=== PATIENT | male | born 1945 | race Caucasian/White ===

== ENCOUNTER 2017-04-05 13:37 | Outpatient (RCR) | payer MEDICARE, OTHER | END 2017-07-04 | disposition home or self-care (01) | LOC: ONC 13:37 | PROVIDERS: ATTEND Radiology Radiation Oncology | DX: C61 Malignant neoplasm of prostate (principal) | CPT/HCPCS: 99214 ==

== ENCOUNTER 2017-10-05 07:40 | Outpatient (RCR) | payer MEDICARE, OTHER | END 2017-10-29 | disposition home or self-care (01) | LOC: ONC 07:40 | PROVIDERS: ATTEND Radiology Radiation Oncology | DX: Z51.0 Encounter for antineoplastic radiation therapy (principal); C61 Malignant neoplasm of prostate | CPT/HCPCS: 77300; 77301; 77334; 77336; 77338; 77385; 77386 ==

== ENCOUNTER 2017-11-21 14:39 | Outpatient (RCR) | payer MEDICARE, OTHER | END 2017-11-28 | disposition home or self-care (01) | LOC: ONC 14:39 | PROVIDERS: ATTEND Radiology Radiation Oncology | DX: C61 Malignant neoplasm of prostate (principal) | CPT/HCPCS: 99213 ==

== ENCOUNTER 2018-08-23 05:37 | Outpatient (CLI) | payer MEDICARE, OTHER ==
[~2018-08-23] VITALS: Ht 172.7 cm; Wt 87.5 kg
[2018-08-23] MEDS ORDERED: METF-397 PO (11:44)
[2018-08-23] MEDS ORDERED: LEVO125T6 PO (11:44)
[2018-08-23] MEDS ORDERED: PANT40TA3 PO (11:44)
[2018-08-23] MEDS ORDERED: LIRA0.6P SQ (11:44)
== END 2018-08-23 11:46 | disposition home or self-care (01) ==
LOC: PREOP 05:37
PROVIDERS: ATTEND Surgery
DX: Z01.818 Encounter for other preprocedural examination (principal)

== ENCOUNTER 2018-08-27 08:20 | Day surgery (SDC) | payer MEDICARE, OTHER ==
[~2018-08-27 08:20] MED LIST: LEVO125T6 PO; LIRA0.6P SQ; METF-397 PO; PANT40TA3 PO
--- OUTSIDE RECORDS SUMMARY | 2018-08-27 08:23 | XMS REPORT | Continuity of Care Document ---
Author Organization Unknown Address Unknown Allergies Active Description Code Type Severity Reaction Onset Reported/Identified Relationship to Patient Clinical Status Yes No Known Drug Allergies [id number] Drug Allergy Unknown N/A 08/23/2018 Medications There is no data. Problems Date Dx Coded Attending Type Code Diagnosis Diagnosed By 04/07/2017 DEE MARTINEZ MD Ot C61 MALIGNANT NEOPLASM OF PROSTATE 05/23/2017 DEE MARTINEZ MD Ot C61 MALIGNANT NEOPLASM OF PROSTATE 07/04/2017 DEE MARTINEZ MD Ot C61 MALIGNANT NEOPLASM OF PROSTATE 09/20/2017 DEE MARTINEZ MD Ot C61 MALIGNANT NEOPLASM OF PROSTATE 10/29/2017 DEE MARTINEZ MD Ot C61 MALIGNANT NEOPLASM OF PROSTATE 10/29/2017 DEE MARTINEZ MD Ot Z51.0 ENCOUNTER FOR ANTINEOPLASTIC RADIATION T 11/22/2017 DEE MARTINEZ MD Ot C61 MALIGNANT NEOPLASM OF PROSTATE 11/28/2017 DEE MARTINEZ MD Ot C61 MALIGNANT NEOPLASM OF PROSTATE 12/19/2017 DEE MARTINEZ MD Ot C61 MALIGNANT NEOPLASM OF PROSTATE 02/01/2018 DEE MARTINEZ MD Ot C61 MALIGNANT NEOPLASM OF PROSTATE 04/11/2018 DEE MARTINEZ MD Ot C61 MALIGNANT NEOPLASM OF PROSTATE 04/11/2018 DEE MARTINEZ MD Ot C61 MALIGNANT NEOPLASM OF PROSTATE 08/23/2018 DEE MARTINEZ MD Ot C61 MALIGNANT NEOPLASM OF PROSTATE 08/23/2018 TAY AUGUST DO Ot Z01.818 ENCOUNTER FOR OTHER PREPROCEDURAL EXAMIN 08/24/2018 TAY AUGUST DO Ot Z01.818 ENCOUNTER FOR OTHER PREPROCEDURAL EXAMIN Procedures There is no data. Results Test Result Range AMMONIA - 08/02/18 09:34 AMMONIA (P) 138 umol/L < OR=72 Encounters ACCT No. Visit Date/Time Discharge Status Pt. Type Provider Facility Loc./Unit Complaint [id number] 08/07/2018 09:45:00 08/07/2018 23:59:59 CLS Outpatient MADELEINE NELSON [facility] [id number] 08/02/2018 08:40:00 Document Registration [id number] 08/23/2018 05:37:00 08/23/2018 11:46:00 DIS Outpatient TAY AUGUST DO Via [facility] PREOP COLONOSCOPY/EGD [id number] 01/29/2018 00:24:00 01/29/2018 23:59:59 CLS Preadmit DEE MARTINEZ MD Via [facility] ONC [id number] 2017 14:39:00 11/28/2017 00:01:00 DIS Outpatient DEE MARTINEZ MD Via [facility] ONC [id number] 10/05/2017 07:40:00 10/29/2017 00:01:00 DIS Outpatient DEE MARTINEZ MD Via [facility] ONC [id number] 04/05/2017 13:37:00 07/04/2017 00:01:00 DIS Outpatient DEE MARTINEZ MD Via [facility] ONC [id number] 08/27/2018 10:20:00 PEN Preadmit TAY AUGUST DO Via [facility] ENDO BLOOD IN STOOLS/GI BLEED
[2018-08-27] MEDS ORDERED: LACTATED RINGERS 1,000 ML IV ONE (08:27)
[2018-08-27] MEDS ORDERED: LACTATED RINGERS 1,000 ML IV STA (08:34)
[2018-08-27] MEDS ORDERED: HURRICAINE EXT TUBE (BENZOCAINE) XX PRN (08:45)
[2018-08-27 08:58] VITALS: BP 144/77
[2018-08-27] MEDS ORDERED: PROPOFOL INJECTION 50 ML IV ONE (09:15)
[2018-08-27] MEDS ORDERED: MIDAZOLAM 2 MG/2 ML (VERSED) VIAL ONE (09:15)
--- NOTE | 2018-08-27 09:41 | Progress Note-Pre Operative ---
Pre-Operative Progress Note H&P Reviewed The H&P was reviewed, patient examined and no changes noted. Time Seen by Provider: 09:39 Date H&P Reviewed: Aug 27, 2018 Time H&P Reviewed: 09:40 Pre-Operative Diagnosis: Chronic Gastritis, Rectal Bleed TAY AUGUST DO Aug 27, 2018 09:41
--- NOTE | 2018-08-27 10:33 | Progress Note-Post Operative ---
Post-Operative Progess Note Surgeon (s)/Field Seismologist (s) Surgeon TAY AUGUST DO Field Seismologist: none Pre-Operative Diagnosis Chronic Gastritis, Rectal Bleed Post-Operative Diagnosis Chronic Gastritis Duodenitis Hiatal hernia Cecal Polyp Internal hemorrhoids Procedure & Operative Findings Date of Procedure 08/27/18 Procedure Performed/Findings EGD with bx Colon with hot bx Anesthesia Type IV sedation by NUTRITIONAL SERVICES HOST Estimated Blood Loss Estimated blood loss (mL): scant Specimens/Packing Specimens Removed duodenal bx antral bx body of stomach bx Cecal polyp TAY AUGUST DO Aug 27, 2018 10:33
--- NOTE | 2018-08-27 10:34 | Endoscopy Discharge Instruct ---
Endo Procedure/Findings Findings 1.: Gastritis 2.: Hiatal Hernia 3.: Polyp 4.: Internal Hemorrhoids Discharge Instructions - Activity: You might feel a little sleepy until tomorrow. This is due to the medicine you received to relax you. Until tomorrow, you should: NOT drive a car, operate machinery or power tools. NOT drink any alcoholic beverages. NOT make any important decisions or sign importortant papers. Do not return to work until tomorrow, unless otherwise instructed. Resume previous activities tomorrow. Diet: Start by taking liquids. If you tolerate liquids, advance to solid food. make an appointment for one week Instructions: 1.: Colonoscopy in 1 year, EGD in 1 year Notify Physician - If you experience excessive bleeding, unusual abdominal pain, fever, or chest pain, contact your doctor immediately. Follow-Up: - I have received and understand the above instructions and will call my doctor if I have any further questions. Patient Signature Date Nurse Signature Other (Relationship) TAY AUGUST DO Aug 27, 2018 10:34
[2018-08-27 11:00] VITALS: BP 127/64
[2018-08-27 11:39] VITALS: BP 145/76
[2018-08-27 11:41] VITALS: BP 145/76
--- NOTE | 2018-08-27 14:20 | Anesthesia-General Post-Op ---
MAC Patient Condition Mental Status/LOC: Same as Preop Cardiovascular: Satisfactory Nausea/Vomiting: Absent Respiratory: Satisfactory Pain: Controlled Complications: Absent Post Op Complications Complications None Follow Up Care/Instructions Patient Instructions None needed. Anesthesiology Discharge Order Discharge Order Patient is doing well, no complaints, stable vital signs, no apparent adverse anesthesia problems. No complications reported per nursing. AMBROSE THAYER CRNA Aug 27, 2018 14:20
--- NOTE | 2018-08-28 01:19 | OPERATIVE REPORT ---
DATE OF SERVICE: 08/27/2018 PREOPERATIVE DIAGNOSIS: Chronic gastritis and rectal bleed. POSTOPERATIVE DIAGNOSES: 1. Gastritis. 2. Duodenitis. 3. Hiatal hernia. 4. Cecal polyp. 5. Internal hemorrhoids. PROCEDURES: 1. Colonoscopy with snare polypectomy. 2. EGD with biopsy. SURGEON: Raad Chance DO. DIAGNOSTIC MEDICAL SONOGRAPHER: None. ANESTHESIA: IV sedation by DYE REEL OPERATOR. SPECIMEN: 1. Biopsy from the duodenum. 2. Biopsy from the antrum. 3. Biopsy from the body of the stomach as well as finally a cecal polyp. BLOOD LOSS: Scant. FLUIDS: Per anesthesia. POSTOPERATIVE CONDITION: Stable. INDICATION FOR PROCEDURE: The patient is a 72-year-old male who has been having some rectal bleeding, history of cirrhosis and he has also had a chronic gastritis, needed a workup. FINDINGS: The patient had what looked like an ulcer in the duodenum or duodenitis. He also had some mild gastritis. He had a relatively large hiatal hernia and then he had a polyp in the cecum and some internal hemorrhoids. PROCEDURE NOTE: After informed consent was obtained, the patient was brought to the endoscopy suite, placed in the bed left lateral decubitus position. He was administered IV sedation by the DYE REEL OPERATOR who then monitored his vitals the entire time, heart rate, blood pressure and pulse ox. Started at the top, placed the scope down the mouth through the esophagus into the stomach, pushed in the duodenum, looked like there was some duodenitis and looked like even ulcer. When I did a biopsy this looked like it got a little bit of fibrinous or purulent fluid out. This was sent to pathology, back up into the antrum and took a biopsy of the antrum. The body of stomach actually also looked very erythematous almost like H. pylori, so did a couple biopsies of the body of the stomach, retroflexed the scope, saw the hiatal hernia and then pulled into the GE junction, looked actually okay. Pulled the scope up the esophagus and out the mouth. Switched scopes, switched camera, and gloves and went down below, started the colonoscopy. Pushed the scope all the way into 150 cm, able to get the cecum, took a picture of appendiceal orifice, noted the ileocecal valve, noted a polyp and did a hot biopsy of this polyp. Able to remove it en bloc, sent to pathology and then started withdrawing the scope insufflating to look circumferentially at the munoz looking at the cecum up the ascending colon and hepatic flexure, then down the transverse colon, splenic flexure, into the descending colon and down the sigmoid and finally in the rectum, retroflexed the rectal vault, saw some minimal internal hemorrhoids and then removed the scope. The patient tolerated the procedure. He was recovered in the endoscopy suite. Job ID: [id number] DocumentID: [id number] Dictated Date: 08/27/2018 15:22:03 Diet Consultant Date: 08/28/2018 01:19:05 Dictated By: RAAD CHANCE DO
== END 2018-08-27 11:50 | disposition home or self-care (01) ==
LOC: ENDO 08:20
PROVIDERS: ATTEND Surgery
DX: K29.50 Unspecified chronic gastritis without bleeding (principal); K29.80 Duodenitis without bleeding; K44.9 Diaphragmatic hernia without obstruction or gangrene; D12.0 Benign neoplasm of cecum; K64.8 Other hemorrhoids; K62.5 Hemorrhage of anus and rectum; K21.9 Gastro-esophageal reflux disease without esophagitis; K31.89 Other diseases of stomach and duodenum; K74.60 Unspecified cirrhosis of liver; E11.9 Type 2 diabetes mellitus without complications; K75.81 Nonalcoholic steatohepatitis (NASH); Z85.46 Personal history of malignant neoplasm of prostate; Z80.0 Family history of malignant neoplasm of digestive organs; Z79.84 Long term (current) use of oral hypoglycemic drugs; Z79.899 Other long term (current) drug therapy
CPT/HCPCS: 82962

== ENCOUNTER → 2019-01-04 | Outpatient (CLI) | payer MEDICARE, OTHER ==
--- NOTE | 2019-01-04 18:38 | Diagnostic Imaging Report ---
INDICATION: Preop for back surgery. TIME OF EXAM: 01:16 p.m. COMPARISON: No prior studies are available for comparison. FINDINGS: Right hemidiaphragm is mildly elevated. The heart size is normal. There is some ectasia and tortuosity of the descending thoracic aorta. Lungs are clear. No infiltrates are seen. There is no effusion or pneumothorax. IMPRESSION: No acute cardiopulmonary process is detected. Dictated by: Dictated on workstation # [id number]
== END ==
LOC: RAD FS 13:08
PROVIDERS: ATTEND Orthopaedic Surgery Orthopaedic Trauma
DX: Z01.812 Encounter for preprocedural laboratory examination (principal); Z01.811 Encounter for preprocedural respiratory examination
CPT/HCPCS: 71046

== ENCOUNTER 2019-01-11 09:03 | Outpatient (RCR) | payer MEDICARE, OTHER ==
[2019-01-11 09:19] LABS: HEMOGLOBIN 11.1 G/DL (13.3-17.7); MEAN PLATELET VOLUME 11.3 FL (7.4-10.4); RETICULOCYTE % 1.15 % (0.50-2.40); WHITE BLOOD COUNT 2.6 10^3/uL (4.3-11.0)
[2019-01-11 09:37] LABS: ALANINE AMINOTRANSFERASE 22 U/L (0-55); ALBUMIN 2.9 GM/DL (3.2-4.5); ALKALINE PHOSPHATASE 100 U/L (40-136); BILIRUBIN,TOTAL 1.2 MG/DL (0.1-1.0); BUN/CREATININE RATIO 11; CARBON DIOXIDE 21 MMOL/L (21-32); CHLORIDE 107 MMOL/L (98-107); CREATININE SERUM 0.96 MG/DL (0.60-1.30); GFR ESTIMATED > 60; GLUCOSE 271 MG/DL (70-105); SODIUM 137 MMOL/L (135-145); TOTAL PROTEIN 6.5 GM/DL (6.4-8.2)
== END 2019-04-11 | disposition home or self-care (01) ==
LOC: ONC 09:03
PROVIDERS: ATTEND Internal Medicine Hematology & Oncology
DX: C61 Malignant neoplasm of prostate (principal)
CPT/HCPCS: 80053; 82607; 82746; 83615; 85027; 85045; 99214

== ENCOUNTER → 2019-05-29 | Outpatient (CLI) | payer MEDICARE, OTHER ==
--- NOTE | 2019-05-29 09:43 | Diagnostic Imaging Report ---
INDICATION: Pain. TECHNIQUE: Two views of the left hip were obtained. FINDINGS: The alignment is normal. There is no fracture or dislocation. There are mild degenerative changes. The soft tissues are unremarkable. IMPRESSION: Mild degenerative changes; otherwise, unremarkable. Dictated by: Dictated on workstation # [id number]
== END ==
LOC: RAD FS 09:25
PROVIDERS: ATTEND Family Medicine
DX: M16.12 Unilateral primary osteoarthritis, left hip (principal)
CPT/HCPCS: 73502

== ENCOUNTER 2019-08-17 09:41 | Inpatient (IN) | payer MEDICARE, OTHER ==
[2019-08-17] VITALS (10 sets, daily range): BP systolic 118–157; BP diastolic 71–89
[~2019-08-17] VITALS: Ht 172 cm; Wt 88.3 kg
--- NOTE | 2019-08-17 09:54 | ED Neurological Problem ---
General Chief Complaint: Altered Mental Status Stated Complaint: CONFUSION Source: patient Exam Limitations: no limitations History of Present Illness Date Seen by Provider: Aug 17, 2019 Time Seen by Provider: 09:53 Initial Comments confusion persists over past 3 days, pt aware. Brought in by his who remains in [facility] during eval. Hx of cirrhosis (non-alcoholic), gives decent HPI, but thinks today is "December of 1999" Allergies and Home Medications Allergies Coded Allergies: No Known Drug Allergies (Verified , 08/27/18) Home Medications Levothyroxine Sodium 125 Mcg Tablet, 125 MCG PO DAILY, (Reported) Metformin HCl 500 Mg Tablet, 500 MG PO BID, (Reported) Pantoprazole Sodium 40 Mg Tablet.dr, 40 MG PO DAILY, (Reported) Patient Home Medication List Home Medication List Reviewed: Yes Review of Systems Review of Systems Constitutional: No dizziness, No fever, No malaise, No weakness Eyes: No Symptoms Reported Ears, Nose, Mouth, Throat: no symptoms reported Respiratory: No cough, No short of breath, No wheezing Cardiovascular: No chest pain; edema; No palpitations Gastrointestinal: No abdominal pain; constipation (no BM x 2 days); No diarrhea, No loss of appetite Musculoskeletal: No back pain, No joint pain Skin: No change in color, No change in hair/nails, No rash Psychiatric/Neurological: Denies Anxiety, Denies Depressed, Denies Emotional Problems Past Yedtsyi-Mpywgc-Xqqlqg Hx Past Med/Social Hx: Reviewed Nursing Past Med/Soc Hx Patient Social History Alcohol Use: Denies Use Recent Hopitalizations: No Seasonal Allergies Seasonal Allergies: No Past Medical History Surgeries: Yes (back sx, hernia, rectal fissure) Respiratory: No Cardiac: No Neurological: No Genitourinary: Yes (prostate cancer) Gastrointestinal: Yes Gastrointestinal Bleed, Cirrhosis Musculoskeletal: No Endocrine: Yes Hypothyroidsim, Diabetes, Non-Insulin dep HEENT: Yes (cataracts removed, ) Hearing Impairment: Hard of Hearing, Bilateral Hearing Aide Cancer: Yes Prostate What Type of Treatment Did You: Radiation Psychosocial: No Integumentary: No Blood Disorders: No (anemia r/t radiation) Physical Exam Vital Signs Vital Signs - First Documented 08/17/19 09:49 Pulse 92 Resp 16 B/P (MAP) 157/81 (106) Pulse Ox 99 Capillary Refill : Height, Weight, BMI Height: 5'8.00" Weight: 193lbs. 0.0oz. 87.073887rl; 29.4 BMI Method: General Appearance: WD/WN, no apparent distress HEENT: PERRL/EOMI, normal ENT inspection Neck: non-tender, full range of motion, supple Respiratory: chest non-tender, lungs clear Cardiovascular: regular rate, rhythm, no JVD, other (LE edema to knees) Gastrointestinal: normal bowel sounds, non tender, soft Back: normal inspection, no CVA tenderness, no vertebral tenderness Extremities: normal range of motion, non-tender, normal inspection, normal capillary refill, pedal edema (and b/l LE edema) Neurologic/Psychiatric: no motor/sensory deficits, alert, other (confused, but communicative. Answers questions appropriately) Focused Exam Lactate Level 08/17/19 09:56: Lactic Acid Level 4.26*H Lactic Acid Level Laboratory Tests Test 08/17/19 09:56 Lactic Acid Level 4.26 MMOL/L (0.50-2.00) *H Progress/Results/Core Measures Results/Orders Lab Results Laboratory Tests Test 08/17/19 09:56 08/17/19 10:27 Range/Units White Blood Count 4.3 4.3-11.0 10^3/uL Red Blood Count 3.17 L 4.35-5.85 10^6/uL Hemoglobin 11.6 L 13.3-17.7 G/DL Hematocrit 34 L 40-54 % Mean Corpuscular Volume 108 H 80-99 FL Mean Corpuscular Hemoglobin 37 H 25-34 PG Mean Corpuscular Hemoglobin Concent 34 32-36 G/DL Red Cell Distribution Width 16.0 H 10.0-14.5 % Platelet Count 28 *L 130-400 10^3/uL Mean Platelet Volume 11.8 H 7.4-10.4 FL Neutrophils (%) (Auto) 75 42-75 % Lymphocytes (%) (Auto) 11 L 12-44 % Monocytes (%) (Auto) 11 0-12 % Eosinophils (%) (Auto) 2 0-10 % Basophils (%) (Auto) 1 0-10 % Neutrophils # (Auto) 3.2 1.8-7.8 X 10^3 Lymphocytes # (Auto) 0.5 L 1.0-4.0 X 10^3 Monocytes # (Auto) 0.5 0.0-1.0 X 10^3 Eosinophils # (Auto) 0.1 0.0-0.3 10^3/uL Basophils # (Auto) 0.0 0.0-0.1 10^3/uL Prothrombin Time 16.5 H 12.2-14.7 SEC INR Comment 1.3 0.8-1.4 Sodium Level 140 135-145 MMOL/L Potassium Level 4.4 3.6-5.0 MMOL/L Chloride Level 104 98-107 MMOL/L Carbon Dioxide Level 20 L 21-32 MMOL/L Anion Gap 16 H 5-14 MMOL/L Blood Urea Nitrogen 14 7-18 MG/DL Creatinine 0.64 0.60-1.30 MG/DL Estimat Glomerular Filtration Rate > 60 BUN/Creatinine Ratio 22 Glucose Level 194 H 70-105 MG/DL Lactic Acid Level 4.26 *H 0.50-2.00 MMOL/L Calcium Level 8.9 8.5-10.1 MG/DL Corrected Calcium 9.7 8.5-10.1 MG/DL Total Bilirubin 1.1 H 0.1-1.0 MG/DL Aspartate Amino Transf (AST/SGOT) 40 H 5-34 U/L Alanine Aminotransferase (ALT/SGPT) 28 0-55 U/L Alkaline Phosphatase 141 H 40-136 U/L Troponin I < 0.30 <0.30 NG/ML Pro-B-Type Natriuretic Peptide 37.5 <75.0 PG/ML Total Protein 6.8 6.4-8.2 GM/DL Albumin 3.0 L 3.2-4.5 GM/DL Urine Color YELLOW Urine Clarity CLEAR Urine pH 5.5 5-9 Urine Specific [place] 1.025 H 1.016-1.022 Urine Protein NEGATIVE NEGATIVE Urine Glucose (UA) NEGATIVE NEGATIVE Urine Ketones TRACE H NEGATIVE Urine Nitrite NEGATIVE NEGATIVE Urine Bilirubin NEGATIVE NEGATIVE Urine Urobilinogen 0.2 < = 1.0 MG/DL Urine Leukocyte Esterase NEGATIVE NEGATIVE Urine RBC (Auto) NEGATIVE NEGATIVE Urine RBC NONE /HPF Urine WBC RARE /HPF Urine Crystals NONE /LPF Urine Bacteria NONE /HPF Urine Casts NONE /LPF Urine Mucus TRACE /LPF Urine Culture Indicated NO My Orders Orders - DAVID GILLESPIE DO Cbc With Automated Diff (08/17/19 09:54) Comprehensive Metabolic Panel (08/17/19 09:54) Ammonia (08/17/19 09:54) Urinalysis (08/17/19 09:54) Ed Iv/Invasive Line Start (08/17/19 09:54) Troponin I Fs (08/17/19 10:08) Probnp Fs (08/17/19 10:08) Protime With Inr (08/17/19 10:08) Lactic Acid Analyzer (08/17/19 10:08) Ct Head Wo (08/17/19 10:25) Ns Iv 500 Ml (Sodium Chloride 0.9%) (08/17/19 11:15) Medications Given in ED Current Medications Medications Dose Ordered Sig/Matt Route Start Time Stop Time Status Last Admin Dose Admin Sodium Chloride 500 ml @ 100 mls/hr Q5H ONCE IV 08/17/19 11:15 08/17/19 16:14 08/17/19 11:17 100 MLS/HR Vital Signs/I&O 08/17/19 09:49 Pulse 92 Resp 16 B/P (MAP) 157/81 (106) Pulse Ox 99 Diagnostic Imaging Diagonstic Imaging: CT Plain Films/CT/US/NM/MRI: head Comments INDICATION: Confusion for 3 days. No prior studies are available for comparison. Ventricles and sulci are appropriate for the patient's age. There is periventricular hypodensity noted, likely owing to chronic microvascular ischemia. No midline shift is identified. No acute intra-axial or extra-axial hemorrhage is detected. Cisterns are patent. Visualized paranasal sinuses are clear. IMPRESSION: Chronic changes. No acute intracranial process is detected. Dictated on workstation # [id number] Dict: 08/17/19 1043 Trans: 08/17/19 1046 [facility] [id number] Interpreted by: ALLIE ZHAO MD Electronically signed by: Departure Communication (Admissions) Time/Spoke to Admitting Phy: 11:[address] Vega @ [id number] for transfer to the ICU @ [facility] Impression Primary Impression: Confusion Additional Impressions: Acidosis Cirrhosis Qualified Codes: K74.60 - Unspecified cirrhosis of liver Thrombocytopenia Disposition: ADMITTED INPATIENT Condition: Stable Admissions Decision to Admit Reason: Admit from ER (General) Decision to Admit/Date: Aug 17, 2019 Time/Decision to Admit Time: 11:15 Departure-Patient Inst. Referrals: SELF,MADELEINE FIGUEREDO (PCP/Family) Primary Care Physician DAVID GILLESPIE DO Aug 17, 2019 09:54
[2019-08-17] MEDS ORDERED: FURO40TA4 PO (09:59)
[2019-08-17] MEDS ORDERED: ATOR10TA66 PO (09:59)
[2019-08-17] MEDS ORDERED: SPIR25TA5 PO (09:59)
[2019-08-17 10:23] LABS: HEMATOCRIT 34 % (40-54); HEMOGLOBIN 11.6 G/DL (13.3-17.7); MEAN CORPUSCULAR HEMOGLOBIN 37 PG (25-34); MEAN CORPUSCULAR HGB CONC 34 G/DL (32-36); MEAN CORPUSCULAR VOLUME 108 FL (80-99); WHITE BLOOD COUNT 4.3 10^3/uL (4.3-11.0)
[2019-08-17 10:25] LABS: BASOPHILS % (AUTO) 1 % (0-10); EOSINOPHILS # (AUTO) 0.1 10^3/uL (0.0-0.3); EOSINOPHILS % (AUTO) 2 % (0-10); LYMPHOCYTES # (AUTO) 0.5 X 10^3 (1.0-4.0); LYMPHOCYTES % (AUTO) 11 % (12-44); MEAN PLATELET VOLUME 11.8 FL (7.4-10.4); MONOCYTES # (AUTO) 0.5 X 10^3 (0.0-1.0); MONOCYTES % (AUTO) 11 % (0-12); NEUTROPHILS # (AUTO) 3.2 X 10^3 (1.8-7.8); NEUTROPHILS % (AUTO) 75 % (42-75); PLATELET COUNT 28 10^3/uL (130-400)
[2019-08-17 10:31] LABS: INR 1.3 (0.8-1.4); PROTHROMBIN TIME PATIENT 16.5 SEC (12.2-14.7)
[2019-08-17 10:38] LABS: CLARITY,URINE CLEAR; COLOR,URINE YELLOW; GLUCOSE, URINE (UA) NEGATIVE (NEGATIVE); KETONES,URINE TRACE (NEGATIVE); NITRITE,URINE NEGATIVE (NEGATIVE); PH,URINE 5.5 (5-9); PROTEIN,URINE NEGATIVE (NEGATIVE)
[2019-08-17 10:39] LABS: BILIRUBIN,URINE NEGATIVE (NEGATIVE); LEUKOCYTE ESTERASE ,URINE NEGATIVE (NEGATIVE); WBC,URINE RARE /HPF
--- NOTE | 2019-08-17 10:46 | Diagnostic Imaging Report ---
PROCEDURE: CT head without contrast. TECHNIQUE: Multiple contiguous axial images were obtained through the brain without the use of intravenous contrast. Auto Exposure Controls were utilized during the CT exam to meet ALARA standards for radiation dose reduction. INDICATION: Confusion for 3 days. No prior studies are available for comparison. Ventricles and sulci are appropriate for the patient's age. There is periventricular hypodensity noted, likely owing to chronic microvascular ischemia. No midline shift is identified. No acute intra-axial or extra-axial hemorrhage is detected. Cisterns are patent. Visualized paranasal sinuses are clear. IMPRESSION: Chronic changes. No acute intracranial process is detected. Dictated by: Dictated on workstation # [id number]
[2019-08-17 10:51] LABS: ALANINE AMINOTRANSFERASE 28 U/L (0-55); ALKALINE PHOSPHATASE 141 U/L (40-136); BILIRUBIN,TOTAL 1.1 MG/DL (0.1-1.0); BUN/CREATININE RATIO 22; CALCIUM 8.9 MG/DL (8.5-10.1); CARBON DIOXIDE 20 MMOL/L (21-32); CHLORIDE 104 MMOL/L (98-107); CREATININE SERUM 0.64 MG/DL (0.60-1.30); GFR ESTIMATED > 60; GLUCOSE 194 MG/DL (70-105); POTASSIUM 4.4 MMOL/L (3.6-5.0); SODIUM 140 MMOL/L (135-145); TOTAL PROTEIN 6.8 GM/DL (6.4-8.2)
[2019-08-17] MEDS ORDERED: NS IV 500 ML 500 ML IV ONE (11:15)
[2019-08-17] MEDS ORDERED: PANTOPRAZOLE 40 MG (PROTONIX) TAB PO ONE (14:30)
[2019-08-17] MEDS ORDERED: ONDANSETRON 4 MG/2 ML (SDV) Z0FRAN IVP PRN (14:30)
[2019-08-17] MEDS ORDERED: CALCIUM CARBONATE 500 MG (TUMS) TAB.CHEW PO PRN (14:30)
[2019-08-17] MEDS ORDERED: fentaNYL INJECTION 100 MCG/2 ML AMP IVP PRN (14:30)
[2019-08-17] MEDS ORDERED: MELATONIN 3 MG TABLET PO PRN (14:30)
--- NOTE | 2019-08-17 14:32 | History & Physical-Hospitalist ---
History of Present Illness HPI/Chief Complaint CC: Confusion due to hepatic encephalopathy and elevated lactic acid HPI: This is a 73yoWM clinic patient of Dr Ramos in [facility] and Dr Klein at [facility] Hepatology who has a h/o BROWN-cirrhosis on Rifaximin with intolerance to Lactulose due to low-volume hematochezia so maintained on Miralax with good results, prostate cancer s/p radiation treatment under [facility] center, DM on Victoza and Metformin and also a hepatic encephalopathy episode 06/2018 while traveling in [place] presumed medication non-compliance per Dr Klein [facility] notes who presents to the [facility] ER with confusion and overall diminished memory issues who was found to have elevated lactic acid and increase ammonia levels. IVF initiated from the ER visit and that seems to have helped. Patient was just started on Lasix for lower extremity edema. It helped the edema per the patient but not by much. Albumin is low at 2.8. PCT is negative with no evidence of any infectious source of the hepatic encephalopathy but I did note Metformin maintained at home which could very well be a major factor in the elevated lactic acid level so I would recommend stopping that completely and I did confirm that on [employer] online medical management resource. Source: RN/MD, old records Exam Limitations: clinical condition Date Seen 08/17/19 Time Seen by a Provider: 14:45 Attending Physician Ebony Vega Maxwell MD Referring Physician Date of Admission Aug 17, 2019 at 11:32 Home Medications & Allergies Home Medications Reviewed patient Home Medication Reconciliation performed by pharmacy medication reconciliations hitch technician and/or nursing. Patients Allergies have been reviewed. 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) Alcohol Use: Denies Use Recreational Drug Use: No Smoking Status: Never a Smoker 2nd Hand Smoke Exposure: No Recent Foreign Travel: No Contact w/other who traveled: No Recent Hopitalizations: No Recent Infectious Disease Expo: No Seasonal Allergies Seasonal Allergies: No Past Medical History Cardiac: High Cholesterol Gastrointestinal: Gastrointestinal Bleed, Cirrhosis Endocrine: Hypothyroidsim, Diabetes, Non-Insulin dep Hearing Impairment: Hard of Hearing, Bilateral Hearing Aide Cancer: Prostate What Type of Treatment Did You: Radiation History of Blood Disorders: No (anemia r/t radiation) Review of Systems Constitutional: see HPI, dizziness, malaise, weakness Psychiatric/Neurological: Other (confusion) Physical Exam Physical Exam Vital Signs Vital Signs - First Documented 08/17/19 08/17/19 08/17/19 09:49 13:40 14:47 Temp 36.4 Pulse 92 Resp 16 B/P (MAP) 157/81 (106) Pulse Ox 99 O2 Delivery Room Air Capillary Refill : Less Than 3 Seconds Height, Weight, BMI Height: 5'8.00" Weight: 193lbs. 0.0oz. 87.256641fj; 28.00 BMI Method: General Appearance: No Apparent Distress, Chronically ill Eyes: Right Eye Normal Inspection, Right Eye PERRL HEENT: PERRL/EOMI, Normal ENT Inspection, Pharynx Normal, Moist Mucous Membranes Neck: Full Range of Motion, Normal Inspection, Non Tender Respiratory: Chest Non Tender, Lungs Clear, Normal Breath Sounds, No Accessory Muscle Use, No Respiratory Distress Cardiovascular: Regular Rate, Rhythm, No Gallop, No JVD, No Murmur, Normal Peripheral Pulses Gastrointestinal: Normal Bowel Sounds, No Organomegaly, No Pulsatile Mass, Soft, Distended Back: Normal Inspection, No CVA Tenderness, No Vertebral Tenderness Extremity: Normal Capillary Refill, Normal Inspection, Normal Range of Motion, Non Tender, No Calf Tenderness, Pedal Edema Neurologic/Psychiatric: Alert, Oriented x3 (subtle confusion noted), No Motor/Sensory Deficits, Normal Mood/Affect, 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 ICU status Consult Vianey Amezquita and Ana Lovenox contraindicated due to low platelets and coagulopathy 1.5 INR due to cirrhosis Miralax and Rifaximin since intolerant to Lactulose Admission Status: Inpatient Order (span 2 midnights) Reason for Inpatient Admission: hepatic encephalopathy with lactic acidosis Diagnosis/Problems Diagnosis/Problems (1) Hepatic encephalopathy (2) Metformin adverse reaction (3) Diabetes mellitus (4) Lactic acid acidosis (5) Prostate cancer (6) Radiation colitis (7) Hematochezia due to medication (8) Cirrhosis Status: Acute Qualifiers: Hepatic cirrhosis type: unspecified hepatic cirrhosis Ascites presence: unspecified Qualified Codes: K74.60 - Unspecified cirrhosis of liver (9) Thrombocytopenia Status: Acute (10) Confusion Status: Acute Clinical Quality Measures DVT/VTE Risk/Contraindication: Contraindications-Pharm: Other *list below* Other: low platelets and cirrhosis Copy Copies To 1: MADELEINE RAMOS MD, MINDI DO Aug 17, 2019 14:32
[2019-08-17 14:39] LABS: AMMONIA 149 UMOL/L (11-32)
[2019-08-17] MEDS ORDERED: VIT1CAPS44 PO (14:48)
[2019-08-17] MEDS ORDERED: RIFA550T PO (14:48)
[2019-08-17 15:06] LABS: BASOPHILS # (AUTO) 0.1 10^3/uL (0.0-0.1); BASOPHILS % (AUTO) 1 % (0-10); EOSINOPHILS # (AUTO) 0.1 10^3/uL (0.0-0.3); EOSINOPHILS % (AUTO) 2 % (0-10); HEMATOCRIT 33 % (40-54); HEMOGLOBIN 11.3 G/DL (13.3-17.7); LYMPHOCYTES # (AUTO) 0.8 X 10^3 (1.0-4.0); LYMPHOCYTES % (AUTO) 18 % (12-44); MEAN CORPUSCULAR HEMOGLOBIN 37 PG (25-34); MEAN CORPUSCULAR HGB CONC 34 G/DL (32-36); MEAN CORPUSCULAR VOLUME 107 FL (80-99); MEAN PLATELET VOLUME 11.8 FL (7.4-10.4); MONOCYTES # (AUTO) 0.6 X 10^3 (0.0-1.0); MONOCYTES % (AUTO) 13 % (0-12); NEUTROPHILS # (AUTO) 2.8 X 10^3 (1.8-7.8); NEUTROPHILS % (AUTO) 66 % (42-75); RED CELL DISTRIBUTION WIDTH 16.2 % (10.0-14.5); WHITE BLOOD COUNT 4.3 10^3/uL (4.3-11.0)
[2019-08-17] MEDS: RIFAXIMIN 550 MG TABLET (XIFAXAN) PO SCH ×2 (15:08→20:35)
[2019-08-17 15:09] LABS: PLATELET COUNT 31 10^3/uL (130-400)
[2019-08-17] MEDS: polyethylene glycoL POWDER 17 GM (MIRALAX) PACK PO SCH ×4 (15:09→23:43)
[2019-08-17] MEDS: NS IV 1000 ML 1,000 ML IV SCH ×2 (15:09→23:43)
[2019-08-17 15:16] LABS: INR 1.5 (0.8-1.4); PROTHROMBIN TIME PATIENT 18.6 SEC (12.2-14.7)
[2019-08-17 15:25] LABS: ALANINE AMINOTRANSFERASE 29 U/L (0-55); ALBUMIN 2.8 GM/DL (3.2-4.5); ALKALINE PHOSPHATASE 123 U/L (40-136); AMMONIA 93 UMOL/L (11-32); BILIRUBIN,TOTAL 1.1 MG/DL (0.1-1.0); BUN/CREATININE RATIO 16; CALCIUM 8.5 MG/DL (8.5-10.1); CARBON DIOXIDE 18 MMOL/L (21-32); CHLORIDE 106 MMOL/L (98-107); CREATININE SERUM 0.75 MG/DL (0.60-1.30); GFR ESTIMATED > 60; GLUCOSE 114 MG/DL (70-105); POTASSIUM 3.8 MMOL/L (3.6-5.0); SODIUM 137 MMOL/L (135-145); TOTAL PROTEIN 6.7 GM/DL (6.4-8.2)
[2019-08-17 15:43] LABS: AMPHETAMINE SCREEN, URINE NEGATIVE (NEGATIVE); BARBITURATE SCREEN URINE NEGATIVE (NEGATIVE); BENZODIAZEPINES SCREEN URINE NEGATIVE (NEGATIVE); CANNABINOID SCREEN, URINE NEGATIVE (NEGATIVE); COCAINE SCREEN URINE NEGATIVE (NEGATIVE); METHADONE STAT NEGATIVE (NEGATIVE); METHAMPHETAMINE SCREEN URINE S NEGATIVE (NEGATIVE); OPIATE SCREEN URINE NEGATIVE (NEGATIVE); OXYCODONE STAT NEGATIVE (NEGATIVE); PROPOXYPHENE STAT NEGATIVE (NEGATIVE); TRICYCLIC ANTIDEPRESSANTS SCRE NEGATIVE (NEGATIVE)
[2019-08-17] MEDS: inSUlin ASPART (NovoLOG) 1 UNIT/0.01 ML (CHARGE PER UNIT) SC SCH ×2 (16:03→20:35)
[2019-08-17] MEDS ORDERED: RT-ALBUTEROL SULF 2.5 MG/3 ML PRE-MIX VIAL INH PRN (16:30)
--- NOTE | 2019-08-17 17:27 | CONSULTATION REPORT ---
DATE OF SERVICE: ATTENDING PRIMARY CARE PHYSICIAN: Dr. Troy Ramos. ADMITTING PHYSICIAN: Dr. Vega. HISTORY OF PRESENT ILLNESS: The patient is a 73-year-old male who resides in [place]. He does have a history of nonalcoholic steatohepatitis and resultant cirrhosis. He has been seen by hepatology at [facility] and is on rifaximin. He was also on lactulose; however, developed rectal bleeding and with this was changed to MiraLax. This gentleman also does have a history of prostate cancer and is status post radiation therapy. He is on a number of different medications including Victoza, metformin which have been associated with hepatic encephalopathy. He has also had issues with confusion and memory loss. This may be secondary to elevated lactic acid as well as increased ammonia levels. He also does have lower extremity edema and was recently started on Lasix. PAST MEDICAL HISTORY: Nonalcoholic steatohepatitis with resultant liver cirrhosis, hypothyroid, diabetes, history of prostate cancer, hypercholesterolemia. ALLERGIES: No known drug allergies. MEDICATIONS: Atorvastatin 10 mg daily, furosemide 40 mg daily, levothyroxine 125 mcg daily, metformin 500 mg b.i.d., Protonix 40 mg daily, rifaximin 550 mg daily, spironolactone 25 mg daily. SOCIAL HISTORY: Negative smoke, negative alcohol. FAMILY HISTORY: Noncontributory. VITAL SIGNS: Temperature 36.5, blood pressure 137/72, pulse 83, pulse ox 97% on room air. REVIEW OF SYSTEMS: Well-nourished male currently in no acute distress. It appears that he does have some mild confusion. He does answer majority of questions appropriately. He is not experiencing any shortness of breath or difficulty breathing. No chest pain, palpitations, diaphoresis. No nausea, vomiting. He has had episodes of loose stools as well as blood per rectum. However, states that this has resolved recently. No fever, chills, no recent inadvertent weight loss. All other review of systems negative. PHYSICAL EXAMINATION: CHEST: Few scattered rales and rhonchi bilaterally. HEART: Regular, no murmurs. EXTREMITIES: +2/3 bilateral lower extremity edema, negative Homans sign. HEENT: No scleral icterus. NECK: No cervical lymphadenopathy. ABDOMEN: Soft, slightly distended. Negative fluid shift wave. No abdominal tenderness. SKIN: Warm, dry. LABORATORY DATA: WBC 4.3, hemoglobin 11.3, hematocrit 33, platelets 31. Lactic acid is 4.75, albumin 2.8, total bilirubin 1.1, INR is 1.5. ASSESSMENT AND PLAN: A 73-year-old male with liver cirrhosis secondary to nonalcoholic steatohepatitis with confusion, most likely due to accumulation of pneumonia as well as lactic acid. We will proceed with continued medical management with diuretics as well as IV hydration and a low protein, low sodium as well as a low liquid intake diet. We will also discuss the need for a colonoscopy on this admission. Job ID: [id number] DocumentID: [id number] Dictated Date: 08/17/2019 16:56:25 Enrichment Director Date: 08/17/2019 17:27:13 Dictated By: FRANCO ORTA MD
[2019-08-18] VITALS (19 sets, daily range): BP systolic 111–162; BP diastolic 69–97
[2019-08-18 02:58] LABS: BASOPHILS % (AUTO) 1 % (0-10); EOSINOPHILS # (AUTO) 0.1 10^3/uL (0.0-0.3); EOSINOPHILS % (AUTO) 4 % (0-10); HEMATOCRIT 30 % (40-54); HEMOGLOBIN 10.1 G/DL (13.3-17.7); LYMPHOCYTES # (AUTO) 0.7 X 10^3 (1.0-4.0); LYMPHOCYTES % (AUTO) 25 % (12-44); MEAN CORPUSCULAR HGB CONC 34 G/DL (32-36); MEAN CORPUSCULAR VOLUME 108 FL (80-99); MEAN PLATELET VOLUME 11.1 FL (7.4-10.4); MONOCYTES # (AUTO) 0.5 X 10^3 (0.0-1.0); MONOCYTES % (AUTO) 17 % (0-12); NEUTROPHILS # (AUTO) 1.5 X 10^3 (1.8-7.8); NEUTROPHILS % (AUTO) 53 % (42-75); RED CELL DISTRIBUTION WIDTH 16.4 % (10.0-14.5); WHITE BLOOD COUNT 2.8 10^3/uL (4.3-11.0)
[2019-08-18 03:00] LABS: MEAN CORPUSCULAR HEMOGLOBIN 36 PG (25-34)
[2019-08-18 03:01] LABS: PLATELET COUNT 26 10^3/uL (130-400)
[2019-08-18 03:10] LABS: ALBUMIN 2.5 GM/DL (3.2-4.5); CHLORIDE 110 MMOL/L (98-107); POTASSIUM 3.9 MMOL/L (3.6-5.0); SODIUM 140 MMOL/L (135-145)
[2019-08-18 03:11] LABS: CALCIUM 7.9 MG/DL (8.5-10.1); INR 1.6 (0.8-1.4); PROTHROMBIN TIME PATIENT 19.7 SEC (12.2-14.7)
[2019-08-18 03:12] LABS: GLUCOSE 110 MG/DL (70-105)
[2019-08-18 03:14] LABS: BILIRUBIN,TOTAL 1.1 MG/DL (0.1-1.0); CARBON DIOXIDE 20 MMOL/L (21-32)
[2019-08-18 03:16] LABS: ALKALINE PHOSPHATASE 112 U/L (40-136); CREATININE SERUM 0.68 MG/DL (0.60-1.30); GFR ESTIMATED > 60; PHOSPHORUS 2.7 MG/DL (2.3-4.7)
[2019-08-18 03:17] LABS: BUN/CREATININE RATIO 16
[2019-08-18 03:19] LABS: ALANINE AMINOTRANSFERASE 27 U/L (0-55); MAGNESIUM 1.7 MG/DL (1.6-2.4)
[2019-08-18] MEDS: KCL 20 MEQ TAB (K-DUR) PO SCH (04:23)
[2019-08-18] MEDS: POTASSIUM CL 10MEQ/50ML IVPB 50 ML IV SCH (04:23)
[2019-08-18] MEDS: inSUlin ASPART (NovoLOG) 1 UNIT/0.01 ML (CHARGE PER UNIT) SC SCH ×4 (04:39→21:00)
[2019-08-18] MEDS: polyethylene glycoL POWDER 17 GM (MIRALAX) PACK PO SCH ×5 (04:42→20:06)
[2019-08-18] MEDS: LEVOTHYROXINE 125 MCG (LEVOTHROID) TABLET PO SCH (04:42)
--- NOTE | 2019-08-18 06:09 | Pulmonary Consultation ---
History of Present Illness History of Present Illness Date Seen by Provider: Aug 18, 2019 Time Seen by Provider: 06:02 Date of Admission History of Present Illness 73yo with hx of DM, prostate cancer BROWN on Rifaximin and intolerance to Lactulose secondary to hematochezia presented to ED secondary to confusion and lethargy. He was found to have elevated ammonia level. He was admitted to ICU for close observation. He has had similar episodes in the past. Allergies and Home Medications Allergies Coded Allergies: metformin (Verified Allergy, Unknown, 08/17/19) lactic acidosis 08/17/19 Home Medications Albuterol Sulfate 1 Puff Puff, 1 PUFF PO Q4H PRN for SHORTNESS OF BREATH, (Reported) Atorvastatin Calcium 10 Mg Tablet, 10 MG PO DAILY, (Reported) Furosemide 40 Mg Tablet, 40 MG PO DAILY PRN for FLUID RETENTION, (Reported) TAKES IF WEIGHT IS UP BY 2-3 POUNDS Levothyroxine Sodium 125 Mcg Tablet, 125 MCG PO DAILY, (Reported) Pantoprazole Sodium 40 Mg Tablet.dr, 40 MG PO DAILY Prescribed by: MALDONADO SAUL on 08/20/19 1120 Polyethylene Glycol 3350 17 Gm Powd.pack, 17 GM PO Q4HR Give 1 scoop in 4 oz of fluid QID or until 5 BM's a day Prescribed by: MALDONADO SAUL on 08/20/19 1120 Rifaximin 550 Mg Tablet, 550 TAB PO BID, (Reported) Spironolactone 25 Mg Tablet, 25 MG PO DAILY, (Reported) Vit C/E/Zn/Coppr/Lutein/Zeaxan 1 Each Capsule, 2 EACH PO DAILY, (Reported) Past Lyzfzkv-[id number]-Wqkxlk Hx Past Med/Social Hx: Reviewed Nursing Past Med/Soc Hx, Reviewed and Corrections made Patient Social History Alcohol Use: Denies Use Recreational Drug Use: No Smoking Status: Never a Smoker 2nd Hand Smoke Exposure: No Recent Foreign Travel: No Contact w/Someone Who Travel: No Recent Infectious Disease Expo: No Recent Hopitalizations: No Immunizations Up To Date Date of Pneumonia Vaccine: Jan 29, 2019 Seasonal Allergies Seasonal Allergies: No Past Medical History Surgeries: Yes (back sx, hernia, rectal fissure) Respiratory: No Cardiac: Yes High Cholesterol Neurological: No Genitourinary: Yes (prostate cancer) Gastrointestinal: Yes Gastrointestinal Bleed, Cirrhosis Musculoskeletal: No Endocrine: Yes Hypothyroidsim, Diabetes, Non-Insulin dep HEENT: Yes (cataracts removed, ) Hearing Impairment: Hard of Hearing, Bilateral Hearing Aide Cancer: Yes Prostate What Type of Treatment Did You: Radiation Psychosocial: No Integumentary: No Blood Disorders: No (anemia r/t radiation) Review of Systems Time Seen by Provider: 09:14 Sepsis Event Evaluation Height, Weight, BMI Height: 5'8.00" Weight: 193lbs. 0.0oz. 87.250239jd; 28.00 BMI Method: Exam Exam Vital Signs Date Time Temp Pulse Resp B/P (MAP) Pulse Ox O2 Delivery O2 Flow Rate FiO2 08/18/19 04:00 36.0 08/18/19 04:00 Room Air 08/18/19 03:00 85 13 122/80 (94) 96 Room Air 08/18/19 02:00 86 12 131/97 (108) 95 Room Air 08/18/19 01:00 80 08/18/19 01:00 80 12 137/78 (97) 95 Room Air 08/18/19 00:00 86 15 137/80 (99) 98 Room Air 08/17/19 23:45 Room Air 08/17/19 23:44 36.8 08/17/19 23:00 107 19 119/72 (88) 95 Room Air 08/17/19 22:00 80 13 130/75 (93) 97 Room Air 08/17/19 21:00 87 14 130/71 (90) 98 Room Air 08/17/19 20:00 36.4 08/17/19 20:00 76 17 121/72 (88) 96 Room Air 08/17/19 19:56 Room Air 08/17/19 19:00 84 08/17/19 19:00 84 16 118/74 (89) 97 Room Air 08/17/19 17:00 90 13 118/72 (87) 98 Room Air 08/17/19 16:17 36.5 83 97 08/17/19 16:09 97 Room Air 08/17/19 16:00 82 8 137/72 (93) 97 Room Air 08/17/19 16:00 36.5 08/17/19 15:00 83 23 135/76 (95) 99 Room Air 08/17/19 15:00 98 Room Air 08/17/19 14:47 36.8 98 19 157/89 (111) 99 Room Air 08/17/19 14:45 91 08/17/19 13:40 36.4 87 16 104/87 97 08/17/19 09:49 92 16 157/81 (106) 99 I & O 08/18/19 07:00 Intake Total 1495 ml Output Total 1550 ml Balance -55 ml Height & Weight Height: 5'8.00" Weight: 193lbs. 0.0oz. 87.306310fh; 28.00 BMI Method: General Appearance: No Apparent Distress, Chronically ill HEENT: PERRL/EOMI, Normal ENT Inspection, Pharynx Normal, Moist Mucous Membranes Neck: Full Range of Motion, Normal Inspection, Non Tender Respiratory: Chest Non Tender, Lungs Clear, Normal Breath Sounds, No Accessory Muscle Use, No Respiratory Distress Cardiovascular: Regular Rate, Rhythm, No Gallop, No JVD, No Murmur, Normal Peripheral Pulses Capillary Refill: Less Than 3 Seconds Gastrointestinal: normal bowel sounds, non tender, soft Extremity: Normal Capillary Refill, Normal Inspection, Normal Range of Motion, Non Tender, No Calf Tenderness, Pedal Edema Neurologic/Psychiatric: Alert, Oriented x3 (subtle confusion noted), No Motor/Sensory Deficits, Normal Mood/Affect, 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-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 Norm as Tested Skin: Normal Color, Warm/Dry Lymphatic: No Adenopathy Results Lab Laboratory Tests 08/17/19 09:56 08/17/19 14:50 08/18/19 02:48 Assessment/Plan Assessment/Plan MS changes with lethargy secondary to hepatic encephalopathy \\ -Continue Rifaxamine -Pt has not been able to tolerate Lactulose in past -Check abd US in AM -Repeat ammonia level today Pancytopenia r/o SBP -Start Rocephin -[facility] culture - Coagulopathy minor with stable HB INR 1.5 -Will give PO Vit K x 1 then start multivitamin daily Hypoalbuminemia with hx of cirrhosis -Give albumin 25gms Q 8 x 4 doses -Change IVF to LR at 50cc/hr Metabolic lactic acidosis secondary to Metformin -I Agree with Dr. Saul pt should not continue with Metformin Hypomag -replace Hx of BROWN -See's GI at Hx of prostate cancer s/p radiation beads SYBIL HERNÁNDEZ DO Aug 18, 2019 06:09
[2019-08-18] MEDS: MAGNESIUM 1 GM/100 ML IVPB 100 ML IV SCH ×3 (06:29→11:37)
[2019-08-18] MEDS ORDERED: MAGNESIUM 1 GM/100 ML IVPB 100 ML IV SCH (06:30)
[2019-08-18] MEDS: cefTRIAXone FOR IV USE 1,000 MG in WATER (STERILE) FOR INJECTION 10 ML IV SCH (06:53)
[2019-08-18] MEDS: LACTATED RINGERS 1,000 ML IV SCH (06:56)
[2019-08-18] MEDS: ALBUMIN 25% 25 GM/100 ML 50 ML IV SCH ×3 (06:56→21:54)
[2019-08-18] MEDS: MULTIVIT W/MINERALS TAB (THERAGRAN M) PO SCH (06:57)
[2019-08-18] MEDS: RIFAXIMIN 550 MG TABLET (XIFAXAN) PO SCH ×2 (08:12→20:05)
[2019-08-18] MEDS: PANTOPRAZOLE 40 MG (PROTONIX) TAB PO SCH (08:12)
--- NOTE | 2019-08-18 08:37 | Diagnostic Imaging Report ---
INDICATION: Cirrhosis. Time of exam 3:03 AM Comparison is made with prior chest from 01/04/2019. Heart size is stable. Lungs appear to be clear. Right hemidiaphragm is chronically elevated. No infiltrate, effusion or pneumothorax is detected. IMPRESSION: No acute cardiopulmonary process is detected. Dictated by: Dictated on workstation # [id number]
[2019-08-18] MEDS ORDERED: VITAMIN K 1 MG/ML ORAL SOLN 1 ML SYRINGE PO ONE (09:00)
--- NOTE | 2019-08-18 09:44 | Progress Note ---
Subjective Date Seen by a Provider: Aug 18, 2019 Time Seen by a Provider: 09:00 Subjective/Events-last exam doing well. had BM today. no blood. mentation appears to be baseline normal. Focused Exam Lactate Level 08/17/19 17:04: Lactic Acid Level 3.78*H 08/17/19 19:16: Lactic Acid Level 4.11*H 08/18/19 02:48: Lactic Acid Level 1.76 Objective Exam Vital Signs Date Time Temp Pulse Resp B/P (MAP) Pulse Ox O2 Delivery O2 Flow Rate FiO2 08/18/19 09:00 73 12 124/70 (88) 94 Room Air 08/18/19 08:00 36.6 08/18/19 08:00 86 17 141/75 (97) 97 Room Air 08/18/19 07:00 85 08/18/19 07:00 82 19 141/83 (102) 96 Room Air 08/18/19 06:00 78 16 138/75 (96) 96 Room Air 08/18/19 05:00 82 13 128/69 (88) 96 Room Air 08/18/19 04:00 80 22 111/71 (84) 95 Room Air 08/18/19 04:00 36.0 08/18/19 04:00 Room Air 08/18/19 03:00 85 13 122/80 (94) 96 Room Air 08/18/19 02:00 86 12 131/97 (108) 95 Room Air 08/18/19 01:00 80 08/18/19 01:00 80 12 137/78 (97) 95 Room Air 08/18/19 00:00 86 15 137/80 (99) 98 Room Air 08/17/19 23:45 Room Air 08/17/19 23:44 36.8 08/17/19 23:00 107 19 119/72 (88) 95 Room Air 08/17/19 22:00 80 13 130/75 (93) 97 Room Air 08/17/19 21:00 87 14 130/71 (90) 98 Room Air 08/17/19 20:00 36.4 08/17/19 20:00 76 17 121/72 (88) 96 Room Air 08/17/19 19:56 Room Air 08/17/19 19:00 84 08/17/19 19:00 84 16 118/74 (89) 97 Room Air 08/17/19 17:00 90 13 118/72 (87) 98 Room Air 08/17/19 16:17 36.5 83 97 08/17/19 16:09 97 Room Air 08/17/19 16:00 82 8 137/72 (93) 97 Room Air 08/17/19 16:00 36.5 08/17/19 15:00 83 23 135/76 (95) 99 Room Air 08/17/19 15:00 98 Room Air 08/17/19 14:47 36.8 98 19 157/89 (111) 99 Room Air 08/17/19 14:45 91 08/17/19 13:40 36.4 87 16 104/87 97 08/17/19 09:49 92 16 157/81 (106) 99 I & O 08/18/19 07:00 Intake Total 1495 ml Output Total 1550 ml Balance -55 ml Capillary Refill : Less Than 3 Seconds General Appearance: No Apparent Distress HEENT: PERRL/EOMI Neck: Full Range of Motion Respiratory: Chest Non Tender, Lungs Clear, Normal Breath Sounds Cardiovascular: Regular Rate, Rhythm Gastrointestinal: normal bowel sounds, non tender, soft Extremity: Normal Capillary Refill Neurologic/Psychiatric: Alert, Oriented x3 Skin: Normal Color Lymphatic: No Adenopathy Results Lab Laboratory Tests 08/17/19 09:56: White Blood Count 4.3, Red Blood Count 3.17L, Hemoglobin 11.6L, Hematocrit 34L, Mean Corpuscular Volume 108H, Mean Corpuscular Hemoglobin 37H, Mean Corpuscular Hemoglobin Concent 34, Red Cell Distribution Width 16.0H, Platelet Count 28*L, Mean Platelet Volume 11.8H, Neutrophils (%) (Auto) 75, Lymphocytes (%) (Auto) 11L, Monocytes (%) (Auto) 11, Eosinophils (%) (Auto) 2, Basophils (%) (Auto) 1, Neutrophils # (Auto) 3.2, Lymphocytes # (Auto) 0.5L, Monocytes # (Auto) 0.5, Eo sinophils # (Auto) 0.1, Basophils # (Auto) 0.0, Prothrombin Time 16.5H, INR Comment 1.3, Sodium Level 140, Potassium Level 4.4, Chloride Level 104, Carbon Dioxide Level 20L, Anion Gap 16H, Blood Urea Nitrogen 14, Creatinine 0.64, Estimat Glomerular Filtration Rate > 60, BUN/Creatinine Ratio 22, Glucose Level 194H, Lactic Acid Level 4.26*H, Calcium Level 8.9, Corrected Calcium 9.7, Total Bilirubin 1.1H, Aspartate Amino Transf (AST/SGOT) 40H, Alanine Aminotransferase (ALT/SGPT) 28, Alkaline Phosphatase 141H, Ammonia 149H, Troponin I < 0.30, Pro-B-Type Natriuretic Peptide 37.5, Total Protein 6.8, Albumin 3.0L 08/17/19 10:27: Urine Color YELLOW, Urine Clarity CLEAR, Urine pH 5.5, Urine Specific Crescent 1.025H, Urine Protein NEGATIVE, Urine Glucose (UA) NEGATIVE, Urine Ketones TRACEH, Urine Nitrite NEGATIVE, Urine Bilirubin NEGATIVE, Urine Urobilinogen 0.2, Urine Leukocyte Esterase NEGATIVE, Urine RBC (Auto) NEGATIVE, Urine RBC NONE, Urine WBC RARE, Urine Crystals NONE, Urine Bacteria NONE, Urine Casts NONE, Urine Mucus TRACE, Urine Culture Indicated NO 08/17/19 14:50: White Blood Count 4.3, Red Blood Count 3.10L, Hemoglobin 11.3L, Hematocrit 33L, Mean Corpuscular Volume 107H, Mean Corpuscular Hemoglobin 37H, Mean Corpuscular Hemoglobin Concent 34, Red Cell Distribution Width 16.2H, Platelet Count 31*L, Mean Platelet Volume 11.8H, Neutrophils (%) (Auto) 66, Lymphocytes (%) (Auto) 18, Monocytes (%) (Auto) 13H, Eosinophils (%) (Auto) 2, Basophils (%) (Auto) 1, Neutrophils # (Auto) 2.8, Lymphocytes # (Auto) 0.8L, Monocytes # (Auto) 0.6, Eosinophils # (Auto) 0.1, Basophils # (Auto) 0.1, Prothrombin Time 18.6H, INR Comment 1.5H, Sodium Level 137, Potassium Level 3.8, Chloride Level 106, Carbon Dioxide Level 18L, Anion Gap 13, Blood Urea Nitrogen 12, Creatinine 0.75, Estimat Glomerular Filtration Rate > 60, BUN/Creatinine Ratio 16, Glucose Level 114H, Lactic Acid Level 4.75*H, Calcium Level 8.5, Corrected Calcium 9.5, Total Bilirubin 1.1H, Aspartate Amino Transf (AST/SGOT) 37H, Alanine Aminotransferase (ALT/SGPT) 29, Alkaline Phosphatase 123, Ammonia 93H, Total Protein 6.7, Albumin 2.8L, Procalcitonin 0.05 08/17/19 15:23: Urine Opiates Screen NEGATIVE, Urine Oxycodone Screen NEGATIVE, Urine Methadone Screen NEGATIVE, Urine Propoxyphene Screen NEGATIVE, Urine Barbiturates Screen NEGATIVE, Ur Tricyclic Antidepressants Screen NEGATIVE, Urine Phencyclidine Screen NEGATIVE, Urine Amphetamines Screen NEGATIVE, Urine Methamphetamines Screen NEGATIVE, Urine Benzodiazepines Screen NEGATIVE, Urine Cocaine Screen NEGATIVE, Urine Cannabinoids Screen NEGATIVE 08/17/19 15:35: Glucometer 130H 08/17/19 17:04: Lactic Acid Level 3.78*H 08/17/19 19:16: Lactic Acid Level 4.11*H 08/17/19 20:12: Glucometer 183H 08/18/19 02:48: White Blood Count 2.8L, Red Blood Count 2.77L, Hemoglobin 10.1L, Hematocrit 30L, Mean Corpuscular Volume 108H, Mean Corpuscular Hemoglobin 36H, Mean Corpuscular Hemoglobin Concent 34, Red Cell Distribution Width 16.4H, Platelet Count 26*L, Mean Platelet Volume 11.1H, Neutrophils (%) (Auto) 53, Lymphocytes (%) (Auto) 25, Monocytes (%) (Auto) 17H, Eosinophils (%) (Auto) 4, Basophils (%) (Auto) 1, Neutrophils # (Auto) 1.5L, Lymphocytes # (Auto) 0.7L, Monocytes # (Auto) 0.5, Eosinophils # (Auto) 0.1, Basophils # (Auto) 0.0, Prothrombin Time 19.7H, INR Comment 1.6H, Sodium Level 140, Potassium Level 3.9, Chloride Level 110H, Carbon Dioxide Level 20L, Anion Gap 10, Blood Urea Nitrogen 11, Creatinine 0.68, Es timat Glomerular Filtration Rate > 60, BUN/Creatinine Ratio 16, Glucose Level 110H, Lactic Acid Level 1.76, Calcium Level 7.9L, Corrected Calcium 9.1, Phosphorus Level 2.7, Magnesium Level 1.7, Total Bilirubin 1.1H, Aspartate Amino Transf (AST/SGOT) 33, Alanine Aminotransferase (ALT/SGPT) 27, Alkaline Phosphatase 112, Total Protein 6.0L, Albumin 2.5L 08/18/19 06:33: Ammonia 120H Assessment/Plan Assessment/Plan Assess & Plan/Chief Complaint liver cirrhosis secondary BROWN with hepatic encephalopathy. improving. cont miralax. ok for floor. Clinical Quality Measures DVT/VTE Risk/Contraindication: Risk Factor Score Per Nursin RFS Level Per Nursing on Admit: 3=High Contraindications-Pharm: Other *list below* Other: low platelets and cirrhosis FRANCO ORTA MD Aug 18, 2019 09:44
[2019-08-18] MEDS ORDERED: LACTULOSE SYRUP 10GM/15ML (ENULOSE) 30ML UDC PO ONE (11:00)
--- NOTE | 2019-08-18 11:32 | Progress Note - Hospitalist ---
Subjective HPI/CC On Admission Date Seen by Provider: Aug 18, 2019 Time Seen by Provider: 11:00 CC: Confusion due to hepatic encephalopathy and elevated lactic acid HPI: This is a 73yoWM clinic patient of Dr Ramos in [facility] and Dr Klein at [facility] Hepatology who has a h/o BROWN-cirrhosis on Rifaximin with intolerance to Lact ulose due to low-volume hematochezia so maintained on Miralax with good results, prostate cancer s/p radiation treatment under [facility] center, DM on Victoza and Metformin and also a hepatic encephalopathy episode 06/2018 while traveling in [place] presumed medication non-compliance per Dr Klein [facility] notes who presents to the [facility] ER with confusion and overall diminished memory issues who was found to have elevated lactic acid and increase ammonia levels. IVF initiated from the ER visit and that seems to have helped. Patient was just started on Lasix for lower extremity edema. It helped the edema per the patient but not by much. Albumin is low at 2.8. PCT is negative with no evidence of any infectious source of the hepatic encephalopathy but I did note Metformin maintained at home which could very well be a major factor in the elevated lactic acid level so I would recommend stopping that completely and I did confirm that on [email or web address] online medical management resource. Subjective/Events-last exam Patient remains confused Very difficult to assess whether he is better or not today Lactic acid elevated now resolved No pain is reported [id number] Miralax ordered now Will get OOB USG ordered for tomorrow MRI will be checked Q6 months per [facility] Rocephin empiric treatment initiated Review of Systems General: Fatigue Cardiovascular: Edema Neurological: Confusion Focused Exam Lactate Level 08/17/19 17:04: Lactic Acid Level 3.78*H 08/17/19 19:16: Lactic Acid Level 4.11*H 08/18/19 02:48: Lactic Acid Level 1.76 Objective Exam Vital Signs Vital Signs Date Time Temp Pulse Resp B/P (MAP) Pulse Ox O2 Delivery O2 Flow Rate FiO2 08/18/19 14:00 79 19 97 Room Air 08/18/19 12:00 37.0 Capillary Refill : Less Than 3 Seconds General Appearance: No Apparent Distress, WD/WN, Chronically ill Respiratory: Chest Non Tender, Lungs Clear, Normal Breath Sounds, No Accessory Muscle Use, No Respiratory Distress Cardiovascular: Regular Rate, Rhythm, No Edema, No Gallop, No JVD, No Murmur, Normal Peripheral Pulses Neurologic/Psychiatric: Alert, No Motor/Sensory Deficits, Normal Mood/Affect, Disoriented Results/Procedures Lab Laboratory Tests 08/18/19 02:48 Patient resulted labs reviewed. Assessment/Plan Assessment and Plan Assess & Plan/Chief Complaint Assessment: Acute hepatic encephalopathy with elevated ammonia still at 120 so giving 1 dose of Lactulose to jump start Miralax and changing Miralax to Q2 hours Acute lactic acidosis due to Metformin in cirrhosis patient will DC it and list as allergy now resolved BROWN-Cirrhosis DM Prostate cancer s/p radiation beads [facility] Coagulopathy due to cirrhosis INR 1.5 Radiation colitis chronic issue Plan: IVF gentle DC Metformin intermediate SCD's ICU status for another day Consult Vianey Amezquita and Ana Lovenox contraindicated due to low platelets and coagulopathy 1.5 INR due to cirrhosis Miralax and Rifaximin since intolerant to Lactulose but will increase Miralax frequency and give 1 dose Lactulose today to jump start but not increase risk for hematochezia Diagnosis/Problems Diagnosis/Problems (1) Hepatic encephalopathy (2) Metformin adverse reaction (3) Diabetes mellitus (4) Lactic acid acidosis (5) Prostate cancer (6) Radiation colitis (7) Hematochezia due to medication (8) Cirrhosis Status: Acute Qualifiers: Hepatic cirrhosis type: unspecified hepatic cirrhosis Ascites presence: unspecified Qualified Codes: K74.60 - Unspecified cirrhosis of liver (9) Thrombocytopenia Status: Acute (10) Confusion Status: Acute Clinical Quality Measures DVT/VTE Risk/Contraindication: Risk Factor Score Per Nursin RFS Level Per Nursing on Admit: 3=High Contraindications-Pharm: Other *list below* Other: low platelets and cirrhosis MALDONADO SAUL DO Aug 18, 2019 11:32
[2019-08-19] VITALS (13 sets, daily range): BP systolic 123–148; BP diastolic 63–87
[2019-08-19] MEDS: polyethylene glycoL POWDER 17 GM (MIRALAX) PACK PO SCH ×7 (01:15→23:45)
[2019-08-19] MEDS: LACTATED RINGERS 1,000 ML IV SCH (03:10)
[2019-08-19 03:36] LABS: BASOPHILS % (AUTO) 1 % (0-10); EOSINOPHILS # (AUTO) 0.1 10^3/uL (0.0-0.3); EOSINOPHILS % (AUTO) 5 % (0-10); HEMATOCRIT 29 % (40-54); HEMOGLOBIN 10.1 G/DL (13.3-17.7); LYMPHOCYTES # (AUTO) 0.6 X 10^3 (1.0-4.0); LYMPHOCYTES % (AUTO) 23 % (12-44); MEAN CORPUSCULAR HEMOGLOBIN 37 PG (25-34); MEAN CORPUSCULAR HGB CONC 35 G/DL (32-36); MEAN CORPUSCULAR VOLUME 105 FL (80-99); MEAN PLATELET VOLUME 10.6 FL (7.4-10.4); MONOCYTES # (AUTO) 0.5 X 10^3 (0.0-1.0); MONOCYTES % (AUTO) 18 % (0-12); NEUTROPHILS # (AUTO) 1.5 X 10^3 (1.8-7.8); NEUTROPHILS % (AUTO) 54 % (42-75); RED CELL DISTRIBUTION WIDTH 15.9 % (10.0-14.5); WHITE BLOOD COUNT 2.8 10^3/uL (4.3-11.0)
[2019-08-19 03:48] LABS: PLATELET COUNT 29 10^3/uL (130-400)
[2019-08-19 04:08] LABS: BUN/CREATININE RATIO 11; CALCIUM 8.5 MG/DL (8.5-10.1); CARBON DIOXIDE 21 MMOL/L (21-32); CHLORIDE 110 MMOL/L (98-107); GFR ESTIMATED > 60; GLUCOSE 112 MG/DL (70-105); MAGNESIUM 1.9 MG/DL (1.6-2.4); PHOSPHORUS 2.9 MG/DL (2.3-4.7); POTASSIUM 3.8 MMOL/L (3.6-5.0); SODIUM 141 MMOL/L (135-145)
[2019-08-19] MEDS: MAGNESIUM 1 GM/100 ML IVPB 100 ML IV SCH (04:25)
[2019-08-19] MEDS: KCL 20 MEQ TAB (K-DUR) PO SCH (04:25)
[2019-08-19] MEDS: POTASSIUM CL 10MEQ/50ML IVPB 50 ML IV SCH (04:25)
[2019-08-19] MEDS: inSUlin ASPART (NovoLOG) 1 UNIT/0.01 ML (CHARGE PER UNIT) SC SCH ×4 (04:26→20:53)
[2019-08-19] MEDS: ALBUMIN 25% 25 GM/100 ML 50 ML IV SCH (05:16)
[2019-08-19] MEDS: cefTRIAXone FOR IV USE 1,000 MG in WATER (STERILE) FOR INJECTION 10 ML IV SCH (05:17)
[2019-08-19] MEDS: LEVOTHYROXINE 125 MCG (LEVOTHROID) TABLET PO SCH (05:20)
--- NOTE | 2019-08-19 06:36 | Pulmonary Progress Note ---
Subjective Time Seen by a Provider: 06:35 Subjective/Events-last exam Pt appears to be doing better. Sepsis Event Evaluation Height, Weight, BMI Height: 5'8.00" Weight: 193lbs. 0.0oz. 87.620684xv; 28.00 BMI Method: Focused Exam Lactate Level 08/17/19 17:04: Lactic Acid Level 3.78*H 08/17/19 19:16: Lactic Acid Level 4.11*H 08/18/19 02:48: Lactic Acid Level 1.76 Exam Exam Vital Signs Date Time Temp Pulse Resp B/P (MAP) Pulse Ox O2 Delivery O2 Flow Rate FiO2 08/19/19 06:00 75 12 127/71 (89) 94 Room Air 08/19/19 05:00 76 11 138/77 (97) 95 Room Air 08/19/19 04:00 97 Room Air 08/19/19 04:00 37.0 08/19/19 04:00 73 10 142/79 (100) 93 Room Air 08/19/19 03:00 87 14 132/71 (91) 96 Room Air 08/19/19 02:00 85 34 134/83 (100) 96 Room Air 08/19/19 01:00 75 08/19/19 01:00 75 12 127/82 (97) 96 Room Air 08/19/19 00:00 36.9 08/19/19 00:00 46 10 129/75 (93) 94 Room Air 08/19/19 00:00 98 Room Air 08/18/19 23:00 79 12 141/77 (98) 94 Room Air 08/18/19 22:00 79 16 146/89 (108) 97 Room Air 08/18/19 21:00 75 22 151/79 (103) 96 Room Air 08/18/19 20:00 90 24 162/80 (107) 98 Room Air 08/18/19 20:00 97 Room Air 08/18/19 20:00 37.0 08/18/19 19:00 74 18 140/83 (102) 98 Room Air 08/18/19 19:00 74 08/18/19 18:00 78 21 97 Room Air 08/18/19 17:00 86 15 137/88 (104) 95 Room Air 08/18/19 16:00 80 11 133/83 (100) 97 Room Air 08/18/19 16:00 98 Room Air 08/18/19 15:58 36.7 08/18/19 15:00 70 11 132/78 (96) 95 Room Air 08/18/19 14:00 79 19 97 Room Air 08/18/19 13:00 78 36 98 Room Air 08/18/19 12:23 84 08/18/19 12:00 97 Room Air 08/18/19 12:00 75 19 96 Room Air 08/18/19 12:00 37.0 08/18/19 11:00 89 15 120/73 (89) 97 Room Air 08/18/19 10:00 75 15 94 Room Air 08/18/19 09:00 73 12 124/70 (88) 94 Room Air 08/18/19 08:00 94 Room Air 08/18/19 08:00 36.6 08/18/19 08:00 86 17 141/75 (97) 97 Room Air 08/18/19 07:00 85 08/18/19 07:00 82 19 141/83 (102) 96 Room Air I & O 08/19/19 07:00 Intake Total 1730 ml Balance 1730 ml Height & Weight Height: 5'8.00" Weight: 193lbs. 0.0oz. 87.961181ho; 28.00 BMI Method: General Appearance: No Apparent Distress, WD/WN, Chronically ill HEENT: PERRL/EOMI Neck: Full Range of Motion Respiratory: Chest Non Tender, Lungs Clear, Normal Breath Sounds, No Accessory Muscle Use, No Respiratory Distress Cardiovascular: Regular Rate, Rhythm, No Edema, No Gallop, No JVD, No Murmur, Normal Peripheral Pulses Capillary Refill: Less Than 3 Seconds Gastrointestinal: normal bowel sounds, non tender, soft Extremity: Normal Capillary Refill Neurologic/Psychiatric: Alert, No Motor/Sensory Deficits, Normal Mood/Affect, Disoriented Skin: Normal Color Lymphatic: No Adenopathy Results Lab Laboratory Tests 08/17/19 09:56 08/17/19 14:50 08/18/19 02:48 08/19/19 03:20 Assessment/Plan Assessment/Plan MS changes with lethargy secondary to hepatic encephalopathy \\ -Continue Rifaxamine -Pt has not been able to tolerate Lactulose in past -Check abd US Pancytopenia r/o SBP - Rocephin x 5 days then D/C -[facility] culture - Coagulopathy minor with stable HB INR 1.5 -monitor Hypoalbuminemia with hx of cirrhosis -s/p albumin 25gms Q 8 x 4 doses -Change IVF to LR at 50cc/hr Metabolic lactic acidosis secondary to Metformin -I Agree with Dr. Vega pt should not continue with Metformin Hypomag -replace Hx of BROWN -See's GI at Hx of prostate cancer s/p radiation beads Will transfer pt to [facility]. I am going to sign off please call with any questions. SYBIL HERNÁNDEZ DO Aug 19, 2019 06:35
[2019-08-19] MEDS: MULTIVIT W/MINERALS TAB (THERAGRAN M) PO SCH (10:30)
[2019-08-19] MEDS: RIFAXIMIN 550 MG TABLET (XIFAXAN) PO SCH ×2 (10:30→21:03)
[2019-08-19] MEDS: PANTOPRAZOLE 40 MG (PROTONIX) TAB PO SCH (10:31)
--- NOTE | 2019-08-19 10:31 | Progress Note - Hospitalist ---
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 center, DM on Victoza and Metformin and also a hepatic encephalopathy episode 06/2018 while traveling in [place] presumed medication non-compliance per Dr Klein [facility] notes who presents to the [facility] ER with confusion and overall diminished memory issues who was found to have elevated lactic acid and increase ammonia levels. IVF initiated from the ER visit and that seems to have helped. Patient was just started on Lasix for lower extremity edema. It helped the edema per the patient but not by much. Albumin is low at 2.8. PCT is negative with no evidence of any infectious source of the hepatic encephalopathy but I did note Metformin maintained at home which could very well be a major factor in the elevated lactic acid level so I would recommend stopping that completely and I did confirm that on [facility] online medical management resource. Subjective/Events-last exam Patient dramatically better today Lucid and normal mentation with poor recall that appears to be baseline BM 6 per day with Miralax Labs reviewed No pain is reported Eating well USG performed Transfer to 4th floor Review of Systems General: Fatigue Neurological: Confusion Focused Exam Lactate Level 08/17/19 17:04: Lactic Acid Level 3.78*H 08/17/19 19:16: Lactic Acid Level 4.11*H 08/18/19 02:48: Lactic Acid Level 1.76 Objective Exam Vital Signs Vital Signs Date Time Temp Pulse Resp B/P (MAP) Pulse Ox O2 Delivery O2 Flow Rate FiO2 08/19/19 19:45 37.3 82 20 128/79 (95) 98 Room Air Capillary Refill : Less Than 3 Seconds General Appearance: No Apparent Distress, WD/WN, Chronically ill Respiratory: Chest Non Tender, Lungs Clear, Normal Breath Sounds, No Accessory Muscle Use, No Respiratory Distress Cardiovascular: Regular Rate, Rhythm, No Edema, No Gallop, No JVD, No Murmur, Normal Peripheral Pulses Neurologic/Psychiatric: Alert, Oriented x3, No Motor/Sensory Deficits, Normal Mood/Affect Results/Procedures Lab Laboratory Tests 08/19/19 03:20 Patient resulted labs reviewed. Assessment/Plan Assessment and Plan Assess & Plan/Chief Complaint Assessment: Acute hepatic encephalopathy with elevated ammonia at 120 Miralax to Q2 hours n ow resolved Acute lactic acidosis due to Metformin in cirrhosis patient will DC it and list as allergy now resolved BROWN-Cirrhosis DM Prostate cancer s/p radiation beads [facility] Coagulopathy due to cirrhosis INR 1.5 Radiation colitis chronic issue Plan: IVF HL DC Metformin detention SCD's 4th floor Consult Vianey Amezquita and Ana Barrnonickolas contraindicated due to low platelets and coagulopathy 1.5 INR due to cirrhosis Miralax and Rifaximin since intolerant to Lactulose using Miralax Diagnosis/Problems Diagnosis/Problems (1) Hepatic encephalopathy (2) Metformin adverse reaction (3) Diabetes mellitus (4) Lactic acid acidosis (5) Prostate cancer (6) Radiation colitis (7) Hematochezia due to medication (8) Cirrhosis Status: Acute Qualifiers: Hepatic cirrhosis type: unspecified hepatic cirrhosis Ascites presence: unspecified Qualified Codes: K74.60 - Unspecified cirrhosis of liver (9) Thrombocytopenia Status: Acute (10) Confusion Status: Acute Clinical Quality Measures DVT/VTE Risk/Contraindication: Risk Factor Score Per Nursin RFS Level Per Nursing on Admit: 3=High Contraindications-Pharm: Other *list below* Other: low platelets and cirrhosis MALDONADO SAUL DO Aug 19, 2019 10:31
--- NOTE | 2019-08-19 10:52 | Diagnostic Imaging Report ---
EXAMINATION: US Abdomen limited. TECHNIQUE: Multiple Real-time grayscale images were obtained over the abdomen in all 4 quadrants in various projections. REASON FOR EXAM: Evaluate for ascites. COMPARISON: None. FINDINGS: A small amount of ascites is seen in the right upper quadrant. No acute abnormalities are visualized sonographically in the visualized abdomen. IMPRESSION: Small volume of ascites in the right upper quadrant. Dictated by: Dictated on workstation # [id number]
[2019-08-19] MEDS ORDERED: RT-ALBUINH PO (11:55)
--- NOTE | 2019-08-19 12:07 | NUR ---
SPOKE WITH THE PT, ALSO CALLED THE PTS (CHIRAG) SHE HELPS WITH HIS MEDICATIONS, WENT THRU THE EXT MED HISTORY TO COMPLETE THE MED REC XIFAXAN 550MG: THE PATIENT GETS THIS THRU PT CARE SUPPORT FROM [facility]. WHEN I CALLED THEM TO GET INFORMATION THEY SAID THE PT DOES GET FROM THEM BUT THEY WERE UNABLE TO TELL ME WHEN THE LAST SHIPMENT WENT OUT BUT SAID IT LOOKS LIKE THIS IS A CURRENT ORDER. OTC MEDS: PRESERVISION
--- NOTE | 2019-08-19 13:25 | NUR ---
I agree with previous RN's assessment and care of patient assumed at this time.
--- NOTE | 2019-08-19 14:43 | NUR ---
RD ASSESSMENT PMHx: hypercholesterolemia; GI bleeds; cirrhosis; DM; CA(prostate) PT INTERACTION: Pt was awake and pleasant during nutrition assessment. Pt states current appetite is pretty good. Note avg PO intake 83% x1d, per chart review. Pt states following a low-CHO diet and avoids red meat and sodium, and has no issues with chewing/swallowing food. Pt states no recent issues with n/v/c/d at this time. Note last BM on 08/17, and pt currently on bowel regimen of Miralax q4h, per chart review. Pt states no recent wt changes. Note unable to determine recent wt hx, per chart review. Pt states current DM management is pretty good, and normal fasting blood glucose levels are between 100-120. Note unable to determine recent HbA1c, per chart review. ABNORMAL NUTRITION-RELATED LAB VALUES LOW: HIGH: Cl 110; glu 112 Est. kcal needs: 5999-7544 kcal | 25-30 kcal/kg Est. Pro needs: 71-89 g Pro | 0.8-1.0 g Pro/kg PES STATEMENT: Given PO intake, no nutrition diagnosis at this time (NO-1.1) INTERVENTION: Continue with current diet order of Regular diet. Pt may benefit from consistent CHO diet, if blood glucose levels become elevated. Discussed current DM management and pt appears to be following it well. Discussed CHO counting and pt stated he avoids sweets and tries to not "overdo" on the CHOs. Pt states eating a balanced diet at home. Discussed treats and moderation of those treats. Will continue to follow and reassess as pt needs, intake, and status change. MONITOR/EVALUATE: PO Intake; Plan of Care; Hydration Status; Weight Status; Lab Values Cinid Best, MS, RD, LD
[2019-08-20 04:00] VITALS: BP 135/72
[2019-08-20] MEDS: polyethylene glycoL POWDER 17 GM (MIRALAX) PACK PO SCH ×3 (04:34→12:10)
[2019-08-20 05:01] LABS: BASOPHILS # (AUTO) 0.1 10^3/uL (0.0-0.1); BASOPHILS % (AUTO) 2 % (0-10); EOSINOPHILS # (AUTO) 0.2 10^3/uL (0.0-0.3); EOSINOPHILS % (AUTO) 5 % (0-10); HEMATOCRIT 29 % (40-54); HEMOGLOBIN 9.7 G/DL (13.3-17.7); LYMPHOCYTES # (AUTO) 0.7 X 10^3 (1.0-4.0); LYMPHOCYTES % (AUTO) 26 % (12-44); MEAN CORPUSCULAR HEMOGLOBIN 37 PG (25-34); MEAN CORPUSCULAR HGB CONC 34 G/DL (32-36); MEAN CORPUSCULAR VOLUME 108 FL (80-99); MONOCYTES # (AUTO) 0.5 X 10^3 (0.0-1.0); MONOCYTES % (AUTO) 18 % (0-12); NEUTROPHILS # (AUTO) 1.4 X 10^3 (1.8-7.8); NEUTROPHILS % (AUTO) 50 % (42-75); WHITE BLOOD COUNT 2.8 10^3/uL (4.3-11.0)
[2019-08-20 05:17] LABS: ALBUMIN 3.2 GM/DL (3.2-4.5); CHLORIDE 109 MMOL/L (98-107); POTASSIUM 3.9 MMOL/L (3.6-5.0); SODIUM 139 MMOL/L (135-145)
[2019-08-20 05:19] LABS: CALCIUM 8.4 MG/DL (8.5-10.1)
[2019-08-20 05:20] LABS: GLUCOSE 95 MG/DL (70-105); TOTAL PROTEIN 6.2 GM/DL (6.4-8.2)
[2019-08-20 05:21] LABS: CARBON DIOXIDE 21 MMOL/L (21-32)
[2019-08-20 05:22] LABS: BILIRUBIN,TOTAL 1.5 MG/DL (0.1-1.0)
[2019-08-20 05:23] LABS: ALKALINE PHOSPHATASE 93 U/L (40-136); CREATININE SERUM 0.73 MG/DL (0.60-1.30); GFR ESTIMATED > 60
[2019-08-20 05:24] LABS: BUN/CREATININE RATIO 10
[2019-08-20 05:26] LABS: ALANINE AMINOTRANSFERASE 24 U/L (0-55); PLATELET COUNT 26 10^3/uL (130-400)
--- NOTE | 2019-08-20 05:28 | NUR ---
notified dr lópez of critical platelet count of 26. no orders at this time
[2019-08-20] MEDS: inSUlin ASPART (NovoLOG) 1 UNIT/0.01 ML (CHARGE PER UNIT) SC SCH ×2 (05:38→11:19)
[2019-08-20] MEDS ORDERED: cefTRIAXone 1,000 MG IV (ROCEPHIN) VIAL ONE (05:53)
[2019-08-20] MEDS ORDERED: WATER (STERILE) FOR INJECTION 10 ML ONE (05:53)
[2019-08-20] MEDS: LEVOTHYROXINE 125 MCG (LEVOTHROID) TABLET PO SCH (06:19)
[2019-08-20] MEDS: MULTIVIT W/MINERALS TAB (THERAGRAN M) PO SCH (06:19)
[2019-08-20] MEDS: cefTRIAXone FOR IV USE 1,000 MG in WATER (STERILE) FOR INJECTION 10 ML IV SCH (06:20)
[2019-08-20 08:00] VITALS: BP 138/80
[2019-08-20] MEDS: RIFAXIMIN 550 MG TABLET (XIFAXAN) PO SCH (08:09)
[2019-08-20] MEDS: PANTOPRAZOLE 40 MG (PROTONIX) TAB PO SCH (08:09)
--- NOTE | 2019-08-20 09:28 | Physician Query Clarification ---
"Physician Query-General Query to Physician: Clinical Validation Clarification : Sybil Perez R/O SBP has been documented in the medical record. After study, do you consider SBP a clinically valid diagnosis? If not clinically valid, please document SBP, ruled out in the progress notes. No, SBP ruled out Yes, SBP clinically valid diagnosis Other, with explanation of the clinical findings Clinically undetermined, no explanation for the clinical findings Additional information: No documentation of Fevers, No documentation of abdominal pain and documentation of soft abdomen Please remember a lack of response to the above will prompt a phone page by CDI/coding staff. In responding to this query, please exercise your independent professional judgment. The purpose of this communication is to more accurately reflect the complexity of your patients condition. The fact that a question is asked does not imply that any particular answer is desired or expected. Thank you for timely response to this clarification. Mora Marie, MSN, RN RN Specialist-Clinical Doc Improvement CD -Health Info Mgmt Operations [address] [facility] t: [phone] | f: [phone] If you are unable to reach me at my extension, I may be working from home. Please contact me at [phone] PHYSICIAN RESPONSE: Based on the clinical findings in the record, please respond to the query above on this document as an addendum. Physician Response: Physician Response yes If you have questions please contact: Senior Research Executive: Ext: Thank you for your time and cooperation. Clinical Printing Roller Polisher/Senior Research Executive This is a permanent part of the medical record MORA MARIE Aug 20, 2019 09:28 SYBIL PEREZ DO September 03, 2019 10:45"
[2019-08-20] MEDS ORDERED: POLY17PO31 PO (11:20)
[2019-08-20] MEDS ORDERED: PANT40TA3 PO (11:20)
--- NOTE | 2019-08-20 11:21 | Discharge Summary ---
Discharge Summary Hospital Course Was the Problem List Reviewed?: Yes Problems/Dx: (1) Hepatic encephalopathy (2) Metformin adverse reaction (3) Diabetes mellitus (4) Lactic acid acidosis (5) Prostate cancer (6) Radiation colitis (7) Hematochezia due to medication (8) Cirrhosis Status: Acute Qualifiers: Qualified Codes: K74.60 - Unspecified cirrhosis of liver (9) Thrombocytopenia Status: Acute (10) Confusion Status: Acute Hospital Course Date of Admission: Aug 17, 2019 at 11:32 Admission Diagnosis : Family Physician/Provider: Troy Ramos MD Date of Discharge: 08/20/19 Discharge Diagnosis: Hepatic encephalopathy, lactic acidosis from Metformin, DM, coagulopathy Hospital Course: Patient admitted to ICU for hepatic encephalopathy. Gentle IVF resolved the lactic acidosis caused by Metformin since there was no evidence of sepsis. Patient ultimately moved to 4th floor and Miralax helped resolve the elevated ammonia and encephalopathy and was deemed stable for DC Labs and Pending Lab Test: Laboratory Tests 08/19/19 15:54: Glucometer 133H 08/19/19 20:42: Glucometer 168H 08/20/19 04:30: White Blood Count 2.8L, Red Blood Count 2.65L, Hemoglobin 9.7L, Hematocrit 29L, Mean Corpuscular Volume 108H, Mean Corpuscular Hemoglobin 37H, Mean Corpuscular Hemoglobin Concent 34, Red Cell Distribution Width 16.0H, Platelet Count 26*L, Mean Platelet Volume 11.0H, Neutrophils (%) (Auto) 50, Lymphocytes (%) (Auto) 26, Monocytes (%) (Auto) 18H, Eosinophils (%) (Auto) 5, Basophils (%) (Auto) 2, Neutrophils # (Auto) 1.4L, Lymphocytes # (Auto) 0.7L, Monocytes # (Auto) 0.5, Eosinophils # (Auto) 0.2, Basophils # (Auto) 0.1, Sodium Level 139, Potassium Level 3.9, Chloride Level 109H, Carbon Dioxide Level 21, Anion Gap 9, Blood Urea Nitrogen 7, Creatinine 0.73, Estimat Glomerular Filtration Rate > 60, BUN/Creatinine Ratio 10, Glucose Level 95, Calcium Level 8.4L, Corrected Calcium 9.0, Total Bilirubin 1.5H, Aspartate Amino Transf (AST/SGOT) 34, Alanine Aminotransferase (ALT/SGPT) 24, Alkaline Phosphatase 93, Total Protein 6.2L, Albumin 3.2 08/20/19 10:14: Glucometer 152H Microbiology 08/18/19 Blood Culture - Preliminary, Resulted No growth 08/17/19 MRSA Screen - Final, Complete MRSA not isolated Home Meds Active Polyethylene Glycol 3350 17 Gm Powd.pack 17 Gm PO Q4HR Give 1 scoop in 4 oz of fluid QID or until 5 BM's a day Pantoprazole Sodium 40 Mg Tablet.dr 40 Mg PO DAILY Reported Proair Hfa (Albuterol Sulfate) 1 Puff Puff 1 Puff PO Q4H PRN Xifaxan (Rifaximin) 550 Mg Tablet 550 Tab PO BID Preservision Areds 2 Softgel (Vit C/E/Zn/Coppr/Lutein/Zeaxan) 1 Each Capsule 2 Each PO DAILY Atorvastatin Calcium 10 Mg Tablet 10 Mg PO DAILY Furosemide 40 Mg Tablet 40 Mg PO DAILY PRN TAKES IF WEIGHT IS UP BY 2-3 POUNDS Spironolactone 25 Mg Tablet 25 Mg PO DAILY Levothyroxine Sodium 125 Mcg Tablet 125 Mcg PO DAILY Metformin HCl 500 Mg Tablet 1,000 Mg PO BID TAKES 2 (500MG) TABS TWICE DAILY Assessment/Pt Instructions Dr Pizarro in 1 week Discharge Planning: <30 minutes discharge planning Discharge Instructions Discharge Diet: ADA Diet Discharge Physical Examination Vital Signs Vital Signs Date Time Temp Pulse Resp B/P (MAP) Pulse Ox O2 Delivery O2 Flow Rate FiO2 08/20/19 09:37 Room Air 08/20/19 08:00 36.8 77 16 138/80 (99) 98 General Appearance: No Apparent Distress, WD/WN Respiratory: Lungs Clear Cardiovascular: Regular Rate, Rhythm Neurologic/Psychiatric: Alert, Oriented x3, No Motor/Sensory Deficits, Normal Mood/Affect Allergies: Coded Allergies: metformin (Verified Allergy, Unknown, 08/17/19) lactic acidosis 08/17/19 Discharge Summary Date of Admission Aug 17, 2019 at 11:32 Date of Discharge Discharge Date: Aug 20, 2019 Admission Diagnosis Assessment: Acute hepatic encephalopathy with elevated ammonia Acute lactic acidosis likely due to Metformin in cirrhosis patient will DC it and list as allergy BROWN-Cirrhosis DM Prostate cancer s/p radiation beads [facility] Coagulopathy due to cirrhosis INR 1.5 Plan: IVF gentle DC Metformin 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 SCD's ICU status Consult Vianey Amezquita and Ana Lovenox contraindicated due to low platelets and coagulopathy 1.5 INR due to cirrhosis Miralax and Rifaximin since intolerant to Lactulose Discharge Diagnosis Assessment: Acute hepatic encephalopathy with elevated ammonia at 120 Miralax to Q2 hours now resolved Acute lactic acidosis due to Metformin in cirrhosis patient will DC it and list as allergy now resolved BROWN-Cirrhosis DM Prostate cancer s/p radiation beads [facility] Coagulopathy due to cirrhosis INR 1.5 Radiation colitis chronic issue Plan: IVF HL DC Metformin assisted SCD's 4th floor Consult Vianey Amezquita and Ana Duartex contraindicated due to low platelets and coagulopathy 1.5 INR due to cirrhosis Miralax and Rifaximin since intolerant to Lactulose using Miralax (1) Hepatic encephalopathy (2) Metformin adverse reaction (3) Diabetes mellitus (4) Lactic acid acidosis (5) Prostate cancer (6) Radiation colitis (7) Hematochezia due to medication (8) Cirrhosis Status: Acute Qualifiers: Qualified Codes: K74.60 - Unspecified cirrhosis of liver (9) Thrombocytopenia Status: Acute (10) Confusion Status: Acute Clinical Quality Measures DVT/VTE Risk/Contraindication: Risk Factor Score Per Nursin RFS Level Per Nursing on Admit: 3=High Contraindications-Pharm: Other *list below* Other: low platelets and cirrhosis MALDONADO SAUL DO Aug 20, 2019 11:21
[2019-08-20 12:00] VITALS: BP 111/64
[2019-08-20 13:52] VITALS: BP 111/64
== END 2019-08-20 13:54 | disposition home or self-care (01) | DRG 441 ==
LOC: EDUNIT# 09:41 → ER FS 09:43 → ICU 11:32 → 4TH 08-19 13:41
PROVIDERS: ADMIT Internal Medicine; ATTEND Internal Medicine
DX: K72.00 Acute and subacute hepatic failure without coma (principal); K65.2 Spontaneous bacterial peritonitis; E87.2 Acidosis; K75.81 Nonalcoholic steatohepatitis (NASH); K74.69 Other cirrhosis of liver; T38.3X5A Adverse effect of insulin and oral hypoglycemic [antidiabetic] drugs, initial encounter; D68.4 Acquired coagulation factor deficiency; D61.818 Other pancytopenia; K52.0 Gastroenteritis and colitis due to radiation; E11.9 Type 2 diabetes mellitus without complications; E03.9 Hypothyroidism, unspecified; E78.00 Pure hypercholesterolemia, unspecified; E88.09 Other disorders of plasma-protein metabolism, not elsewhere classified; R60.0 Localized edema; H91.93 Unspecified hearing loss, bilateral; Z85.46 Personal history of malignant neoplasm of prostate; Z92.3 Personal history of irradiation; Z97.4 Presence of external hearing-aid; E83.42 Hypomagnesemia
CPT/HCPCS: 36415; 70450; 71045; 76705; 80048; 80053; 80306; 81000; 82140; 82962; 83605; 83735; 83880; 84100; 84145; 84484; 85025; 85610; 87040; 87081; 96360

== ENCOUNTER → 2019-08-21 | Outpatient (CLI) | payer MEDICARE, OTHER ==
[~2019-08-21] MED LIST changes: +ATOR10TA66 PO; +FURO40TA4 PO; +GADOBUTROL 10 MMOL/10 ML (GADAVIST) VIAL IV ONE; +POLY17PO31 PO; +RIFA550T PO; +RT-ALBUINH PO; +SPIR25TA5 PO; +VIT1CAPS44 PO
[2019-08-21 07:49] LABS: BASOPHILS % (AUTO) 1 % (0-10); EOSINOPHILS # (AUTO) 0.2 10^3/uL (0.0-0.3); EOSINOPHILS % (AUTO) 5 % (0-10); HEMATOCRIT 30 % (40-54); HEMOGLOBIN 10.2 G/DL (13.3-17.7); LYMPHOCYTES # (AUTO) 0.8 X 10^3 (1.0-4.0); LYMPHOCYTES % (AUTO) 27 % (12-44); MEAN CORPUSCULAR HEMOGLOBIN 36 PG (25-34); MEAN CORPUSCULAR HGB CONC 34 G/DL (32-36); MEAN CORPUSCULAR VOLUME 107 FL (80-99); MONOCYTES # (AUTO) 0.5 X 10^3 (0.0-1.0); MONOCYTES % (AUTO) 17 % (0-12); NEUTROPHILS # (AUTO) 1.5 X 10^3 (1.8-7.8); NEUTROPHILS % (AUTO) 50 % (42-75)
[2019-08-21 08:01] LABS: PLATELET COUNT 32 10^3/uL (130-400)
[2019-08-21 08:05] LABS: INR 1.6 (0.8-1.4); PROTHROMBIN TIME PATIENT 19.9 SEC (12.2-14.7)
[2019-08-21 08:10] LABS: ALBUMIN 3.2 GM/DL (3.2-4.5)
[2019-08-21 08:11] LABS: CHLORIDE 108 MMOL/L (98-107); POTASSIUM 3.9 MMOL/L (3.6-5.0); SODIUM 137 MMOL/L (135-145)
[2019-08-21 08:12] LABS: CALCIUM 8.3 MG/DL (8.5-10.1)
[2019-08-21 08:13] LABS: GLUCOSE 101 MG/DL (70-105); TOTAL PROTEIN 6.4 GM/DL (6.4-8.2)
[2019-08-21 08:14] LABS: CARBON DIOXIDE 21 MMOL/L (21-32)
[2019-08-21 08:15] LABS: BILIRUBIN,TOTAL 1.6 MG/DL (0.1-1.0)
[2019-08-21 08:17] LABS: ALKALINE PHOSPHATASE 105 U/L (40-136); CREATININE SERUM 0.76 MG/DL (0.60-1.30); GFR ESTIMATED > 60
[2019-08-21 08:18] LABS: BUN/CREATININE RATIO 13
[2019-08-21 08:20] LABS: ALANINE AMINOTRANSFERASE 25 U/L (0-55)
--- NOTE | 2019-08-21 09:59 | Diagnostic Imaging Report ---
EXAMINATION: MRI of the abdomen with and without contrast. TECHNIQUE: Multiplanar, multisequence MR images of the abdomen were obtained with and without intravenous contrast. HISTORY: Cirrhosis of liver. COMPARISON: None available. FINDINGS: The liver is cirrhotic in morphology. No fat deposition is seen. No suspicious liver lesions are seen. No abnormal arterial enhancement or washout is present. The gallbladder is normal. There is no biliary ductal dilation. Extensive collaterals in the left upper quadrant may represent a splenorenal shunt. 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 The pancreas is normal. The spleen is enlarged. The adrenal glands are normal. Bilateral renal cysts are present. No suspicious renal lesions are seen. No hydronephrosis. The visualized bowel is normal. No lymphadenopathy is seen. The lung bases are clear. No osseus lesions are seen. Mild gynecomastia is noted. IMPRESSION: Cirrhotic liver with stigmata of portal hypertension but no suspicious liver lesions to indicate hepatocellular carcinoma. Dictated by: Dictated on workstation # [id number]
== END ==
LOC: RAD 07:23
PROVIDERS: ATTEND Internal Medicine
DX: K75.81 Nonalcoholic steatohepatitis (NASH) (principal); K74.69 Other cirrhosis of liver; K76.6 Portal hypertension
CPT/HCPCS: 36415; 74183; 80053; 82105; 85025; 85610

== ENCOUNTER 2019-08-24 11:50 | Emergency (ER) | payer MEDICARE, OTHER ==
[~2019-08-24 11:50] MED LIST changes: -GADOBUTROL 10 MMOL/10 ML (GADAVIST) VIAL IV ONE
--- OUTSIDE RECORDS SUMMARY | 2019-08-24 11:55 | XMS REPORT | Continuity of Care Document ---
Author Organization Unknown Address Unknown Phone Unavailable Allergies Active Description Code Type Severity Reaction Onset Reported/Identified Relationship to Patient Clinical Status Yes No Known Allergies No Known Allergies Drug Allergy Unknown N/A 07/18/2018 Yes No Known Drug Allergies [id number] Drug Allergy Unknown N/A 08/27/2018 Yes metformin [id number] Drug Allergy Unknown N/A 08/17/2019 Medications There is no data. Problems Date Dx Coded Attending Type Code Diagnosis Diagnosed By 04/07/2017 DEE MARTINEZ MD, Ot C61 MALIGNANT NEOPLASM OF PROSTATE 05/23/2017 DEE MARTINEZ MD, Ot C61 MALIGNANT NEOPLASM OF PROSTATE 07/04/2017 DEE MARTINEZ MD, Ot C61 MALIGNANT NEOPLASM OF PROSTATE 09/20/2017 DEE MARTINEZ MD, Ot C61 MALIGNANT NEOPLASM OF PROSTATE 10/29/2017 DEE MARTINEZ MD, Ot C61 MALIGNANT NEOPLASM OF PROSTATE 10/29/2017 DEE MARTINEZ MD Ot Z51.0 ENCOUNTER FOR ANTINEOPLASTIC RADIATION T 11/22/2017 DEE MARTINEZ MD, Ot C61 MALIGNANT NEOPLASM OF PROSTATE 11/28/2017 DEE MARTINEZ MD, Ot C61 MALIGNANT NEOPLASM OF PROSTATE 12/19/2017 DEE MARTINEZ MD, Ot C61 MALIGNANT NEOPLASM OF PROSTATE 02/01/2018 DEE MARTINEZ MD, Ot C61 MALIGNANT NEOPLASM OF PROSTATE 04/11/2018 DEE MARTINEZ MD, Ot C61 MALIGNANT NEOPLASM OF PROSTATE 04/11/2018 DEE MARTINEZ MD, Ot C61 MALIGNANT NEOPLASM OF PROSTATE 07/19/2018 George Ball M.D. C61 MALIGNANT NEOPLASM OF PROSTATE 07/19/2018 Quinn Turpin, George Kelley D61.818 OTHER PANCYTOPENIA 07/19/2018 George Ball M.D. E03 .9 HYPOTHYROIDISM, UNSPECIFIED 07/19/2018 Quinn Turpin, George Kelley E11 .9 TYPE 2 DIABETES MELLITUS WITHOUT COMPLICATIONS 07/19/2018 Quinn Turpin, George D W K21 .9 GASTRO-ESOPHAGEAL REFLUX DISEASE WITHOUT ESOPHAGIT 07/19/2018 Quinn Turpin, George Hernandez W K72 .90 HEPATIC FAILURE, UNSPECIFIED WITHOUT COMA 07/19/2018 Quinn Turpin, George Hernandez W K74 .60 UNSPECIFIED CIRRHOSIS OF LIVER 07/19/2018 Quinn Turpin, George Hernandez W K75 .81 NONALCOHOLIC STEATOHEPATITIS (BROWN) 07/19/2018 Quinn Turpin, George Lentz R41 .82 ALTERED MENTAL STATUS, UNSPECIFIED 07/19/2018 Quinn Turpin, George Kelley Z79 .84 HALF-WAY (CURRENT) USE OF ORAL HYPOGLYCEMIC DRUGS 07/19/2018 Quinn Turpin, George Kelley Z79.890 HORMONE REPLACEMENT THERAPY 07/19/2018 Quinn Turpin, George Kelley Z79.899 OTHER HALF-WAY (CURRENT) DRUG THERAPY 07/19/2018 Quinn Turpin, George Kelley Z87.891 PERSONAL HISTORY OF NICOTINE DEPENDENCE 08/23/2018 MICHELLE FIGUEREDO, DEE Aponte Ot C61 MALIGNANT NEOPLASM OF PROSTATE 08/23/2018 TAY AUGUST DO B Ot Z01.8 18 ENCOUNTER FOR OTHER PREPROCEDURAL EXAMIN 08/24/2018 TAY AUGUST DO Ot Z01.8 18 ENCOUNTER FOR OTHER PREPROCEDURAL EXAMIN 08/27/2018 MICHELLE FIGUEREDO, DEE Aponte Ot C61 MALIGNANT NEOPLASM OF PROSTATE 08/27/2018 MICHELLE FIGUEREDO, EDE Aponte Ot C61 MALIGNANT NEOPLASM OF PROSTATE 08/27/2018 ROSA AUGUST DOIC B Ot D12.0 BENIGN NEOPLASM OF CECUM 08/27/2018 ROSA AUGUST DOIC B Ot E11.9 TYPE 2 DIABETES MELLITUS WITHOUT COMPLIC 08/27/2018 ROSA AUGUST DOIC B Ot K21.9 GASTRO-ESOPHAGEAL REFLUX DISEASE WITHOUT 08/27/2018 ROSA AUGUST DOIC B Ot K29.5 0 UNSPECIFIED CHRONIC GASTRITIS WITHOUT BL 08/27/2018 ROSA AUGUST DOIC B Ot K29.8 0 DUODENITIS WITHOUT BLEEDING 08/27/2018 ROSA AUGUST DOIC B Ot K31.8 9 OTHER DISEASES OF STOMACH AND DUODENUM 08/27/2018 TAY AUGUST DO B Ot K44.9 DIAPHRAGMATIC HERNIA WITHOUT OBSTRUCTION 08/27/2018 DELMAN DO, TAY B Ot K62.5 HEMORRHAGE OF ANUS AND RECTUM 08/27/2018 ROSA AUGUST DOIC B Ot K64.8 OTHER HEMORRHOIDS 08/27/2018 NASRINABIMBOLA ROSA ZEPEDAIC B Ot K74.6 0 UNSPECIFIED CIRRHOSIS OF LIVER 08/27/2018 NASRINABIMBOLA ROSA ZEPEDAIC B Ot K75.8 1 NONALCOHOLIC STEATOHEPATITIS (BROWN) 08/27/2018 ROSA AUGUST DOIC B Ot 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 08/27/2018 NASRINABIMBOLA DO TAY B Ot Z79.8 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 SUPERVISOR (CURRENT) DRUG THERAPY 08/27/2018 NASRINABIMBOLA ROSA ZEPEDAIC B Ot Z80.0 FAMILY HISTORY OF MALIGNANT NEOPLASM OF 08/27/2018 NASRINABIMBOLA ROSA ZEPEDAIC B Ot Z85.4 6 PERSONAL HISTORY OF MALIGNANT NEOPLASM O 08/30/2018 ROSA AUGUST DOIC B Ot D12.0 BENIGN NEOPLASM OF CECUM 08/30/2018 ROSA AUGUST DOIC B Ot E11.9 TYPE 2 DIABETES MELLITUS WITHOUT COMPLIC 08/30/2018 MARIANGEL ZEPEDA TAY B Ot K21.9 GASTRO-ESOPHAGEAL REFLUX DISEASE WITHOUT 08/30/2018 MARIANGEL ZEPEDA, TAY B Ot K29.5 0 UNSPECIFIED CHRONIC GASTRITIS WITHOUT BL 08/30/2018 ROSA AUGUST DOIC B Ot K29.8 0 DUODENITIS WITHOUT BLEEDING 08/30/2018 MARIANGEL ZEPEDA TAY B Ot K31.8 9 OTHER DISEASES OF STOMACH AND DUODENUM 08/30/2018 ROSA AUGUST DOIC B Ot K44.9 DIAPHRAGMATIC HERNIA WITHOUT OBSTRUCTION 08/30/2018 ROSA AUGUST DOIC B Ot K62.5 HEMORRHAGE OF ANUS AND RECTUM 08/30/2018 MARIANGEL ZEPEDA TAY B Ot K64.8 OTHER HEMORRHOIDS 08/30/2018 ROSA AUGUST DOIC B Ot K74.6 0 UNSPECIFIED CIRRHOSIS OF LIVER 08/30/2018 ROSA AUGUST DOIC B Ot K75.8 1 NONALCOHOLIC STEATOHEPATITIS (BROWN) 08/30/2018 ROSA AUGUST DOIC B Ot Z79.8 4 HALF-WAY (CURRENT) USE OF ORAL HYPOGLYC 08/30/2018 ROSA AUGUST DOIC B Ot Z79.8 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 (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) DRUG THERAPY 08/30/2018 TAY AUGUST DO B Ot Z80.0 FAMILY HISTORY OF MALIGNANT NEOPLASM OF 08/30/2018 TAY AUGUST DO B Ot Z85.4 6 PERSONAL HISTORY OF MALIGNANT NEOPLASM O 01/25/2019 MARAH MANZO DO Ot Z01.81 1 ENCOUNTER FOR PREPROCEDURAL RESPIRATORY 01/25/2019 MARAH MANZO DO Ot Z01.81 2 ENCOUNTER FOR PREPROCEDURAL LABORATORY E 01/25/2019 SAMIA BIRD Ot C61 MALIGNANT NEOPLASM OF PROSTATE 02/25/2019 SAMIA BIRD Ot C61 MALIGNANT NEOPLASM OF PROSTATE 04/11/2019 MARGESAMIA Ot C61 MALIGNANT NEOPLASM OF PROSTATE 04/15/2019 MARGESAMIA Ot C61 MALIGNANT NEOPLASM OF PROSTATE 05/30/2019 SELF MADELEINE FIGUEREDO Ot M16.12 UNILATERAL PRIMARY OSTEOARTHRITIS, LEFT 06/25/2019 SELF MADELEINE FIGUEREDO Ot M16.12 UNILATERAL PRIMARY OSTEOARTHRITIS, LEFT 08/17/2019 MICHELLE FIGUEREDO, DEE E Ot C61 MALIGNANT NEOPLASM OF PROSTATE 08/17/2019 SAMIA BIRD Ot C61 MALIGNANT NEOPLASM OF PROSTATE 08/19/2019 SAUL DO, MALDONADO Ot D61.81 8 OTHER PANCYTOPENIA 08/19/2019 SAUL DO, MALDONADO Ot E03.9 HYPOTHYROIDISM, UNSPECIFIED 08/19/2019 SAUL DO, MALDONADO Ot E11.9 TYPE 2 DIABETES MELLITUS WITHOUT COMPLIC 08/19/2019 SAUL DO, MALDONADO Ot E78.00 PURE HYPERCHOLESTEROLEMIA, UNSPECIFIED 08/19/2019 SAUL DO, MALDONADO Ot E87.2 ACIDOSIS 08/19/2019 SAUL DO, MALDONADO Ot E88.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 08/19/2019 SAUL DO, MALDONDAO Ot H91.93 UNSPECIFIED HEARING LOSS, BILATERAL 08/19/2019 SAUL DO, MALDONADO Ot K72.00 ACUTE AND SUBACUTE HEPATIC FAILURE WITHO 08/19/2019 SAUL DO, MALDONADO Ot K74.69 OTHER CIRRHOSIS OF LIVER 08/19/2019 SAUL DO, MALDONADO Ot K75.81 NONALCOHOLIC STEATOHEPATITIS (BROWN) 08/19/2019 SAUL DO, MALDONADO Ot R60.0 LOCALIZED EDEMA 08/19/2019 SAUL DO, MALDONADO Ot R79.1 ABNORMAL COAGULATION PROFILE 08/19/2019 KG DO, MALDONADO Ot T38.3X 5A ADVERSE EFFECT OF INSULIN AND ORAL HYPOG 08/19/2019 SAUL DO, MALDONADO Ot Z85.46 PERSONAL HISTORY OF MALIGNANT NEOPLASM O 08/19/2019 SAUL DO, MALDONADO Ot Z92.3 PERSONAL HISTORY OF IRRADIATION 08/19/2019 SAUL DO, MALDONADO Ot Z97.4 PRESENCE OF EXTERNAL HEARING-AID 08/19/2019 SAUL DO, MALDONADO Ot D61.81 8 OTHER PANCYTOPENIA 08/19/2019 SAUL DO, MALDONADO Ot E03.9 HYPOTHYROIDISM, UNSPECIFIED 08/19/2019 SAUL DO, MALDONADO Ot E11.9 TYPE 2 DIABETES MELLITUS WITHOUT COMPLIC 08/19/2019 SAUL DO, MALDONADO Ot E78.00 PURE HYPERCHOLESTEROLEMIA, UNSPECIFIED 08/19/2019 SAUL DO, MALDONADO Ot E87.2 ACIDOSIS 08/19/2019 SAUL DO, MALDONADO Ot E88.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 08/19/2019 SAUL DO, MALDONADO Ot H91.93 UNSPECIFIED HEARING LOSS, BILATERAL 08/19/2019 SAUL DO, MALDONADO Ot K72.00 ACUTE AND SUBACUTE HEPATIC FAILURE WITHO 08/19/2019 SAUL DO, MALDONADO Ot K74.69 OTHER CIRRHOSIS OF LIVER 08/19/2019 SAUL DO, MALDONADO Ot K75.81 NONALCOHOLIC STEATOHEPATITIS (BROWN) 08/19/2019 SAUL DO, MALDONADO Ot R60.0 LOCALIZED EDEMA 08/19/2019 SAUL DO, MALDONADO Ot R79.1 ABNORMAL COAGULATION PROFILE 08/19/2019 SAUL DO, MALDONADO Ot T38.3X 5A ADVERSE EFFECT OF INSULIN AND ORAL HYPOG 08/19/2019 SAUL DO, MALDONADO Ot Z85.46 PERSONAL HISTORY OF MALIGNANT NEOPLASM O 08/19/2019 SAUL DO, MALDONADO Ot Z92.3 PERSONAL HISTORY OF IRRADIATION 08/19/2019 SAUL DO, MALDONADO Ot Z97.4 PRESENCE OF EXTERNAL HEARING-AID 08/19/2019 SAUL DO, MALDONADO Ot D61.81 8 OTHER PANCYTOPENIA 08/19/2019 SAUL DO, MALDONADO Ot E03.9 HYPOTHYROIDISM, UNSPECIFIED 08/19/2019 SAUL DO, MALDONADO Ot E11.9 TYPE 2 DIABETES MELLITUS WITHOUT COMPLIC 08/19/2019 SAUL DO, MALDONADO Ot E78.00 PURE HYPERCHOLESTEROLEMIA, UNSPECIFIED 08/19/2019 SAUL DO, MALDONADO Ot E87.2 ACIDOSIS 08/19/2019 SAUL DO, MALDONADO Ot E88.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 08/19/2019 SAUL DO, MALDONADO Ot H91.93 UNSPECIFIED HEARING LOSS, BILATERAL 08/19/2019 SAUL DO, MALDONADO Ot K72.00 ACUTE AND SUBACUTE HEPATIC FAILURE WITHO 08/19/2019 SAUL DO, MALDONADO Ot K74.69 OTHER CIRRHOSIS OF LIVER 08/19/2019 SAUL DO, MALDONADO Ot K75.81 NONALCOHOLIC STEATOHEPATITIS (BRWON) 08/19/2019 SAUL DO, MALDONADO Ot R60.0 LOCALIZED EDEMA 08/19/2019 SAUL DO, MALDONADO Ot R79.1 ABNORMAL COAGULATION PROFILE 08/19/2019 SAUL DO MALDONADO Ot T38.3X 5A ADVERSE EFFECT OF INSULIN AND ORAL HYPOG 08/19/2019 SAUL DO, MALDONADO Ot Z85.46 PERSONAL HISTORY OF MALIGNANT NEOPLASM O 08/19/2019 SAUL DO, MALDONADO Ot Z92.3 PERSONAL HISTORY OF IRRADIATION 08/19/2019 SAUL DO MALDONADO Ot Z97.4 PRESENCE OF EXTERNAL HEARING-AID 08/20/2019 SAUL DO, MALDONADO Ot D61.81 8 OTHER PANCYTOPENIA 08/20/2019 SAUL DO, MALDONADO Ot E03.9 HYPOTHYROIDISM, UNSPECIFIED 08/20/2019 SAUL DO, MALDONADO Ot E11.9 TYPE 2 DIABETES MELLITUS WITHOUT COMPLIC 08/20/2019 SAUL DO, MALDONADO Ot E78.00 PURE HYPERCHOLESTEROLEMIA, UNSPECIFIED 08/20/2019 SAUL DO, MALDONADO Ot E87.2 ACIDOSIS 08/20/2019 SAUL DO, MALDONADO Ot E88.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 08/20/2019 SAUL DO, MALDONADO Ot H91.93 UNSPECIFIED HEARING LOSS, BILATERAL 08/20/2019 SAUL DO, MALDONADO Ot K72.00 ACUTE AND SUBACUTE HEPATIC FAILURE WITHO 08/20/2019 SAUL DO, MALDONADO Ot K74.69 OTHER CIRRHOSIS OF LIVER 08/20/2019 SAUL DO, MALDONADO Ot K75.81 NONALCOHOLIC STEATOHEPATITIS (BROWN) 08/20/2019 SAUL DO, MALDONADO Ot R60.0 LOCALIZED EDEMA 08/20/2019 SAUL DO, MALDONADO Ot R79.1 ABNORMAL COAGULATION PROFILE 08/20/2019 SAUL DO, MALDONADO Ot T38.3X 5A ADVERSE EFFECT OF INSULIN AND ORAL HYPOG 08/20/2019 SAUL DO, MALDONADO Ot Z85.46 PERSONAL HISTORY OF MALIGNANT NEOPLASM O 08/20/2019 SAUL DO, MALDONADO Ot Z92.3 PERSONAL HISTORY OF IRRADIATION 08/20/2019 SAUL DO, MALDONADO Ot Z97.4 PRESENCE OF EXTERNAL HEARING-AID 08/20/2019 SAUL DO, MALDONADO Ot D61.81 8 OTHER PANCYTOPENIA 08/20/2019 SAUL DO, MALDONADO Ot 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 08/20/2019 SAUL DO, MALDONADO Ot E03.9 HYPOTHYROIDISM, UNSPECIFIED 08/20/2019 SAUL DO, MALDONADO Ot E11.9 TYPE 2 DIABETES MELLITUS WITHOUT COMPLIC 08/20/2019 SAUL DO, MALDONADO Ot E78.00 PURE HYPERCHOLESTEROLEMIA, UNSPECIFIED 08/20/2019 SAUL DO, MALDONADO Ot E83.42 HYPOMAGNESEMIA 08/20/2019 SAUL DO, MALDONADO Ot E87.2 ACIDOSIS 08/20/2019 SAUL DO, MALDONADO Ot E88.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 08/20/2019 SAUL DO, MALDONADO Ot H91.93 UNSPECIFIED HEARING LOSS, BILATERAL 08/20/2019 SAUL DO, MALDONADO Ot K52.0 GASTROENTERITIS AND COLITIS DUE TO RADIA 08/20/2019 SAUL DO, MALDONADO Ot K72.00 ACUTE AND SUBACUTE HEPATIC FAILURE WITHO 08/20/2019 SAUL DO, MALDONADO Ot K74.69 OTHER CIRRHOSIS OF LIVER 08/20/2019 SAUL DO, MALDONADO Ot K75.81 NONALCOHOLIC STEATOHEPATITIS (BROWN) 08/20/2019 SAUL DO, MALDONADO Ot R60.0 LOCALIZED EDEMA 08/20/2019 SAUL DO, MALDONADO Ot T38.3X 5A ADVERSE EFFECT OF INSULIN AND ORAL HYPOG 08/20/2019 SAUL DO, MALDONADO Ot Z85.46 PERSONAL HISTORY OF MALIGNANT NEOPLASM O 08/20/2019 SAUL DO, MALDONADO Ot Z92.3 PERSONAL HISTORY OF IRRADIATION 08/20/2019 SAUL DO, MALDONADO Ot Z97.4 PRESENCE OF EXTERNAL HEARING-AID 08/23/2019 BLAINE ANAYA MD Ot K74.69 OTHER CIRRHOSIS OF LIVER 08/23/2019 BLAINE ANAYA MD Ot K75.81 NONALCOHOLIC STEATOHEPATITIS (BROWN) 08/23/2019 BLAINE ANAYA MD Ot K76.6 PORTAL HYPERTENSION 08/23/2019 BLAINE ANAYA MD Ot K74.69 OTHER CIRRHOSIS OF LIVER 08/23/2019 BLAINE ANAYA MD, Ot K75.81 NONALCOHOLIC STEATOHEPATITIS (BROWN) 08/23/2019 BLAINE ANAYA MD, Ot K76.6 PORTAL HYPERTENSION Procedures There is no data. Results Test Result Range CBC - 08/02/18 09:32 WHITE BLOOD CELL COUNT 3.2 Thousand/uL 3 .8-10.8 RED BLOOD CELL COUNT 3.06 Million/uL 4.2 0-5.80 HEMOGLOBIN 11.3 g/dL 13.2-17.1 HEMATOCRIT 32.2 % 38.5-50.0 MCV 105.2 fL 80.0-100.0 MCH 36.9 pg 27.0-33.0 MCHC 35.1 g/dL 32.0-36.0 RDW 13.3 % 11.0-15.0 PLATELET COUNT 39 Thousand/uL 140-400 MPV 10.7 fL 7.5-12.5 ABSOLUTE NEUTROPHILS 2102 cells/uL 1500- 7800 ABSOLUTE LYMPHOCYTES 493 cells/uL 850-39 00 ABSOLUTE MONOCYTES 442 cells/uL 200-950 ABSOLUTE EOSINOPHILS 122 cells/uL 15-500 ABSOLUTE BASOPHILS 42 cells/uL 0-200 NEUTROPHILS 65.7 % NRG LYMPHOCYTES 15.4 % NRG MONOCYTES 13.8 % NRG EOSINOPHILS 3.8 % NRG BASOPHILS 1.3 % NRG PLATELET ESTIMATION DECREASED ADEQUATE COMMENT(S) NRG AMMONIA - 08/02/18 09:34 AMMONIA (P) 138 umol/L < OR = 72 Capillary blood glucose measurement by g lucometer (mass/volume) - 08/27/18 09:21 Capillary blood glucose measurement by glucometer (mas s/volume) 101 mg/dL 70-110 MICROALBUMIN/CREATININE RATIO, URINE - 1 06/03/18 07:54 CREATININE, RANDOM URINE 233 mg/dL 20-32 0 MICROALBUMIN 0.6 mg/dL See Note: MICROALBUMIN/CREATININE RATIO, RANDOM URINE 3 mcg/ mg creat <30 TSH w/ FREE T4 - 07/31/19 07:32 TSH 0.40 mIU/L 0.40-4.50 T4, FREE 1.1 ng/dL 0.8-1.8 CMP - 07/31/19 07:32 GLUCOSE 201 mg/dL 65-99 UREA NITROGEN (BUN) 14 mg/dL 7-25 CREATININE 0.80 mg/dL 0.70-1.18 eGFR NON-AFR. POLISH 87 mL/min/1.73m2 > OR = 60 eGFR 101 mL/min/1.73m2 > OR = 60 BUN/CREATININE RATIO NOT APPLICABLE (calc) 6-22 SODIUM 137 mmol/L 135-146 POTASSIUM 4.0 mmol/L 3.5-5.3 CHLORIDE 105 mmol/L 98-110 CARBON DIOXIDE 22 mmol/L 20-32 CALCIUM 8.4 mg/dL 8.6-10.3 PROTEIN, TOTAL 6.1 g/dL 6.1-8.1 ALBUMIN 2.7 g/dL 3.6-5.1 GLOBULIN 3.4 g/dL (calc) 1.9-3.7 ALBUMIN/GLOBULIN RATIO 0.8 (calc) 1.0-2. 5 BILIRUBIN, TOTAL 1.4 mg/dL 0.2-1.2 ALKALINE PHOSPHATASE 139 U/L 35-144 AST 34 U/L 10-35 ALT 25 U/L 9-46 CBC - 07/31/19 07:32 WHITE BLOOD CELL COUNT 3.9 Thousand/uL 3 .8-10.8 RED BLOOD CELL COUNT 2.99 Million/uL 4.2 0-5.80 HEMOGLOBIN 10.8 g/dL 13.2-17.1 HEMATOCRIT 31.5 % 38.5-50.0 MCV 105.4 fL 80.0-100.0 MCH 36.1 pg 27.0-33.0 MCHC 34.3 g/dL 32.0-36.0 RDW 14.4 % 11.0-15.0 PLATELET COUNT 47 Thousand/uL 140-400 MPV 11.3 fL 7.5-12.5 ABSOLUTE NEUTROPHILS 2461 cells/uL 1500- 7800 ABSOLUTE LYMPHOCYTES 698 cells/uL 850-39 00 ABSOLUTE MONOCYTES 550 cells/uL 200-950 ABSOLUTE EOSINOPHILS 140 cells/uL 15-500 ABSOLUTE BASOPHILS 51 cells/uL 0-200 NEUTROPHILS 63.1 % NRG LYMPHOCYTES 17.9 % NRG MONOCYTES 14.1 % NRG EOSINOPHILS 3.6 % NRG BASOPHILS 1.3 % NRG PLATELET ESTIMATION DECREASED ADEQUATE COMMENT(S) NRG A1C - 07/31/19 07:32 HEMOGLOBIN A1c 6.1 % of total Hgb <5.7 AMMONIA - 07/31/19 07:55 AMMONIA (P) 198 umol/L < OR = 72 Complete blood count (CBC) with automate d white blood cell (WBC) differential - 08/17/19 09:56 Blood leukocytes automated count (number/volume) 4.3 10*3/uL 4.3-11.0 Blood erythrocytes automated count (number/volume) 3.17 10*6/uL 4.35-5.85 Venous blood hemoglobin measurement (mass/volume) 11.6 g/dL 13.3-17.7 Blood hematocrit (volume fraction) 34 % 40-54 Automated erythrocyte mean corpuscular volume 108 [foz_us] 80-99 Automated erythrocyte mean corpuscular h emoglobin (mass per erythrocyte) 37 pg 25-34 Automated erythrocyte mean corpuscular h emoglobin concentration measurement (mass/volume) 34 g/dL 32-36 Automated erythrocyte distribution width ratio 16. 0 % 10.0- 14.5 Automated blood platelet count (count/volume) 28 1 0*3/uL 130-400 Automated blood platelet mean volume measurement 11.8 [foz_us] 7.4-10.4 Automated blood neutrophils/100 leukocytes 75 % 42-75 Automated blood lymphocytes/100 leukocytes 11 % 12-44 Blood monocytes/100 leukocytes 11 % 0-12 Automated blood eosinophils/100 leukocytes 2 % 0-10 Automated blood basophils/100 leukocytes 1 % 0-10 Blood neutrophils automated count (number/volume) 3.2 10*3 1.8-7.8 Blood lymphocytes automated count (number/volume) 0.5 10*3 1.0-4.0 Blood monocytes automated count (number/volume) 0. 5 10*3 0.0-1.0 Automated eosinophil count 0.1 10*3/uL 0 .0-0.3 Automated blood basophil count (count/volume) 0.0 10*3/uL 0.0-0.1 PT panel in platelet poor plasma by coag ulation assay - 08/17/19 09:56 Prothrombin time (PT) in platelet poor plasma by coagu lation assay 16.5 s 12.2-14.7 INR in platelet poor plasma or blood by coagulation as say 1.3 0.8-1.4 Blood lactic acid measurement (moles/vol ume) - 08/17/19 09:56 Blood lactic acid measurement (moles/volume) 4.26 mmol/L 0.50-2.00 Comprehensive metabolic panel - 08/17/19 09:56 Serum or plasma sodium measurement (moles/volume) 140 mmol/L 135-145 Serum or plasma potassium measurement (moles/volume) 4.4 mmol/L 3.6-5.0 Serum or plasma chloride measurement (moles/volume) 104 mmol/L 98-107 Carbon dioxide 20 mmol/L 21-32 Serum or plasma anion gap determination (moles/volume) 16 mmol/L 5-14 Serum or plasma urea nitrogen measurement (mass/volume ) 14 mg/dL 7-18 Serum or plasma creatinine measurement (mass/volume) 0.64 mg/dL 0.60-1.30 Serum or plasma urea nitrogen/creatinine mass ratio 22 NRG Serum or plasma creatinine measurement w ith calculation of estimated glomerular filtration rate > NRG Serum or plasma glucose measurement (mass/volume) 194 mg/dL 70-105 Serum or plasma calcium measurement (mass/volume) 8.9 mg/dL 8.5-10.1 Serum or plasma total bilirubin measurement (mass/volu me) 1.1 mg/dL 0.1-1.0 Serum or plasma alkaline phosphatase kathleen surement (enzymatic activity/volume) 141 U/L 40-136 Serum or plasma aspartate aminotransfera se measurement (enzymatic activity/volume) 40 U/L 5-34 Serum or plasma alanine aminotransferase measurement (enzymatic activity/volume) 28 U/L 0-55 Serum or plasma protein measurement (mass/volume) 6.8 g/dL 6.4-8.2 Serum or plasma albumin measurement (mass/volume) 3.0 g/dL 3.2-4.5 CALCIUM CORRECTED 9.7 mg/dL 8.5-10.1 TROPONIN I FS - 08/17/19 09:56 TROPONIN I FS < 0.30 <0.30 PROBNP FS - 08/17/19 09:56 PROBNP FS 37.5 pg/mL <75.0 Ammonia - 08/17/19 09:56 Ammonia 149 umol/L 11-32 Complete urinalysis with reflex to cultu re - 08/17/19 10:27 Urine color determination YELLOW NRG Urine clarity determination CLEAR NR G Urine pH measurement by test strip 5.5 5-9 Specific gravity of urine by test strip 1.025 1.016-1.022 Urine protein assay by test strip, semi-quantitative NEGATIVE NEGATIVE Urine glucose detection by automated test strip NE GATIVE NEGATIVE Erythrocytes detection in urine sediment by light micr oscopy NEGATIVE NEGATIVE Urine ketones detection by automated test strip TR DARIN NEGATIVE Urine nitrite detection by test strip NEGATIVE NEGATIVE Urine total bilirubin detection by test strip NEGA TIVE NEGATIVE Urine urobilinogen measurement by automated test strip (mass/volume) 0.2 mg/dL < = 1.0 Urine leukocyte esterase detection by dipstick NEG ATIVE NEGATIVE Automated urine sediment erythrocyte cou nt by microscopy (number/high power field) NONE NRG Automated urine sediment leukocyte count by microscopy (number/high power field) RARE NRG Bacteria detection in urine sediment by light microsco py NONE NRG Crystals detection in urine sediment by light microsco py NONE NRG Casts detection in urine sediment by light microscopy NONE NRG Mucus detection in urine sediment by light microscopy TRACE NRG Complete urinalysis with reflex to culture NO NRG Methicillin resistant Staphylococcus aur eus (MRSA) screening culture - 08/17/19 14:46 Methicillin resistant Staphylococcus aureus (MRSA) scr eening culture NEG NRG Complete blood count (CBC) with automate d white blood cell (WBC) differential - 08/17/19 14:50 Blood leukocytes automated count (number/volume) 4.3 10*3/uL 4.3-11.0 Blood erythrocytes automated count (number/volume) 3.10 10*6/uL 4.35-5.85 Venous blood hemoglobin measurement (mass/volume) 11.3 g/dL 13.3-17.7 Blood hematocrit (volume fraction) 33 % 40-54 Automated erythrocyte mean corpuscular volume 107 [foz_us] 80-99 Automated erythrocyte mean corpuscular h emoglobin (mass per erythrocyte) 37 pg 25-34 Automated erythrocyte mean corpuscular h emoglobin concentration measurement (mass/volume) 34 g/dL 32-36 Automated erythrocyte distribution width ratio 16. 2 % 10.0- 14.5 Automated blood platelet count (count/volume) 31 1 0*3/uL 130-400 Automated blood platelet mean volume measurement 11.8 [foz_us] 7.4-10.4 Automated blood neutrophils/100 leukocytes 66 % 42-75 Automated blood lymphocytes/100 leukocytes 18 % 12-44 Blood monocytes/100 leukocytes 13 % 0-12 Automated blood eosinophils/100 leukocytes 2 % 0-10 Automated blood basophils/100 leukocytes 1 % 0-10 Blood neutrophils automated count (number/volume) 2.8 10*3 1.8-7.8 Blood lymphocytes automated count (number/volume) 0.8 10*3 1.0-4.0 Blood monocytes automated count (number/volume) 0. 6 10*3 0.0-1.0 Automated eosinophil count 0.1 10*3/uL 0 .0-0.3 Automated blood basophil count (count/volume) 0.1 10*3/uL 0.0-0.1 PT panel in platelet poor plasma by coag ulation assay - 08/17/19 14:50 Prothrombin time (PT) in platelet poor plasma by coagu lation assay 18.6 s 12.2-14.7 INR in platelet poor plasma or blood by coagulation as say 1.5 0.8-1.4 Comprehensive metabolic panel - 08/17/19 14:50 Serum or plasma sodium measurement (moles/volume) 137 mmol/L 135-145 Serum or plasma potassium measurement (moles/volume) 3.8 mmol/L 3.6-5.0 Serum or plasma chloride measurement (moles/volume) 106 mmol/L 98-107 Carbon dioxide 18 mmol/L 21-32 Serum or plasma anion gap determination (moles/volume) 13 mmol/L 5-14 Serum or plasma urea nitrogen measurement (mass/volume ) 12 mg/dL 7-18 Serum or plasma creatinine measurement (mass/volume) 0.75 mg/dL 0.60-1.30 Serum or plasma urea nitrogen/creatinine mass ratio 16 NRG Serum or plasma creatinine measurement w ith calculation of estimated glomerular filtration rate > NRG Serum or plasma glucose measurement (mass/volume) 114 mg/dL 70-105 Serum or plasma calcium measurement (mass/volume) 8.5 mg/dL 8.5-10.1 Serum or plasma total bilirubin measurement (mass/volu me) 1.1 mg/dL 0.1-1.0 Serum or plasma alkaline phosphatase kathleen surement (enzymatic activity/volume) 123 U/L 40-136 Serum or plasma aspartate aminotransfera se measurement (enzymatic activity/volume) 37 U/L 5-34 Serum or plasma alanine aminotransferase measurement (enzymatic activity/volume) 29 U/L 0-55 Serum or plasma protein measurement (mass/volume) 6.7 g/dL 6.4-8.2 Serum or plasma albumin measurement (mass/volume) 2.8 g/dL 3.2-4.5 CALCIUM CORRECTED 9.5 mg/dL 8.5-10.1 PROCALCITONIN (PCT) - 08/17/19 14:50 PROCALCITONIN (PCT) 0.05 ng/mL <0.10 Blood lactic acid measurement (moles/vol ume) - 08/17/19 14:50 Blood lactic acid measurement (moles/volume) 4.75 mmol/L 0.50-2.00 Ammonia - 08/17/19 14:50 Ammonia 93 umol/L 11-32 Urine drug screening test - 08/17/19 15: 23 Urine phencyclidine detection by screening method NEGATIVE NEGATIVE Urine benzodiazepines detection by screening method NEGATIVE NEGATIVE Urine cocaine detection NEGATIVE NEGATI VE Urine amphetamines detection by screening method N EGATIVE NEGATIVE Urine methamphetamine detection by screening method NEGATIVE NEGATIVE Urine cannabinoids detection by screening method N EGATIVE NEGATIVE Urine opiates detection by screening method NEGATI VE NEGATIVE Urine barbiturates detection NEGATIVE N EGATIVE Screening urine tricyclic antidepressants detection NEGATIVE NEGATIVE Urine methadone detection by screening method NEGA TIVE NEGATIVE Urine oxycodone detection NEGATIVE NEGA TIVE Urine propoxyphene detection NEGATIVE N EGATIVE Capillary blood glucose measurement by g lucometer (mass/volume) - 08/17/19 15:35 Capillary blood glucose measurement by glucometer (mas s/volume) 130 mg/dL 70-110 Serum or plasma lactate measurement (mol es/volume) - 08/17/19 17:04 Serum or plasma lactate measurement (moles/volume) 3.78 mmol/L 0.50-2.00 Blood lactic acid measurement (moles/vol ume) - 08/17/19 19:16 Blood lactic acid measurement (moles/volume) 4.11 mmol/L 0.50-2.00 Capillary blood glucose measurement by g lucometer (mass/volume) - 08/17/19 20:12 Capillary blood glucose measurement by glucometer (mas s/volume) 183 mg/dL 70-110 Complete blood count (CBC) with automate d white blood cell (WBC) differential - 08/18/19 02:48 Blood leukocytes automated count (number/volume) 2.8 10*3/uL 4.3-11.0 Blood erythrocytes automated count (number/volume) 2.77 10*6/uL 4.35-5.85 Venous blood hemoglobin measurement (mass/volume) 10.1 g/dL 13.3-17.7 Blood hematocrit (volume fraction) 30 % 40-54 Automated erythrocyte mean corpuscular volume 108 [foz_us] 80-99 Automated erythrocyte mean corpuscular h emoglobin (mass per erythrocyte) 36 pg 25-34 Automated erythrocyte mean corpuscular h emoglobin concentration measurement (mass/volume) 34 g/dL 32-36 Automated erythrocyte distribution width ratio 16. 4 % 10.0- 14.5 Automated blood platelet count (count/volume) 26 1 0*3/uL 130-400 Automated blood platelet mean volume measurement 11.1 [foz_us] 7.4-10.4 Automated blood neutrophils/100 leukocytes 53 % 42-75 Automated blood lymphocytes/100 leukocytes 25 % 12-44 Blood monocytes/100 leukocytes 17 % 0-12 Automated blood eosinophils/100 leukocytes 4 % 0-10 Automated blood basophils/100 leukocytes 1 % 0-10 Blood neutrophils automated count (number/volume) 1.5 10*3 1.8-7.8 Blood lymphocytes automated count (number/volume) 0.7 10*3 1.0-4.0 Blood monocytes automated count (number/volume) 0. 5 10*3 0.0-1.0 Automated eosinophil count 0.1 10*3/uL 0 .0-0.3 Automated blood basophil count (count/volume) 0.0 10*3/uL 0.0-0.1 Comprehensive metabolic panel - 08/18/19 02:48 Serum or plasma sodium measurement (moles/volume) 140 mmol/L 135-145 Serum or plasma potassium measurement (moles/volume) 3.9 mmol/L 3.6-5.0 Serum or plasma chloride measurement (moles/volume) 110 mmol/L 98-107 Carbon dioxide 20 mmol/L 21-32 Serum or plasma anion gap determination (moles/volume) 10 mmol/L 5-14 Serum or plasma urea nitrogen measurement (mass/volume ) 11 mg/dL 7-18 Serum or plasma creatinine measurement (mass/volume) 0.68 mg/dL 0.60-1.30 Serum or plasma urea nitrogen/creatinine mass ratio 16 NRG Serum or plasma creatinine measurement w ith calculation of estimated glomerular filtration rate > NRG Serum or plasma glucose measurement (mass/volume) 110 mg/dL 70-105 Serum or plasma calcium measurement (mass/volume) 7.9 mg/dL 8.5-10.1 Serum or plasma total bilirubin measurement (mass/volu me) 1.1 mg/dL 0.1-1.0 Serum or plasma alkaline phosphatase kathleen surement (enzymatic activity/volume) 112 U/L 40-136 Serum or plasma aspartate aminotransfera se measurement (enzymatic activity/volume) 33 U/L 5-34 Serum or plasma alanine aminotransferase measurement (enzymatic activity/volume) 27 U/L 0-55 Serum or plasma protein measurement (mass/volume) 6.0 g/dL 6.4-8.2 Serum or plasma albumin measurement (mass/volume) 2.5 g/dL 3.2-4.5 CALCIUM CORRECTED 9.1 mg/dL 8.5-10.1 Blood lactic acid measurement (moles/vol ume) - 08/18/19 02:48 Blood lactic acid measurement (moles/volume) 1.76 mmol/L 0.50-2.00 PT panel in platelet poor plasma by coag ulation assay - 08/18/19 02:48 Prothrombin time (PT) in platelet poor plasma by coagu lation assay 19.7 s 12.2-14.7 INR in platelet poor plasma or blood by coagulation as say 1.6 0.8-1.4 Serum or plasma phosphate measurement (m ass/volume) - 08/18/19 02:48 Serum or plasma phosphate measurement (mass/volume) 2.7 mg/dL 2.3-4.7 Magnesium - 08/18/19 02:48 Magnesium 1.7 mg/dL 1.6-2.4 Ammonia - 08/18/19 06:33 Ammonia 120 umol/L 11-32 Bacterial blood culture - 08/18/19 06:33 Bacterial blood culture NG NRG Bacterial blood culture - 08/18/19 06:40 Bacterial blood culture NG NRG Bacterial blood culture - 08/18/19 06:45 Bacterial blood culture NG NRG Capillary blood glucose measurement by g lucometer (mass/volume) - 08/18/19 11:11 Capillary blood glucose measurement by glucometer (mas s/volume) 174 mg/dL 70-110 Capillary blood glucose measurement by g lucometer (mass/volume) - 08/18/19 16:32 Capillary blood glucose measurement by glucometer (mas s/volume) 132 mg/dL 70-110 Capillary blood glucose measurement by g lucometer (mass/volume) - 08/18/19 22:00 Capillary blood glucose measurement by glucometer (mas s/volume) 137 mg/dL 70-110 Complete blood count (CBC) with automate d white blood cell (WBC) differential - 08/19/19 03:20 Blood leukocytes automated count (number/volume) 2.8 10*3/uL 4.3-11.0 Blood erythrocytes automated count (number/volume) 2.73 10*6/uL 4.35-5.85 Venous blood hemoglobin measurement (mass/volume) 10.1 g/dL 13.3-17.7 Blood hematocrit (volume fraction) 29 % 40-54 Automated erythrocyte mean corpuscular volume 105 [foz_us] 80-99 Automated erythrocyte mean corpuscular h emoglobin (mass per erythrocyte) 37 pg 25-34 Automated erythrocyte mean corpuscular h emoglobin concentration measurement (mass/volume) 35 g/dL 32-36 Automated erythrocyte distribution width ratio 15. 9 % 10.0- 14.5 Automated blood platelet count (count/volume) 29 1 0*3/uL 130-400 Automated blood platelet mean volume measurement 10.6 [foz_us] 7.4-10.4 Automated blood neutrophils/100 leukocytes 54 % 42-75 Automated blood lymphocytes/100 leukocytes 23 % 12-44 Blood monocytes/100 leukocytes 18 % 0-12 Automated blood eosinophils/100 leukocytes 5 % 0-10 Automated blood basophils/100 leukocytes 1 % 0-10 Blood neutrophils automated count (number/volume) 1.5 10*3 1.8-7.8 Blood lymphocytes automated count (number/volume) 0.6 10*3 1.0-4.0 Blood monocytes automated count (number/volume) 0. 5 10*3 0.0-1.0 Automated eosinophil count 0.1 10*3/uL 0 .0-0.3 Automated blood basophil count (count/volume) 0.0 10*3/uL 0.0-0.1 Whole blood basic metabolic panel - 07/31 03:20 Serum or plasma sodium measurement (moles/volume) 141 mmol/L 135-145 Serum or plasma potassium measurement (moles/volume) 3.8 mmol/L 3.6-5.0 Serum or plasma chloride measurement (moles/volume) 110 mmol/L 98-107 Carbon dioxide 21 mmol/L 21-32 Serum or plasma anion gap determination (moles/volume) 10 mmol/L 5-14 Serum or plasma urea nitrogen measurement (mass/volume ) 8 mg/dL 7-18 Serum or plasma creatinine measurement (mass/volume) 0.70 mg/dL 0.60-1.30 Serum or plasma urea nitrogen/creatinine mass ratio 11 NRG Serum or plasma creatinine measurement w ith calculation of estimated glomerular filtration rate > NRG Serum or plasma glucose measurement (mass/volume) 112 mg/dL 70-105 Serum or plasma calcium measurement (mass/volume) 8.5 mg/dL 8.5-10.1 Serum or plasma phosphate measurement (m ass/volume) - 08/19/19 03:20 Serum or plasma phosphate measurement (mass/volume) 2.9 mg/dL 2.3-4.7 Magnesium - 08/19/19 03:20 Magnesium 1.9 mg/dL 1.6-2.4 Capillary blood glucose measurement by g lucometer (mass/volume) - 08/19/19 10:26 Capillary blood glucose measurement by glucometer (mas s/volume) 124 mg/dL 70-110 Capillary blood glucose measurement by g lucometer (mass/volume) - 08/19/19 15:54 Capillary blood glucose measurement by glucometer (mas s/volume) 133 mg/dL 70-110 Capillary blood glucose measurement by g lucometer (mass/volume) - 08/19/19 20:42 Capillary blood glucose measurement by glucometer (mas s/volume) 168 mg/dL 70-110 Comprehensive metabolic panel - 08/20/19 04:30 Serum or plasma sodium measurement (moles/volume) 139 mmol/L 135-145 Serum or plasma potassium measurement (moles/volume) 3.9 mmol/L 3.6-5.0 Serum or plasma chloride measurement (moles/volume) 109 mmol/L 98-107 Carbon dioxide 21 mmol/L 21-32 Serum or plasma anion gap determination (moles/volume) 9 mmol/L 5-14 Serum or plasma urea nitrogen measurement (mass/volume ) 7 mg/dL 7-18 Serum or plasma creatinine measurement (mass/volume) 0.73 mg/dL 0.60-1.30 Serum or plasma urea nitrogen/creatinine mass ratio 10 NRG Serum or plasma creatinine measurement w ith calculation of estimated glomerular filtration rate > NRG Serum or plasma glucose measurement (mass/volume) 95 mg/dL 70-105 Serum or plasma calcium measurement (mass/volume) 8.4 mg/dL 8.5-10.1 Serum or plasma total bilirubin measurement (mass/volu me) 1.5 mg/dL 0.1-1.0 Serum or plasma alkaline phosphatase kathleen surement (enzymatic activity/volume) 93 U/L 40-136 Serum or plasma aspartate aminotransfera se measurement (enzymatic activity/volume) 34 U/L 5-34 Serum or plasma alanine aminotransferase measurement (enzymatic activity/volume) 24 U/L 0-55 Serum or plasma protein measurement (mass/volume) 6.2 g/dL 6.4-8.2 Serum or plasma albumin measurement (mass/volume) 3.2 g/dL 3.2-4.5 CALCIUM CORRECTED 9.0 mg/dL 8.5-10.1 Complete blood count (CBC) with automate d white blood cell (WBC) differential - 08/20/19 04:30 Blood leukocytes automated count (number/volume) 2.8 10*3/uL 4.3-11.0 Blood erythrocytes automated count (number/volume) 2.65 10*6/uL 4.35-5.85 Venous blood hemoglobin measurement (mass/volume) 9.7 g/dL 13.3-17.7 Blood hematocrit (volume fraction) 29 % 40-54 Automated erythrocyte mean corpuscular volume 108 [foz_us] 80-99 Automated erythrocyte mean corpuscular h emoglobin (mass per erythrocyte) 37 pg 25-34 Automated erythrocyte mean corpuscular h emoglobin concentration measurement (mass/volume) 34 g/dL 32-36 Automated erythrocyte distribution width ratio 16. 0 % 10.0- 14.5 Automated blood platelet count (count/volume) 26 1 0*3/uL 130-400 Automated blood platelet mean volume measurement 11.0 [foz_us] 7.4-10.4 Automated blood neutrophils/100 leukocytes 50 % 42-75 Automated blood lymphocytes/100 leukocytes 26 % 12-44 Blood monocytes/100 leukocytes 18 % 0-12 Automated blood eosinophils/100 leukocytes 5 % 0-10 Automated blood basophils/100 leukocytes 2 % 0-10 Blood neutrophils automated count (number/volume) 1.4 10*3 1.8-7.8 Blood lymphocytes automated count (number/volume) 0.7 10*3 1.0-4.0 Blood monocytes automated count (number/volume) 0. 5 10*3 0.0-1.0 Automated eosinophil count 0.2 10*3/uL 0 .0-0.3 Automated blood basophil count (count/volume) 0.1 10*3/uL 0.0-0.1 Capillary blood glucose measurement by g lucometer (mass/volume) - 08/20/19 10:14 Capillary blood glucose measurement by glucometer (mas s/volume) 152 mg/dL 70-110 Complete blood count (CBC) with automate d white blood cell (WBC) differential - 08/21/19 07:43 Blood leukocytes automated count (number/volume) 3.0 10*3/uL 4.3-11.0 Blood erythrocytes automated count (number/volume) 2.82 10*6/uL 4.35-5.85 Venous blood hemoglobin measurement (mass/volume) 10.2 g/dL 13.3-17.7 Blood hematocrit (volume fraction) 30 % 40-54 Automated erythrocyte mean corpuscular volume 107 [foz_us] 80-99 Automated erythrocyte mean corpuscular h emoglobin (mass per erythrocyte) 36 pg 25-34 Automated erythrocyte mean corpuscular h emoglobin concentration measurement (mass/volume) 34 g/dL 32-36 Automated erythrocyte distribution width ratio 16. 0 % 10.0- 14.5 Automated blood platelet count (count/volume) 32 1 0*3/uL 130-400 Automated blood platelet mean volume measurement 11.0 [foz_us] 7.4-10.4 Automated blood neutrophils/100 leukocytes 50 % 42-75 Automated blood lymphocytes/100 leukocytes 27 % 12-44 Blood monocytes/100 leukocytes 17 % 0-12 Automated blood eosinophils/100 leukocytes 5 % 0-10 Automated blood basophils/100 leukocytes 1 % 0-10 Blood neutrophils automated count (number/volume) 1.5 10*3 1.8-7.8 Blood lymphocytes automated count (number/volume) 0.8 10*3 1.0-4.0 Blood monocytes automated count (number/volume) 0. 5 10*3 0.0-1.0 Automated eosinophil count 0.2 10*3/uL 0 .0-0.3 Automated blood basophil count (count/volume) 0.0 10*3/uL 0.0-0.1 PT panel in platelet poor plasma by coag ulation assay - 08/21/19 07:43 Prothrombin time (PT) in platelet poor plasma by coagu lation assay 19.9 s 12.2-14.7 INR in platelet poor plasma or blood by coagulation as say 1.6 0.8-1.4 Comprehensive metabolic panel - 08/21/19 07:43 Serum or plasma sodium measurement (moles/volume) 137 mmol/L 135-145 Serum or plasma potassium measurement (moles/volume) 3.9 mmol/L 3.6-5.0 Serum or plasma chloride measurement (moles/volume) 108 mmol/L 98-107 Carbon dioxide 21 mmol/L 21-32 Serum or plasma anion gap determination (moles/volume) 8 mmol/L 5-14 Serum or plasma urea nitrogen measurement (mass/volume ) 10 mg/dL 7-18 Serum or plasma creatinine measurement (mass/volume) 0.76 mg/dL 0.60-1.30 Serum or plasma urea nitrogen/creatinine mass ratio 13 NRG Serum or plasma creatinine measurement w ith calculation of estimated glomerular filtration rate > NRG Serum or plasma glucose measurement (mass/volume) 101 mg/dL 70-105 Serum or plasma calcium measurement (mass/volume) 8.3 mg/dL 8.5-10.1 Serum or plasma total bilirubin measurement (mass/volu me) 1.6 mg/dL 0.1-1.0 Serum or plasma alkaline phosphatase kathleen surement (enzymatic activity/volume) 105 U/L 40-136 Serum or plasma aspartate aminotransfera se measurement (enzymatic activity/volume) 36 U/L 5-34 Serum or plasma alanine aminotransferase measurement (enzymatic activity/volume) 25 U/L 0-55 Serum or plasma protein measurement (mass/volume) 6.4 g/dL 6.4-8.2 Serum or plasma albumin measurement (mass/volume) 3.2 g/dL 3.2-4.5 CALCIUM CORRECTED 8.9 mg/dL 8.5-10.1 Serum or plasma [id number].tumo r marker measurement (mass/volume) - 08/21/19 07:43 Serum or plasma [id number].tumo r marker measurement (mass/volume) < % 0.0-8.8 Encounters ACCT No. Visit Date/Time Discharge Status Pt. Type Provider Facility Loc./Unit Complaint [id number] 08/22/2019 09:30:00 [id number] 07/31/2019 07:15:00 Document Registration [id number] 04/02/2019 07:45:00 Document Registration [id number] 08/02/2018 08:40:00 Document Registration [id number] 07/18/2018 10:24:00 14:38:00 DIS Inpatient Quinn Turpin, George Hernandez [facility] [id number] [id number] 08/17/2019 11:32:00 13:54:00 DIS Inpatient MALDONADO SAUL DO, [facility] 4TH CONFUSION [id number] 05/29/2019 09:25:00 23:59:59 CLS Outpatient SELF MADELEINE FIGUEREOD [facility] RAD FS M25.552 [id number] 04/12/2019 00:09:00 23:59:59 CLS Preadmit SAMIA BIRD [facility] ONC [id number] 01/11/2019 09:03:00 00:01:00 DIS Outpatient SAMIA BIRD [facility] ONC [id number] 01/04/2019 13:08:00 23:59:59 CLS Outpatient MARAH MANZO DO [facility] RAD FS Z01.812 [id number] 08/27/2018 08:20:00 11:50:00 DIS Outpatient TAY AUGUST DO [facility] ENDO BLOOD IN STOOLS/GI BLEE D [id number] 08/23/2018 05:37:00 019 11:46:00 DIS Outpatient TAY AUGUST DO [facility] PREOP COLONOSCOPY/EGD [id number] 01/29/2018 00:24:00 018 23:59:59 CLS Preadmit MICHELLE FIGUEREDO, DEE Still ia [facility] ONC [id number] 2017 14:39:00 018 00:01:00 DIS Outpatient DEE MARTINEZ MD [facility] ONC [id number] 10/05/2017 07:40:00 018 00:01:00 DIS Outpatient DEE MARTINEZ MD [facility] ONC [id number] 04/05/2017 13:37:00 018 00:01:00 DIS Outpatient DEE MARTINEZ MD [facility] ONC [id number] 08/21/2019 07:23:[address] Outpatient BLAINE ANAYA MD [facility] RAD CIRRHOSIS OF LIVER
[2019-08-24] MEDS ORDERED: NS (IVPB) 250 ML IV ONE (12:15)
--- NOTE | 2019-08-24 12:15 | ED Syncope ---
General Chief Complaint: Dizziness/Syncope Source of Information: Patient, EMS Exam Limitations: No Limitations History of Present Illness Date Seen by Provider: Aug 24, 2019 Time Seen by Provider: 11:40 Initial Comments Patient's a known cirrhotic just discharged from the hospital after an episode of hepatic encephalopathy taking spironolactone and Lasix when out to mow the lawn was noted to be unresponsive by his EMS arrived he had low blood pressure he denies black tarry stools he denies any pain chest pain Oertli is back to normal EMS reports his pressure was initially 70 than 90 and now it's 100. Timing/Prior Episodes: Other (she has significant alcoholic liver disease) Symptoms Prior to Episode: Confusion Precipitating Factors: None Loss of Consciousness: No Loss of Consciousness, Brief (Seconds) Current Symptoms: Back to Normal Allergies and Home Medications Allergies Coded Allergies: metformin (Verified Allergy, Unknown, 08/17/19) lactic acidosis 08/17/19 Home Medications Albuterol Sulfate 1 Puff Puff, 1 PUFF PO Q4H PRN for SHORTNESS OF BREATH, (Reported) Atorvastatin Calcium 10 Mg Tablet, 10 MG PO DAILY, (Reported) Furosemide 40 Mg Tablet, 40 MG PO DAILY PRN for FLUID RETENTION, (Reported) TAKES IF WEIGHT IS UP BY 2-3 POUNDS Levothyroxine Sodium 125 Mcg Tablet, 125 MCG PO DAILY, (Reported) Pantoprazole Sodium 40 Mg Tablet.dr, 40 MG PO DAILY Prescribed by: MALDONADO SAUL on 08/20/19 1120 Polyethylene Glycol 3350 17 Gm Powd.pack, 17 GM PO Q4HR Give 1 scoop in 4 oz of fluid QID or until 5 BM's a day Prescribed by: MALDONADO SAUL on 08/20/19 1120 Rifaximin 550 Mg Tablet, 550 TAB PO BID, (Reported) Spironolactone 25 Mg Tablet, 25 MG PO DAILY, (Reported) Vit C/E/Zn/Coppr/Lutein/Zeaxan 1 Each Capsule, 2 EACH PO DAILY, (Reported) Patient Home Medication List Home Medication List Reviewed: Yes Review of Systems Constitutional: no symptoms reported EENTM: no symptoms reported Respiratory: no symptoms reported Cardiovascular: no symptoms reported Gastrointestinal: no symptoms reported Genitourinary: no symptoms reported Musculoskeletal: no symptoms reported Skin: no symptoms reported Psychiatric/Neurological: See HPI Past Hilptpd-Zkzzbl-Vnoytr Hx Patient Social History Alcohol Use: Denies Use Recreational Drug Use: No Smoking Status: Never a Smoker 2nd Hand Smoke Exposure: No Recent Hopitalizations: Yes (DC'd from [facility] [address] 08-15-19) Physical Abuse: No Sexual Abuse: No Mistreated: No Fear: No Immunizations Up To Date Date of Pneumonia Vaccine: Jan 29, 2019 Seasonal Allergies Seasonal Allergies: No Past Medical History Surgeries: Yes (back sx, hernia, rectal fissure) Respiratory: No Cardiac: Yes High Cholesterol Neurological: No Genitourinary: Yes (prostate cancer) Gastrointestinal: Yes Gastrointestinal Bleed, Cirrhosis Musculoskeletal: No Endocrine: Yes Hypothyroidsim, Diabetes, Non-Insulin dep HEENT: Yes (cataracts removed, ) Hearing Impairment: Hard of Hearing, Bilateral Hearing Aide Cancer: Yes Prostate What Type of Treatment Did You: Radiation Psychosocial: No Integumentary: No Blood Disorders: 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 0.0oz. 87.808437ms; 28.00 BMI Method: General Appearance: No Apparent Distress, WD/WN HEENT: PERRL/EOMI, Pharynx Normal, Moist Mucous Membranes Neck: Full Range of Motion, Normal Inspection, Non Tender Cardiovascular: Regular Rate, Rhythm, No Edema, No Gallop Respiratory: Chest Non Tender, Lungs Clear, Normal Breath Sounds Gastrointestinal: Normal Bowel Sounds, No Organomegaly, No Pulsatile Mass, Non Tender, Other (rectal examination shows no mass there is yellow schreiber stool that is Hemoccult negative) Extremities: Normal Capillary Refill, Pedal Edema Neurologic/Psychiatric: Alert, Oriented x3, No Motor/Sensory Deficits, Normal Mood/Affect, abrasive mixer II-XII Norm as Tested Cranial Nerves: Normal Hearing, Normal Speech, PERRL Motor/Sensory: No Motor Deficit, No Sensory Deficit Skin: Normal Color, Warm/Dry Progress/Results/Core Measures Results/Orders Lab Results Laboratory Tests Test 08/24/19 12:00 08/24/19 12:15 Range/Units White Blood Count 3.3 L 4.3-11.0 10^3/uL Red Blood Count 2.80 L 4.35-5.85 10^6/uL Hemoglobin 10.2 L 13.3-17.7 G/DL Hematocrit 30 L 40-54 % Mean Corpuscular Volume 106 H 80-99 FL Mean Corpuscular Hemoglobin 36 H 25-34 PG Mean Corpuscular Hemoglobin Concent 34 32-36 G/DL Red Cell Distribution Width 16.1 H 10.0-14.5 % Platelet Count 33 *L 130-400 10^3/uL Mean Platelet Volume 11.9 H 7.4-10.4 FL Neutrophils (%) (Auto) 55 42-75 % Lymphocytes (%) (Auto) 25 12-44 % Monocytes (%) (Auto) 14 H 0-12 % Eosinophils (%) (Auto) 4 0-10 % Basophils (%) (Auto) 2 0-10 % Neutrophils # (Auto) 1.8 1.8-7.8 X 10^3 Lymphocytes # (Auto) 0.8 L 1.0-4.0 X 10^3 Monocytes # (Auto) 0.5 0.0-1.0 X 10^3 Eosinophils # (Auto) 0.1 0.0-0.3 10^3/uL Basophils # (Auto) 0.1 0.0-0.1 10^3/uL Prothrombin Time 19.9 H 12.2-14.7 SEC INR Comment 1.6 H 0.8-1.4 Activated Partial Thromboplast Time 36 H 24-35 SEC Sodium Level 141 135-145 MMOL/L Potassium Level 4.5 3.6-5.0 MMOL/L Chloride Level 109 H 98-107 MMOL/L Carbon Dioxide Level 22 21-32 MMOL/L Anion Gap 10 5-14 MMOL/L Blood Urea Nitrogen 14 7-18 MG/DL Creatinine 0.81 0.60-1.30 MG/DL Estimat Glomerular Filtration Rate > 60 BUN/Creatinine Ratio 17 Glucose Level 102 70-105 MG/DL Calcium Level 9.1 8.5-10.1 MG/DL Corrected Calcium 9.8 8.5-10.1 MG/DL Magnesium Level 1.7 1.6-2.4 MG/DL Total Bilirubin 1.0 0.1-1.0 MG/DL Aspartate Amino Transf (AST/SGOT) 40 H 5-34 U/L Alanine Aminotransferase (ALT/SGPT) 25 0-55 U/L Alkaline Phosphatase 109 40-136 U/L Troponin I < 0.30 <0.30 NG/ML Total Protein 6.4 6.4-8.2 GM/DL Albumin 3.1 L 3.2-4.5 GM/DL Lipase 44 8-78 U/L Ammonia 94 H 11-32 UMOL/L My Orders Orders - JUDDMONIQUE B DO Cbc With Automated Diff (08/24/19 12:07) Magnesium (08/24/19 12:07) Ekg Tracing (08/24/19 12:07) Comprehensive Metabolic Panel (08/24/19 12:07) Protime With Inr (08/24/19 12:07) Partial Thromboplastin Time (08/24/19 12:07) Monitor-Rhythm Ecg Trace Only (08/24/19 12:07) Ed Iv/Invasive Line Start (08/24/19 12:07) Lipase (08/24/19 12:07) Troponin I Fs (08/24/19 12:07) Ns (Ivpb) (Sodium Chloride 0.9%) (08/24/19 12:15) Ammonia (08/24/19 12:28) Medications Given in ED Current Medications Medications Dose Ordered Sig/Matt Route Start Time Stop Time Status Last Admin Dose Admin Sodium Chloride 250 ml @ 999 mls/hr Q16M ONCE IV 08/24/19 12:15 08/24/19 12:30 DC 08/24/19 12:20 999 MLS/HR Vital Signs/I&O 08/24/19 08/24/19 08/24/19 11:50 13:00 13:48 Temp 37.2 37.2 Pulse 79 74 71 78 82 Resp 18 18 B/P (MAP) 102/61 (75) 111/60 (77) 118/60 (79) 108/69 (82) 112/63 (79) Pulse Ox 95 97 O2 Delivery Room Air Room Air Progress Progress Note : Time: 12:14 Progress Note Differential for this patient includes elevated ammonia GI bleeding dehydration with orthostatic syncope unlikely arrhythmia. Plan will be rectal exam competency workup determination need for transfusion or admission Initial ECG Impression Date: Aug 24, 2019 Initial ECG Impression Time: 12:30 Initial ECG Rate: 72 Initial ECG Rhythm: Normal Sinus Initial ECG Intervals: Normal Initial ECG Intervals EKG shows normal sinus rhythm at 72 and normal QTC there is delayed R-wave progression with the transition at V5 consistent with an old anterior infarct or bleed malplacement no acute ST segment abnormality there is some mild diffuse flattening of the T waves throughout. Departure Communication (Admissions) 4:45 PM I called Mr. Squires to inform him that his ammonia was 94. I left message on the machine is no one answered the phone. Shared decision making the patient and his after review of all labs the differential their decision was as they wish to go home. Readmission and re- exposure to COVID risk work expressed compared to the risk of a undetected GI bleeding which I expressed concern about that given his hemoglobin is a bit higher than previous his rectal exam was negative his orthostats were normal as was the rest of his workup near his baseline and the only thing pending was his ammonia level I maintained a phone number for them and will call them back if the ammonia level is outside of normal ranges for were offered observation admission to [facility] as 100 choices QUESTIONS were answered and they chose to be discharged this time with expectant observation which I feel is a reasonable plan given the workup done here. Impression Primary Impression: Syncope Qualified Codes: R55 - Syncope and collapse Disposition: 01 HOME, SELF-CARE Condition: Stable Departure-Patient Inst. Referrals: SELF,MADELEINE FIGUEREDO (PCP/Family) Primary Care Physician MONDAY Patient Instructions: Syncope (Fainting) (DC) Add. Discharge Instructions: Patient is return if any worse or if any changes All discharge instructions reviewed with patient and/or family. Voiced underst anding. MONIQUE WHALEY DO Aug 24, 2019 12:15
[2019-08-24 12:21] LABS: HEMATOCRIT 30 % (40-54); HEMOGLOBIN 10.2 G/DL (13.3-17.7); MEAN CORPUSCULAR HEMOGLOBIN 36 PG (25-34); MEAN CORPUSCULAR HGB CONC 34 G/DL (32-36); MEAN CORPUSCULAR VOLUME 106 FL (80-99); RED CELL DISTRIBUTION WIDTH 16.1 % (10.0-14.5); WHITE BLOOD COUNT 3.3 10^3/uL (4.3-11.0)
[2019-08-24 12:22] LABS: BASOPHILS % (AUTO) 2 % (0-10); EOSINOPHILS % (AUTO) 4 % (0-10); LYMPHOCYTES % (AUTO) 25 % (12-44); MEAN PLATELET VOLUME 11.9 FL (7.4-10.4); MONOCYTES % (AUTO) 14 % (0-12); NEUTROPHILS % (AUTO) 55 % (42-75); PLATELET COUNT 33 10^3/uL (130-400)
[2019-08-24 12:23] LABS: BASOPHILS # (AUTO) 0.1 10^3/uL (0.0-0.1); EOSINOPHILS # (AUTO) 0.1 10^3/uL (0.0-0.3); LYMPHOCYTES # (AUTO) 0.8 X 10^3 (1.0-4.0); MONOCYTES # (AUTO) 0.5 X 10^3 (0.0-1.0); NEUTROPHILS # (AUTO) 1.8 X 10^3 (1.8-7.8)
[2019-08-24 12:31] LABS: INR 1.6 (0.8-1.4); PROTHROMBIN TIME PATIENT 19.9 SEC (12.2-14.7)
[2019-08-24 12:37] LABS: ALANINE AMINOTRANSFERASE 25 U/L (0-55); ALKALINE PHOSPHATASE 109 U/L (40-136); BUN/CREATININE RATIO 17; CALCIUM 9.1 MG/DL (8.5-10.1); CARBON DIOXIDE 22 MMOL/L (21-32); CHLORIDE 109 MMOL/L (98-107); CREATININE SERUM 0.81 MG/DL (0.60-1.30); GFR ESTIMATED > 60; GLUCOSE 102 MG/DL (70-105); MAGNESIUM 1.7 MG/DL (1.6-2.4); POTASSIUM 4.5 MMOL/L (3.6-5.0); SODIUM 141 MMOL/L (135-145)
[2019-08-24 12:38] LABS: ALBUMIN 3.1 GM/DL (3.2-4.5); LIPASE 44 U/L (8-78); TOTAL PROTEIN 6.4 GM/DL (6.4-8.2)
[2019-08-24 13:00] VITALS: BP_SYST 108; BP_SYST 111; BP_SYST 112; BP_DIAS 60; BP_DIAS 63; BP_DIAS 69
[2019-08-24 13:48] VITALS: BP 118/60
== END 2019-08-24 13:48 | disposition home or self-care (01) ==
LOC: EDUNIT# 11:50 → ER FS 11:51
DX: R55 Syncope and collapse (principal); E78.00 Pure hypercholesterolemia, unspecified; E03.9 Hypothyroidism, unspecified; E11.9 Type 2 diabetes mellitus without complications; Z85.46 Personal history of malignant neoplasm of prostate
CPT/HCPCS: 36415; 80053; 82140; 82274; 83690; 83735; 84484; 85025; 85610; 85730; 93005

== ENCOUNTER → 2020-02-13 | Outpatient (CLI) | payer MEDICARE, OTHER ==
[~2020-02-13] MED LIST changes: +GADOBUTROL 10 MMOL/10 ML (GADAVIST) VIAL IV ONE; -PANT40TA3 PO; +PANT40TA52 PO
[2020-02-13 13:06] LABS: BUN/CREATININE RATIO 19; CALCIUM 8.5 MG/DL (8.5-10.1); CARBON DIOXIDE 22 MMOL/L (21-32); CHLORIDE 106 MMOL/L (98-107); CREATININE SERUM 0.81 MG/DL (0.60-1.30); GFR ESTIMATED > 60; GLUCOSE 99 MG/DL (70-105); POTASSIUM 3.7 MMOL/L (3.6-5.0); SODIUM 138 MMOL/L (135-145)
--- NOTE | 2020-02-13 14:32 | Diagnostic Imaging Report ---
PROCEDURE: MR imaging abdomen with and without contrast. TECHNIQUE: Multiplanar, multisequence MR imaging of the abdomen was performed with and without contrast. INDICATION: History of hepatic cirrhosis. Follow-up surveillance for hepatoma. COMPARISON: 08/21/2019. FINDINGS: Included portions of lung bases show no large pleural or pericardial effusion. Cirrhotic morphology to the liver is again identified. There is no evidence of significant fatty infiltration. Portal vein is patent. Review of the postcontrast images show no suspicious enhancing lesions. Gallbladder is identified and appears incompletely distended. No distinct filling defects are seen within the lumen of the gallbladder. There is sequela of portal venous hypertension including mild splenomegaly. 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 Several prominent varices are also seen extending towards the left renal fossa suggesting some component of underlying splenorenal shunting. Benign bilateral renal cysts are noted. Small cystic foci are also seen associated with the tail of the pancreas. These appear stable. Pancreas, kidneys, and adrenal glands have an otherwise unremarkable MR appearance. Included small bowel loops are nondistended. Large amount of air and stool seen scattered throughout the colon. No retroperitoneal masses or enlarged adenopathy is seen. There is no ascites. Osseous structures show no acute abnormalities. IMPRESSION: 1. Redemonstration of cirrhotic morphology to the liver. 2. No suspicious MR lesion to suggest hepatoma. 3. Sequela of portal venous hypertension included mild splenomegaly and multiple enlarged gastroesophageal varices. Splenorenal varices are also present suggesting some component of splenorenal shunting. 4. Moderate colonic air and stool. Please correlate for constipation. Dictated by: Dictated on workstation # [id number]
== END ==
LOC: RAD 12:18
PROVIDERS: ATTEND Internal Medicine
DX: K75.81 Nonalcoholic steatohepatitis (NASH) (principal); K74.69 Other cirrhosis of liver; K76.6 Portal hypertension; I85.10 Secondary esophageal varices without bleeding; R16.1 Splenomegaly, not elsewhere classified
CPT/HCPCS: 36415; 74183; 80048

== ENCOUNTER → 2020-06-25 | Outpatient (CLI) | payer MEDICARE ==
[~2020-06-25] MED LIST changes: -GADOBUTROL 10 MMOL/10 ML (GADAVIST) VIAL IV ONE
--- NOTE | 2020-06-25 12:40 | Diagnostic Imaging Report ---
PROCEDURE: CT abdomen and pelvis without contrast. TECHNIQUE: Multiple contiguous axial images were obtained through the abdomen and pelvis without the use of intravenous contrast. Auto Exposure Controls were utilized during the CT exam to meet ALARA standards for radiation dose reduction. INDICATION: Elevated PSA. Patient has history of prostate carcinoma. COMPARISON: No prior studies are available for comparison. FINDINGS: There is a 4 mm micronodule in the right lower lobe, image 2, and indeterminate. There is a 17 mm x 7 mm density more inferiorly in the right lower lobe, image 9, which is indeterminate. Calcified granuloma in the left lower lobe is seen. The liver demonstrates somewhat nodular contour, suspicious for cirrhosis. No discrete liver mass is identified. The gallbladder is unremarkable. There is no biliary ductal dilatation. There is a suggestion of esophageal varices at the level of the distal esophagus. The pancreas is unremarkable. Spleen is not appreciably enlarged. There is no adrenal mass. No renal calculi are seen. There is a cortical low-attenuation lesion in the right kidney measuring 2.4 cm and most consistent with a cyst. Aorta is nonaneurysmal. There is no central retroperitoneal lymphadenopathy. There appear to be numerous varices in the left upper quadrant. There may be a splenorenal shunt on the left side. Bowel loops are normal in caliber. There is moderate amount of stool throughout the colon. No ascites is seen. Bladder and prostate are unremarkable. No inguinal lymphadenopathy is seen. No definite pelvic lymphadenopathy is identified. Bony structures are without osteoblastic lesion. IMPRESSION: 1. Somewhat elongated nodular density in the right lower lobe, indeterminate. This is adjacent to a vessel and could be a varix but dedicated CT chest with contrast would be useful for further evaluation. 2. Findings suggestive of cirrhosis and portal hypertension with numerous upper abdominal varices and questionable esophageal varices. No ascites is present. 3. Moderate stool throughout the colon, consistent with constipation. 4. No definite abdominal or pelvic lymphadenopathy or evidence of metastatic disease is detected. Dictated by: Dictated on workstation # [id number]
--- NOTE | 2020-06-25 16:13 | Diagnostic Imaging Report ---
INDICATION: Prostate cancer. TECHNIQUE: Patient was administered 25.1 mCi technetium 99m MDP intravenously and whole-body imaging was performed after a three-hour delay. COMPARISON: No prior bone scan is available for comparison. FINDINGS: There is normal uptake of activity by the axial and appendicular skeleton. There is uptake by both kidneys with excretion into the urinary bladder. There is some mild uptake in the thoracic and lumbar spine which may be degenerative. There is a focus of abnormal uptake involving anterior left approximately 3rd rib, indeterminate. No other suspicious foci are identified. IMPRESSION: Abnormal uptake anterior left 3rd rib. While this could conceivably be posttraumatic, possibility of a solitary metastatic lesion cannot be entirely excluded. Dictated by: Dictated on workstation # [id number]
== END ==
LOC: CARD 11:31
PROVIDERS: ATTEND Urology
DX: C61 Malignant neoplasm of prostate (principal); R91.8 Other nonspecific abnormal finding of lung field; K56.41 Fecal impaction
CPT/HCPCS: 74176; 78306; A9503

== ENCOUNTER → 2020-08-03 | Outpatient (CLI) | payer MEDICARE, OTHER ==
[~2020-08-03] MED LIST changes: +GADOBUTROL 10 MMOL/10 ML (GADAVIST) VIAL IV ONE; -POLY17PO31 PO; +POLY17PO54 PO
[2020-08-03 11:23] LABS: ALANINE AMINOTRANSFERASE 29 U/L (0-55); ALBUMIN 2.8 GM/DL (3.2-4.5); ALKALINE PHOSPHATASE 128 U/L (40-136); BILIRUBIN,TOTAL 1.2 MG/DL (0.1-1.0); BUN/CREATININE RATIO 18; CALCIUM 8.5 MG/DL (8.5-10.1); CARBON DIOXIDE 22 MMOL/L (21-32); CHLORIDE 108 MMOL/L (98-107); CREATININE SERUM 0.85 MG/DL (0.60-1.30); GFR ESTIMATED > 60; GLUCOSE 125 MG/DL (70-105); SODIUM 138 MMOL/L (135-145); TOTAL PROTEIN 6.6 GM/DL (6.4-8.2)
--- NOTE | 2020-08-03 12:37 | Diagnostic Imaging Report ---
EXAMINATION: MRI of the abdomen with and without contrast. TECHNIQUE: Multiplanar, multisequence MR images of the abdomen were obtained with and without intravenous contrast. HISTORY: Cirrhosis. COMPARISON: 02/13/2020 FINDINGS: Liver is cirrhotic. No suspicious liver lesions are seen. There is portal hypertension with splenomegaly and left upper quadrant varices and paraesophageal varices. The gallbladder is normal. There is no biliary ductal dilation. Pancreas is normal. The pancreatic duct is normal. Adrenal glands are normal. Cysts are present in the kidneys. No suspicious renal lesions. There is no hydronephrosis. Visualized bowel is normal. No lymphadenopathy is seen. Lung bases are clear. No osseous lesions are seen. IMPRESSION: 1. Cirrhotic liver with portal hypertension and esophageal varices but no suspicious liver lesions. Dictated by: Dictated on workstation # [id number]
== END ==
LOC: RAD 10:47
PROVIDERS: ATTEND Internal Medicine
DX: K76.6 Portal hypertension (principal); I85.10 Secondary esophageal varices without bleeding; K75.81 Nonalcoholic steatohepatitis (NASH)
CPT/HCPCS: 36415; 74183; 80053

== ENCOUNTER 2020-10-12 05:34 | Outpatient (CLI) | payer MEDICARE, OTHER ==
[~2020-10-12] VITALS: Ht 172.7 cm; Wt 88.6 kg
[~2020-10-12 05:34] MED LIST changes: -GADOBUTROL 10 MMOL/10 ML (GADAVIST) VIAL IV ONE
[2020-10-12] MEDS ORDERED: LIRA0.6P SQ (13:25)
[2020-10-12] MEDS ORDERED: ERGO50006 PO (13:30)
[2020-10-12] MEDS ORDERED: ENZA40CA PO (13:30)
== END 2020-10-12 13:48 | disposition home or self-care (01) ==
LOC: PREOP 05:34
PROVIDERS: ATTEND Surgery
DX: Z01.818 Encounter for other preprocedural examination (principal)

== ENCOUNTER → 2020-10-16 | Outpatient (CLI) | payer MEDICARE, OTHER ==
[~2020-10-16] MED LIST changes: +ENZA40CA PO; +ERGO50006 PO
== END ==
LOC: LAB FS 10:09
PROVIDERS: ATTEND Surgery
DX: Z01.812 Encounter for preprocedural laboratory examination (principal); K29.50 Unspecified chronic gastritis without bleeding; Z87.19 Personal history of other diseases of the digestive system; Z20.822 Contact with and (suspected) exposure to COVID-19
CPT/HCPCS: 87635

== ENCOUNTER 2020-10-19 08:21 | Day surgery (SDC) | payer MEDICARE, OTHER ==
[~2020-10-19] VITALS: Ht 172.7 cm; Wt 88.6 kg
[~2020-10-19 08:21] MED LIST changes: +ERGO1250 PO; -ERGO50006 PO
[2020-10-19] MEDS ORDERED: LACTATED RINGERS 1,000 ML IV STA (08:38)
[2020-10-19 08:40] VITALS: BP 119/64
[2020-10-19] MEDS ORDERED: LACTATED RINGERS 1,000 ML IV ONE (08:40)
[2020-10-19] MEDS ORDERED: HURRICAINE EXT TUBE (BENZOCAINE) XX PRN (08:45)
[2020-10-19] MEDS ORDERED: PROPOFOL INJECTION 50 ML IV ONE (09:49)
[2020-10-19] MEDS ORDERED: MIDAZOLAM 2 MG/2 ML (VERSED) VIAL ONE (09:49)
--- NOTE | 2020-10-19 10:30 | Progress Note-Post Operative ---
Post-Operative Progess Note Surgeon (s)/Telecom Sales Consultant (s) Surgeon TAY AUGUST DO Telecom Sales Consultant: none Pre-Operative Diagnosis Chronic Gastritis, Rectal Bleed Post-Operative Diagnosis Severe Gastritis Hiatal hernia -sliding small Polyp int hemorrhoids Procedure & Operative Findings Date of Procedure 10/19/20 Procedure Performed/Findings PROCEDURE NOTE: After informed consent was obtained, the patient was brought to the endoscopy suite, placed in bed in left lateral decubitus position. He was administered IV sedation by the GYNECOLOGY TEACHER who then monitored his vitals the entire time, heart rate, blood pressure and pulse ox, started with the EGD, placed the scope down the mouth through the esophagus into the stomach, noted severe Gastritis, took a picture, pushed into the duodenum. Duodenum looked normal. Pulled back and did a biopsy of the antrum as well as biopsy of body of stomach, retroflexed the scope. He had a small sliding hiatal hernia, pulled the scope into the GE junction, did a biopsy here and then pushed the scope back into the stomach and suctioned all the air out, then pulled the scope up the esophagus and out the mouth. Did not see any varices or ulcers in the esophagus. Switched camera, switched gloves, went down below, started the colonoscopy. Pushed all the way to the cecum about 150 cm in, took a picture of the appendiceal orifice and noted the ileo-cecal valve. Then slowly withdrew the scope insufflating to look circumferentially at the munoz looking at the cecum, up the ascending colon to the hepatic flexure, down the transverse colon, to the splenic flexure, into the descending colon. In the desscending colon, saw a polyp and did a hot biopsy; got a good specimen and then continued down into the sigmoid and finally into the rectum, retroflexed in the rectal vault, saw some minimal internal hemorrhoids and took a picture.Then removed the scope. The patient tolerated the procedure. He was recovered in endoscopy suite. Anesthesia Type IV sedation by GYNECOLOGY TEACHER Estimated Blood Loss Estimated blood loss (mL): scant Specimens/Packing Specimens Removed antral bx body of stomach bx GE jxn bx desc colon polyp TAY AUGUST DO Oct 19, 2020 10:30
--- NOTE | 2020-10-19 10:31 | Endoscopy Discharge Instruct ---
Endo Procedure/Findings Findings 1.: Gastritis 2.: Hiatal Hernia 3.: Polyp 4.: Internal Hemorrhoids Discharge Instructions - Activity: You might feel a little sleepy until tomorrow. This is due to the medicine you received to relax you. Until tomorrow, you should: NOT drive a car, operate machinery or power tools. NOT drink any alcoholic beverages. NOT make any important decisions or sign importortant papers. Do not return to work until tomorrow, unless otherwise instructed. Resume previous activities tomorrow. Diet: Start by taking liquids. If you tolerate liquids, advance to solid food. 1.: EGD in 6-8 weeks 2.: Colonscopy in 5 years Notify Physician - If you experience excessive bleeding, unusual abdominal pain, fever, or chest pain, contact your doctor immediately. TAY AUGUST DO Oct 19, 2020 10:31
[2020-10-19 10:32] VITALS: BP 91/55
[2020-10-19 10:37] VITALS: BP 98/53
[2020-10-19 10:40] VITALS: BP 98/53
--- NOTE | 2020-10-19 10:51 | Anesthesia-General Post-Op ---
MAC Patient Condition Mental Status/LOC: Same as Preop Cardiovascular: Satisfactory Nausea/Vomiting: Absent Respiratory: Satisfactory Pain: Controlled Complications: Absent Post Op Complications Complications None Follow Up Care/Instructions Patient Instructions None needed. Anesthesiology Discharge Order Discharge Order Patient is doing well, no complaints, stable vital signs, no apparent adverse anesthesia problems. JAQUI MOMIN DO Oct 19, 2020 10:51
[2020-10-19 11:10] VITALS: BP 119/67
== END 2020-10-19 11:20 | disposition home or self-care (01) ==
LOC: ENDO 08:21
PROVIDERS: ATTEND Surgery
DX: K62.5 Hemorrhage of anus and rectum (principal); K29.70 Gastritis, unspecified, without bleeding; K44.9 Diaphragmatic hernia without obstruction or gangrene; K64.8 Other hemorrhoids; K63.5 Polyp of colon; K20.90 Esophagitis, unspecified without bleeding; G43.909 Migraine, unspecified, not intractable, without status migrainosus; K21.9 Gastro-esophageal reflux disease without esophagitis; E11.9 Type 2 diabetes mellitus without complications; D50.9 Iron deficiency anemia, unspecified; C61 Malignant neoplasm of prostate; C79.51 Secondary malignant neoplasm of bone; Z79.899 Other long term (current) drug therapy; Z79.890 Hormone replacement therapy; Z87.891 Personal history of nicotine dependence
CPT/HCPCS: 82947; 88305

== ENCOUNTER 2020-10-22 13:21 | Outpatient (RCR) | payer MEDICARE, OTHER ==
[2020-08-14 09:56] LABS: BASOPHILS % (AUTO) 1 % (0-10); EOSINOPHILS # (AUTO) 0.1 10^3/uL (0.0-0.3); EOSINOPHILS % (AUTO) 3 % (0-10); HEMATOCRIT 36 % (40-54); HEMOGLOBIN 12.1 g/dL (13.3-17.7); LYMPHOCYTES # (AUTO) 0.6 10^3/uL (1.0-4.0); LYMPHOCYTES % (AUTO) 18 % (12-44); MEAN CORPUSCULAR HEMOGLOBIN 37 pg (25-34); MEAN CORPUSCULAR HGB CONC 34 g/dL (32-36); MEAN CORPUSCULAR VOLUME 109 fL (80-99); MEAN PLATELET VOLUME 10.1 fL (9.0-12.2); MONOCYTES # (AUTO) 0.5 10^3/uL (0.0-1.0); MONOCYTES % (AUTO) 14 % (0-12); NEUTROPHILS # (AUTO) 2.3 10^3/uL (1.8-7.8); NEUTROPHILS % (AUTO) 65 % (42-75); WHITE BLOOD COUNT 3.5 10^3/uL (4.3-11.0)
[2020-08-14 09:59] LABS: PLATELET COUNT 34 10^3/uL (130-400)
[2020-08-14 10:17] LABS: ALANINE AMINOTRANSFERASE 25 U/L (0-55); ALBUMIN 2.7 GM/DL (3.2-4.5); ALKALINE PHOSPHATASE 119 U/L (40-136); BILIRUBIN,TOTAL 1.3 MG/DL (0.1-1.0); BUN/CREATININE RATIO 18; CALCIUM 8.1 MG/DL (8.5-10.1); CARBON DIOXIDE 20 MMOL/L (21-32); CHLORIDE 106 MMOL/L (98-107); GFR ESTIMATED > 60; GLUCOSE 238 MG/DL (70-105); POTASSIUM 4.1 MMOL/L (3.6-5.0); SODIUM 136 MMOL/L (135-145); TOTAL PROTEIN 6.5 GM/DL (6.4-8.2)
[2020-09-24 13:36] LABS: BASOPHILS # (AUTO) 0.1 10^3/uL (0.0-0.1); BASOPHILS % (AUTO) 2 % (0-10); EOSINOPHILS # (AUTO) 0.2 10^3/uL (0.0-0.3); EOSINOPHILS % (AUTO) 4 % (0-10); HEMATOCRIT 36 % (40-54); HEMOGLOBIN 12.3 g/dL (13.3-17.7); LYMPHOCYTES # (AUTO) 0.8 10^3/uL (1.0-4.0); LYMPHOCYTES % (AUTO) 22 % (12-44); MEAN CORPUSCULAR HEMOGLOBIN 37 pg (25-34); MEAN CORPUSCULAR HGB CONC 34 g/dL (32-36); MEAN CORPUSCULAR VOLUME 108 fL (80-99); MEAN PLATELET VOLUME 10.8 fL (9.0-12.2); MONOCYTES # (AUTO) 0.5 10^3/uL (0.0-1.0); MONOCYTES % (AUTO) 14 % (0-12); NEUTROPHILS % (AUTO) 58 % (42-75); WHITE BLOOD COUNT 3.4 10^3/uL (4.3-11.0)
[2020-09-24 13:37] LABS: PLATELET COUNT 33 10^3/uL (130-400)
[2020-09-24 13:52] LABS: ALANINE AMINOTRANSFERASE 20 U/L (0-55); ALBUMIN 2.7 GM/DL (3.2-4.5); ALKALINE PHOSPHATASE 119 U/L (40-136); BILIRUBIN,TOTAL 1.2 MG/DL (0.1-1.0); BUN/CREATININE RATIO 12; CALCIUM 8.6 MG/DL (8.5-10.1); CARBON DIOXIDE 23 MMOL/L (21-32); CHLORIDE 107 MMOL/L (98-107); CREATININE SERUM 0.91 MG/DL (0.60-1.30); GFR ESTIMATED > 60; GLUCOSE 159 MG/DL (70-105); POTASSIUM 4.3 MMOL/L (3.6-5.0); SODIUM 135 MMOL/L (135-145); TOTAL PROTEIN 6.2 GM/DL (6.4-8.2)
[2020-10-22 13:49] LABS: EOSINOPHILS # (AUTO) 0.2 10^3/uL (0.0-0.3); LYMPHOCYTES % (AUTO) 19 % (12-44); MEAN CORPUSCULAR HGB CONC 35 g/dL (32-36)
[2020-10-22 13:51] LABS: BASOPHILS # (AUTO) 0.1 10^3/uL (0.0-0.1); BASOPHILS % (AUTO) 2 % (0-10); EOSINOPHILS % (AUTO) 4 % (0-10); HEMATOCRIT 35 % (40-54); HEMOGLOBIN 12.1 g/dL (13.3-17.7); LYMPHOCYTES # (AUTO) 0.9 10^3/uL (1.0-4.0); MEAN CORPUSCULAR HEMOGLOBIN 37 pg (25-34); MEAN CORPUSCULAR VOLUME 108 fL (80-99); MEAN PLATELET VOLUME 12.8 fL (9.0-12.2); MONOCYTES # (AUTO) 0.7 10^3/uL (0.0-1.0); MONOCYTES % (AUTO) 14 % (0-12); NEUTROPHILS # (AUTO) 2.9 10^3/uL (1.8-7.8); NEUTROPHILS % (AUTO) 61 % (42-75); WHITE BLOOD COUNT 4.7 10^3/uL (4.3-11.0)
[2020-10-22 13:54] LABS: PLATELET COUNT 32 10^3/uL (130-400)
[2020-10-22 14:15] LABS: ALANINE AMINOTRANSFERASE 16 U/L (0-55); ALBUMIN 2.6 GM/DL (3.2-4.5); ALKALINE PHOSPHATASE 97 U/L (40-136); BILIRUBIN,TOTAL 1.4 MG/DL (0.1-1.0); BUN/CREATININE RATIO 13; CALCIUM 8.5 MG/DL (8.5-10.1); CARBON DIOXIDE 24 MMOL/L (21-32); CHLORIDE 103 MMOL/L (98-107); CREATININE SERUM 0.85 MG/DL (0.60-1.30); GFR ESTIMATED > 60; GLUCOSE 101 MG/DL (70-105); POTASSIUM 4.1 MMOL/L (3.6-5.0); SODIUM 134 MMOL/L (135-145); TOTAL PROTEIN 6.8 GM/DL (6.4-8.2)
== END 2020-11-12 | disposition home or self-care (01) ==
LOC: ONC 13:21
PROVIDERS: ATTEND Internal Medicine Hematology & Oncology
DX: C61 Malignant neoplasm of prostate (principal); C79.51 Secondary malignant neoplasm of bone; D73.2 Chronic congestive splenomegaly; D69.6 Thrombocytopenia, unspecified; D61.818 Other pancytopenia; E11.9 Type 2 diabetes mellitus without complications; K76.6 Portal hypertension; I85.10 Secondary esophageal varices without bleeding
CPT/HCPCS: 80053; 84153; 85025; G0463; 99213; 99214

== ENCOUNTER 2021-01-19 14:14 | Outpatient (RCR) | payer MEDICARE, OTHER ==
[2020-11-24 13:35] LABS: BASOPHILS % (AUTO) 1 % (0-10)
[2020-11-24 13:37] LABS: EOSINOPHILS # (AUTO) 0.2 10^3/uL (0.0-0.3); EOSINOPHILS % (AUTO) 5 % (0-10); HEMATOCRIT 33 % (40-54); HEMOGLOBIN 11.4 g/dL (13.3-17.7); LYMPHOCYTES # (AUTO) 0.8 10^3/uL (1.0-4.0); LYMPHOCYTES % (AUTO) 22 % (12-44); MEAN CORPUSCULAR HEMOGLOBIN 39 pg (25-34); MEAN CORPUSCULAR HGB CONC 35 g/dL (32-36); MEAN CORPUSCULAR VOLUME 112 fL (80-99); MEAN PLATELET VOLUME 11.4 fL (9.0-12.2); MONOCYTES # (AUTO) 0.5 10^3/uL (0.0-1.0); MONOCYTES % (AUTO) 14 % (0-12); NEUTROPHILS # (AUTO) 2.2 10^3/uL (1.8-7.8); NEUTROPHILS % (AUTO) 58 % (42-75); WHITE BLOOD COUNT 3.7 10^3/uL (4.3-11.0)
[2020-11-24 14:03] LABS: PLATELET COUNT 36 10^3/uL (130-400)
[2020-11-24 14:22] LABS: ALBUMIN 2.5 GM/DL (3.2-4.5); BILIRUBIN,TOTAL 1.4 MG/DL (0.1-1.0); CALCIUM 8.2 MG/DL (8.5-10.1); CREATININE SERUM 0.85 MG/DL (0.60-1.30); POTASSIUM 4.1 MMOL/L (3.6-5.0); TOTAL PROTEIN 6.1 GM/DL (6.4-8.2)
[2021-01-19 14:35] LABS: EOSINOPHILS # (AUTO) 0.1 10^3/uL (0.0-0.3); EOSINOPHILS % (AUTO) 3 % (0-10); LYMPHOCYTES # (AUTO) 0.7 10^3/uL (1.0-4.0)
[2021-01-19 14:37] LABS: BASOPHILS % (AUTO) 1 % (0-10); HEMATOCRIT 35 % (40-54); LYMPHOCYTES % (AUTO) 24 % (12-44); MEAN CORPUSCULAR HEMOGLOBIN 40 pg (25-34); MEAN CORPUSCULAR HGB CONC 35 g/dL (32-36); MEAN CORPUSCULAR VOLUME 116 fL (80-99); MEAN PLATELET VOLUME 11.4 fL (9.0-12.2); MONOCYTES # (AUTO) 0.5 10^3/uL (0.0-1.0); MONOCYTES % (AUTO) 15 % (0-12); NEUTROPHILS # (AUTO) 1.8 10^3/uL (1.8-7.8); NEUTROPHILS % (AUTO) 57 % (42-75); WHITE BLOOD COUNT 3.1 10^3/uL (4.3-11.0)
[2021-01-19 14:39] LABS: PLATELET COUNT 34 10^3/uL (130-400)
[2021-01-19 14:59] LABS: ALBUMIN 2.7 GM/DL (3.2-4.5); BILIRUBIN,TOTAL 1.2 MG/DL (0.1-1.0); CALCIUM 8.7 MG/DL (8.5-10.1); CREATININE SERUM 0.8 MG/DL (0.60-1.30); POTASSIUM 4.4 MMOL/L (3.6-5.0); TOTAL PROTEIN 6.4 GM/DL (6.4-8.2)
== END 2021-02-22 | disposition home or self-care (01) ==
LOC: ONC 14:14
PROVIDERS: ATTEND Internal Medicine Hematology & Oncology
DX: C61 Malignant neoplasm of prostate (principal); C79.51 Secondary malignant neoplasm of bone; D73.2 Chronic congestive splenomegaly; D69.6 Thrombocytopenia, unspecified; D61.818 Other pancytopenia; E11.9 Type 2 diabetes mellitus without complications; K76.6 Portal hypertension; I85.10 Secondary esophageal varices without bleeding; K74.60 Unspecified cirrhosis of liver; Z79.899 Other long term (current) drug therapy; Z98.890 Other specified postprocedural states
CPT/HCPCS: 80053; 84153; 85025; G0463; 82140; 99213

== ENCOUNTER → 2021-01-29 | Outpatient (CLI) | payer MEDICARE, OTHER ==
[~2021-01-29] MED LIST changes: +GADOBUTROL 10 MMOL/10 ML (GADAVIST) VIAL IV ONE
[2021-01-29 14:51] LABS: INR 1.5 (0.8-1.4); PROTHROMBIN TIME PATIENT 18.8 SEC (12.2-14.7)
[2021-01-29 14:54] LABS: HEMATOCRIT 35 % (40-54); HEMOGLOBIN 12.5 g/dL (13.3-17.7); MEAN CORPUSCULAR HGB CONC 36 g/dL (32-36)
[2021-01-29 14:56] LABS: BASOPHILS # (AUTO) 0.1 10^3/uL (0.0-0.1); BASOPHILS % (AUTO) 2 % (0-10); EOSINOPHILS # (AUTO) 0.1 10^3/uL (0.0-0.3); EOSINOPHILS % (AUTO) 3 % (0-10); LYMPHOCYTES # (AUTO) 0.8 10^3/uL (1.0-4.0); LYMPHOCYTES % (AUTO) 24 % (12-44); MEAN CORPUSCULAR HEMOGLOBIN 41 pg (25-34); MEAN CORPUSCULAR VOLUME 114 fL (80-99); MEAN PLATELET VOLUME 12.3 fL (9.0-12.2); MONOCYTES # (AUTO) 0.4 10^3/uL (0.0-1.0); MONOCYTES % (AUTO) 13 % (0-12); NEUTROPHILS # (AUTO) 1.8 10^3/uL (1.8-7.8); NEUTROPHILS % (AUTO) 57 % (42-75); WHITE BLOOD COUNT 3.2 10^3/uL (4.3-11.0)
[2021-01-29 14:57] LABS: ALBUMIN 2.8 GM/DL (3.2-4.5); BILIRUBIN,TOTAL 1.5 MG/DL (0.1-1.0); CREATININE SERUM 0.83 MG/DL (0.60-1.30); POTASSIUM 4.2 MMOL/L (3.6-5.0); TOTAL PROTEIN 6.5 GM/DL (6.4-8.2)
[2021-01-29 15:13] LABS: PLATELET COUNT 33 10^3/uL (130-400)
--- NOTE | 2021-01-29 17:00 | Diagnostic Imaging Report ---
EXAMINATION: MRI of the abdomen with and without contrast. TECHNIQUE: Multiplanar, multisequence MR images of the abdomen were obtained with and without intravenous contrast. HISTORY: Liver cirrhosis COMPARISON: 08/03/2020 FINDINGS: Liver is cirrhotic. There are upper abdominal and paraesophageal varices. No suspicious liver lesions are seen. The gallbladder is not seen. There is no biliary ductal dilation. Pancreas is normal. The pancreatic duct is normal. Spleen is enlarged. Adrenal glands are normal. There are a few cysts in the kidneys, no suspicious renal lesions. There is no hydronephrosis. Visualized bowel is normal. No lymphadenopathy is seen. Lung bases are clear. No osseus lesions are seen. IMPRESSION: 1. Cirrhotic liver without focal liver lesion. 2. Splenomegaly and paraesophageal varices Dictated by: Dictated on workstation # [id number]
== END ==
LOC: RAD 14:45
PROVIDERS: ATTEND Internal Medicine
DX: K74.69 Other cirrhosis of liver (principal); K75.81 Nonalcoholic steatohepatitis (NASH); I85.00 Esophageal varices without bleeding; R16.1 Splenomegaly, not elsewhere classified; Z71.3 Dietary counseling and surveillance; Z91.89 Other specified personal risk factors, not elsewhere classified
CPT/HCPCS: 36415; 74183; 80053; 80061; 82105; 82306; 85025; 85610

== ENCOUNTER 2021-03-07 06:08 | Emergency (ER) | payer MEDICARE, OTHER ==
[~2021-03-07 06:08] MED LIST changes: -GADOBUTROL 10 MMOL/10 ML (GADAVIST) VIAL IV ONE
--- OUTSIDE RECORDS SUMMARY | 2021-03-07 06:13 | XMS REPORT | Clinical Summary ---
Author Author [facility] Organization [facility] Address Unknown Phone Unavailable Care Team Providers Care Research Program Manager Name Role Phone Self, Troy FIGUEREDO PP Allergies Comments Active Allergy Reactions Severity Noted Date Metformin Hcl Unknown 12/23/2020 Medications End Date Status Medication Sig Dispensed Refills Start Date Active vit See 0 C,Y-Wj-ofhav-lutein-zeaxa administratio n (PreserVision AREDS-2) n 250-90-40-1 mg capsule instructions. Active furosemide (Lasix) 40 mg if needed. 0 tablet Active levothyroxine (Synthroid) 1 (one) time 0 125 mcg tablet each day at the same time. Active levothyroxine (Synthroid) 1 (one) time 0 125 mcg tablet each day at the same time. Active atorvastatin (Lipitor) 10 1 (one) time 0 mg tablet each day at the same time. Active pantoprazole (Protonix) 1 (one) time [address] for each day at susp in packet the same time. Active rifAXIMin (XIFAXAN) 550 Take 550 mg 0 mg tablet by mouth 1 every 12 hours. Active enzalutamide (XTANDI) 40 Take 160 mg 0 mg chemo capsule by mouth daily. Active liraglutide (Victoza Inject 2.1 mg 0 3-Steve) 0.6 mg/0.1 mL (18 under the mg/3 mL) injection skin 1 (one) time each day. Active spironolactone Take 25 mg by 0 (ALDACTONE) 25 mg tablet mouth daily. 03/24/2021 Active lactulose (CHRONULAC) Take 30 mL 946 mL 0 01/30 solution (20 g total) 1 by mouth 1 (one) time each day. Active Problems Problem Noted Date Cirrhosis of liver without ascites 02/21/2021 Prostate cancer 02/21/2021 Type 2 diabetes mellitus, without long-term current u se of insulin 02/21/2021 Hepatic encephalopathy 02/20/2021 Encounters Care Team Description Date Type Specialty Michel Bradshaw MD Davis, Evan, MD Schroeder, MD Familia Mccullough, Chinyere, Arun Barone MD Mosher, Kaylene, Hannah Canales RN Curry, Padmini Irizarry, Son, MILES Beck, Mi Smith, [facility] Jose L Nuñez, MILES Arreaga, Jimena Holguin, Olga Rucker, MILES Flor, José Miguel, [facility], Shana Acosta RN Hepatic encephalopathy (HCC) (Primary Dx ) 02/20/2021 Hospital - Encounter 02/22/2021 Discharge Summary - Janes Padgett MD - 02/22/2021 1:49 PM CDT [facility] Inpatient Hospitalist Service at [facility] DISCHARGE SUMMARY Date of Admission: 02/20/2021 Date of Discharge: 02/22/2021 Status: Inpatient Patient: Nasir Squires Date of : 1945 PCP: Troy Ramos MD Hospital: [facility] Code: Full Code Primary Diagnosis: Hepatic encephalopathy (HCC) Other Hospital Problems: Principal Problem: Hepatic encephalopathy (HCC) Active Problems: Cirrhosis of liver without ascites (HCC) Prostate cancer (HCC) Type 2 diabetes mellitus, without long-term current use of insulin (HCC) Brief Hospital Course: Mr. Squires is a 75 y.o. old male Admitted for altered mental status secondary to hepatic encephalopathy. He has a longstanding history of cirrhotic liver disease. Patient has been on outpatient MiraLAX and rifaximin,. His initial ammonia level was 116, started on lactulose and ammonia level decreased to 83. Mentation much improved. GI consulted. Recommended discharge home on lactulose once daily in am, miralax in evening, continue rifaximin. RECOMMENDATION S TO PCP: 1. Follow up with pcp in one week 2. Follow up with [facility] in 3-4 weeks. Follow Up: No future appointments. Discharge Medications: Your medication list START taking these medications Instructions Last Dose Given Next Dose Due lactulose solution Commonly known as: CHRONULAC Take 30 mL (20 g total) by mouth 1 (one) time each day. CONTINUE taking these medications Instructions Last Dose Given Next Dose Due enzalutamide 40 mg chemo capsule Commonly known as: XTANDI Lasix 40 mg tablet Generic drug: furosemide Lipitor 10 mg tablet Generic drug: atorvastatin PreserVision AREDS-2 250-90-40-1 mg capsule Generic drug: vit C,R-Eo-xfvjj-rivas tein-zeaxan Protonix [address] for susp in packet Generic drug: pantoprazole rifAXIMin 550 mg tablet Commonly known as: XIFAXAN spironolactone 25 mg tablet Commonly known as: ALDACTONE Synthroid 125 mcg tablet Generic drug: levothyroxine Synthroid 125 mcg tablet Generic drug: levothyroxine Victoza 3-Steve 0.6 mg/0.1 mL (18 mg/3 mL) injection Generic drug: liraglutide Where to Get Your Medications These medications were sent to [facility] - [facility] [address] [address] [facility] [address] [address] [facility], [facility] [address] lactulose solution PENDING RESULTS: Pertinent Procedures (Date, Procedure, Result): No results found. *The above results reflect only the information that was relevant to this hospital stay. Please contact the hospital radiology department directly for full reports of all studies. Results for orders placed or performed during the hospital encounter of 02/20/21 (from the past 24 hour(s)) Comprehensive Metabolic Panel Collection Time: 02/22/21 7:19 AM Result Value Ref Range Sodium 142 136 - 145 mmol/L Potassium 4.0 3.5 - 5.1 mmol/L Chloride 114 (H) 98 - 107 mmol/L CO2 23 21 - 32 mmol/L Anion Gap 5 5 - 15 mmol/L BUN 11 8 - 26 mg/dL Creatinine 0.67 0.55 - 1.30 mg/dL Glucose 102 70 - 115 mg/dL Calcium 7.9 (L) 8.5 - 10.0 mg/dL Total Protein 5.4 (L) 6.0 - 8.3 g/dL Albumin 1.9 (L) 3.4 - 5.0 g/dL Bilirubin, Total 1.6 (H) 0.2 - 1.0 mg/dL Alkaline Phosphatase 74 45 - 117 U/L ALT 20 16 - 61 U/L AST 26 15 - 37 U/L Estimated GFR 115 >=60 mL/min/1.73m2 Globulin 3.5 g/dL A/G Ratio 0.5 (L) 1.0 - 1.8 CBC with Auto Differential Collection Time: 02/22/21 7:19 AM Result Value Ref Range WBC 2.49 (L) 4.30 - 10.80 K/uL RBC 2.66 (L) 4.70 - 6.10 M/uL Hemoglobin 10.6 (L) 14.0 - 18.0 g/dL Hematocrit 30.9 (L) 42.0 - 52.0 % MCV 116 (H) 81 - 99 fL MCH 39.8 (H) 26.0 - 34.0 pg MCHC 34.3 31.0 - 37.0 g/dL MPV 12.2 9.4 - 12.4 fL Platelets 25 (LL) 150 - 400 K/uL RDW 16.0 (H) 11.5 - 14.5 % RDW-SD 67.9 (H) 35.1 - 43.9 fL Nucleated RBC, Absolute 0.00 0.00 K/uL Nucleated RBC 0.0 0.0 /100 WBC Ammonia Collection Time: 02/22/21 7:19 AM Result Value Ref Range Ammonia 83 (H) 11 - 32 umol/L Manual Differential Collection Time: 02/22/21 7:19 AM Result Value Ref Range Neutrophils, Manual 41 36 - 66 % Lymphocytes, Manual 37 24 - 44 % Monocytes, Manual 12 (H) 1 - 10 % Eosinophils, Manual 6 0 - 10 % Basophils, Manual 3 (H) 0 - 1 % Bands, Manual 1 (L) 5 - 11 % Cells Counted 100 COUNTED Absolute Neutrophil Count 1.05 (L) 1.55 - 7.13 K/uL Lymphocytes, Abs, Manual 0.92 (L) 1.00 - 4.80 K/uL Monocytes, Abs. Manual 0.30 (L) 0.40 - 1.08 K/uL Eosinophils, Abs. Manual 0.15 0.00 - 0.65 K/uL Basophils, Abs Manual 0.07 0.00 - 0.11 K/uL WBC Comment DIFF PERFORMED WITH ALBUMIN SMEAR Manual Morphology Collection Time: 02/22/21 7:19 AM Result Value Ref Range RBC Morphology Scanned no significant RBC morph noted Smudge Cells Present (A) None Seen WBC Comment DIFF PERFORMED WITH ALBUMIN SMEAR * Cannot find OR case * BP 116/60 (BP Location: Left arm, Patient Position: Sitting) | Pulse 71 | Temp 36.3 C (97.4 F) (Axillary) | Resp 20 | Ht 1.727 m (5' 8") | Wt 91.2 kg (201 lb 1.6 oz) | SpO2 97% | BMI 30.58 kg/m EXAM General: Alert, in no acute distress Lungs: Clear bilaterally without wheezes or crackles Heart: RRR without murmur Abdomen: Soft, nontender, no rebound or guarding,positi ve bowel sounds Consultants: (name, specialty) 1. GI Disposition/Or ders: Discharge to home Patient Instructions: As noted in the After Visit Summary Discharge Quality Measures: Patient's PCP was not contacted by me on the day of discharge. The discharge summary will be faxed to the PCP, Troy Ramos MD. Fax number: [phone] The discharge plan was discussed with the patient's nurse on the discharge day. Total time for this discharge was more than 30 minutes. Electronically signed by: Janes Padgett MD 02/22/2021, 1:49 PM This note was completely or partially dictated using Dragon speak, Please note that there may be errors due to word nonrecognition. E lectronically signed by Janes Padgett MD at 02/22/2021 1:52 PM CDT 02/20/2021 Travel from Last 3 Months Immunizations Name Administration Dates Next Due Social History Date Tobacco Use Types Packs/Day Years Used Never Smoker Smokeless Tobacco: Never Used Comments Alcohol Use Standard Drinks/Week Not Currently 0 (1 standard drink = 0.6 o z pure alcohol) Alcohol Habits Answer Date Recorded How often do you have a drink containing alcohol? Never 02/20/2021 How many drinks containing alcohol do you have on No t asked a typical day when you are drinking? How often do you have six or more drinks on one Not asked occasion? Comment: Not asked Sex Assigned at Date Recorded Not on file Industry Job Start Date Occupation Not on file Not on file Not on file Date Recorded COVID-19 Exposure Response 02/20/2021 7:11 PM CDT In the last month, have you been in contact with No / Unsure someone who was confirmed or suspected to have Coronavirus / COVID-19? Last Filed Vital Signs Reading Time Taken Comments Vital Sign 116/60 02/22/2021 8:26 AM CDT Blood Pressure 71 02/22/2021 8:26 AM CDT Pulse 36.3 C (97.4 F) 02/22/2021 8:26 AM CDT Temperature 20 02/22/2021 8:26 AM CDT Respiratory Rate 97% 02/22/2021 8:26 AM CDT Oxygen Saturation - - Inhaled Oxygen Concentration 91.2 kg (201 lb 1.6 oz) 02/22/2021 12:12 AM CDT Weight 172.7 cm (5' 8") 02/20/2021 10:56 PM CDT Height 30.58 02/20/2021 10:56 PM CDT Body Mass Index Plan of Treatment Health Maintenance Due Date Last Done Comments Hemoglobin A1C 1945 Lipid Panel 1945 Medicare Wellness 1945 Hepatitis A Vaccines (1 11/20/1946 of 2 - Risk 2-dose series) MMR Vaccines (1 of 1 - 11/20/1946 Standard series) Varicella Vaccines (1 of 11/20/1944 2 - 2-dose childhood series) Pneumococcal 65+ Yr (1 of 11/20/1949 4 - PCV13) Foot Exam 11/20/1953 Ophthalmology Exam 11/20/1953 Urine Microalbumin 11/20/1953 Depression Screening 1955 Zoster Vaccines (1 of 2) 11/20/1993 Glaucoma Screening 65+ Yr 11/20/2008 DTaP,Tdap,and Td Vaccines 06/08/2018 06/07/2018, (1 - Tdap) 05/16/1995 Hepatitis B Vaccines Completed 11/04/1992, 06/05/1992, 05/05/1992 COVID-19 Vaccine Completed 08/17/2020, 08/04/2020, 07/07/2020 Influenza Vaccine Completed 02/05/2021, 12/26/2019, 02/03/2016, Additional history exists HIB Vaccines Aged Out No longer eligible based on patient's age to complete this topic HPV Vaccines Aged Out No longer eligible based on patient's age to complete this topic IPV Vaccines Aged Out No longer eligible based on patient's age to complete this topic Meningococcal Vaccine Aged Out No longer eligib le based on patient's age to complete this topic Procedures Comments Procedure Name Priority Date/Time Associated Diag nosis MANUAL MORPHOLOGY Routine 02/22/2021 7:19 AM CDT MANUAL DIFFERENTIAL Routine 02/22/2021 7:19 AM CDT AMMONIA Routine 02/22/2021 7:19 AM CDT CBC WITH AUTO Routine 02/22/2021 DIFFERENTIAL 7:19 AM CDT COMPREHENSIVE METABOLIC Routine 02/22/2021 PANEL 7:19 AM CDT AMMONIA Routine 02/21/2021 8:14 AM CDT CBC WITH AUTO Routine 02/21/2021 DIFFERENTIAL 8:14 AM CDT COMPREHENSIVE METABOLIC Routine 02/21/2021 PANEL 8:14 AM CDT URINALYSIS WITH STAT 02/20/2021 MICROSCOPIC 9:07 PM CDT POCT TROPONIN I Routine 02/20/2021 8:23 PM CDT LIGHT GREEN TOP Routine 02/20/2021 8:19 PM CDT T4, FREE STAT 02/20/2021 8:19 PM CDT EXTRA TUBES Routine 02/20/2021 8:19 PM CDT TSH W/REFLEX FREE T4 STAT 02/20/2021 8:19 PM CDT AMMONIA STAT 02/20/2021 8:19 PM CDT TROPONIN I STAT 02/20/2021 8:19 PM CDT COMPREHENSIVE METABOLIC STAT 02/20/2021 PANEL 8:19 PM CDT CBC WITH AUTO STAT 02/20/2021 DIFFERENTIAL 8:[address] HEAD WO CONTRAST STAT 02/20/2021 8:12 PM CDT SARS COV-2, INFLUENZA A/B STAT 02/20/2021 AND RSV 8:03 PM CDT from Last 3 Months Results * Manual Morphology (02/22/2021 7:19 AM CDT) RBC Morphology Scanned no significant RBC [facility] AL morph noted LAB Smudge Cells Present (A) None Seen [facility] WBC Comment DIFF PERFORMED WITH ALBUMIN [facility] Specimen Blood - Venous blood specimen (specimen) Performing Organization Address City/State/ZIP Code P di Number [facility] [address] [place] [phone] * CBC with Auto Differential (02/22/2021 7:19 AM CDT) Only the most recent of 3 results within the time period is included. WBC 2.49 (L) 4.30 - 10.80 K/uL [facility] RBC 2.66 (L) 4.70 - 6.10 M/uL [facility] Hemoglobin 10.6 (L) 14.0 - 18.0 g/dL [facility] Hematocrit 30.9 (L) 42.0 - 52.0 % [facility] MCV 116 (H) 81 - 99 fL [facility] MCH 39.8 (H) 26.0 - 34.0 pg [facility] MCHC 34.3 31.0 - 37.0 g/dL [facility] MPV 12.2 9.4 - 12.4 fL [facility] Platelets 25 (LL)Comment: This result 150 - 400 K/uL [facility] [email or web address]] has been called to IAN RUCKER by Sheryl Green on 02 22 2021 at 0736, and has been read back. RDW 16.0 (H) 11.5 - 14.5 % [facility] RDW-SD 67.9 (H) 35.1 - 43.9 fL [facility] Nucleated RBC, 0.00 0.00 K/uL [facility] Absolute LAB Nucleated RBC 0.0 0.0 /100 WBC [facility] Specimen Blood - Venous blood specimen (specimen) Performing Organization Address City/[facility]/ZIP Code P di Number [facility] [address] [place] [phone] * Manual Differential (02/22/2021 7:19 AM CDT) Neutrophils, 41 36 - 66 % [facility] Manual LAB Lymphocytes, 37 24 - 44 % [facility] Manual LAB Monocytes, 12 (H) 1 - 10 % [facility] Manual LAB Eosinophils, 6 0 - 10 % [facility] Manual LAB Basophils, 3 (H) 0 - 1 % [facility] Manual LAB Bands, Manual 1 (L) 5 - 11 % [facility] Cells Counted 100 COUNTED [facility] Absolute 1.05 (L) 1.55 - 7.13 K/uL [facility] Neutrophil LAB Count Lymphocytes, 0.92 (L) 1.00 - 4.80 K/uL [facility] Abs, Manual LAB Monocytes, Abs. 0.30 (L) 0.40 - 1.08 K/uL [facility] Manual LAB Eosinophils, 0.15 0.00 - 0.65 K/uL [facility] Abs. Manual LAB Basophils, Abs 0.07 0.00 - 0.11 K/uL [facility] Manual LAB WBC Comment DIFF PERFORMED WITH ALBUMIN [facility] Specimen Blood - Venous blood specimen (specimen) Performing Organization Address City/[facility]/ZIP [facility] P di Number [facility] [address] [place] [phone] * Ammonia (02/22/2021 7:19 AM CDT) Only the most recent of 3 results within the time period is included. Ammonia 83 (H) 11 - 32 umol/L [facility] Specimen Blood - Venous blood specimen (specimen) Performing Organization Address City/[facility]/ZIP [facility] P di Number [facility] [address] [place] [phone] * Comprehensive Metabolic Panel (02/22/2021 7:19 AM CDT) Only the most recent of 3 results within the time period is included. Sodium 142 136 - 145 mmol/L [facility] Potassium 4.0 3.5 - 5.1 mmol/L [facility] Chloride 114 (H) 98 - 107 mmol/L [facility] CO2 23 21 - 32 mmol/L [facility] Anion Gap 5 5 - 15 mmol/L [facility] BUN 11 8 - 26 mg/dL [facility] Creatinine 0.67 0.55 - 1.30 mg/dL [facility] Glucose 102 70 - 115 mg/dL [facility] Calcium 7.9 (L) 8.5 - 10.0 mg/dL [facility] Total Protein 5.4 (L) 6.0 - 8.3 g/dL [facility] Albumin 1.9 (L) 3.4 - 5.0 g/dL [facility] Bilirubin, 1.6 (H) 0.2 - 1.0 mg/dL [facility] Total LAB Alkaline 74 45 - 117 U/L [facility] Phosphatase LAB ALT 20 16 - 61 U/L [facility] AST 26 15 - 37 U/L [facility] Estimated GFR 115 >=60 mL/min/1.73m2 [facility] Comment: LAB GFR <60: CHRONIC KIDNEY DISEASE,if found over a 3 month period. GFR <15: KIDNEY FAILURE Globulin 3.5 g/dL [facility] A/G Ratio 0.5 (L) 1.0 - 1.8 [facility] Specimen Blood - Venous blood specimen (specimen) Performing Organization Address City/State/ZIP Code P di Number [facility] [address] [place] [phone] * Urinalysis with microscopic Urine, Clean Catch (02/20/2021 9:07 PM CDT) Color, UA Light Yellow Light Yellow, [facility] Yellow, Colorless LAB Clarity, UA Clear Clear [facility] Glucose, UA Negative Negative [facility] Bilirubin, UA Negative Negative [facility] Ketones, UA Negative Negative [facility] Specific 1.006 1.005 - 1.030 [facility] [place], Urine LAB Blood, UA Negative Negative [facility] pH, UA 7.0 5.0 - 9.0 [facility] Protein, UA Negative Negative [facility] Urobilinogen, 4 (A) Normal mg/dL [facility] UA LAB Nitrite, UA Negative Negative [facility] Leukocyte Negative Negative [facility] Esterase, UA LAB WBC, UA 1 0 - 4 /HPF [facility] RBC, UA <1 0 - 1 /HPF [facility] Bacteria, UA None Seen None Seen /HPF [facility] Mucus, UA Rare (A) Negative /LPF [facility] Specimen Urine - Urine specimen obtained by clean catch procedure (specimen) Performing Organization Address [facility] P di Number [facility] [address] [place] [phone] * POCT Troponin I (02/20/2021 8:23 PM CDT) POC Troponin I <0.02 <0.08 ng/mL [facility] Comment: LAB A solitary troponin value may be misleading. Two or more values may be needed to determine clinical significance. Specimen Blood - Blood specimen (specimen) Performing Organization Address [facility]/ZIP [facility] P di Number [facility] [address] [place] [phone] * TSH w/Reflex Free T4 (02/20/2021 8:19 PM CDT) TSH 0.243 (L) 0.350 - 4.900 uIU/mL [facility] Specimen Blood - Venous blood specimen (specimen) Performing Organization Address [facility] P di Number [facility] [address] [place] [phone] * Light Green Top (02/20/2021 8:19 PM CDT) Extra Tube Yes [facility] Specimen Blood - Venous blood specimen (specimen) Performing Organization Address [facility] P di Number [facility] [address] [place] [phone] * Troponin I (02/20/2021 8:19 PM CDT) High 9.2 <78.5 ng/L [facility] Sensitivity Comment: LAB Troponin High-Sensitivity Troponin I assay effective May 04, 2020. Please be aware of the change in reporting units & reference ranges. Biotin concentrations >300 ng/mL may lead to falsely depressed patient results. Specimen Blood - Venous blood specimen (specimen) Performing Organization Address City/State/ZIP Code P di Number [facility] [address] [place] [phone] * T4, Free (02/20/2021 8:19 PM CDT) Free T4 1.23 0.70 - 1.48 ng/dL [facility] Specimen Blood - Venous blood specimen (specimen) Performing Organization Address City/State/ZIP Code P di Number [facility] [address] [id number] * CT HEAD WO CONTRAST (02/20/2021 8:12 PM CDT) Modality Anatomical Region Laterality Computed Tomography Head and Neck Specimen Narrative ARDENT INTERFACE - 02/20/2021 8:45 PM CDT +++ REPORT GENERATED IN [employer] +++ EXAM: CT Head without IV contrast INDICATION: Altered mental sensorium TECHNIQUE: Multi-detector row CT images were obtained of the head without the use of IV contrast. All CT scans performed at this facility utilize dose optimization techniques as appropriate to the exam, including the following: Automated exposure control and adjustment of the mA and/or KV according to patient size (this includes techniques or standardized protocols for targeted exams where dose is matched to the indication/reason for exam). DLP: 1069 mGycm COMPARISON: None FINDINGS: BRAIN PARENCHYMA: No evidence of acute intraparenchymal hemorrhage or infarct. Nonspecific white matter hypoattenuation likely represents sequela of chronic microvascular ischemic change. No other abnormal parenchymal density or mass. VENTRICLES AND EXTRA-AXIAL SPACES: Prominence of the extra-axial spaces is compatible with volume loss. Ventricles are otherwise within normal limits. Basilar cisterns are patent. No pathologic extra-axial fluid collection or mass. ORBITS: Orbital contents are unremarkable. SINUSES: Visualized paranasal sinuses and mastoid air cells are clear. OSSEOUS AND SOFT TISSUES: Calvarium and skull base are intact. IMPRESSION: 1. No acute intracranial process is iden tified. 2. Age-related volume loss and non-speci fic white matter hypoattenuation, likely sequela of chronic microvascular ischemic change. Procedure Note Beto Burgos MD - 02/20/2021 +++ REPORT GENERATED IN [employer] +++ EXAM: CT Head without IV contrast INDICATION: Altered mental sensorium TECHNIQUE: Multi-detector row CT images were obtained of the head without the use of IV contrast. All CT scans performed at this facility utilize dose optimization techniques as appropriate to the exam, including the following: Automated exposure control and adjustment of the mA and/or KV according to patient size (this includes techniques or standardized protocols for targeted exams where dose is matched to the indication/reason for exam). DLP: 1069 mGycm COMPARISON: None FINDINGS: BRAIN PARENCHYMA: No evidence of acute intraparenchymal hemorrhage or infarct. Nonspecific white matter hypoattenuation likely represents sequela of chronic microvascular ischemic change. No other abnormal parenchymal density or mass. VENTRICLES AND EXTRA-AXIAL SPACES: Prominence of the extra-axial spaces is compatible with volume loss. Ventricles are otherwise within normal limits. Basilar cisterns are patent. No pathologic extra-axial fluid collection or mass. ORBITS: Orbital contents are unremarkable. SINUSES: Visualized paranasal sinuses and mastoid air cells are clear. OSSEOUS AND SOFT TISSUES: Calvarium and skull base are intact. IMPRESSION: 1. No acute intracranial process is iden tified. 2. Age-related volume loss and non-speci fic white matter hypoattenuation, likely sequela of chronic microvascular ischemic change. Performing Organization Address City/State/ZIP Code P di Number [facility] [address] [place], [place] [address] * SARS CoV-2, Influenza A/B and RSV (02/20/2021 8:03 PM CDT) Influenza A by Negative Negative [facility] RT-PCR LAB Influenza B by Negative Negative [facility] RT-PCR LAB RSV by RT-PCR Negative Negative [facility] SARS CoV-2 Negative Negative [facility] Comment: LAB The Xpert Xpress SARS-CoV-2/Flu/RSV test is a rapid, multiplexed real-time RT-PCR intended for the simultaneous qualitative detection and differentiation of SARS-CoV-2, influenza A, influenza B, and respiratory syncytial virus (RSV) in viral RNA in the acute phase of infection. Positive results are indicative of the presence of the identified virus but do not differentiate between SARS-CoV and SARS-CoV-2. All results from this and other tests must be considered in conjunction with the clinical history, epidemiological data and other data available to the clinician evaluating the patient. This test has not been FDA cleared or approved. This test is authorized for use under the FDA Emergency Use Authorization and performance characteristics and have been verified by [facility]. This test is only authorized for the duration of the declaration under section 564 (b)(1) of the Act, 21 U.S.C. 360bbb-3 (b)(1). Specimen Swab - Nasopharyngeal swab (specimen) Performing Organization Address City/State/ZIP Code P di Number [facility] [address] [place] [id number] from Last 3 Months Insurance Type Payer Benefit Subscriber ID Effective Phone Address Plan / Dates Group [employer] [id number] 2013- [address] [address] [place] [address] MEDICARE MEDICARE [id number] 2008-P 2020 PART A AND resent [id number] [facility] [place] [id number] Advance Directives Patient Unit Educator Explanation Type Date Recorded Advance Directives and Living Will Power of Wellness Program Manager Date Inactivated Comments Code Status Date Activated 02/22/2021 6:00 PM Full Code 02/20/2021 10:08 PM Care Teams Start Date End Date Research Program Manager Relationship Specialty 02/20/21 Troy Ramos MD PCP - General [address] [address]
--- OUTSIDE RECORDS SUMMARY | 2021-03-07 06:13 | XMS REPORT | Encounter Summary ---
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 Name Role Phone Self, Troy FIGUEREDO PCP Reason for Visit * Reason Comments Altered Mental Status Nausea Vomiting * Auth/Cert Diagnoses / Procedures Referred By Contact Referred To Conta ct Specialty Diagnoses Hepatic encephalopathy (HCC) Procedures x Referral ID Status Reason Start Date Expiration Visits Vi sits Date Requested Authorized [id number] 1 1 Encounter Details Care Team Description Date Type Department Michel Bradshaw MD [address] [place] [id number] Jae Karimi MD [address] [place] [id number] Janes Padgett MD [address] [place] [address] Chinyere Barbosa RN Namin, Farid, MD [address] [address] Nazia Wood RN Gaps, Alissa, RN Curry, Lexi Pryor, Gerard, RN Baxter, Sharon D Price, Laura, [facility] Jose L Nuñez RN Woods, Jimena Holguin, Olga Rucker, Ian Rosario, José Miguel Rm, [facility] Shana Yousif, RN Hepatic encephalopathy (HCC) (Primary Dx ) 02/20/2021 [facility] Kristen jackman 02/22/2021 [place] 6[facility] Floor Medical [facility] Unit [address] [place] [address] Social History Date Tobacco Use Types Packs/Day [...] or suspected to have Coronavirus / COVID-19? documented as of this encounter Last Filed Vital Signs Reading Time Taken [...] 02/20/2021 10:56 PM CDT Body Mass Index documented in this encounter Discharge Summaries * Janes Padgett MD - 02/22/2021 1:49 PM CDT [facility] [place] Inpatient Hospitalist Service at [facility] DISCHARGE SUMMARY Date of Admission: 02/20/2021 Date of Discharge: 02/22/2021 Status: Inpatient Patient: Nasir Squires Date of : 1945 PCP: Troy Ramos MD Hospital: [facility] Code: Full Code Primary Diagnosis: Hepatic encephalopathy [...] has a longstanding history of cirrhotic liver dis ease. Patient has been on outpatient MiraLAX and rifaximin,. His initial ammoni a level was 116, started on lactulose and ammonia level decreased to 83. Menta tion much improved. GI consulted. Recommended discharge home on lactulose once daily in am, miralax in evening, continue rifaximin. RECOMMENDATIONS TO PCP: 1. Follow up with pcp [...] AREDS-2 250-90-40-1 mg capsule Generic drug: vit C,E-Wy-nxwsy-lutein-zeaxan Protonix [address] for susp [...] Your Medications These medications were sent to [facility] - [place], [place] - [address] [facility] [address] [facility] [address], [facility] [address] lactulose solution PENDING RESULTS: Pertinent Procedures (Date, Procedure, Result): No results found. *The above results reflect only the information that was relevant to this hospit al stay. Please contact the hospital radiology department directly for full rep orts of all studies. Results for orders placed [...] m (5' 8") | Wt 91.2 kg ( 201 lb 1.6 oz) | SpO2 97% | BMI 30.58 kg/m EXAM General: Alert, in no acute distress Lungs: Clear bilaterally without wheezes or crackles Heart: RRR without murmur Abdomen: Soft, nontender, no rebound or guarding,positive bowel sounds Consultants: (name, specialty) 1. GI Disposition/Orders: Discharge to home Patient Instructions: As noted in the After Visit Summary Discharge Quality Measures: Patient's PCP was not contacted by me on the day of discharge. The discharge summary will be faxed to the PCP, Troy Ramos MD. Fax number: [phone] The discharge plan was discussed with the patient's nurse on the discharge da y. Total time for this discharge was more than 30 minutes. Electronically signed by: Janes Padgett MD 02/22/2021, 1:49 PM This note was completely or partially dictated using Dragon speak, Please note that there may be errors due to word nonrecognition. documented in this encounter Discharge Instructions * Attachments The following attachments cannot be sent through Care Everywhere.* Hepatic Encephalopathy Discharge Instructions (Chadian) * Lactulose, ADULT (Chadian) documented in this encounter Medications at Time of Discharge Start Date End Date Medication Sig Dispensed Refills liraglutide (Victoza Inject 2.1 mg 0 3-Steve) 0.6 mg/0.1 mL (18 under the mg/3 mL) injection skin 1 (one) time each day. 05/29/2020 rifAXIMin (XIFAXAN) 550 Take 550 mg 0 mg tablet by mouth every 12 hours. atorvastatin (Lipitor) 10 1 (one) time 0 mg tablet each day at the same time. enzalutamide (XTANDI) 40 Take 160 mg 0 mg chemo capsule by mouth daily. furosemide (Lasix) 40 mg if needed. 0 tablet 02/22/2021 03/24/2021 lactulose (CHRONULAC) Take 30 mL 946 mL 0 solution (20 g total) by mouth 1 (one) time each day. levothyroxine (Synthroid) 1 (one) time 0 125 mcg tablet each day at the same time. levothyroxine (Synthroid) 1 (one) time 0 125 mcg tablet each day at the same time. pantoprazole (Protonix) 1 (one) time [address] for each day at susp in packet the same time. spironolactone Take 25 mg by 0 (ALDACTONE) 25 mg tablet mouth daily. vit See 0 C,Q-Wt-utxdl-lutein-zeaxa administratio n (PreserVision AREDS-2) n 250-90-40-1 mg capsule instructions. documented as of this encounter Progress Notes * Maricel Mcmullen APRN - 02/22/2021 9:30 AM CDT The [address] [address] Gastroenterology Progress Note Patient: Nasir Squires : 1945 Admitted: 02/20/2021 Subjective: Feeling good this morning. Denies further abdominal pain/nausea. He is answering questions appropriately. A&Ox3. Spouse at bedside. Treatment discussed regarding HE. He follows with Dr. Klein at [facility] since 2016. Has him on Mirlax BID & Xifaxan at home as lactulose had caused bloody diarrhea. Per spouse, intermittent confusion but this past weekend became much worse which prompted ER visit. Medications: atorvastatin, 10 mg, oral, Daily enzalutamide, 160 mg, oral, Daily lactulose, 20 g, oral, TID levothyroxine, 125 mcg, oral, q AM AC pantoprazole, 40 mg, oral, q AM AC rifAXIMin, 550 mg, oral, BID spironolactone, 25 mg, oral, Daily acetaminophen, 650 mg ondansetron, 4 mg prochlorperazine, 5 mg sodium chloride 0.9 %, 100 mL/hr, Last Rate: 100 mL/hr (02/22/21 0544) Objective: Vitals: BP 116/60 (BP Location: Left arm, Patient Position: Sitting) | Pulse 7 1 | Temp 36.3 C (97.4 F) (Axillary) | Resp 20 | Ht 1.727 m (5' 8") | Wt 91.2 kg (201 lb 1.6 oz) | SpO2 97% | BMI 30.58 kg/m Temp Max/Min:Temp (24hrs), Av.6 C (97.9 F), Min:36.3 C (97.3 F), Max :37 C (98.6 F) SBP Max/Min:Systolic (24hrs), Av , Min:98 , Max:116 Intake/Output Summary (Last 24 hours) at 02/22/2021 1040 Last data filed at 02/22/2021 0858 Gross per 24 hour Intake 790 ml Output 400 ml Net 390 ml Physical Exam: General appearance - alert and in no distress Chest - clear to auscultation Heart - S1, S2 Abdomen - soft, nontender, nondistended, + BS Extremities - no edema Labs: Recent Results (from the past 24 hour(s)) Comprehensive Metabolic [...] WBC Comment DIFF PERFORMED WITH ALBUMIN SMEAR Radiology: CT Head Without Contrast Result Date: 02/20/2021 Narrative: +++ REPORT GENERATED IN [employer] +++ EXAM: CT Head without IV contrast INDICATION: Altered mental sensorium TECHNIQUE: Multi-detector row CT images we re obtained of the head without the use of IV contrast. All CT scans performed a t this facility utilize dose optimization techniques as appropriate to the exam, including the following: Automated exposure control and adjustment of the mA an d/or KV according to patient size (this includes techniques or standardized prot ocols for targeted exams where dose is matched to the indication/reason for exa m). DLP: 1069 mGycm COMPARISON: None FINDINGS: BRAIN PARENCHYMA: No evidence o f acute intraparenchymal hemorrhage or infarct. Nonspecific white matter hypoatt enuation likely represents sequela of chronic microvascular ischemic change. No other abnormal parenchymal density or mass. VENTRICLES AND EXTRA-AXIAL SPACES: P rominence of the extra-axial spaces is compatible with volume loss. Ventricles a re otherwise within normal limits. Basilar cisterns are patent. No pathologic e xtra-axial fluid collection or mass. ORBITS: Orbital contents are unremarkable. SINUSES: Visualized paranasal sinuses and mastoid air cells are clear. OSSEOUS AND SOFT TISSUES: Calvarium and skull base are intact. IMPRESSION: 1. No acute i ntracranial process is identified. 2. Age-related volume loss and non-specific w to matter hypoattenuation, likely sequela of chronic microvascular ischemic ch danny. 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 Hepatic encephalopathy - clinically improving Abdominal pain, resolved Plan: Okay to discharge from GI standpoint Discussed Lactulose vs staying on miralax. Would like to stay on lactulose daily then take miralax in the evening. Agreeable with this plan & encouraged them to discuss this further with Dr. Klein at follow up. Recommend follow up with [facility] in the next 3-4 weeks after discharge. Continue Xifaxan as ordered Reviewed with Dr. Gresham Electronically Signed By: Maricel Mcmullen APRN 02/22/2021, 10:40 AM * Janes Padgett MD - 02/21/2021 2:42 PM CDT Internal Medicine Progress Note Patient: Nasir Squires : 1945 Admitted: 02/20/2021 PCP: Troy Ramos MD CC: Hepatic encephalopathy Subjective: This is a 75-year-old male like presented the hospital with altered mental statu s secondary to hepatic encephalopathy. He has a longstanding history of cirrhot ic liver disease. Patient has been on outpatient MiraLAX and rifaximin, previou sly on lactulose. His initial ammonia level was 116 now down to 106, mentation much improved. GI consulted. Currently on lactulose and rifaximin Objective: Vitals: 02/20/21 2256 02/21/21 0631 02/21/21 0938 02/21/21 1427 BP: 141/72 112/55 (!) 106/44 (!) 101/54 BP Location: Right arm Left arm Right arm Right arm Patient Position: Lying Lying Lying Lying Pulse: 71 76 69 67 Resp: 18 16 18 16 Temp: 36.8 C (98.2 F) 36.7 C (98.1 F) 37.1 C (98.7 F) 36.8 C (98.2 F) TempSrc: Oral Oral Oral Oral SpO2: 99% 95% 97% 97% Weight: 88.7 kg (195 lb 9.6 oz) Height: 1.727 m (5' 8") Intake/Output Summary (Last 24 hours) at 02/21/2021 1442 Last data filed at 02/21/2021 1434 Gross per 24 hour Intake 1950 ml Output 1050 ml Net 900 ml Physical Exam : General: alert, chronically ill appearing , no acute distress Head: Atraumatic, normocephalic Eyes: PERRLA, conjunctiva clear Mouth: Moist mucous membranes, tongue midline Neck: Supple, no lymphadenopathy Heart: Regular rate and rhythm without murmur Lungs: CTAB, no inspiratory crackles, rhonchi or wheezing Abdomen: Soft, non tender, no rebound or guarding, NABS Extremities: no edema, cyanosis or clubbing Psych: Normal mood and affect Review of Relevant Data: I have reviewed the following items and time marvin (where applicable) has been ap plied. LABS: Results from last 7 days Lab Units 02/21/21 0814 WBC AUTO K/uL 2.66* HEMOGLOBIN g/dL 10.9* HEMATOCRIT % 31.7* MCV fL 114* PLATELETS AUTO K/uL 30* Results from last 7 days Lab Units 02/21/21 0814 GLUCOSE mg/dL 112 CALCIUM mg/dL 7.9* SODIUM mmol/L 144 POTASSIUM mmol/L 4.0 CO2 mmol/L 25 CHLORIDE mmol/L 113* BUN mg/dL 11 CREATININE mg/dL 0.70 No results found. MEDICATIONS: Scheduled: atorvastatin, 10 mg, oral, Daily enzalutamide, 160 mg, oral, Daily lactulose, 20 g, oral, TID levothyroxine, 125 mcg, oral, q AM AC pantoprazole, 40 mg, oral, q AM AC rifAXIMin, 550 mg, oral, BID spironolactone, 25 mg, oral, Daily PRN: acetaminophen, 650 mg ondansetron, 4 mg prochlorperazine, 5 mg Infusions: sodium chloride 0.9 %, 100 mL/hr, Last Rate: 100 mL/hr (02/21/21 0956) Assessment/Plan: Principal Problem: Hepatic encephalopathy (HCC)-continue lactulose and rifaximin Active Problems: Cirrhosis of liver without ascites (HCC)-history of Prostate cancer (HCC)-history of Type 2 diabetes mellitus, without long-term current use of insulin (HCC)-diet controlled Electronically Signed by Janes Padgett MD 02/21/2021 2:42 PM * Marian Reyes - 02/20/2021 8:[address] head without incident. documented in this encounter H&P Notes * Jae Karimi MD - 02/20/2021 9:21 PM CDT [facility] [place] Inpatient Hospitalist Service at [facility] HISTORY & PHYSICAL Patient: Nasir Squires Date of : 1945 PCP: Troy Ramos MD Code: Full Code Date of Admission: 02/20/2021 DOS:02/21/21 Identification/Chief Complaint: Nasir Squires is a 75 y.o. old male being admitted with a chief complaint of alt ered mental status suspected secondary to hepatic encephalopathy. Source: Patient, family, documentation History of Present Illness: Patient is a 75 y/o man, PMH of cirrhotic liver disease, prostate cancer, type 2 diabetes, who presented to ER for evaluation of altered mental status. Per fami ly, patient has had persistent confusion and impaired cognition since this morni ng. They report this is similar to prior episodes of hepatic encephalopathy and that patient, while compliant with outpatient Miralax and rifaximin, has had few er than target 4 BMs/day over past day. Patient reports associated nausea and vo miting. Evaluation in ER was chiefly notable for elevated ammonia of 116, with s econdary findings of mild pancytopenia on CBC and mild hyperbilirubinemia; CT he ad was nondiagnostic. Patient admitted for further management of altered mental status suspected secondary to hepatic encephalopathy. ROS: Review of Systems - Negative except as described in HPI. Past Medical History: Diagnosis Date Cirrhosis (HCC) Diabetes mellitus (HCC) Disorder of thyroid Hepatic encephalopathy (HCC) Prostate cancer (HCC) Past Surgical History: Procedure Laterality Date HERNIA REPAIR Medications Prior to Admission Medication Sig Dispense Refill Last Dose liraglutide (Victoza 3-Steve) 0.6 mg/0.1 mL (18 mg/3 mL) injection Inject 2.1 mg under the skin 1 (one) time each day. 02/20/2021 at 0630 rifAXIMin (XIFAXAN) 550 mg tablet Take 550 mg by mouth every 12 hours. at 0630 atorvastatin (Lipitor) 10 mg tablet 1 (one) time each day at the same time. 02/20/2021 at 0630 enzalutamide (XTANDI) 40 mg chemo capsule Take 160 mg by mouth daily. 01/30 at 0830 furosemide (Lasix) 40 mg tablet if needed. More than a month at Unknown time levothyroxine (Synthroid) 125 mcg tablet 1 (one) time each day at the same t katrina. 02/20/2021 at 0630 levothyroxine (Synthroid) 125 mcg tablet 1 (one) time each day at the same t katrina. pantoprazole (Protonix) [address] for susp in packet 1 (one) time ea ch day at the same time. 02/20/2021 at 0630 spironolactone (ALDACTONE) 25 mg tablet Take 25 mg by mouth daily. at 0630 vit C,P-Am-upahc-lutein-zeaxan (PreserVision AREDS-2) 250-90-40-1 mg capsule See administration instructions. 02/20/2021 at 0630 Allergies: Allergies Allergen Reactions Metformin Hcl Unknown Social History Socioeconomic History Marital status: Spouse name: Not on file Number of children: Not on file Years of education: Not on file Highest education level: Not on file Occupational History Not on file Tobacco Use Smoking status: Never Smoker Smokeless tobacco: Never Used Vaping Use Vaping Use: Never assessed Substance and Sexual Activity Alcohol use: Not Currently Drug use: Never Sexual activity: Defer Other Topics Concern Not on file Social History Narrative Not on file Social Determinants of Health Financial Resource Strain: Difficulty of Paying Living Expenses: Not on file Food Insecurity: Worried About Running Out of Food in the Last Year: Not on file Ran Out of Food in the Last Year: Not on file Transportation Needs: Lack of Transportation (Medical): Not on file Lack of Transportation (Non-Medical): Not on file Physical Activity: Days of Exercise per Week: Not on file Minutes of Exercise per Session: Not on file Stress: Feeling of Stress : Not on file Social Connections: Frequency of Communication with Friends and Family: Not on file Frequency of Social Gatherings with Friends and Family: Not on file Attends Tenriism Services: Not on file Active Member of Clubs or Organizations: Not on file Attends Club or Organization Meetings: Not on file Marital Status: Not on file Intimate Partner Violence: Fear of Current or Ex-Partner: Not on file Emotionally Abused: Not on file Physically Abused: Not on file Sexually Abused: Not on file History reviewed. No pertinent family history. PHYSICAL EXAM: Vitals: BP 141/72 (BP Location: Right arm, Patient Position: Lying) | Pulse 71 | Temp 36.8 C (98.2 F) (Oral) | Resp 18 | Ht 1.727 m (5' 8") | Wt 88.7 kg (195 lb 9.6 oz) | SpO2 99% | BMI 29.74 kg/m Physical Exam Vitals and nursing note reviewed. Constitutional: General: He is not in acute distress. Appearance: He is ill-appearing. HENT: Head: Normocephalic and atraumatic. Mouth/Throat: Mouth: Mucous membranes are moist. Pharynx: Oropharynx is clear. Eyes: Conjunctiva/sclera: Conjunctivae normal. Pupils: Pupils are equal, round, and reactive to light. Cardiovascular: Rate and Rhythm: Normal rate and regular rhythm. Pulses: Normal pulses. Heart sounds: No murmur heard. Pulmonary: Effort: Pulmonary effort is normal. No respiratory distress. Breath sounds: Normal breath sounds. Abdominal: General: Bowel sounds are normal. Palpations: Abdomen is soft. Musculoskeletal: General: No swelling or tenderness. Normal range of motion. Skin: General: Skin is warm and dry. Capillary Refill: Capillary refill takes less than 2 seconds. Coloration: Skin is not pale. Findings: No erythema or rash. Neurological: Mental Status: He is alert and oriented to person, place, and time. Sensory: No sensory deficit. Motor: No weakness. Coordination: Coordination normal. Psychiatric: Attention and Perception: Attention and perception normal. Mood and Affect: Mood and affect normal. Speech: Speech is delayed. Behavior: Behavior is slowed. Behavior is cooperative. Cognition and Memory: Cognition is impaired. Memory is impaired. Comments: Word finding difficulty present. CURRENT DATA: Recent Results (from the past 24 hour(s)) SARS CoV-2, Influenza A/B and RSV Collection Time: 02/20/21 8:03 PM Specimen: Nasopharyngeal Swab Result Value Ref Range Influenza A by RT-PCR Negative Negative Influenza B by RT-PCR Negative Negative RSV by RT-PCR Negative Negative SARS CoV-2 Negative Negative CBC with Auto Differential Collection Time: 02/20/21 8:19 PM Result Value Ref Range WBC 3.32 (L) 4.30 - 10.80 K/uL RBC 2.97 (L) 4.70 - 6.10 M/uL Hemoglobin 11.9 (L) 14.0 - 18.0 g/dL Hematocrit 34.0 (L) 42.0 - 52.0 % MCV 112 (H) 81 - 99 fL MCH 40.1 (H) 26.0 - 34.0 pg MCHC 35.0 31.0 - 37.0 g/dL MPV 12.0 9.4 - 12.4 fL Platelets 37 (LL) 150 - 400 K/uL RDW 15.7 (H) 11.5 - 14.5 % RDW-SD 66.2 (H) 35.1 - 43.9 fL Nucleated RBC, Absolute 0.00 0.00 K/uL Nucleated RBC 0.0 0.0 /100 WBC Neutrophils 55.1 36.0 - 66.0 % Lymphocytes 23.5 (L) 24.0 - 44.0 % Monocytes 16.6 (H) 1.0 - 10.0 % Eosinophils 3.6 0.0 - 6.0 % Basophils 0.9 0.0 - 2.0 % Immature Granulocytes 0.3 0.0 - 0.5 % Neutrophils, Absolute 1.83 1.55 - 7.13 K/uL Lymphocytes, Absolute 0.78 (L) 1.00 - 4.80 K/uL Monocytes, Absolute 0.55 0.40 - 1.08 K/uL Eosinophils, Absolute 0.12 0.00 - 0.65 K/uL Basophils, Absolute 0.03 0.00 - 0.11 K/uL Immature Granulocytes, Absolute 0.01 0.00 - 0.10 K/uL Comprehensive Metabolic Panel Collection Time: 02/20/21 8:19 PM Result Value Ref Range Sodium 142 136 - 145 mmol/L Potassium 4.0 3.5 - 5.1 mmol/L Chloride 110 (H) 98 - 107 mmol/L CO2 25 21 - 32 mmol/L Anion Gap 7 5 - 15 mmol/L BUN 15 8 - 26 mg/dL Creatinine 0.78 0.55 - 1.30 mg/dL Glucose 122 (H) 70 - 115 mg/dL Calcium 8.1 (L) 8.5 - 10.0 mg/dL Total Protein 6.6 6.0 - 8.3 g/dL Albumin 2.2 (L) 3.4 - 5.0 g/dL Bilirubin, Total 1.1 (H) 0.2 - 1.0 mg/dL Alkaline Phosphatase 91 45 - 117 U/L ALT 22 16 - 61 U/L AST 32 15 - 37 U/L Estimated GFR 97 >=60 mL/min/1.73m2 Globulin 4.4 g/dL A/G Ratio 0.5 (L) 1.0 - 1.8 Troponin I Collection Time: 02/20/21 8:19 PM Result Value Ref Range High Sensitivity Troponin 9.2 <78.5 ng/L Ammonia Collection Time: 02/20/21 8:19 PM Result Value Ref Range Ammonia 116 (H) 11 - 32 umol/L TSH w/Reflex Free T4 Collection Time: 02/20/21 8:19 PM Result Value Ref Range TSH 0.243 (L) 0.350 - 4.900 uIU/mL Light Green Top Collection Time: 02/20/21 8:19 PM Result Value Ref Range Extra Tube Yes T4, Free Collection Time: 02/20/21 8:19 PM Result Value Ref Range Free T4 1.23 0.70 - 1.48 ng/dL POCT Troponin I Collection Time: 02/20/21 8:23 PM Result Value Ref Range POC Troponin I <0.02 <0.08 ng/mL Urinalysis with microscopic Urine, Clean Catch Collection Time: 02/20/21 9:07 PM Result Value Ref Range Color, UA Light Yellow Light Yellow, Yellow, Colorless Clarity, UA Clear Clear Glucose, UA Negative Negative Bilirubin, UA Negative Negative Ketones, UA Negative Negative Specific Reeders, Urine 1.006 1.005 - 1.030 Blood, UA Negative Negative pH, UA 7.0 5.0 - 9.0 Protein, UA Negative Negative Urobilinogen, UA 4 (A) Normal mg/dL Nitrite, UA Negative Negative Leukocyte Esterase, UA Negative Negative WBC, UA 1 0 - 4 /HPF RBC, UA <1 0 - 1 /HPF Bacteria, UA None Seen None Seen /HPF Mucus, UA Rare (A) Negative /LPF I have personally reviewed the following studies: Assessment: Principal Problem: Hepatic encephalopathy (HCC) Active Problems: Cirrhosis of liver without ascites (HCC) Prostate cancer (HCC) Type 2 diabetes mellitus, without long-term current use of insulin (HCC) Plan: Patient status is inpatient. Hepatic encephalopathy Lactulose 20 g TID Rifaximin 550 mg BID GI consulted Spironolactone 25 mg daily CBC, CMP, ammonia daily Type 2 diabetes Holding home liraglutide All other home meds continued except as described above. DVT Prophylaxis: SCDs Diet: Regular CODE STATUS: Full code Outside records have been obtained and reviewed extensively. Electronically signed by: Jae Karimi MD 02/21/2021, 4:17 AM This note was completely or partially dictated using [employer] speak, Please note that there may be errors due to word nonrecognition. documented in this encounter Consult Notes * Maricel Mcmullen APRN - 02/22/2021 9:05 AM CDT Associated Order(s): IP CONSULT TO GASTROENTEROLOGY See consult note 02/21 Dr. Prescott * Arun Prescott MD - 02/21/2021 7:31 AM CDT CONSULT NOTE Consults 02/21/2021 REASON FOR CONSULT: Encephalopathy REQUESTING PROVIDER: Jae Karimi MD HPI: Nasir Squires is a 75 y.o. male with history of cirrhosis secondary to BROWN who presents with worsening encephalopathy. Patient appears lucid now as he was give n a dose of Lactulose earlier. He reports that he had not taken his lactulose an d Xifaxin yesterday. His Ammonia level in ER was 116. He had higher Ammonia leve ls in the recent past. Patient denies hematemesis, nausea, vomiting. He reports that he is hungry and would like to eat. Past Medical History: Diagnosis Date Cirrhosis (HCC) Diabetes mellitus (HCC) Disorder of thyroid Hepatic encephalopathy (HCC) Prostate cancer (HCC) Past Surgical History: Procedure Laterality Date HERNIA REPAIR History reviewed. No pertinent family history. Social History Socioeconomic History Marital status: Spouse name: None Number of children: None Years of education: None Highest education level: None Occupational History None Tobacco Use Smoking status: Never Smoker Smokeless tobacco: Never Used Vaping Use Vaping Use: Never assessed Substance and Sexual Activity Alcohol use: Not Currently Drug use: Never Sexual activity: Defer Other Topics Concern None Social History Narrative None Social Determinants of Health Financial Resource Strain: Difficulty of Paying Living Expenses: Not on file Food Insecurity: Worried About Running Out of Food in the Last Year: Not on file Ran Out of Food in the Last Year: Not on file Transportation Needs: Lack of Transportation (Medical): Not on file Lack of Transportation (Non-Medical): Not on file Physical Activity: Days of Exercise per Week: Not on file Minutes of Exercise per Session: Not on file Stress: Feeling of Stress : Not on file Social Connections: Frequency of Communication with Friends and Family: Not on file Frequency of Social Gatherings with Friends and Family: Not on file Attends Tenriism Services: Not on file Active Member of Clubs or Organizations: Not on file Attends Club or Organization Meetings: Not on file Marital Status: Not on file ALLERGIES: Allergies Allergen Reactions Metformin Hcl Unknown CODE STATUS: Full Code PRIMARY CARE PROVIDER: Troy Ramos MD CURRENT MEDICATIONS: atorvastatin, 10 mg, oral, Daily enzalutamide, 160 mg, oral, Daily lactulose, 20 g, oral, TID levothyroxine, 125 mcg, oral, q AM AC pantoprazole, 40 mg, oral, q AM AC rifAXIMin, 550 mg, oral, BID spironolactone, 25 mg, oral, Daily sodium chloride 0.9 %, 100 mL/hr, Last Rate: 100 mL/hr (02/20/21 1106) REVIEW OF SYSTEMS: Review of Systems HENT: Positive for hearing loss. Respiratory: Negative. Cardiovascular: Negative. Gastrointestinal: Negative. Psychiatric/Behavioral: Negative for confusion. PHYSICAL EXAMINATION: Temp: [36.7 C (98.1 F)-37.1 C (98.8 F)] 36.7 C (98.1 F) Heart Rate: [64-76] 76 Resp: [9-19] 16 BP: (112-154)/(55-99) 112/55 SpO2: [95 %-99 %] 95 % Oxygen Therapy: None (Room air) Intake/Output Summary (Last 24 hours) at 02/21/2021 0731 Last data filed at 02/21/2021 0633 Gross per 24 hour Intake 1400 ml Output 650 ml Net 750 ml Physical Exam Constitutional: Appearance: Normal appearance. HENT: Mouth/Throat: Mouth: Mucous membranes are moist. Eyes: Pupils: Pupils are equal, round, and reactive to light. Cardiovascular: Pulses: Normal pulses. Heart sounds: Normal heart sounds. Pulmonary: Effort: Pulmonary effort is normal. Breath sounds: Normal breath sounds. Abdominal: General: Abdomen is flat. Palpations: Abdomen is soft. Musculoskeletal: Cervical back: Neck supple. Skin: General: Skin is warm. Neurological: General: No focal deficit present. Mental Status: He is alert and oriented to person, place, and time. Psychiatric: Mood and Affect: Mood normal. LABORATORY DATA: Results for orders placed or performed during the hospital encounter of 02/20/21 (from the past 24 hour(s)) SARS CoV-2, Influenza A/B and RSV Collection Time: 02/20/21 8:03 PM Specimen: Nasopharyngeal Swab Result Value Ref Range Influenza A by RT-PCR Negative Negative Influenza B by RT-PCR Negative Negative RSV by RT-PCR Negative Negative SARS CoV-2 Negative Negative CBC with Auto Differential Collection Time: 02/20/21 8:19 PM Result Value Ref Range WBC 3.32 (L) 4.30 - 10.80 K/uL RBC 2.97 (L) 4.70 - 6.10 M/uL Hemoglobin 11.9 (L) 14.0 - 18.0 g/dL Hematocrit 34.0 (L) 42.0 - 52.0 % MCV 112 (H) 81 - 99 fL MCH 40.1 (H) 26.0 - 34.0 pg MCHC 35.0 31.0 - 37.0 g/dL MPV 12.0 9.4 - 12.4 fL Platelets 37 (LL) 150 - 400 K/uL RDW 15.7 (H) 11.5 - 14.5 % RDW-SD 66.2 (H) 35.1 - 43.9 fL Nucleated RBC, Absolute 0.00 0.00 K/uL Nucleated RBC 0.0 0.0 /100 WBC Neutrophils 55.1 36.0 - 66.0 % Lymphocytes 23.5 (L) 24.0 - 44.0 % Monocytes 16.6 (H) 1.0 - 10.0 % Eosinophils 3.6 0.0 - 6.0 % Basophils 0.9 0.0 - 2.0 % Immature Granulocytes 0.3 0.0 - 0.5 % Neutrophils, Absolute 1.83 1.55 - 7.13 K/uL Lymphocytes, Absolute 0.78 (L) 1.00 - 4.80 K/uL Monocytes, Absolute 0.55 0.40 - 1.08 K/uL Eosinophils, Absolute 0.12 0.00 - 0.65 K/uL Basophils, Absolute 0.03 0.00 - 0.11 K/uL Immature Granulocytes, Absolute 0.01 0.00 - 0.10 K/uL Comprehensive Metabolic Panel Collection Time: 02/20/21 8:19 PM Result Value Ref Range Sodium 142 136 - 145 mmol/L Potassium 4.0 3.5 - 5.1 mmol/L Chloride 110 (H) 98 - 107 mmol/L CO2 25 21 - 32 mmol/L Anion Gap 7 5 - 15 mmol/L BUN 15 8 - 26 mg/dL Creatinine 0.78 0.55 - 1.30 mg/dL Glucose 122 (H) 70 - 115 mg/dL Calcium 8.1 (L) 8.5 - 10.0 mg/dL Total Protein 6.6 6.0 - 8.3 g/dL Albumin 2.2 (L) 3.4 - 5.0 g/dL Bilirubin, Total 1.1 (H) 0.2 - 1.0 mg/dL Alkaline Phosphatase 91 45 - 117 U/L ALT 22 16 - 61 U/L AST 32 15 - 37 U/L Estimated GFR 97 >=60 mL/min/1.73m2 Globulin 4.4 g/dL A/G Ratio 0.5 (L) 1.0 - 1.8 Troponin I Collection Time: 02/20/21 8:19 PM Result Value Ref Range High Sensitivity Troponin 9.2 <78.5 ng/L Ammonia Collection Time: 02/20/21 8:19 PM Result Value Ref Range Ammonia 116 (H) 11 - 32 umol/L TSH w/Reflex Free T4 Collection Time: 02/20/21 8:19 PM Result Value Ref Range TSH 0.243 (L) 0.350 - 4.900 uIU/mL Light Green Top Collection Time: 02/20/21 8:19 PM Result Value Ref Range Extra Tube Yes T4, Free Collection Time: 02/20/21 8:19 PM Result Value Ref Range Free T4 1.23 0.70 - 1.48 ng/dL POCT Troponin I Collection Time: 02/20/21 8:23 PM Result Value Ref Range POC Troponin I <0.02 <0.08 ng/mL Urinalysis with microscopic Urine, Clean Catch Collection Time: 02/20/21 9:07 PM Result Value Ref Range Color, UA Light Yellow Light Yellow, Yellow, Colorless Clarity, UA Clear Clear Glucose, UA Negative Negative Bilirubin, UA Negative Negative Ketones, UA Negative Negative Specific Reeders, Urine 1.006 1.005 - 1.030 Blood, UA Negative Negative pH, UA 7.0 5.0 - 9.0 Protein, UA Negative Negative Urobilinogen, UA 4 (A) Normal mg/dL Nitrite, UA Negative Negative Leukocyte Esterase, UA Negative Negative WBC, UA 1 0 - 4 /HPF RBC, UA <1 0 - 1 /HPF Bacteria, UA None Seen None Seen /HPF Mucus, UA Rare (A) Negative /LPF Contains critical dataCBC with Auto Differential Order: [id number] Status: Final result Visible to patient: No (not released) 0 Result Notes Ref Range & Units 1 d ago WBC 4.30 - 10.80 K/uL 3.32Low RBC 4.70 - 6.10 M/uL 2.97Low Hemoglobin 14.0 - 18.0 g/dL 11.9Low Hematocrit 42.0 - 52.0 % 34.0Low MCV 81 - 99 fL 112High MCH 26.0 - 34.0 pg 40.1High MCHC 31.0 - 37.0 g/dL 35.0 MPV 9.4 - 12.4 fL 12.0 Platelets 150 - 400 K/uL 37Low Panic Comment: This result has been called to NAKUL BARBOSA RN by Garrett rosario 02 20 2021 at 2045, and has been read back. RDW 11.5 - 14.5 % 15.7High RDW-SD 35.1 - 43.9 fL 66.2High Nucleated RBC, Absolute 0.00 K/uL 0.00 Nucleated RBC 0.0 /100 WBC 0.0 Neutrophils 36.0 - 66.0 % 55.1 Lymphocytes 24.0 - 44.0 % 23.5Low Monocytes 1.0 - 10.0 % 16.6High Eosinophils 0.0 - 6.0 % 3.6 Basophils 0.0 - 2.0 % 0.9 Immature Granulocytes 0.0 - 0.5 % 0.3 Neutrophils, Absolute 1.55 - 7.13 K/uL 1.83 Ref Range & Units 1 d ago Sodium 136 - 145 mmol/L 142 Potassium 3.5 - 5.1 mmol/L 4.0 Chloride 98 - 107 mmol/L 110High CO2 21 - 32 mmol/L 25 Anion Gap 5 - 15 mmol/L 7 BUN 8 - 26 mg/dL 15 Creatinine 0.55 - 1.30 mg/dL 0.78 Glucose 70 - 115 mg/dL 122High Calcium 8.5 - 10.0 mg/dL 8.1Low Total Protein 6.0 - 8.3 g/dL 6.6 Albumin 3.4 - 5.0 g/dL 2.2Low Bilirubin, Total 0.2 - 1.0 mg/dL 1.1High Alkaline Phosphatase 45 - 117 U/L 91 ALT 16 - 61 U/L 22 AST 15 - 37 U/L 32 Estimated GFR >=60 mL/min/1.73m2 97 Comment: GFR <60: CHRONIC KIDNEY DISEASE,if found over a 3 month period. GFR <15: KIDNEY FAILURE Globulin g/dL 4.4 A/G Ratio 1.0 - 1.8 0.5Low Resulting Agency [facility] Specimen Collected: 02/20/21 20:19 RADIOLOGY DATA: +++ REPORT GENERATED IN [employer] +++ EXAM: CT Head without IV contrast [...] IMPRESSION: 1. No acute intracranial process is identified. 2. Age-related volume loss and non-specific white matter hypoattenuation, likely sequela of chronic microvascular ischemic change. 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 He presented with worsening encephalopathy. He has received a dose of lact ulose and he is already lucid. Patient reports that he is hungry. I will resume regular diet. Continue lactulose and taper dose so he can have 2 to 3 BM daily. I emphasized to the patient the importance of compliance with medication. Patien t last out patient hepatology visit was in February 18. If he does well. He may b e going home in the next day. We will continue to monitor. Arun Prescott MD documented in this encounter Nursing Notes * Ian Rucker RN - 02/22/2021 3:27 PM CDT Patient discharged at 1525. PIV discontinued without complication. Patient accom panied by CLINICAL OB and discharged via wheelchair. Patient given after-visit summary. Denies any questions and verbalizes understanding of discharge instructions. documented in this encounter ED Notes * Zachary Watson RN - 02/20/2021 7:36 PM CDT ED Triage Note Pt came into ER today with ride c/o hepatic encephalopathy. Pt family states pt confused, nauseated, states ammonia 135 on 02/18/2021. Pt confused, calm, [place] ative, warm,dry, not in distress at this time. stage 4 cirrhosis Electronically signed by: Zachary Watson RN 02/20/21 7:36 PM * Michel Bradshaw MD - 02/20/2021 7:11 PM CDT Images from the original note were not included. [address] [place] [id number] [email or web address] Name: Nasir Squires : 1945 CSN: [id number] PCP: Troy Ramos MD Date: 02/20/2021 CHIEF COMPLAINT Chief Complaint Patient presents with Altered Mental Status Nausea Vomiting HPI Nasir Squires is a 75 y.o. male with liver cirrhosis secondary to BROWN, DM2, and prostate cancer who presents with confusion. Symptoms been progressive since t his morning. Family states that he has been off his mental baseline and slow to respond. He has been compliant with his MiraLAX and rifaximin, but his only had two BMs today (goal 4/day). He does complain of nausea with multiple episodes of nonbloody, nonbilious emesis, but otherwise denies medical complaint. No ch est pain, abdominal pain, bloody stool, fever/chills, etc. Family states that joe mtz had a similar episode in 2018 for which she was admitted for hepatic encephalo johnathon. He follows with Dr. Klein in . Triage/Intake/Nursing Notes and initial vital signs reviewed. REVIEW OF SYSTEMS Review of Systems Constitutional: Negative for chills and fever. HENT: Negative for congestion. Eyes: Negative for visual disturbance. Respiratory: Negative for shortness of breath. Cardiovascular: Negative for chest pain. Gastrointestinal: Positive for nausea and vomiting. Negative for abdominal pain. Genitourinary: Negative for dysuria. Musculoskeletal: Negative for back pain. Skin: Negative for rash. Neurological: Negative for headaches. Psychiatric/Behavioral: Positive for confusion. PAST MEDICAL HISTORY Past Medical History: Diagnosis Date Cirrhosis (HCC) Diabetes mellitus (HCC) Disorder of thyroid Hepatic encephalopathy (HCC) Prostate cancer (HCC) FAMILY HISTORY History reviewed. No pertinent family history. SOCIAL HISTORY Social History Socioeconomic History Marital status: Spouse name: None Number of children: None Years of education: None Highest education level: None Occupational History None Tobacco Use Smoking status: Never Smoker Smokeless tobacco: Never Used Vaping Use Vaping Use: Never assessed Substance and Sexual Activity Alcohol use: Not Currently Drug use: Never Sexual activity: Defer Other Topics Concern None Social History Narrative None Social Determinants of Health Financial Resource Strain: Difficulty of Paying Living Expenses: Not on file Food Insecurity: Worried About Running Out of Food in the Last Year: Not on file Ran Out of Food in the Last Year: Not on file Transportation Needs: Lack of Transportation (Medical): Not on file Lack of Transportation (Non-Medical): Not on file Physical Activity: Days of Exercise per Week: Not on file Minutes of Exercise per Session: Not on file Stress: Feeling of Stress : Not on file Social Connections: Frequency of Communication with Friends and Family: Not on file Frequency of Social Gatherings with Friends and Family: Not on file Attends Tenriism Services: Not on file Active Member of Clubs or Organizations: Not on file Attends Club or Organization Meetings: Not on file Marital Status: Not on file SURGICAL HISTORY Past Surgical History: Procedure Laterality Date HERNIA REPAIR CURRENT MEDICATIONS Home Medications No Medications Reported ALLERGIES No Known Allergies PHYSICAL EXAM ED Triage Vitals [02/20/211935] Temp Heart Rate Resp BP SpO2 37.1 C (98.8 F) 68 16 (!) 120/99 99 % Temp Source Heart Rate Source Patient Position BP Location FiO2 (%) Oral Monitor Sitting Left arm -- Physical Exam Vitals and nursing note reviewed. Constitutional: General: He is not in acute distress. Appearance: He is not diaphoretic. HENT: Head: Normocephalic. Eyes: Conjunctiva/sclera: Conjunctivae normal. Neck: Trachea: No tracheal deviation. Cardiovascular: Rate and Rhythm: Normal rate. Pulmonary: Effort: Pulmonary effort is normal. No respiratory distress. Abdominal: General: There is no distension. Tenderness: There is no abdominal tenderness. Musculoskeletal: General: No deformity. Skin: General: Skin is warm. Neurological: Mental Status: He is disoriented and confused. GCS: GCS eye subscore is 4. GCS verbal subscore is 5. GCS motor subscore is 6 . RADIOLOGY/PROCEDURES CT Head Without Contrast Result Date: 02/20/2021 +++ REPORT GENERATED IN [employer] +++ EXAM: CT Head without IV contrast INDICATION : Altered mental sensorium TECHNIQUE: Multi-detector row CT images were obtained of the head without the use of IV contrast. All CT scans performed at [facility] utilize dose optimization techniques as appropriate to the exam, including the following: Automated exposure control and adjustment of the mA and/or KV acc ording to patient size (this includes techniques or standardized protocols for t argeted exams where dose is matched to the indication/reason for exam). DLP: 10 69 mGycm COMPARISON: None FINDINGS: BRAIN PARENCHYMA: No evidence of acute int raparenchymal hemorrhage or infarct. Nonspecific white matter hypoattenuation li prince represents sequela of chronic microvascular ischemic change. No other abnor mal parenchymal density or mass. VENTRICLES AND EXTRA-AXIAL SPACES: Prominence o f the extra-axial spaces is compatible with volume loss. Ventricles are otherwis e within normal limits. Basilar cisterns are patent. No pathologic extra-axial fluid collection or mass. ORBITS: Orbital contents are unremarkable. SINUSES: V isualized paranasal sinuses and mastoid air cells are clear. OSSEOUS AND SOFT TI SSUES: Calvarium and skull base are intact. IMPRESSION: 1. No acute intracranial process is identified. 2. Age-related volume loss and non-specific white matter hypoattenuation, likely sequela of chronic microvascular ischemic change. Elect ronically Signed by BETO BURGOS MD at 02/20/2021 08:45:34 PM EKG: Interpretation via [employer]. See "Card" tab under Chart Review Activity. No orders to display LABS Labs Reviewed CBC WITH AUTO DIFFERENTIAL - Abnormal Result Value WBC 3.32 (*) RBC 2.97 (*) Hemoglobin 11.9 (*) Hematocrit 34.0 (*) MCV 112 (*) MCH 40.1 (*) MCHC 35.0 MPV 12.0 Platelets 37 (*) RDW 15.7 (*) RDW-SD 66.2 (*) Nucleated RBC, Absolute 0.00 Nucleated RBC 0.0 Neutrophils 55.1 Lymphocytes 23.5 (*) Monocytes 16.6 (*) Eosinophils 3.6 Basophils 0.9 Immature Granulocytes 0.3 Neutrophils, Absolute 1.83 Lymphocytes, Absolute 0.78 (*) Monocytes, Absolute 0.55 Eosinophils, Absolute 0.12 Basophils, Absolute 0.03 Immature Granulocytes, Absolute 0.01 COMPREHENSIVE METABOLIC PANEL - Abnormal Sodium 142 Potassium 4.0 Chloride 110 (*) CO2 25 Anion Gap 7 BUN 15 Creatinine 0.78 Glucose 122 (*) Calcium 8.1 (*) Total Protein 6.6 Albumin 2.2 (*) Bilirubin, Total 1.1 (*) Alkaline Phosphatase 91 ALT 22 AST 32 Estimated GFR 97 Globulin 4.4 A/G Ratio 0.5 (*) URINALYSIS WITH MICROSCOPIC - Abnormal Color, UA Light Yellow Clarity, UA Clear Glucose, UA Negative Bilirubin, UA Negative Ketones, UA Negative Specific Reeders, Urine 1.006 Blood, UA Negative pH, UA 7.0 Protein, UA Negative Urobilinogen, UA 4 (*) Nitrite, UA Negative Leukocyte Esterase, UA Negative WBC, UA 1 RBC, UA <1 Bacteria, UA None Seen Mucus, UA Rare (*) AMMONIA - Abnormal Ammonia 116 (*) TSH W/REFLEX FREE T4 - Abnormal TSH 0.243 (*) SARS COV-2, INFLUENZA A/B AND RSV - Normal Influenza A by RT-PCR Negative Influenza B by RT-PCR Negative RSV by RT-PCR Negative SARS CoV-2 Negative TROPONIN I - Normal High Sensitivity Troponin 9.2 T4, FREE - Normal Free T4 1.23 POCT TROPONIN I - Normal POC Troponin I <0.02 EXTRA TUBES Narrative: The following orders were created for panel order Extra Tubes. Procedure Abnormality Status --------- ------ Light Green Top[[id number]] Final result Please view results for these tests on the individual orders. POC TROPONIN I REQUEST LIGHT GREEN TOP Extra Tube Yes ED COURSE & MEDICAL DECISION MAKING BP 137/69 | Pulse 64 | Temp 37.1 C (98.8 F) (Oral) | Resp 11 | Ht 1.727 m (5' 8") | Wt 87.1 kg (192 lb) | SpO2 98% | BMI 29.19 kg/m 75-year-old male presenting with confusion in the setting of liver cirrhosis. Vital signs were within reasonable limits. Exam as above. CMP was within reasonable limits. CBC showed a pancytopenia. Ammonia was eleva cristhian at 116. He was given MiraLAX. CT head showed no acute process. Clinical impression is consistent with hepatic encephalopathy. We will plan on admission for further evaluation/management in bowel regimen. Discharge Vitals References Systolic BP Diastolic BP Pulse Respirations O2 Sat <95 or >140 <60 or >90 <60 or >100 <12 or >20 <92% Clinical Impressions as of Feb 20 2125 Hepatic encephalopathy (HCC) Pertinent Labs & Imaging studies reviewed. (See chart for details) CRITICAL CARE TIME: I provided 0 minutes of critical care outside of separately billable procedures and/or services. This level of medical care was necessary d ue a critical illness that impaired one or more vital organ systems such that th ere was a high probability of imminent or life threatening deterioration in the patient's condition. This care involved high complexity decision making to asses s, manage and support vital system functions due to potential end organ compromi se and to prevent further life threatening deterioration of the patients cond ition. FINAL IMPRESSION 1. Hepatic encephalopathy (HCC) PLAN: Admit. Electronically Signed By Michel Bradshaw MD 02/20/2021 20:05 CDT DISCLAIMER: This document was generated using voice recognition software. There may be unintentional errors in clinical physician assistant. Attempts have been made to review the document for accuracy. Michel Bradshaw MD 02/20/212124 documented in this encounter Miscellaneous Notes * Plan of Care - Ian Rucker RN - 02/22/2021 3:27 PM CDT Problem: Safety Goal: Free from accidental physical injury 02/22/2021 1527 by Ian Rucker RN Outcome: Adequate for Discharge 02/22/2021 1240 by Ian Rucker RN Outcome: Adequate for Discharge Goal: Free from fall injury 02/22/2021 1527 by Ian Rucker RN Outcome: Adequate for Discharge 02/22/2021 1240 by Ian Rucker RN Outcome: Adequate for Discharge Problem: Daily Care Goal: Daily care needs are met 02/22/2021 1527 by Ian Rucker RN Outcome: Adequate for Discharge 02/22/2021 1240 by Ian Rucker RN Outcome: Adequate for Discharge Problem: Pain Goal: Patient's pain/discomfort is manageable 02/22/2021 1527 by Ian Rucker RN Outcome: Adequate for Discharge 02/22/2021 1240 by Ian Rucker RN Outcome: Adequate for Discharge Problem: Compromised Skin Integrity Goal: Skin Integrity is Maintained or Improved 02/22/2021 1527 by Ian Rucker RN Outcome: Adequate for Discharge 02/22/2021 1240 by Ian Rucker RN Outcome: Adequate for Discharge Goal: Fluid and electrolyte balance are achieved/maintained 02/22/2021 1527 by Ian Rucker RN Outcome: Adequate for Discharge 02/22/2021 1240 by Ian Rucker RN Outcome: Adequate for Discharge Goal: Nutritional status is improving 02/22/2021 1527 by Ian Rucker RN Outcome: Adequate for Discharge 02/22/2021 1240 by Ian Rucker RN Outcome: Adequate for Discharge Problem: Potential for Infection Goal: Remains infection free 02/22/2021 1527 by Ian Rucker RN Outcome: Adequate for Discharge 02/22/2021 1240 by Ian Rucker RN Outcome: Adequate for Discharge Problem: Knowledge Deficit Goal: Patient/family/caregiver demonstrates understanding of disease process, tr eatment plan, medications, and discharge instructions 02/22/2021 1527 by Ian Rucker RN Outcome: Adequate for Discharge 02/22/2021 1240 by Ian Rucker RN Outcome: Adequate for Discharge Problem: Psychosocial Needs Goal: Demonstrates ability to cope with hospitalization/illness 02/22/2021 1527 by Ian Rucker RN Outcome: Adequate for Discharge 02/22/2021 1240 by Ian Rucker RN Outcome: Adequate for Discharge Problem: Discharge Planning Goal: Discharge to home or other facility with appropriate resources 02/22/2021 1527 by Ian Rucker RN Outcome: Adequate for Discharge 02/22/2021 1240 by Ian Rucker RN Outcome: Adequate for Discharge Problem: Potential for Falls Goal: Patient will remain free of falls 02/22/2021 1527 by Ian Rucker RN Outcome: Adequate for Discharge 02/22/2021 1240 by Ian Rucker RN Outcome: Adequate for Discharge * Case Management Note - Shana Yousif RN - 02/22/2021 2:20 PM CDT Discharge Plan: 02/22/21 1420 Discharge Planning Patient expects to be discharged to: Home Does the patient need discharge transport arranged? No Case Management Assessment Patient discharge plan is to, return home with spouse . Denies discharge needs. Final discharge disposition Home or Self Care Patient and family agree with discharge plan? No manager billing offered patient choice? No (Denies need.) Discharge Planning Reassessment Changes in patient's condition? No Adjustment to discharge plan? No changes to existing discharge plan Patient Specific Goals Patient Goal for Admission To get help with confusion. Patient Goal for Discharge Home. * Plan of Care - Ian Rucker RN - 02/22/2021 12:40 PM CDT Problem: Safety Goal: Free from accidental physical injury Outcome: Adequate for Discharge Goal: Free from fall injury Outcome: Adequate for Discharge Problem: Daily Care Goal: Daily care needs are met Outcome: Adequate for Discharge Problem: Pain Goal: Patient's pain/discomfort is manageable Outcome: Adequate for Discharge Problem: Compromised Skin Integrity Goal: Skin Integrity is Maintained or Improved Outcome: Adequate for Discharge Goal: Fluid and electrolyte balance are achieved/maintained Outcome: Adequate for Discharge Goal: Nutritional status is improving Outcome: Adequate for Discharge Problem: Potential for Infection Goal: Remains infection free Outcome: Adequate for Discharge Problem: Knowledge Deficit Goal: Patient/family/caregiver demonstrates understanding of disease process, tr eatment plan, medications, and discharge instructions Outcome: Adequate for Discharge Problem: Psychosocial Needs Goal: Demonstrates ability to cope with hospitalization/illness Outcome: Adequate for Discharge Problem: Discharge Planning Goal: Discharge to home or other facility with appropriate resources Outcome: Adequate for Discharge Problem: Potential for Falls Goal: Patient will remain free of falls Outcome: Adequate for Discharge * Plan of Care - Jose L Nuñez RN - 02/22/2021 2:30 AM CDT Vital signs stable this shift on room air. Patient remained free from fall or in jury this shift. Patient free from pain this shift. Patient tolerating regular d iet. Receiving IV fluids per orders, possible discharge home today. BP 104/56 (BP Location: Right arm, Patient Position: Sitting) | Pulse 69 | Tem p 37 C (98.6 F) (Oral) | Resp 16 | Ht 1.727 m (5' 8") | Wt 91.2 kg (201 l b 1.6 oz) | SpO2 97% | BMI 30.58 kg/m Problem: Safety Goal: Free from accidental physical injury Outcome: Progressing Goal: Free from fall injury Outcome: Progressing Problem: Daily Care Goal: Daily care needs are met Outcome: Progressing Problem: Pain Goal: Patient's pain/discomfort is manageable Outcome: Progressing Problem: Compromised Skin Integrity Goal: Skin Integrity is Maintained or Improved Outcome: Progressing Goal: Fluid and electrolyte balance are achieved/maintained Outcome: Progressing Goal: Nutritional status is improving Outcome: Progressing Problem: Potential for Infection Goal: Remains infection free Outcome: Progressing Problem: Knowledge Deficit Goal: Patient/family/caregiver demonstrates understanding of disease process, tr eatment plan, medications, and discharge instructions Outcome: Progressing Problem: Psychosocial Needs Goal: Demonstrates ability to cope with hospitalization/illness Outcome: Progressing Problem: Discharge Planning Goal: Discharge to home or other facility with appropriate resources Outcome: Progressing Problem: Potential for Falls Goal: Patient will remain free of falls Outcome: Progressing * Plan of Care - Son Irizarry RN - 02/21/2021 3:13 PM CDT Vitals stable this shift on RA, up CGA without issue, GI consulted this AM, resu med regular diet, lactulose and rifaximin continued, large BM this afternoon, pt mentation better today, IV fluids continued, no orders for discharge during thi s shift. Problem: Safety Goal: Free from accidental physical injury Outcome: Progressing Goal: Free from fall injury Outcome: Progressing Problem: Daily Care Goal: Daily care needs are met Outcome: Progressing Problem: Pain Goal: Patient's pain/discomfort is manageable Outcome: Progressing Problem: Compromised Skin Integrity Goal: Skin Integrity is Maintained or Improved Outcome: Progressing Goal: Fluid and electrolyte balance are achieved/maintained Outcome: Progressing Goal: Nutritional status is improving Outcome: Progressing Problem: Potential for Infection Goal: Remains infection free Outcome: Progressing Problem: Knowledge Deficit Goal: Patient/family/caregiver demonstrates understanding of disease process, tr eatment plan, medications, and discharge instructions Outcome: Progressing Problem: Psychosocial Needs Goal: Demonstrates ability to cope with hospitalization/illness Outcome: Progressing Problem: Discharge Planning Goal: Discharge to home or other facility with appropriate resources Outcome: Progressing Problem: Potential for Falls Goal: Patient will remain free of falls Outcome: Progressing * Plan of Care - Hannah Patel RN - 02/21/2021 1:44 AM CDT Pt admitted to room 625 from ER this shift. Pt alert but forgetful. Bed alarm pl aced for pt safety. Pt free from fall or injury. Up in room with stand by assist . Pt has denied pain or dyspnea. NS infusing @ 100 ml/hr. Pt to have GI consult in the am. Problem: Safety Goal: Free from accidental physical injury Outcome: Progressing Flowsheets (Taken 02/21/2021 014) Addressed this shift: Free from accidental physical injury: Assess patient for fall risk Initiate fall precautions per hospital protocol Keep bed in low position Provide and maintain a safe environment Keep bed wheels locked Keep patient's call light within reach Ensure patient's ID band is correct and in place Include patient/family/caregiver in decisions related to safety Use appropriate transfer methods Ensure appropriate safety devices are available at the bedside Goal: Free from fall injury Outcome: Progressing Flowsheets (Taken 02/21/2021 014) Addressed this shift: Free from fall injury: Assess patient's coordination or balance before transfer/mobility activities Place bedside table, call light, and patient care items within reach Keep room free of clutter, tripping hazards and spills Keep all lockable equipment/furniture locked [place] patient to environment Adjust bed with adjustable height at lowest position Encourage pt to use appropriate non-slip footwear when ambulating Review inpatient safety education with patient/family/significant other Problem: Daily Care Goal: Daily care needs are met Outcome: Progressing Flowsheets (Taken 02/21/2021142) Addressed this shift: Daily care needs are met: Assess and monitor ability to perform self care and identify potential discharg e needs Assess skin integrity/risk for skin breakdown Problem: Pain Goal: Patient's pain/discomfort is manageable Outcome: Progressing Flowsheets (Taken 02/21/2021142) Addressed this shift: Patient's pain/discomfort is manageable: Assess and monito r patient's pain using appropriate pain scale Problem: Compromised Skin Integrity Goal: Skin Integrity is Maintained or Improved Outcome: Progressing Flowsheets (Taken 02/21/2021142) Addressed this shift: Skin integrity is maintained or improved: Assess and monitor skin integrity Identify patients at risk for skin breakdown on admission and per policy Avoid shearing Keep skin clean and dry Goal: Fluid and electrolyte balance are achieved/maintained Outcome: Progressing Flowsheets (Taken 02/21/2021142) Addressed this shift: Fluid and electrolyte balance are achieved/maintained: Monitor patient's weight Monitor fluid intake and output Monitor lab values Goal: Nutritional status is improving Outcome: Progressing Flowsheets (Taken 02/21/2021142) Addressed this shift: Nutritional status is improving: Allow adequate time for m eals Problem: Potential for Infection Goal: Remains infection free Outcome: Progressing Flowsheets (Taken 02/21/2021142) Remains Infection Free: Assess and monitor vital signs, skin (color, moisture, integrity, turgor), resp iratory status, urinary and gastrointestinal status, and labs (WBC, cultures, bl ood glucose, etc) Ensure aseptic care of all intravenous lines, invasive tubes/drains and wounds Wash hands properly before and after each patient care activity Monitor for signs and symptoms of infection (redness, warmth, discharge, increa sed body temperature) Problem: Knowledge Deficit Goal: Patient/family/caregiver demonstrates understanding of disease process, tr eatment plan, medications, and discharge instructions Outcome: Progressing Flowsheets (Taken 02/21/2021 0143) Addressed this shift: Patient/family/caregiver demonstrates understanding of dis ease process, treatment plan, medications, and discharge instructions: Complete learning assessment and assess knowledge base Provide teaching at level of understanding Provide teaching via preferred learning methods Educate patient regarding current medical condition, procedures, and plan of ca re Facilitate patients understanding of the tests performed and medications adm inistered during hospitalization Educate/reinforce post-discharge plan of care Problem: Psychosocial Needs Goal: Demonstrates ability to cope with hospitalization/illness Outcome: Progressing Flowsheets (Taken 02/21/2021 0143) Addressed this shift: Demonstrates ability to cope with hospitalization/illness: Assess and monitor patients ability to cope with his/her illness Encourage verbalization of feelings/concerns/expectations Provide quiet environment Problem: Discharge Planning Goal: Discharge to home or other facility with appropriate resources Outcome: Progressing Flowsheets (Taken 02/21/2021 0143) Addressed this shift: Discharge to home or other facility with appropriate resou rces: Identify barriers to discharge with patient and caregiver * Case Management Note - Chelsey Newsome RN - 02/20/2021 9:48 PM CDT 02/20/212142 Caregiver Screening Does patient have a caregiver? No Discharge Planning Living Arrangements Spouse/significant other Support Systems Spouse/significant other;Children Assistance Needed none anticipated Does patient have financial concerns? No Functional Status Assistive device (Pt has a walking stick he uses) Type of Residence Private residence Home Care Services No Anticipated discharge plan/needs Home with spouse/SO/roommate/family Patient/Family agrees with treatment plan? Yes Patient expects to be discharged to: home Does the patient need discharge transport arranged? 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 reports pt is normally independent w ith self care and is ambulatory. reports pt mentation ususally bounces back pretty quickly and she does not feel they will have any needs on discharge. Patient Specific Goals Patient Goal for Discharge home documented in this encounter Plan of Treatment Not on filedocumented as of this encounter Procedures Comments Procedure Name Priority Date/Time Associated Diag nosis MANUAL MORPHOLOGY Routine 02/22/2021 7:19 AM CDT CBC WITH AUTO Routine 02/22/2021 DIFFERENTIAL 7:19 AM CDT MANUAL DIFFERENTIAL Routine 02/22/2021 7:19 AM CDT AMMONIA Routine 02/22/2021 7:19 AM CDT COMPREHENSIVE METABOLIC Routine 02/22/2021 PANEL 7:19 AM CDT CBC WITH AUTO Routine 02/21/2021 DIFFERENTIAL 8:14 AM CDT AMMONIA Routine 02/21/2021 8:14 AM CDT COMPREHENSIVE METABOLIC Routine 02/21/2021 PANEL 8:14 AM CDT URINALYSIS WITH STAT 02/20/2021 MICROSCOPIC 9:07 PM CDT POCT TROPONIN I Routine 02/20/2021 8:23 PM CDT TSH W/REFLEX FREE T4 STAT 02/20/2021 8:19 PM CDT EXTRA TUBES Routine 02/20/2021 8:19 PM CDT CBC WITH AUTO STAT 02/20/2021 DIFFERENTIAL 8:19 PM CDT LIGHT GREEN TOP Routine 02/20/2021 8:19 PM CDT TROPONIN I STAT 02/20/2021 8:19 PM CDT T4, FREE STAT 02/20/2021 8:19 PM CDT AMMONIA STAT 02/20/2021 8:19 PM CDT COMPREHENSIVE METABOLIC STAT 02/20/2021 PANEL 8:[address] HEAD WO CONTRAST STAT 02/20/2021 8:12 PM CDT SARS COV-2, INFLUENZA A/B STAT 02/20/2021 AND RSV 8:03 PM CDT documented in this encounter Results * Manual Morphology (02/22/2021 7:19 AM CDT) RBC Morphology Scanned no significant RBC [facility] morph noted LAB Smudge Cells Present (A) None Seen [facility] WBC Comment DIFF PERFORMED WITH ALBUMIN [facility] LAB Specimen Blood - Venous blood specimen (specimen) Performing Organization Address City/[facility]/ZIP [facility] P di Number [facility] [address] [place] [phone] * Manual Differential (02/22/2021 7:19 AM CDT) Neutrophils, 41 36 - 66 % [facility] Manual LAB Lymphocytes, 37 24 - 44 % [facility] Manual LAB Monocytes, 12 (H) 1 - 10 % [facility] Manual LAB Eosinophils, 6 0 - 10 % [facility] Manual LAB Basophils, 3 (H) 0 - 1 % [facility] Manual LAB Bands, Manual 1 (L) 5 - 11 % [facility] Cells Counted 100 COUNTED [facility] Absolute 1.05 (L) 1.55 - 7.13 K/uL [facility] Neutrophil LAB Count Lymphocytes, 0.92 (L) 1.00 - 4.80 K/uL [facility] Abs, Manual LAB Monocytes, Abs. 0.30 (L) 0.40 - 1.08 K/uL [facility] Manual LAB Eosinophils, 0.15 0.00 - 0.65 K/uL [facility] Abs. Manual LAB Basophils, Abs 0.07 0.00 - 0.11 K/uL [facility] Manual LAB WBC Comment DIFF PERFORMED WITH ALBUMIN [facility] Specimen Blood - Venous blood specimen (specimen) Performing Organization Address City/[facility]/ZIP [facility] P di Number [facility] [address] [place] [phone] * Ammonia (02/22/2021 7:19 AM CDT) Ammonia 83 (H) 11 - 32 umol/L [facility] Specimen Blood - Venous blood specimen (specimen) Performing Organization Address City/[facility] P di Number [facility] [address] [place] [phone] * CBC with Auto Differential (02/22/2021 7:19 AM CDT) WBC 2.49 (L) 4.30 - 10.80 K/uL [facility] RBC 2.66 (L) 4.70 - 6.10 M/uL [facility] Hemoglobin 10.6 (L) 14.0 - 18.0 g/dL [facility] Hematocrit 30.9 (L) 42.0 - 52.0 % [facility] MCV 116 (H) 81 - 99 fL [facility] MCH 39.8 (H) 26.0 - 34.0 pg [facility] MCHC 34.3 31.0 - 37.0 g/dL [facility] MPV 12.2 9.4 - 12.4 fL [facility] Platelets 25 (LL)Comment: This result 150 - 400 K/uL [facility] has been called to IAN RUCKER by Sheryl Green on 02 22 2021 at 0736, and has been read back. RDW 16.0 (H) 11.5 - 14.5 % [facility] RDW-SD 67.9 (H) 35.1 - 43.9 fL [facility] Nucleated RBC, 0.00 0.00 K/uL [facility] Absolute LAB Nucleated RBC 0.0 0.0 /100 WBC [facility] Specimen Blood - Venous blood specimen (specimen) Performing Organization Address [facility] P di Number [facility] [address] [place] [phone] * Comprehensive Metabolic Panel (02/22/2021 7:19 AM CDT) Sodium 142 136 - 145 mmol/L [facility] Potassium 4.0 3.5 - 5.1 mmol/L [facility] Chloride 114 (H) 98 - 107 mmol/L [facility] CO2 23 21 - 32 mmol/L [facility] Anion Gap 5 5 - 15 mmol/L [facility] BUN 11 8 - 26 mg/dL [facility] Creatinine 0.67 0.55 - 1.30 mg/dL [facility] Glucose 102 70 - 115 mg/dL [facility] Calcium 7.9 (L) 8.5 - 10.0 mg/dL [facility] Total Protein 5.4 (L) 6.0 - 8.3 g/dL [facility] Albumin 1.9 (L) 3.4 - 5.0 g/dL [facility] Bilirubin, 1.6 (H) 0.2 - 1.0 mg/dL [facility] Total LAB Alkaline 74 45 - 117 U/L [facility] Phosphatase LAB ALT 20 16 - 61 U/L [facility] AST 26 15 - 37 U/L [facility] Estimated GFR 115 >=60 mL/min/1.73m2 [facility] Comment: LAB GFR <60: CHRONIC KIDNEY DISEASE,if found over a 3 month period. GFR <15: KIDNEY FAILURE Globulin 3.5 g/dL [facility] A/G Ratio 0.5 (L) 1.0 - 1.8 [facility] Specimen Blood - Venous blood specimen (specimen) Performing Organization Address City/[facility] Code P di Number [facility] [address] [place] [phone] * Ammonia (02/21/2021 8:14 AM CDT) Ammonia 106 (H) 11 - 32 umol/L [facility] Specimen Blood - Venous blood specimen (specimen) Performing Organization Address City/[facility] P di Number [facility] [address] [place] [phone] * CBC with Auto Differential (02/21/2021 8:14 AM CDT) WBC 2.66 (L) 4.30 - 10.80 K/uL [facility] RBC 2.79 (L) 4.70 - 6.10 M/uL [facility] Hemoglobin 10.9 (L) 14.0 - 18.0 g/dL [facility] Hematocrit 31.7 (L) 42.0 - 52.0 % [facility] MCV 114 (H) 81 - 99 fL [facility] MCH 39.1 (H) 26.0 - 34.0 pg [facility] MCHC 34.4 31.0 - 37.0 g/dL [facility] MPV 11.6 9.4 - 12.4 fL [facility] Platelets 30 (LL)Comment: This result 150 - 400 K/uL [facility] has been called to SON IRIZARRY RN 6TH by Génesis Morrison on 02 21 2021 at 0841, and has been read back. RDW 15.9 (H) 11.5 - 14.5 % [facility] RDW-SD 66.6 (H) 35.1 - 43.9 fL [facility] Nucleated RBC, 0.00 K/uL [facility] Absolute LAB Nucleated RBC 0.0 0.0 /100 WBC [facility] Neutrophils 51.8 13.0 - 69.0 % [facility] Lymphocytes 27.1 24.0 - 44.0 % [facility] Monocytes 14.7 (H) 1.0 - 10.0 % [facility] Eosinophils 4.5 0.0 - 6.0 % [facility] Basophils 1.1 0.0 - 2.0 % [facility] Immature 0.8 (H) 0.0 - 0.5 % [facility] Granulocytes LAB Neutrophils, 1.38 (L) 1.55 - 7.13 K/uL [facility] Absolute LAB Lymphocytes, 0.72 (L) 1.00 - 4.80 K/uL [facility] Absolute LAB Monocytes, 0.39 (L) 0.40 - 1.08 K/uL [facility] Absolute LAB Eosinophils, 0.12 0.00 - 0.65 K/uL [facility] Absolute LAB Basophils, 0.03 0.00 - 0.11 K/uL [facility] Absolute LAB Immature 0.02 0.00 - 0.10 K/uL [facility] Granulocytes, LAB Absolute Specimen Blood - Venous blood specimen (specimen) Performing Organization Address City/State/ZIP Code P di Number [facility] [address] [place] [phone] * Comprehensive Metabolic Panel (02/21/2021 8:14 AM CDT) Sodium 144 136 - 145 mmol/L [facility] Potassium 4.0 3.5 - 5.1 mmol/L [facility] Chloride 113 (H) 98 - 107 mmol/L [facility] CO2 25 21 - 32 mmol/L [facility] Anion Gap 6 5 - 15 mmol/L [facility] BUN 11 8 - 26 mg/dL [facility] Creatinine 0.70 0.55 - 1.30 mg/dL [facility] Glucose 112 70 - 115 mg/dL [facility] Calcium 7.9 (L) 8.5 - 10.0 mg/dL [facility] Total Protein 5.7 (L) 6.0 - 8.3 g/dL [facility] Albumin 2.1 (L) 3.4 - 5.0 g/dL [facility] Bilirubin, 1.6 (H) 0.2 - 1.0 mg/dL [facility] Total LAB Alkaline 78 45 - 117 U/L [facility] Phosphatase LAB ALT 20 16 - 61 U/L [facility] AST 27 15 - 37 U/L [facility] Estimated GFR 109 >=60 mL/min/1.73m2 [facility] Comment: LAB GFR <60: CHRONIC KIDNEY DISEASE,if found over a 3 month period. GFR <15: KIDNEY FAILURE Globulin 3.6 g/dL [facility] A/G Ratio 0.6 (L) 1.0 - 1.8 [facility] Specimen Blood - Venous blood specimen (specimen) Performing Organization Address City/State/ZIP Code P di Number [facility] [address] [address] * Urinalysis with microscopic Urine, Clean Catch (02/20/2021 9:07 PM CDT) Color, UA Light Yellow Light Yellow, [facility] Yellow, Colorless LAB Clarity, UA Clear Clear [facility] Glucose, UA Negative Negative [facility] Bilirubin, UA Negative Negative [facility] Ketones, UA Negative Negative [facility] Specific 1.006 1.005 - 1.030 [facility] Reeders, Urine LAB Blood, UA Negative Negative [facility] pH, UA 7.0 5.0 - 9.0 [facility] Protein, UA Negative Negative [facility] Urobilinogen, 4 (A) Normal mg/dL [facility] UA LAB Nitrite, UA Negative Negative [facility] Leukocyte Negative Negative [facility] Esterase, UA LAB WBC, UA 1 0 - 4 /HPF [facility] RBC, UA <1 0 - 1 /HPF [facility] Bacteria, UA None Seen None Seen /HPF [facility] Mucus, UA Rare (A) Negative /LPF [facility] Specimen Urine - Urine specimen obtained by clean catch procedure (specimen) Performing Organization Address [facility]/ZIP Code P di Number [facility] [address] [place] [phone] * POCT Troponin I (02/20/2021 8:23 PM CDT) POC Troponin I <0.02 <0.08 ng/mL [facility] Comment: LAB A solitary troponin value may be misleading. Two or more values may be needed to determine clinical significance. Specimen Blood - Blood specimen (specimen) Performing Organization Address [facility] P di Number [facility] [address] [place] [phone] * T4, Free (02/20/2021 8:19 PM CDT) Free T4 1.23 0.70 - 1.48 ng/dL [facility] Specimen Blood - Venous blood specimen (specimen) Performing Organization Address [facility] P di Number [facility] [address] [place] [phone] * Light Green Top (02/20/2021 8:19 PM CDT) Extra Tube Yes [facility] Specimen Blood - Venous blood specimen (specimen) Performing Organization Address [facility] P di Number [facility] [address] [place] [phone] * TSH w/Reflex Free T4 (02/20/2021 8:19 PM CDT) TSH 0.243 (L) 0.350 - 4.900 uIU/mL [facility] Specimen Blood - Venous blood specimen (specimen) Performing Organization Address [facility] P di Number [facility] [address] [place] [phone] * Ammonia (02/20/2021 8:19 PM CDT) Ammonia 116 (H) 11 - 32 umol/L [facility] Specimen Blood - Venous blood specimen (specimen) Performing Organization Address City/[facility]/ZIP Code P di Number [facility] [address] [address] * Troponin I (02/20/2021 8:19 PM CDT) High 9.2 <78.5 ng/L [facility] Sensitivity Comment: LAB Troponin High-Sensitivity Troponin I assay effective May 04, 2020. Please be aware of the change in reporting units & reference ranges. Biotin concentrations >300 ng/mL may lead to falsely depressed patient results. Specimen Blood - Venous blood specimen (specimen) Performing Organization Address City/[facility] P di Number [facility] [address] [address] * Comprehensive Metabolic Panel (02/20/2021 8:19 PM CDT) Sodium 142 136 - 145 mmol/L [facility] Potassium 4.0 3.5 - 5.1 mmol/L [facility] Chloride 110 (H) 98 - 107 mmol/L [facility] CO2 25 21 - 32 mmol/L [facility] Anion Gap 7 5 - 15 mmol/L [facility] BUN 15 8 - 26 mg/dL [facility] Creatinine 0.78 0.55 - 1.30 mg/dL [facility] Glucose 122 (H) 70 - 115 mg/dL [facility] Calcium 8.1 (L) 8.5 - 10.0 mg/dL [facility] Total Protein 6.6 6.0 - 8.3 g/dL [facility] Albumin 2.2 (L) 3.4 - 5.0 g/dL [facility] Bilirubin, 1.1 (H) 0.2 - 1.0 mg/dL [facility] Total LAB Alkaline 91 45 - 117 U/L [facility] Phosphatase LAB ALT 22 16 - 61 U/L [facility] AST 32 15 - 37 U/L [facility] Estimated GFR 97 >=60 mL/min/1.73m2 [facility] Comment: LAB GFR <60: CHRONIC KIDNEY DISEASE,if found over a 3 month period. GFR <15: KIDNEY FAILURE Globulin 4.4 g/dL [facility] A/G Ratio 0.5 (L) 1.0 - 1.8 [facility] Specimen Blood - Venous blood specimen (specimen) Performing Organization Address City/State/ZIP Code P di Number [facility] [address] [address] [phone] * CBC with Auto Differential (02/20/2021 8:19 PM CDT) WBC 3.32 (L) 4.30 - 10.80 K/uL [facility] RBC 2.97 (L) 4.70 - 6.10 M/uL [facility] Hemoglobin 11.9 (L) 14.0 - 18.0 g/dL [facility] Hematocrit 34.0 (L) 42.0 - 52.0 % [facility] MCV 112 (H) 81 - 99 fL [facility] MCH 40.1 (H) 26.0 - 34.0 pg [facility] MCHC 35.0 31.0 - 37.0 g/dL [facility] MPV 12.0 9.4 - 12.4 fL [facility] Platelets 37 (LL)Comment: This result 150 - 400 K/uL [facility] has been called to NAKUL BARBOSA RN by Garrett Hudson on 02 20 2021 at 2044, and has been read back. RDW 15.7 (H) 11.5 - 14.5 % [facility] RDW-SD 66.2 (H) 35.1 - 43.9 fL [facility] Nucleated RBC, 0.00 0.00 K/uL [facility] Absolute LAB Nucleated RBC 0.0 0.0 /100 WBC [facility] Neutrophils 55.1 36.0 - 66.0 % [facility] Lymphocytes 23.5 (L) 24.0 - 44.0 % [facility] Monocytes 16.6 (H) 1.0 - 10.0 % [facility] Eosinophils 3.6 0.0 - 6.0 % [facility] Basophils 0.9 0.0 - 2.0 % [facility] Immature 0.3 0.0 - 0.5 % [facility] Granulocytes LAB Neutrophils, 1.83 1.55 - 7.13 K/uL [facility] Absolute LAB Lymphocytes, 0.78 (L) 1.00 - 4.80 K/uL [facility] Absolute LAB Monocytes, 0.55 0.40 - 1.08 K/uL [facility] Absolute LAB Eosinophils, 0.12 0.00 - 0.65 K/uL [facility] Absolute LAB Basophils, 0.03 0.00 - 0.11 K/uL [facility] Absolute LAB Immature 0.01 0.00 - 0.10 K/uL [facility] Granulocytes, LAB Absolute Specimen Blood - Venous blood specimen (specimen) Performing Organization Address City/State/ZIP Code P di Number [facility] [address] [place] [phone] * CT HEAD WO CONTRAST (02/20/2021 8:12 PM CDT) Modality Anatomical Region Laterality Computed Tomography Head and Neck Specimen Narrative ARDENT INTERFACE - 02/20/2021 8:45 PM CDT +++ REPORT GENERATED IN [employer] +++ EXAM: CT Head without IV contrast [...] MD - 02/20/2021 +++ REPORT GENERATED IN [employer] +++ EXAM: CT Head without IV contrast [...] Organization Address City/State/ZIP Code P di Number [facility] [place], [place] [address] * SARS CoV-2, Influenza A/B and RSV (02/20/2021 8:03 PM CDT) Influenza A by Negative Negative [facility] Influenza B by Negative Negative [facility] RSV by RT-PCR Negative Negative [facility] SARS CoV-2 Negative Negative [facility] Comment: LAB The Xpert Xpress SARS-CoV-2/Flu/RSV test [...] characteristics and have been verified by [facility]. This test is only authorized for the duration of the declaration under section 564 (b)(1) of the Act, 21 U.S.C. 360bbb-3 (b)(1). Specimen Swab - Nasopharyngeal swab (specimen) Performing Organization Address City/State/ZIP Code P di Number [facility] [address] [address] documented in this encounter Visit Diagnoses Diagnosis Hepatic encephalopathy (HCC) - Primary Hepatic encephalopathy Cirrhosis of liver without ascites (HCC ) Prostate cancer (HCC) Type 2 diabetes mellitus, without long- term current use of insulin (HCC) documented in this encounter Admitting Diagnoses Diagnosis Hepatic encephalopathy (HCC) Hepatic encephalopathy documented in this encounter Administered Medications Action Date Dose Rate Site Medication Order MAR Action 02/21/2021 9:42 AM CDT 650 mg acetaminophen (TYLENOL) tablet 650 mg Given 650 mg, oral, Every 4 hours PRN, mild pain (1-3), fever, Starting on 02/20/21 at 2253, MAX acetaminophen dos e 4000 mg/24 hours 02/22/2021 8:54 AM CDT 10 mg atorvastatin (LIPITOR) tablet 10 mg Given 10 mg, oral, Daily, First dose on 02/21/21 at 0900 10 mg Given 02/21/2021 9:42 AM CDT 02/22/2021 8:55 AM CDT 160 mg enzalutamide (XTANDI) chemo capsule 160 Given mg 160 mg, oral, Daily, First dose on 02/21/21 at 0900, Patient's own med. HAZARDOUS - Handle with care, Drug Name : Enzalutamide, Form: capsule 160 mg Given 02/21/2021 9:43 AM CDT 02/22/2021 8:54 AM CDT 20 g lactulose (CHRONULAC) oral solution 20 g Given 20 g, oral, 3 times daily, First dose o n 02/21/21 at 0900 20 g Given 02/21/2021 8:00 PM CDT 20 g Given 02/21/2021 2:47 PM CDT 02/22/2021 5:00 AM CDT 125 mcg levothyroxine (Synthroid) tablet 125 mcg Given 125 mcg, oral, Every morning before breakfast, First dose on 02/21/21 a t 0600 125 mcg Given 02/21/2021 6:35 AM CDT 02/20/2021 9:07 PM CDT 8 mg ondansetron (ZOFRAN) injection 8 mg Given 8 mg, intravenous, Once, On Sat 1 at 2009, For 1 dose 02/22/2021 8:54 AM CDT 40 mg pantoprazole (PROTONIX) EC tablet 40 mg Given 40 mg, oral, Every morning before breakfast, First dose on 02/21/21 a t 0730, What is the indication for therapy? GERD 40 mg Given 02/21/2021 9:53 AM CDT 02/20/2021 9:07 PM CDT 34 g polyethylene glycol (GLYCOLAX) packet 34 Given g 34 g, oral, Once, On 02/20/21 at 2004, For 1 dose prochlorperazine (COMPAZINE) injection 5 mg 5 mg, intravenous, Every 6 hours PRN, nausea, vomiting, Starting on 02/20/21 at 2257, Dilute with 10 ml NS flush and give over at least 2 minutes. If ondansetron ineffective (or not ordered) use prochlorperazine If multiple routes are selected, use the following criteria to select: For NPO and active vomiting- use IV route If MANAGER PEST O and unable to use IV access- use AZ route For all others- use PO route 02/22/2021 8:54 AM CDT 550 mg rifAXIMin (XIFAXAN) tablet 550 mg Given 550 mg, oral, 2 times daily, First dose on 02/20/21 at 2300, For Hepatic Encephalopaty patients where Lactulose therapy has failed to lower ammonia levels, Has lactulose therapy has faile d to lower ammonia levels for hepatic encephalopaty? Yes 550 mg Given 02/21/2021 8:00 PM CDT 550 mg Given 02/21/2021 9:42 AM CDT 02/22/2021 5:44 AM CDT 100 mL/hr 100 mL/hr sodium chloride 0.9 % infusion New Bag 100 mL/hr, intravenous, at 100 mL/hr, Continuous, Starting on 02/20/21 at 2300 100 mL/hr 100 mL/hr New Bag 02/21/2021 7:57 PM CDT 100 mL/hr 100 mL/hr New Bag 02/21/2021 9:56 AM CDT 02/22/2021 8:54 AM CDT 25 mg spironolactone (ALDACTONE) tablet 25 mg Given 25 mg, oral, Daily, First dose on 02/21/21 at 0900 25 mg Given 02/21/2021 9:42 AM CDT documented in this encounter Active and Recently Administered Medications Times are shown in CDT. 02/21/2021 02/22/2021 Medication Order 02/20/2021 0942 (Given - Provider: Son Irizarry RN ) 0854 (Given - Provider: Ian cornelius RN) atorvastatin (LIPITOR) tablet 10 mg 10 mg, oral, Daily, First dose on 02/21/21 at 0900 0943 (Given - Provider: Son Irizarry RN ) 0855 (Given - Provider: Ian cornelius RN) enzalutamide (XTANDI) chemo capsule 160 mg 160 mg, oral, Daily, First dose on 02/21/21 at 0900, Patient's own med. HAZARDOUS - Handle with care, Drug Name : Enzalutamide, Form: capsule 0942 (Given - Provider: Son Irizarry RN )1447 (Given - Provider: Son Irizarry RN)1999 (Given - Provider: Jose L Nuñez RN) 0854 (Given - Provider: Ian cornelius RN)1500 (Canceled Entry - Provider: Automatic Discharge Provider - Comment: Automatically canceled at discontinue of medication order) lactulose (CHRONULAC) oral solution 20 g 20 g, oral, 3 times daily, First dose o n 02/21/21 at 0900 0635 (Given - Provider: Hannah Patel RN) 0500 (Given - Provider: Jose L Nuñez RN) levothyroxine (Synthroid) tablet 125 mc g 125 mcg, oral, Every morning before breakfast, First dose on 02/21/21 a t 0600 ondansetron (ZOFRAN) injection 8 mg 2106 (Given - (COMPLETED) Provider: Chinyere 8 mg, intravenous, Once, On 02/20/21 Familia, RN) at 2009, For 1 dose 0953 (Given - Provider: Son Irizarry RN - Comment: Given Late) 0854 (Given - Provider: Ian cornelius RN) pantoprazole (PROTONIX) EC tablet 40 mg 40 mg, oral, Every morning before breakfast, First dose on 02/21/21 a t 0730, What is the indication for therapy? GERD polyethylene glycol (GLYCOLAX) packet 34 2106 (Given - g (COMPLETED) Provider: Chinyere 34 g, oral, Once, On 02/20/21 at Familia, RN) 2004, For 1 dose 0942 (Given - Provider: Son Irizarry RN )1999 (Given - Provider: Jose L Nuñez RN) 0854 (Given - Provider: Ian cornelius RN) rifAXIMin (XIFAXAN) tablet 550 mg 232 (Given - 550 mg, oral, 2 times daily, First dose Provider: Noa hamilton on 02/20/21 at 2300, For Hepatic MILES Wood) Encephalopaty patients where Lactulose therapy has failed to lower ammonia levels, Has lactulose therapy has faile d to lower ammonia levels for hepatic encephalopaty? Yes 0942 (Given - Provider: Son Irizarry RN ) 0854 (Given - Provider: Ian cornelius RN) spironolactone (ALDACTONE) tablet 25 mg 25 mg, oral, Daily, First dose on 02/21/21 at 0900 02/21/2021 02/22/2021 Medication Order 02/20/2021 0956 (New Bag - Provider: Son Irizarry RN)1957 (New Bag - Provider: Jose L Nuñez RN) 0544 (New Bag - Provider: Jose L cornelius RN)1300 (Stopped - Provider: Ian Rucker, MILES) sodium chloride 0.9 % infusion 2322 (New Bag - 100 mL/hr, intravenous, at 100 mL/hr, Provider: Gerald billings Continuous, Starting on 02/20/21 at MILES Wood) 2300 02/21/2021 02/22/2021 Medication Order 02/20/2021 0942 (Given - Provider: Son Irizarry RN ) acetaminophen (TYLENOL) tablet 650 mg 650 mg, oral, Every 4 hours PRN, mild pain (1-3), fever, Starting on 02/20/21 at 2253, MAX acetaminophen dos e 4000 mg/24 hours ondansetron (ZOFRAN) injection 4 mg 4 mg, intravenous, 3 times daily PRN, nausea, vomiting, Starting on 02/20/21 at 2253, First option for nausea/vomiting prochlorperazine (COMPAZINE) injection 5 mg 5 mg, intravenous, Every 6 hours PRN, nausea, vomiting, Starting on 02/20/21 at 2257, Dilute with 10 ml NS flush and give over at least 2 minutes. If ondansetron ineffective (or not ordered) use prochlorperazine If multiple routes are selected, use the following criteria to select: For NPO and active vomiting- use IV route If MANAGER PEST O and unable to use IV access- use AZ route For all others- use PO route documented in this encounter Additional Health Concerns Onset Date Resolved Time Infection Last Indicated 02/20/2021 02/20/2021 8:51 PM CDT COVID-19 (suspected) 02/20/2021 documented as of this encounter Care Teams Start Date End Date Vacuum Kettle Cook Relationship Specialty 02/20/21 Troy Ramos MD PCP - [address] [address] documented as of this encounter
--- OUTSIDE RECORDS SUMMARY | 2021-03-07 06:14 | XMS REPORT | Encounter Summary ---
Author Author [facility] Organization [facility] Address Unknown Phone Unavailable Care Team Providers Care Sneller Hand Name Role Phone Self, Troy FIGUEREDO PCP Encounter Details Care Team Description Date Type Department Kyle Krueger Other cirrhosis of liver (HCC); BROWN (nonalcoholic steatohepatitis); At risk for decreased bone density 02/03/2021 Orders Only Transplant: Main [facility] mpus, [facility] [address] [place] [address] Social History Date Tobacco Use Types Packs/Day Years Used Never Smoker Smokeless Tobacco: Never Used Comments Alcohol Use Standard Drinks/Week Not Asked 0 (1 standard drink = 0.6 o z pure alcohol) Sex Assigned at Date Recorded Male 08/26/2019 11:50 AM CDT documented as of this encounter Functional Status Date of Assessment Functional Status Response 08/17/2020 Does the patient have a hearing impairment: Yes 08/17/2020 Does the patient have a visual impairment: Yes 08/17/2020 Does the patient have impaired ambulation: Yes 08/17/2020 Does the patient have an activity of daily living No (ADL) impairment: 08/17/2020 Does the patient have an instrumental activity of No daily living (IADL) impairment: Date of Assessment Cognitive Status Response 08/17/2020 Does the patient have a cognitive impairment: No documented as of this encounter Plan of Treatment Not on filedocumented as of this encounter Procedures Comments Procedure Name Priority Date/Time Associated Diag nosis ALPHA FETO PROTEIN (AFP) Routine 01/29/2021 Other cirrhosis of liver 2:27 PM CDT (HCC) BROWN (nonalcoholic steatohepatitis) 25-OH VITAMIN D (D2 + D3) Routine 01/29/2021 Othe r cirrhosis of liver 2:27 PM CDT (HCC) BROWN (nonalcoholic steatohepatitis) At risk for decreased bone density CBC AND DIFF Routine 01/29/2021 Other cirrhosis of liver 2:27 PM CDT (HCC) BROWN (nonalcoholic steatohepatitis) documented in this encounter Results * CBC AND DIFF (01/29/2021 2:27 PM CDT) White Blood 3.2 (L) 4.3 - 11.0 [facility] Cells RBC 3.09 (L) 4.30 - 5.52 [facility] Hemoglobin 12.5 (L) 13.3 - 17.7 [facility] Hematocrit 35 (L) 40 - 54 [facility] MCV 114 (H) 80 - 99 [facility] MCH 41 (H) 25 - 34 [facility] MCHC 36 [facility] RDW 15.4 (H) 10.0 - 14.5 [facility] Platelet Count 33 (LL) 130 - 400 [facility] MPV 12.3 (H) 9.0 - 12.2 [facility] Neutrophils 57 [facility] Lymphocytes 24 [facility] Monocytes 13 (H) 0 - 12 [facility] Eosinophil 3 [facility] Basophil 2 [facility] Absolute 1.8 [facility] Neutrophil Count Absolute Lymph 0.8 (L) 1.0 - 4.0 [facility] Count Absolute 0.4 [facility] Monocyte Count Absolute 0.1 [facility] Eosinophil Count Absolute 0.1 [facility] Basophil Count Specimen Blood Narrative Performed At [facility] Lab Verified by Kyle Krueger on 02/03/2021. Performing Organization Address City/State/ZIP Code P di Number [facility] * ALPHA FETO PROTEIN (AFP) (01/29/2021 2:27 PM CDT) Alpha Feto 2.4 [facility] Protein Specimen Blood Narrative Performed At [facility] Outside Lab Verified by [facility] on 02/03/2021. Performing Organization Address City/State/ZIP Code P di Number [facility] * 25-OH VITAMIN D (D2 + D3) (01/29/2021 2:27 PM CDT) Vitamin 20.9 (L) 30.0 - 100.0 [facility] D(25-OH)Total Specimen Blood Narrative Performed At [facility] Lab Verified by Kyle Krueger on 02/03/2021. Performing Organization Address City/State/ZIP Code P di Number [facility] documented in this encounter Visit Diagnoses Diagnosis Other cirrhosis of liver (HCC) BROWN (nonalcoholic steatohepatitis) Other chronic nonalcoholic liver diseas e At risk for decreased bone density Other specified conditions influencing health status documented in this encounter Additional Health Concerns Assessment Noted Time A fall risk assessment has been completed for the pat ient 08/17/2020 12:10 PM CDT PHQ-2 Depression Total Score: 0 08/17/2020 12:10 PM CDT documented as of this encounter
--- OUTSIDE RECORDS SUMMARY | 2021-03-07 06:14 | XMS REPORT | Encounter Summary ---
Author Author [facility] Organization [facility] Address Unknown Phone Unavailable Care Team Providers Care Visitor Services Assistant Name Role Phone Richard, Troy FIGUEREDO PCP Reason for Visit * Reason Onset Date Comments Scheduling 02/25/2021 Encounter Details Care Team Description Date Type Department Roque Klein MD [address] [facility] [id number] [place] [address] Scheduling 02/25/2021 Telephone Hepatology: Main Ca mpus, [facility] [address] [facility] [address], [address] [place] [address] Social History Date Tobacco Use Types Packs/Day Years Used Never Smoker Smokeless Tobacco: Never Used Comments Alcohol Use Standard Drinks/Week Not Asked 0 (1 standard drink = 0.6 o z pure alcohol) Sex Assigned at Date Recorded Male 08/26/2019 11:50 AM CDT Date Recorded COVID-19 Exposure Response 02/17/2021 1:27 PM CDT In the last month, have you been in contact with No / Unsure someone who was confirmed or suspected to have Coronavirus / COVID-19? documented as of this encounter Functional Status Date of Assessment Functional Status Response 02/17/2021 Does the patient have a hearing impairment: Yes 02/17/2021 Does the patient have a visual impairment: Yes 02/17/2021 Does the patient have impaired ambulation: No 02/17/2021 Does the patient have an activity of daily living No (ADL) impairment: 02/17/2021 Does the patient have an instrumental activity of No daily living (IADL) impairment: Date of Assessment Cognitive Status Response 02/17/2021 Does the patient have a cognitive impairment: No documented as of this encounter Miscellaneous Notes * Telephone Encounter - Meagan Murray - 02/25/2021 12:49 PM CDT Scheduled 6 month F/U w/ Dr Klein 08/13/21 10:00AM documented in this encounter Plan of Treatment Not on filedocumented as of this encounter Visit Diagnoses Not on filedocumented in this encounter Additional Health Concerns Assessment Noted Time A fall risk assessment has been completed for the pat ient 02/17/2021 1:24 PM CDT PHQ-2 Depression Total Score: 0 02/17/2021 1:24 PM CDT documented as of this encounter
--- OUTSIDE RECORDS SUMMARY | 2021-03-07 06:14 | XMS REPORT | Encounter Summary ---
Author Author [facility] Organization [facility] Address Unknown Phone Unavailable Care Team Providers Care Child Development Associate Teacher Name Role Phone Troy Ramos MD PCP Reason for Visit * Reason Onset Date Comments Critical Result 01/29/2021 Encounter Details Care Team Description Date Type Department Roque Klein MD [address] [facility] [id number] [place] [address] Critical Result 01/29/2021 Telephone Hepatology: Main [facility] mpus, [facility] [address] [facility] [address] [place] [address] Social History Date Tobacco Use [...] encounter Miscellaneous Notes * Telephone Encounter - Esther Luque RN - 01/29/2021 3:10 PM CDT Lacy, [facility]- plt count 33. documented in this encounter Plan of Treatment [...]
--- OUTSIDE RECORDS SUMMARY | 2021-03-07 06:14 | XMS REPORT | Encounter Summary ---
Author Author [facility] Organization [facility] Address Unknown Phone Unavailable Care Team Providers Care School Bus Attendant Name Role Phone Troy Ramos MD PCP Encounter Details Care Team Description Date Type Department 02/20/2021 Travel Social History Date Tobacco Use Types Packs/Day [...] / COVID-19? documented as of this encounter Plan of Treatment Not on filedocumented as of this encounter Visit Diagnoses Not on filedocumented in this encounter Additional Health Concerns Onset Date Resolved Time Infection Last Indicated 02/20/2021 02/20/2021 8:51 PM CDT COVID-19 (suspected) 02/20/2021 documented as of this encounter Care Teams Start Date End Date School Bus Attendant Relationship Specialty 02/20/21 Troy Ramos MD PCP - General [address] [place] [address] documented as of this encounter
--- OUTSIDE RECORDS SUMMARY | 2021-03-07 06:14 | XMS REPORT | Encounter Summary ---
Author Author [facility] Organization [facility] Address Unknown Phone Unavailable Care Team Providers Care Complex Care Nurse Practitioner Name Role Phone Self, Troy FIGUEREDO PCP Encounter Details Care Team Description Date Type Department Kyle Krueger Other cirrhosis of liver (HCC); BROWN (nonalcoholic steatohepatitis) 02/04/2021 Orders Only Transplant: Main Ca mpus, [facility] [address] [facility] [address] [place] [address] Social History Date Tobacco Use [...] Procedure Name Priority Date/Time Associated Diag nosis PROTIME INR (PT) Routine 01/29/2021 Other cirrhos is of liver 2:27 PM CDT (HCC) BROWN (nonalcoholic steatohepatitis) COMPREHENSIVE METABOLIC Routine 01/29/2021 Other cirrhosis of liver PANEL 2:27 PM CDT (HCC) BROWN (nonalcoholic steatohepatitis) documented in this encounter Results * PROTIME INR (PT) (01/29/2021 2:27 PM CDT) Protime 18.8 (H) 12.2 - 14.7 SEC [facility] E INR 1.5 (H) 0.8 - 1.4 [facility] Specimen Blood Narrative Performed At [facility] Outside Lab Verified by Kyle Krueger on 02/04/2021. Performing Organization Address City/State/ZIP Code P di Number [facility] * COMPREHENSIVE METABOLIC PANEL (01/29/2021 2:27 PM CDT) Sodium 135 135 - 145 MMOL/L [facility] Potassium 4.2 3.6 - 5.0 MMOL/L [facility] Chloride 105 98 - 107 MMOL/L [facility] CO2 21 21 - 32 MMOL/L [facility] Anion Gap 9 5 - 14 [facility] Blood Urea 12 7 - 18 MG/DL [facility] Nitrogen Creatinine 0.83 0.60 - 1.30 MG/DL [facility] DARIN eGFR Non 90 mL/min/1.73 M2 [facility] Glucose 183 (H) 70 - 105 MG/DL [facility] Calcium 9.0 8.5 - 10.1 MG/DL [facility] CE Total Bilirubin 1.5 (H) 0.1 - 1.0 H [facility] Alk Phosphatase 94 40 - 136 U/L [facility] AST (SGOT) 35 (H) 5 - 34 H [facility] ALT (SGPT) 22 0 - 55 U/L [facility] Total Protein 6.5 6.4 - 8.2 GM/DL [facility] Albumin 2.8 (L) 3.2 - 4.5 GM/DL [facility] E Specimen Blood Narrative Performed At [facility] Outside Lab Verified by Kyle Krueger on 02/04/2021. Performing Organization Address City/State/ZIP Code P di Number [facility] documented in this encounter Visit Diagnoses Diagnosis Other cirrhosis of liver (HCC) BROWN (nonalcoholic steatohepatitis) Other chronic nonalcoholic liver diseas e documented in this encounter Additional Health Concerns Assessment Noted Time A fall risk assessment has been completed for the pat ient 08/17/2020 12:10 PM CDT PHQ-2 Depression Total Score: 0 08/17/2020 12:10 PM CDT documented as of this encounter
--- OUTSIDE RECORDS SUMMARY | 2021-03-07 06:14 | XMS REPORT | Encounter Summary ---
Author Author [facility] Organization [facility] Address Unknown Phone Unavailable Care Team Providers Care Groundwater Consultant Name Role Phone Self, Troy FIGUEREDO PCP Encounter Details Care Team Description Date Type Department 02/17/2021 Travel Social History Date Tobacco Use Types [...]
--- OUTSIDE RECORDS SUMMARY | 2021-03-07 06:14 | XMS REPORT | Clinical Summary ---
Author Author [facility] Organization [facility] Address Unknown Phone Unavailable Care Team Providers [facility] Supervisor Name Role Phone Self, Troy FIGUEREDO PCP Source Comments Some departments are not documenting in the electronic medical record. If you d o not see the information that you expected, contact Release of Information in [facility] [employer] Information Management department at [phone] for further assistan ce in locating additional records.[facility] Allergies No Known Active Allergies Medications End Date Status Medication Sig Dispensed Refills Start Date Active levothyroxine (SYNTHROID) Take 150 mcg 0 150 mcg tablet by mouth daily 30 minutes before breakfast. Active polyethylene glycol 3350 Take one 12 each 0 0 (MIRALAX) 17 g packet packet by 9 mouth daily. To achieve 3 BM daily. Active atorvastatin (LIPITOR) 10 Take 10 mg by 0 mg tablet mouth daily. Active spironolactone Take 25 mg by 0 (ALDACTONE) 25 mg mouth daily. tabletIndications: Take with ascites food. Indications: ascites Active furosemide (LASIX) 40 mg Take 40 mg by 0 tablet mouth daily as needed. Active rifAXIMin (XIFAXAN) 550 Take one 60 tablet 11 mg tablet tablet by 1 mouth every 12 hours. Active enzalutamide (XTANDI) 40 Take 160 mg 0 mg capsuleIndications: by mouth BROWN (nonalcoholic daily. Take steatohepatitis) at the same time every day. Active pantoprazole DR Take one 90 tablet 3 (PROTONIX) 40 mg tablet tablet by 1 mouth daily. Active liraglutide (VICTOZA Victoza 3-Steve 0 2-STEVE) 0.6 mg/0.1 mL (18 0.6 mg/0.1 mL 8 mg/3 mL) injection pen (18 mg/3 mL) subcutaneous pen injector Active ergocalciferol (vitamin Take by 0 D2) (VITAMIN D PO) mouth. Active ergocalciferol (vitamin Take one 24 capsule 0 D2) (VITAMIN D) 1,250 mcg capsule by 1 (50,000 unit) mouth twice capsuleIndications: weekly. vitamin D deficiency Indications: (high dose therapy) vitamin D deficiency (high dose therapy) 02/17/2021 Discontinued (Therapy comple cristhian) ergocalciferol (VITAMIN Take one 24 capsule 0 D) 1,250 mcg (50,000 capsule by 1 unit) capsuleIndications: mouth twice vitamin D deficiency weekly. (high dose therapy) Indications: vitamin D deficiency (high dose therapy) Active Problems Problem Noted Date At risk for decreased bone density 08/17/2020 Secondary esophageal varices without bleeding 2020 BROWN (nonalcoholic steatohepatitis) 03/05/2020 Dietary counseling 03/05/2020 Impaired glucose tolerance 03/05/2020 Hepatic encephalopathy 03/05/2020 Prostate cancer 05/05/2017 Other cirrhosis of liver 10/28/2016 Portal hypertension 10/28/2016 Encounters Care Team Description Date Type Specialty Roque Klein MD Scheduling 02/25/2021 Telephone Hepatology Bekah Arthur APRN-NP Other cirrhosis of liver (HCC) (Primary Dx); BROWN (nonalcoholic steatohepatitis); Dietary counseling 02/18/2021 Office Visit Hepatology Telehealth Roque Klein MD 02/18/2021 Orders Only Hepatology Bekah Arthur APRN-NP 02/17/2021 Documentation Hepatology 02/17/2021 Travel Erick Alberto Other cirrhosis of liver (HCC); BROWN (nonalcoholic steatohepatitis) 02/08/2021 Orders Only Hepatology Ciarra Powell, MILES Other cirrhosis of liver (HCC); BROWN (nonalcoholic steatohepatitis); Dietary counseling 02/05/2021 Orders Only Transplant Surgery Kyle Krueger Other cirrhosis of liver (HCC); BROWN (nonalcoholic steatohepatitis) 02/04/2021 Orders Only Transplant Surgery Kyle Krueger Other cirrhosis of liver (HCC); BROWN (nonalcoholic steatohepatitis); At risk for decreased bone density 02/03/2021 Orders Only Transplant Surgery Roque Klein MD Critical Result 01/29/2021 Telephone Hepatology Roque Klein MD 01/06/2021 Refill Hepatology from Last 3 Months Immunizations Name Administration Dates Next Due COVID-19 (PFIZER), mRNA 08/17/2020 vacc, 30 mcg/0.3 mL (PF) Medical History Medical History Date Comments Cirrhosis of liver without ascites 10/28/2016 (HCC) Social History Date Tobacco Use Types Packs/Day Years Used Never Smoker Smokeless Tobacco: Never Used Tobacco Cessation: Counseling Given: No Comments Alcohol Use Standard Drinks/Week Not Asked [...] Signs Reading Time Taken Comments Vital Sign 121/56 02/28/2020 10:31 AM CDT Blood Pressure 78 02/28/2020 10:31 AM CDT Pulse 37.4 C (99.3 F) 02/28/2020 10:31 AM CDT Temperature 16 02/01/2019 8:12 AM CDT Respiratory Rate 98% 02/28/2020 10:31 AM CDT Oxygen Saturation - - Inhaled Oxygen Concentration 92 kg (202 lb 12.8 oz) 02/28/2020 10:31 AM CDT Weight 171.5 cm (5' 7.5") 02/28/2020 10:31 AM CDT Height 31.29 02/28/2020 10:31 AM CDT Body Mass Index Plan of Treatment Health Maintenance Due Date Last Done Comments MEDICARE ANNUAL WELLNESS 1945 VISIT PNEUMONIA (PPSV23) 11/20/1949 VACCINE (1 of 2 - PPSV23) DILATED EYE EXAM 11/20/1961 DTAP/TDAP VACCINES (1 - 11/20/1961 Tdap) FOOT EXAM 11/20/1961 HEPATITIS C SCREENING 11/20/1961 MICROALBUMIN 11/20/1961 PHYSICAL (COMPREHENSIVE) 11/20/1961 EXAM SHINGLES RECOMBINANT 11/20/1993 VACCINE (1 of 2) HBA1C 12/11/2016 06/13/2016 INFLUENZA VACCINE 11/29/2020 COVID-19 VACCINE (3 - 02/16/2021 08/17/2020, Booster for Moderna 08/17/2020, series) 08/04/2020, Additional history exists Procedures Comments Procedure Name Priority Date/Time Associated Diag nosis LIPID PROFILE Routine 01/29/2021 Other cirrhosis of liver 2:27 PM CDT (HCC) BROWN (nonalcoholic steatohepatitis) Dietary counseling PROTIME INR (PT) Routine 01/29/2021 Other cirrhos is of liver 2:27 PM CDT (HCC) BROWN (nonalcoholic steatohepatitis) COMPREHENSIVE METABOLIC Routine 01/29/2021 Other cirrhosis of liver PANEL 2:27 PM CDT (HCC) BROWN (nonalcoholic steatohepatitis) CBC AND DIFF Routine 01/29/2021 Other cirrhosis of liver 2:27 PM CDT (HCC) BROWN (nonalcoholic steatohepatitis) ALPHA FETO PROTEIN (AFP) Routine 01/29/2021 Other cirrhosis of liver 2:27 PM CDT (HCC) BROWN (nonalcoholic steatohepatitis) 25-OH VITAMIN D (D2 + D3) Routine 01/29/2021 Othe r cirrhosis of liver 2:27 PM CDT (HCC) BROWN (nonalcoholic steatohepatitis) At risk for decreased bone density MRI ABD WO/W CONTRAST Routine 01/29/2021 Other ci rrhosis of liver (HCC) BROWN (nonalcoholic steatohepatitis) from Last 3 Months Results * ALPHA FETO PROTEIN (AFP) (01/29/2021 2:27 [...] Code P di Number [facility] INTER[facility] * PROTIME INR (PT) (01/29/2021 2:27 PM CDT) Protime 18.8 (H) 12.2 - 14.7 SEC [facility] INTERFAC E INR 1.5 (H) 0.8 - 1.4 [facility] INTER[facility] Specimen Blood Narrative Performed At [facility] Outside Lab Verified by Kyle Krueger on 02/04/2021. Performing Organization Address City/State/ZIP Code P di Number [facility] INTERFACE * CBC AND DIFF (01/29/2021 2:27 PM [...] Code P di Number [facility] * LIPID PROFILE (01/29/2021 2:27 PM CDT) Triglycerides 82 <150 MG/DL [facility] Cholesterol 135 <200 MG/DL [facility] HDL 68 (H) 40 - 60 H [facility] LDL 56 1 - 129 MG/DL [facility] VLDL 16 5 - 40 MG/DL [facility] Specimen Blood Narrative Performed At [...] Code P di Number [facility] INTER[facility] * MRI ABD WO/W CONTRAST (01/29/2021) Narrative Performed At This result has an attachment that is n ot available. 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
--- OUTSIDE RECORDS SUMMARY | 2021-03-07 06:14 | XMS REPORT | Encounter Summary ---
Author Author [facility] Organization [facility] Address Unknown Phone Unavailable Care Team Providers Care [employer] Hand Name Role Phone Self, Troy FIGUEREDO PCP Encounter Details Care Team Description Date Type Department Roque Klein MD [address] [facility] [id number] [place] [address] 02/18/2021 Orders Only Hepatology: [facility], [facility] [address] [facility] [id number] [place] [address] Social History Date Tobacco Use [...] impairment: No documented as of this encounter Ordered Prescriptions Start Date End Date Prescription Sig Dispensed Refills 02/18/2021 ergocalciferol (vitamin Take one 24 capsule 0 D2) (VITAMIN D) 1,250 mcg capsule by (50,000 unit) mouth twice capsuleIndications: weekly. vitamin D deficiency Indications: (high dose therapy) vitamin D deficiency (high dose therapy) documented in this encounter Plan of Treatment [...]
--- OUTSIDE RECORDS SUMMARY | 2021-03-07 06:14 | XMS REPORT | Encounter Summary ---
Author Author [facility] Organization [facility] Address Unknown Phone Unavailable Care Team Providers Care Security Control Room Officer Name Role Phone Self, Troy FIGUEREDO PCP Reason for Referral * Radiology Services (Routine) Referred By Contact Referred To Contact Status Reason Specialty Diagnoses / Procedures Bekah Arthur APRN-NP [address] [place] [address] New Request Radiology Diagnoses Other cirrhosis of liver (HCC) BROWN (nonalcoholic steatohepatitis) P rocedures US ABDOMEN COMPLETE Electronically signed by Bekah LOUIS at Reason for Visit * Reason Comments Cirrhosis Encounter Details Care Team Description Date Type Department Bekah Arthur APRN-NP [address] [place] [address] Other cirrhosis of liver (HCC) (Primary Dx); BROWN (nonalcoholic steatohepatitis); Dietary counseling 02/18/2021 Office Visit Hepatology: Main Ca mpus, Telehealth Main [address], [address] [place] [address] Social History Date Tobacco Use [...] impairment: No documented as of this encounter Patient Instructions * Patient Instructions* Yared Kaye RN - 02/17/2021 1:30 PM CDT Follow up to schedule: -RTC with Dr. Klein in hepatology clinic in 6 months, in person -Please schedule abd US to coordinate with next appt Today you saw Bekah Arthur APRN in clinic and discussed the following: -Please continue to follow with your primary care to stay up to date on your [employer] maintenance. -Your recent MRI did not show any evidence of liver cancer. -You will be due for liver cancer screening abdominal US in July 2021. We will schedule this with your next appt at . -Continue to take miralax in order to have 2-4 bowel movements per day to help c ontrol hepatic encephalopathy (confusion). Please let us know if your confusion is not controlled with this. -Monitor your blood pressure at home, especially when you feel dizzy, so you can report those readings to your PCP. -Follow a low sodium diet, less than 2,000mg per day, to help prevent swelling. -Please let us know if you need to start taking your furosemide (Lasix) again. Office MA: -Please request EGD results from the last 6 months from [facility]. Please ALWAYS let me know if you have labs or imaging done outside of so I ca n promptly request these results. documented in this encounter Progress Notes * Yesenia Vazquez - 02/17/2021 1:30 PM CDT Patient gave verbal report of self-obtained vital signs prior to Telehealth appo intment. Medications, allergies, history, and screening questions reviewed with patient. Patient received the financial policy, consent to treat, and notice of privacy policies and provided verbal consent for this visit. * Bekah Arthur, MOODY-HVAC MECHANIC - 02/17/2021 1:30 PM CDT Telehealth Visit Note Date of Service: 02/17/2021 Obtained patient's, or patient proxy's, verbal consent to treat them and their a greement to [facility] financial policy and NPP via this telehealth visit during the Coronavirus Public Health Emergency. Chief complaint/Reason for visit: Routine hepatology visit [place] Liver Disease:end stage liver disease 2/2 BROWN (outside bx:04/18/2016 ) Primary President Educational Institution: Dr. Klein Last clinic visit:08/17/20 with Bekah Arthur APRN via PCP:Dr. Simmons [facility] Oncology: Dr. David Subjective: Nasir Squires is a 75 y.o. 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 History of Present Illness Mr. Squires is a 75 y.o. male presenting to the hepatology clinic with his , Melanie via zoom TH today for continued management of end stage liver disease sec ondary to BROWN- proven with outside biopsy. He reports he is doing well and has not experienced any recent decompensations. Please refer to additional hepatology documentation noted on 08/17/20 for additio nal pertinent history. We reviewed and discussed the progression of liver fibrosis from F0/F1 to F4 (ci rrhosis). We reviewed that with advanced fibrosis (cirrhosis) the recommendation to continue with hepatocellular carcinoma (HCC) screening on a every 6-month ba sis. We discussed that this includes abdominal imaging in conjunction with an a lpha-fetoprotein blood draw. HCC Screening - Abdominal Imaging: updated 01/29/2021 without notation of hepatoma - AFP: 2.4 on 01/29/21 Recommendation for repeat abdominal imaging and lab draw every 6 months in accor dance with AASLD HCC screening guidelines unless otherwise noted. We discussed that with advanced liver disease manifestations of decompensation c an occur. We discussed that this includes, but is not limited to: hepatic encep halopathy, abdominal ascites, lower extremity edema, and the presence of esophag eal varices. Educated that medical management is accomplished through use of pha rmacotherapies, screenings, and lifestyle modifications (ie; no more than 2000 m g of sodium daily). Compensation/Decompnsation: HE: some occasional "fuzziness" HE + Xtandi s/s - daily stools/constipation: no constipation - pharmacotherapy: Miralax daily Ascites/Lower Extremity Edema: - diuretics: uses spironolactone daily, lasix on PRN basis (when symptomatic) - -> months ago for last use per patient report - low sodium diet adherence: no EV Screening: complete outside summer 2020(previous July 2018 without noted bunny ices) - EGD Results:records to be obtained Discussed and reviewed potential plan(s) of care: lifestyle modifications and me tabolic risk factor control. We reviewed the role of uncontrolled metabolic risk factors and the negative imp act of these disease process with a concurrent diagnosis of NAFLD (i.e. hyperten justin, hyperlipidemia, diabetes, and untreated obstructive sleep apnea). He states that with his back pain he is still extremely limited to participate i n more than 5 to 10 minutes of physical activity. He denies any overt signs of GI bleeding at this time such as hematemesis, coffe e-ground emesis, melena, or hematochezia. Tobacco Use: None Alcohol Use: None Substance Use: None Hospitalization since last OV: None He denies any additional hepatic decompensation events such as ascites, varicea l hemorrhage, encephalopathy or jaundice not noted above. Reports orthostatic hypotension noted more recently. To record and follow up wit h PCP at next OV in March 2021. Prostate cancer update: continues to follow with Dr. David with oral chemo fo r PSA control. Medical History: Diagnosis Date Cirrhosis of liver without ascites (HCC) 10/28/2016 No past surgical history on file. No family history on file. Social History Socioeconomic History Marital status: Spouse name: Not on file Number of children: Not on file Years of education: Not on file Highest education level: Not on file Occupational History Not on file Tobacco Use Smoking status: Never Smoker Smokeless tobacco: Never Used Substance and Sexual Activity Alcohol use: Not on file Drug use: Not on file Sexual activity: Not on file Other Topics Concern Not on file Social History Narrative Not on file Review of Systems Constitutional: Negative. HENT: Negative. Eyes: Negative. Respiratory: Negative. Negative for cough and shortness of breath. Cardiovascular: Negative. Negative for chest pain and leg swelling. Gastrointestinal: Negative. Negative for abdominal distention, abdominal pain, blood in stool, constipation, diarrhea, nausea and vomiting. Endocrine: Negative. Genitourinary: Negative. Musculoskeletal: Positive for back pain. Skin: Negative. Allergic/Immunologic: Negative. Neurological: Negative. Negative for dizziness, tremors, syncope and headaches. Hematological: Negative. Psychiatric/Behavioral: Negative. Reviewed and updated active medication and allergy list. Objective: atorvastatin (LIPITOR) 10 mg tablet Take 10 mg by mouth daily. enzalutamide (XTANDI) 40 mg capsule Take 160 mg by mouth daily. Take at the same time every day. ergocalciferol (vitamin D2) (VITAMIN D PO) Take by mouth. furosemide (LASIX) 40 mg tablet Take 40 mg by mouth daily as needed. levothyroxine (SYNTHROID) 150 mcg tablet Take 150 mcg by mouth daily 30 julio les before breakfast. liraglutide (VICTOZA 2-JOHN) 0.6 mg/0.1 mL (18 mg/3 mL) injection pen Victoza 3-John 0.6 mg/0.1 mL (18 mg/3 mL) subcutaneous pen injector pantoprazole DR (PROTONIX) 40 mg tablet Take one tablet by mouth daily. polyethylene glycol 3350 (MIRALAX) 17 g packet Take one packet by mouth makenna y. To achieve 3 BM daily. rifAXIMin (XIFAXAN) 550 mg tablet Take one tablet by mouth every 12 hours. spironolactone (ALDACTONE) 25 mg tablet Take 25 mg by mouth daily. Take with food. Indications: ascites Telehealth Patient Reported Vitals Row Name 02/17/21 1345 02/17/21 1319 Weight: 86.2 kg (190 lb) 87.1 kg (192 lb) Height: 172.7 cm (68") Pain Score: EIGHT Pain Location: BACK Due to the nature of the visit via TeleHealth/telephone encounter there is an in ability to fully asses the patient. Therefore a limited physical exam documented for this encounter. Physical Exam Vitals and nursing note reviewed. Constitutional: Appearance: Normal appearance. HENT: Head: Normocephalic and atraumatic. Eyes: General: No scleral icterus. Conjunctiva/sclera: Conjunctivae normal. Pupils: Pupils are equal, round, and reactive to light. Pulmonary: Effort: Pulmonary effort is normal. Musculoskeletal: Cervical back: Normal range of motion and neck supple. Neurological: General: No focal deficit present. Mental Status: He is alert and oriented to person, place, and time. Mental st atus is at baseline. Psychiatric: Mood and Affect: Mood normal. Behavior: Behavior normal. Thought Content: Thought content normal. Judgment: Judgment normal. MELD-Na score: 11 at 07/31/2020 7:47 AM MELD score: 11 at 07/31/2020 7:47 AM Calculated from: Serum Creatinine: 0.89 mg/dL (Using min of 1 mg/dL) at 07/31/2020 7:47 AM Serum Sodium: 138 mmol/L (Using max of 137 mmol/L) at 07/31/2020 7:47 AM Total Bilirubin: 1.3 mg/dL at 07/31/2020 7:47 AM INR(ratio): 1.4 at 07/31/2020 7:47 AM Age: 74 years Assessment/Plan/Recommendations Cirrhosis 06/02 BROWN: - The patient has noted cirrhosis with history of decompensation. - Continue with recommended HCC screenings as noted below. - We will continue to monitor MELD labs every 6-12 months or with noted changes in health condition/decompensation. Hepatocellular Cancer Screening: - Due to advanced fibrosis/cirrhosis a recommend screening for hepatoma every 6 months with either abdominal ultrasound or by alternating abdominal ultrasound w ith EITHER a triple/quad phase CT Liver with IV contrast OR a Quad phase MRI Delores er with IV contrast is suggested. - AFP levels should be checked every 6 months at time of image screening. - The patient's most recent imaging noted no hepatoma. - Plan to proceed with abdominal US for next screen. - Historically US withLI-RADS classification C; will transition back to MRI novak rveillance for future HCC screens if upcoming US displays poor visulization. Lab Results Component Value Date/Time AFP 2.4 01/29/2021 02:27 PM Ascites/Lower Extremity Edema: - Continue with current diuretics. - To notify our office if need for Lasix use. - Continue to follow a sodium restricted (<2g sodium diet). Portosystemic Encephalopathy (PSE)/Hepatic Encephalopathy: - Presents with well controlled hepatic encephalopathy symptoms today. - Currently controlled on the following regimen: Miralax (BID/PRN) titrated acco rdingly to produce 2-4 bowel movements daily in combination with Rifaximin 550mg BID. - Transitioned off Lactulose due to rectal bleeding. - Counseled on signs and symptoms of hepatic encephalopathy. - Recommend strict avoidance of medications such as narcotics, sedatives and sle ep aids. Low dose Benadryl PRN or melatonin can be used for insomnia, if needed. Esophageal Varices: - Most recent EGD noted above. - Recommend repeating an upper GI endoscopy screening for EV surveillance --> due: pending outside records review. Non-alcoholic fatty liver disease/Non-alcoholic Steatohepatitis (NAFLD/BROWN): - Regarding the management of fatty liver disease, discussed an appropriate diet , exercise and weight loss plan. The patient should exercise regularly 3-4 time s per week, with an average of 30-45 minutes per day. The patient should be on a moderately low carbohydrate (i.e. Mediterranean style diet), low-calorie diet ( [id number] calories per day). - It is recommended to lose 5% body weight in order to reduce steatosis; and 10% is needed to reduce inflammation associated with BROWN. Weight loss may be achie shahana through diet alone, or ideally, in conjunction with exercise. Wt Readings from Last 4 Encounters: 02/28/20 92 kg (202 lb 12.8 oz) 08/29/19 81.6 kg (180 lb) 02/01/19 89 kg (196 lb 3.2 oz) 07/26/18 91.2 kg (201 lb) There is no height or weight on file to calculate BMI. - Maintained on way Victoza. - Consider the utility of liberalizing coffee and black tea consumption (1-2 cup s daily) as some data supports this may slow progression and reverse effects of BROWN-related fibrosis. Additional reduction in red meat consumption as it has sh own to have higher rates of organ fat deposition was discussed. - The highest mortality in NAFLD/BROWN is from cardiovascular disease and careful attention should be paid to those risk factors, including management of HTN, HL D, DM2. Lipid Management/Screening: - Management of elevated cholesterol is also important in this population. The use of "statins" (HMG-CoA reductase medications) are an effective means of ther apy and are not contra-indicated in those with abnormal liver tests OR those wit h cirrhosis. The value of these medications in this population far outweigh the minor risks of abnormal liver tests. - Recommendation for lipophilic statin (simvastatin atorvastatin and lovastatin ) additionally confers protection against HCC. - Transient asymptomatic liver enzyme elevation up to 3 times upper normal limi t is common with a statin treatment. - Goal LDL in those with NALFD/BROWN are < 100 mg/dL or <70mg/dL in individuals with known diabetes. - Maintained on Lipitor 10mg. Impaired Glucose Tolerance OR Diabetes Management/Screening: - Reviewed A1C values: Normal below 5.7%, prediabetes 5.7-6.4%, >6.5% correlates to a diagnosis of diabetes. - Diabetes management is crucial with ideal goal Hgb A1c goal of =/< 7%. Bone health: - Strongly recommend screening for Vitamin D deficiency at least twice yearly wi th aggressive supplementation/replacement as indicated. Replacement per CFT prot ocol for values less than 30ng/mL. Lab Results Component Value Date/Time VITD25 20.9 (L) 01/29/2021 02:27 PM - All patients with liver disease are at an increased risk for osteopenia/osteo porosis. We strongly recommend screening for Vitamin D deficiency with aggressi ve supplementation/replacement, as indicated. Screening for all fat soluble nadia min deficiencies should be performed in those patients with cholestatic liver di sease. - Recommend calcium +Vitamin D supplementation (2000 IU of Vitamin D and 1200mg Calcium). - Follow up DEXA scans to evaluate for improvement of bone density therapy enco uraged. Vaccinations: Immunization History Administered Date(s) Administered COVID-19 (PFIZER), mRNA vacc, 30 mcg/0.3 mL (PF) 08/17/2020 COVID-19 (SARS-COV-2) Vaccine, Unspecified (historical) 08/17/2020 Health Maintenance & Cancer Screening: - Recommend you stay up to date for cancer screening: mammograms/PAP for women a nd prostate cancer screening for men, and colon cancer screening for all. Health Maintenance Topic Date Due MEDICARE ANNUAL WELLNESS VISIT Never done PNEUMONIA (PPSV23) VACCINE (1 of 2 - PPSV23) Never done FOOT EXAM Never done DTAP/TDAP VACCINES (1 - Tdap) Never done PHYSICAL (COMPREHENSIVE) EXAM Never done DILATED EYE EXAM Never done MICROALBUMIN Never done HEPATITIS C SCREENING Never done SHINGLES RECOMBINANT VACCINE (1 of 2) Never done HBA1C 12/11/2016 INFLUENZA VACCINE Never done COVID-19 VACCINE Completed Routine Health Care in Patient with Chronic Liver Disease: - All patients with liver disease should avoid the use of Non-steroidal Anti-Inf lammatory (NSAID) medications as they can cause significant injury to the kidney s in this population. - The preferred analgesic in cirrhosis and liver disease is Tylenol, up to 2g da jany. - Recommended the patient avoid herbal supplements and over the counter herbal r emedies due to potential hepatic toxicities. COVID 19 Precautions: - With underlying liver disease you are categorized as high risk. --> We encourage that when available, you proceed with COVID 19 vaccination. - If you are diagnosed with COVID 19, please notify our office immediately to determine if you are a possible candidate to receive mAB infusion therapy. For up to date information on the COVID-19 virus, visit the CDC website. https:/ /www.cdc.gov/coronavirus General supportive care during cold and flu season and infection prevention r eminders: ? Wash hands often with soap and water for at least 20 seconds ? Cover your mouth and nose ? Social distancing: try to maintain 6 feet between you and other people ? Stay home if sick and symptoms mild or manageable If you must be around people wear a mask If you are having symptoms of a lower respiratory infection (cough, shortness of breath) and/or fever AND either traveled in last 30 days (internationally or to region of exposure) OR known exposure to patient with COVID19: ? Call your primary care provider for questions or health needs. Tell your doctor about your recent travel and your symptoms ? In a medical emergency, call 911 or go to the nearest emergency room. Follow Up: 6 months in clinic or sooner if needed. The patient is to call our office with a ny questions or changes to your health condition. Labs: MELD (CBC +Diff, CMP, INR), AFP, Vit D, Lipid Panel Imaging: HCC screening every 6 months --> due: July 2021 (plan to alternate MRI + US if able to obtain good visualization) Procedures/Biopsy: N/A Referrals: N/A Other: N/A A total of 45 minutes was spent with this patient of which >50% was spent in counseling &/or coordination of care in which the following were discussed: explaining treatment options, disease processes, laboratory/imaging results, prognosis, risks and benefits of treatment options, medication side effects, importance of compliance with treatment, risk factor reduction, and additiaonl follow up with primary care physician & specialists as necessary. Patient/patient family reports that all questions have been answered at this manasa e. No additional pending concerns. Thank you very much for the opportunity to participate in the care of this patie nt. If you have any further questions, please don't hesitate to contact our off ice. This note was created using [employer], a voice recognition software. Please c ontact my office for any clarification of documentation. ANNIE Joshua Hepatology & Liver Transplantation [facility] Office- [phone] Pager- [phone] documented in this encounter Plan of Treatment Order Schedule Name Type Priority Associated Diag noses Expected: 08/02/2021 (Approximate), Expi res: 02/17/2022 US ABDOMEN COMPLETE Imaging Routine Other cirr hosis of liver (HCC) BROWN (nonalcoholic steatohepatitis) documented as of this encounter Visit Diagnoses Diagnosis Other cirrhosis of liver (HCC) - Primar y BROWN (nonalcoholic steatohepatitis) Other chronic nonalcoholic liver diseas e Dietary counseling Dietary surveillance and counseling documented in this encounter Discontinued Medications Start Date End Date Medication Sig Discontinue Reason 08/06/2020 02/17/2021 ergocalciferol (VITAMIN Take one Therapy D) 1,250 mcg (50,000 capsule by completed unit) capsuleIndications: mouth twice vitamin D deficiency weekly. (high dose therapy) Indications: vitamin D deficiency (high dose therapy) documented as of this encounter Historical Medications * This list may reflect changes made after this encounter. Start Date End Date Medication Sig Dispensed Refills ergocalciferol (vitamin Take by 0 D2) (VITAMIN D PO) mouth. 02/12/2018 liraglutide (VICTOZA Victoza 3-John 0 2-JOHN) 0.6 mg/0.1 mL (18 0.6 mg/0.1 mL mg/3 mL) injection pen (18 mg/3 mL) subcutaneous pen injector added in this encounter Additional Health Concerns Assessment Noted Time A fall risk assessment has been completed for the pat ient 02/17/2021 1:24 PM CDT PHQ-2 Depression Total Score: 0 02/17/2021 1:24 PM CDT documented as of this encounter
--- OUTSIDE RECORDS SUMMARY | 2021-03-07 06:14 | XMS REPORT | Encounter Summary ---
Author Author [facility] Organization [facility] Address Unknown Phone Unavailable Care Team Providers Care Superintendent Automotive Name Role Phone Self, Troy FIGUEREDO PCP Reason for Visit * Reason Comments Medication Refill Encounter Details Care Team Description Date Type Department Roque Klein MD [address] [facility] [id number] [place], [place] [id number] 01/06/2021 Refill Hepatology: Main Ca mpus, [facility] [address] [facility] [address] [place] [address] Social History Date Tobacco Use [...] Date End Date Prescription Sig Dispensed Refills 01/06/[address] Take one 90 tablet 3 (PROTONIX) 40 mg tablet tablet by mouth daily. documented in this encounter Plan of Treatment Not on filedocumented as of this encounter Visit Diagnoses Not on filedocumented in this encounter Discontinued Medications Start Date End Date Medication Sig Discontinue Reason 09/16/2020 01/06/2021 pantoprazole Take 1 (PROTONIX) 40 mg tablet tablet by mouth once daily documented as of this encounter Additional Health Concerns Assessment Noted Time A fall risk assessment has been completed for the pat ient 08/17/2020 12:10 PM CDT PHQ-2 Depression Total Score: 0 08/17/2020 12:10 PM CDT documented as of this encounter
--- OUTSIDE RECORDS SUMMARY | 2021-03-07 06:14 | XMS REPORT | Encounter Summary ---
Author Author [facility] Organization [facility] Address Unknown Phone Unavailable Care Team Providers Care Composition Roll Maker And Cutter Name Role Phone Self, Troy FIGUEREDO PCP Encounter Details Care Team Description Date Type Department Ciarra Powell RN Other cirrhosis of liver (HCC); BROWN (nonalcoholic steatohepatitis); Dietary counseling 02/05/2021 Orders Only Transplant: Main Tn mp, [facility] [address] [facility] [address] [place] [address] Social History Date Tobacco Use [...] CDT (HCC) BROWN (nonalcoholic steatohepatitis) Dietary counseling documented in this encounter Results * LIPID PROFILE (01/29/2021 2:27 PM CDT) [...] surveillance and counseling documented in this encounter Additional Health Concerns Assessment Noted Time A fall risk assessment has been completed for the pat ient 08/17/2020 12:10 PM CDT PHQ-2 Depression Total Score: 0 08/17/2020 12:10 PM CDT documented as of this encounter
[2021-03-07] MEDS ORDERED: morphine INJ 10 MG/ML 1ML (SYR OR VIAL) IM STA (06:32)
--- NOTE | 2021-03-07 06:35 | Diagnostic Imaging Report ---
INDICATION: Right shoulder pain COMPARISON: None available TECHNIQUE: 3 radiographs of the right shoulder dated 03/07/2021 FINDINGS: Moderate degenerative changes of the acromioclavicular joint. Transversely oriented fracturing of the right humeral neck is identified without definite extension to the articular surface of the humeral head. Fracture appears essentially nondisplaced. No additional fracture or dislocation. Subacromial space is well-maintained. Mild degenerative changes of the glenohumeral joint. IMPRESSION: Recent nondisplaced fracturing of the right humeral neck. Scattered degenerative changes, greatest involving the acromioclavicular joint. Dictated by: Dictated on workstation # [id number]
[2021-03-07 06:48] VITALS: BP 99/59
--- NOTE | 2021-03-07 07:11 | ED Upper Extremity ---
General Chief Complaint: Upper Extremity Stated Complaint: RT SHOULDER INJ;FALL Nursing Triage Note: Pt fell coming out of the bathroom this morning and landed on his right shoulder. Pt denies hitting his head or any other injuries during the fall. Pt is alert and oriented on arrival, complaining of right shoulder pain 02/07 Source: patient, spouse History of Present Illness Date Seen by Provider: Mar 07, 2021 Time Seen by Provider: 06:08 Initial Comments 75-year-old male presenting by private vehicle with his after having a fall at home. He was coming out of the bathroom and went to scratch his back against a doorway but missed it and fell back against a dresser on the floor. He denies hitting his head or losing consciousness. He denies any other injuries. He is having pain at the right shoulder. His did give him 1500 mg of acetaminophen prior to arrival. He was still having pain so they came to the ED to be evaluated. Location Injury Occurred: home Onset: just prior to arrival Severity: severe Pain/Injury Location: right shoulder Method of Injury: fell Modifying Factors: Worse With Movement Allergies and Home Medications Allergies Coded Allergies: metformin (Verified Allergy, Unknown, 08/17/19) lactic acidosis 08/17/19 Patient Home Medication List Home Medication List Reviewed: Yes Atorvastatin Calcium (Atorvastatin Calcium) 10 Mg Tablet, 10 MG PO DAILY, (Reported) Entered as Reported by: PRASHANTH TURNER on 08/17/19 0959 Enzalutamide (Xtandi) 40 Mg Capsule, 160 MG PO DAILY, (Reported) Entered as Reported by: BLADIMIR FERNANDEZ on 10/12/20 1330 Ergocalciferol (Vitamin D2) (Vitamin D2) 1,250 Mcg Capsule, 1,250 MCG PO TWICE WEEKLY, (Reported) Entered as Reported by: BLADIMIR FERNANDEZ on 10/12/20 1330 Furosemide (Furosemide) 40 Mg Tablet, 40 MG PO DAILY PRN for FLUID RETENTION, (Reported) Entered as Reported by: PRASHANTH TURNER on 08/17/19 0959 Levothyroxine Sodium (Levothyroxine Sodium) 125 Mcg Tablet, 125 MCG PO DAILY, (Reported) Entered as Reported by: MONALISA TABOR on 08/23/18 1144 Liraglutide (Victoza 2-Steve) 0.6 Mg/0.1 Ml Pen.injctr, 0.6 MG SQ DAILY, (Reported) Entered as Reported by: BLADIMIR FERNANDEZ on 10/12/20 1325 Ondansetron (Ondansetron Odt) 4 Mg Tab.rapdis, 4 MG PO Q6H PRN for NAUSEA/VOMITING Prescribed by: KRISTINA LANE on 03/07/21 0713 Oxycodone HCl (Oxycodone HCl) 5 Mg Tablet, 5 MG PO Q8H PRN for PAIN-SEVERE (8- 10) Prescribed by: KRISTINA LANE on 03/07/21 0714 Pantoprazole Sodium (Pantoprazole Sodium) 40 Mg Tablet.dr, 40 MG PO DAILY Prescribed by: MALDONADO SAUL on 08/20/19 1120 Polyethylene Glycol 3350 (Polyethylene Glycol 3350) 17 Gm Powd.pack, 17 GM PO Q4HR Prescribed by: MALDONADO SAUL on 08/20/19 1120 Rifaximin (Xifaxan) 550 Mg Tablet, 550 TAB PO BID, (Reported) Entered as Reported by: HESHAM FARRELL on 08/17/19 1448 Spironolactone (Spironolactone) 25 Mg Tablet, 25 MG PO DAILY, (Reported) Entered as Reported by: PRASHANTH TURNER on 08/17/19 0959 Vit C/E/Zn/Coppr/Lutein/Zeaxan (Preservision Areds 2 Softgel) 1 Each Capsule, 2 EACH PO DAILY, (Reported) Entered as Reported by: HESHAM FARRELL on 08/17/19 1448 Review of Systems Constitutional: no symptoms reported EENTM: no symptoms reported Respiratory: no symptoms reported Cardiovascular: no symptoms reported Gastrointestinal: no symptoms reported Genitourinary: no symptoms reported Musculoskeletal: see HPI, joint pain (right shoulder pain) Skin: No change in color Psychiatric/Neurological: Denies Headache, Denies Numbness, Denies Paresthesia Past Qkrwgld-Qykras-Ksiewm Hx Patient Social History Tobacco Use?: No Substance use?: No Alcohol Use?: No Pt feels they are or have been: No Seasonal Allergies Seasonal Allergies: No Past Medical History Surgery/Hospitalization HX: Stage 4 Cirrhosis, Prostate Cancer, Hx Hepatic Encephalopathy Surgeries: Yes Bowel Surgery, Orthopedic, Tonsillectomy Respiratory: No Cardiac: No High Cholesterol Neurological: No Headaches /Migraines Genitourinary: Yes Prostate Problems Gastrointestinal: No Gastrointestinal Bleed, Cirrhosis Musculoskeletal: No Endocrine: Yes Diabetes, Non-Insulin dep HEENT: Yes (cataracts removed, ) Hearing Impairment: Denies, Bilateral Hearing Aide Cancer: Yes Prostate Did You Recieve Any Treatments: Yes What Type of Treatment Did You: Other Psychosocial: No Integumentary: No Blood Disorders: Yes (LOW PLATELETS) Physical Exam Vital Signs Vital Signs - First Documented 03/07/21 06:10 Temp 36.0 Pulse 69 Resp 18 B/P (MAP) 99/59 (72) Pulse Ox 98 O2 Delivery Room Air Capillary Refill : Less Than 3 Seconds Height, Weight, BMI Height: 5'8.00" Weight: 193lbs. 0.0oz. [id number]; 29.70 BMI Method: General Appearance: mild distress HEENT: PERRL/EOMI, pharynx normal Neck: non-tender, full range of motion, supple, normal inspection Cardiovascular: normal peripheral pulses, regular rate, rhythm Respiratory: chest non-tender, lungs clear Shoulder: bone tenderness (right shoulder), limited ROM (right shoulder with crepitus and decreased ROM due to pain), pain (with movement of Right shoulder) Elbow/Forearm: normal inspection, non-tender, no evidence of injury Wrist: Yes normal inspection, Yes non-tender, Yes no evidence of injury Hand: normal inspection, non-tender, no evidence of injury, normal ROM Neurologic/Tendon: normal sensation, normal motor functions, normal tendon functions Neurologic/Psychiatric: alert, oriented x 3 Skin: warm/dry Procedures/Interventions Splinting and Joint Reduction : Location: right shoulder Pre-Proc Neuro Vasc Exam: normal Post-Proc Neuro Vasc Exam: normal Progress Placed in universal shoulder immobilizer to stabilize his right shoulder fracture. Counseled on follow up and return precautions. Pt neurovascularly intact pre and post placement of immobilizer Progress/Results/Core Measures Results/Orders My Orders Orders - KRISTINA LANE MD Shoulder 3 View Right (03/07/21 06:11) Morphine Injection (Morphine Injection (03/07/21 06:32) Shoulder Immoblizer (03/07/21 06:32) Ice: Apply To Affected Area (03/07/21 07:14) Vital Signs/I&O 03/07/21 03/07/21 06:10 06:48 Temp 36.0 36.0 Pulse 69 69 Resp 18 18 B/P (MAP) 99/59 (72) 99/59 Pulse Ox 98 98 O2 Delivery Room Air Room Air Blood Pressure Mean: 72 Progress Progress Note #1: Progress Note Order xrays of right shoulder. Since he had tylenol prior to arrival will defer medicine until films obtained Progress Note #2: Progress Note Xrays show fracture of right humeral neck with mild impaction. Will place in a shoulder immobilizer. Counseled patient and spouse about results and treatment. Advised to check with orthopedics and primary care. Given phone number for Rikki Lomax as well as Dr. Long. Here in the ED he was given a 2 mg IM morphine shot to help with pain. For home will try oxycodone 5 mg up to every 8 hours as needed for severe pain. He has had nausea and vomiting with Percocet in the past so we will have a prescription for Zofran available as well. These were sent to [facility]. If the pain is not that severe he could certainly try plain Tylenol. Diagnostic Imaging Diagonstic Imaging: Xray Plain Films/CT/US/NM/MRI: other (shoulder) Comments [facility]. [place], [place] NAME: CAMILLA MUNROE Fay [facility] REC#: [id number] PT STATUS: REG ER : 1945 PHYSICIAN: KRISTINA LANE MD ADMIT DATE: 03/07/21/ER FS Draft Date of Exam:03/07/21 SHOULDER 3 VIEW RIGHT INDICATION: Right shoulder pain COMPARISON: None available TECHNIQUE: 3 radiographs of the right shoulder dated 03/07/2021 FINDINGS: Moderate degenerative changes of the acromioclavicular joint. Transversely oriented fracturing of the right humeral neck is identified without definite extension to the articular surface of the humeral head. Fracture appears essentially nondisplaced. No additional fracture or dislocation. Subacromial space is well-maintained. Mild degenerative changes of the glenohumeral joint. IMPRESSION: Recent nondisplaced fracturing of the right humeral neck. Scattered degenerative changes, greatest involving the acromioclavicular joint. Dictated on workstation # [id number] Dict: 03/07/21626 Trans: 03/07/21 0635 [facility] [id number] Interpreted by: DILLON MACHADO MD Electronically signed by: Reviewed: Reviewed by Me Departure Impression Primary Impression: Fracture of neck of right humerus Qualified Codes: S42.211A - Unspecified displaced fracture of surgical neck of right humerus, initial encounter for closed fracture Additional Impression: Fall at home Qualified Codes: W19.XXXA - Unspecified fall, initial encounter; Y92.009 - Unspecified place in unspecified non-institutional (private) residence as the place of occurrence of the external cause Disposition: 01 HOME, SELF-CARE Condition: Stable Departure-Patient Inst. Decision time for Depature: 07:05 Referrals: JOHNNY LOMAX MAXWELL MD (PCP/Family) Primary Care Physician JANEL LONG MD Patient Instructions: How to Use a Shoulder Sling ED, Preventing Falls ED, Upper Arm Fracture ED Add. Discharge Instructions: Wear shoulder immobilizer at all times unless you have to change clothes or sponge bathe the area. Call Monday to set up appointment with Nurse Practitioner Rikki Lomax, who works with Dr. Long, Orthopedics doctor out of [place]. His number is or Dr. Long [phone] Use Ice pack 20-30 minutes every few hours to help with pain and swelling. Try to keep your shoulder elevated to help with pain and swelling. You might want to sleep in a recliner or elevated for the first few days to help with the pain and swelling. For severe pain use Oxycodone up to every 8 hours. If it makes you nauseated then use the dissolving nausea tablets. If the pain is not too bad then you could use the Acetaminophen and ice packs. All discharge instructions reviewed with patient and/or family. Voiced understanding. Scripts Ondansetron (Ondansetron Odt) 4 Mg Tab.rapdis 4 MG PO Q6H PRN for NAUSEA/VOMITING for 5 Days, #20 TAB 0 Refills Prov: KRISTINA LANE MD 03/07/21 Oxycodone HCl (Oxycodone HCl) 5 Mg Tablet 5 MG PO Q8H PRN for PAIN-SEVERE (8-10) for 5 Days, #15 TAB 0 Refills Prov: KRISTINA LANE MD 03/07/[address] MD Mar 07, 2021 07:11
[2021-03-07] MEDS ORDERED: OXYC5TAB PO (07:13)
[2021-03-07] MEDS ORDERED: ONDA4TAB11 PO (07:13)
== END 2021-03-07 07:20 | disposition home or self-care (01) ==
LOC: EDUNIT# 06:08 → ER FS 06:10
DX: S42.214A Unspecified nondisplaced fracture of surgical neck of right humerus, initial encounter for closed fracture (principal); E78.00 Pure hypercholesterolemia, unspecified; E11.9 Type 2 diabetes mellitus without complications; Z79.899 Other long term (current) drug therapy; W18.30XA Fall on same level, unspecified, initial encounter; Y92.009 Unspecified place in unspecified non-institutional (private) residence as the place of occurrence of the external cause
CPT/HCPCS: 73030; 96372

== ENCOUNTER 2021-03-11 14:57 | Outpatient (RCR) | payer MEDICARE, OTHER ==
[~2021-03-11 14:57] MED LIST changes: +ONDA4TAB11 PO; +OXYC5TAB PO
[2021-03-11 15:09] LABS: EOSINOPHILS # (AUTO) 0.1 10^3/uL (0.0-0.3); EOSINOPHILS % (AUTO) 2 % (0-10); MONOCYTES # (AUTO) 0.7 10^3/uL (0.0-1.0); MONOCYTES % (AUTO) 13 % (0-12)
[2021-03-11 15:11] LABS: BASOPHILS % (AUTO) 1 % (0-10); HEMATOCRIT 26 % (40-54); HEMOGLOBIN 9.2 g/dL (13.3-17.7); LYMPHOCYTES # (AUTO) 0.8 10^3/uL (1.0-4.0); LYMPHOCYTES % (AUTO) 15 % (12-44); MEAN CORPUSCULAR HEMOGLOBIN 41 pg (25-34); MEAN CORPUSCULAR HGB CONC 35 g/dL (32-36); MEAN CORPUSCULAR VOLUME 117 fL (80-99); MEAN PLATELET VOLUME 11.6 fL (9.0-12.2); NEUTROPHILS # (AUTO) 3.4 10^3/uL (1.8-7.8); NEUTROPHILS % (AUTO) 68 % (42-75)
[2021-03-11 15:14] LABS: PLATELET COUNT 24 10^3/uL (130-400)
[2021-03-11 16:07] LABS: ALBUMIN 2.4 GM/DL (3.2-4.5); BILIRUBIN,TOTAL 2.1 MG/DL (0.1-1.0); CALCIUM 8.1 MG/DL (8.5-10.1); CREATININE SERUM 0.79 MG/DL (0.60-1.30); POTASSIUM 4.5 MMOL/L (3.6-5.0); TOTAL PROTEIN 5.6 GM/DL (6.4-8.2)
== END 2021-04-30 | disposition home or self-care (01) ==
LOC: ONC 14:57
PROVIDERS: ATTEND Internal Medicine Hematology & Oncology
DX: C61 Malignant neoplasm of prostate (principal); C79.51 Secondary malignant neoplasm of bone; D61.818 Other pancytopenia; K74.60 Unspecified cirrhosis of liver; D69.6 Thrombocytopenia, unspecified; E11.9 Type 2 diabetes mellitus without complications; Z79.899 Other long term (current) drug therapy; Z98.890 Other specified postprocedural states
CPT/HCPCS: 80053; 84153; 85025; G0463; 99213

== ENCOUNTER 2021-03-21 19:39 | Emergency (ER) | payer MEDICARE, OTHER ==
--- NOTE | 2021-03-21 19:59 | ED Upper Extremity ---
General Chief Complaint: Upper Extremity Stated Complaint: RIGHT HAND SORE/SWELLING Nursing Triage Note: Pt fractured his right humerus 2 weeks ago. Pt presents today with right hand swelling Source: patient Exam Limitations: no limitations History of Present Illness Date Seen by Provider: Mar 21, 2021 Time Seen by Provider: 19:42 Initial Comments 75-year-old male with past medical history of diabetes and heart disease had a recent fall 2 weeks ago and was seen here. He sustained a right proximal humerus fracture which she has been following up with the orthopedist in [facility]. He is concerned because the swelling has been continuing down his arm with bruising down his arm and he was wondering if he had a blood clot. His pain has been slowly improving over time, he has been using his sling and taking his arm out of it to gently range his arm a couple times a day. He denies any prior history of blood clots. He denies any asymmetric swelling of his lower extremities. He denies any chest pain or shortness of breath. Allergies and Home Medications Allergies Coded Allergies: metformin (Verified Allergy, Unknown, 08/17/19) lactic acidosis 08/17/19 Patient Home Medication List Home Medication List Reviewed: Yes Atorvastatin Calcium (Atorvastatin Calcium) 10 Mg Tablet, 10 MG PO DAILY, (Reported) Entered as Reported by: PRASHANTH TURNER on 08/17/19 0959 Enzalutamide (Xtandi) 40 Mg Capsule, 160 MG PO DAILY, (Reported) Entered as Reported by: BLADIMIR FERNANDEZ on 10/12/20 1330 Ergocalciferol (Vitamin D2) (Vitamin D2) 1,250 Mcg Capsule, 1,250 MCG PO TWICE WEEKLY, (Reported) Entered as Reported by: BLADIMIR FERNANDEZ on 10/12/20 1330 Furosemide (Furosemide) 40 Mg Tablet, 40 MG PO DAILY PRN for FLUID RETENTION, (Reported) Entered as Reported by: PRASHANTH TURNER on 08/17/19 0959 Levothyroxine Sodium (Levothyroxine Sodium) 125 Mcg Tablet, 125 MCG PO DAILY, (Reported) Entered as Reported by: MONALISA TABOR on 08/23/18 1144 Liraglutide (Victoza 2-Steve) 0.6 Mg/0.1 Ml Pen.injctr, 0.6 MG SQ DAILY, (Reported) Entered as Reported by: BLADIMIR FERNANDEZ on 10/12/20 1325 Ondansetron (Ondansetron Odt) 4 Mg Tab.rapdis, 4 MG PO Q6H PRN for NAUSEA/VOMITING Prescribed by: KRISTINA LANE on 03/07/21 0713 Oxycodone HCl (Oxycodone HCl) 5 Mg Tablet, 5 MG PO Q8H PRN for PAIN-SEVERE (8- 10) Prescribed by: KRISTINA LANE on 03/07/21 0714 Pantoprazole Sodium (Pantoprazole Sodium) 40 Mg Tablet.dr, 40 MG PO DAILY Prescribed by: MALDONADO SAUL on 08/20/19 1120 Polyethylene Glycol 3350 (Polyethylene Glycol 3350) 17 Gm Powd.pack, 17 GM PO Q4HR Prescribed by: MALDONADO SAUL on 08/20/19 1120 Rifaximin (Xifaxan) 550 Mg Tablet, 550 TAB PO BID, (Reported) Entered as Reported by: HESHAM FARRELL on 08/17/19 1448 Spironolactone (Spironolactone) 25 Mg Tablet, 25 MG PO DAILY, (Reported) Entered as Reported by: PRASHANTH TURNER on 08/17/19 0959 Vit C/E/Zn/Coppr/Lutein/Zeaxan (Preservision Areds 2 Softgel) 1 Each Capsule, 2 EACH PO DAILY, (Reported) Entered as Reported by: HESHAM FARRELL on 08/17/19 1448 Review of Systems Constitutional: No chills, No fever EENTM: No blurred vision Respiratory: no symptoms reported Cardiovascular: no symptoms reported Gastrointestinal: no symptoms reported Genitourinary: no symptoms reported Musculoskeletal: joint pain Skin: no symptoms reported Psychiatric/Neurological: No Symptoms Reported All Other Systems Reviewed Negative Unless Noted: Yes Past Ceyiums-Lgojsw-Teugfw Hx Patient Social History Tobacco Use?: No Use of E-Cig and/or Vaping dev: No Substance use?: No Alcohol Use?: No Pt feels they are or have been: No Seasonal Allergies Seasonal Allergies: No Past Medical History Surgery/Hospitalization HX: Stage 4 Cirrhosis, Prostate Cancer, Hx Hepatic Encephalopathy Surgeries: Yes Bowel Surgery, Orthopedic, Tonsillectomy Respiratory: No Cardiac: No High Cholesterol Neurological: No Headaches /Migraines Genitourinary: Yes Prostate Problems Gastrointestinal: No Gastrointestinal Bleed, Cirrhosis Musculoskeletal: No Endocrine: Yes Diabetes, Non-Insulin dep HEENT: Yes (cataracts removed, ) Hearing Impairment: Denies, Bilateral Hearing Aide Cancer: Yes Prostate Did You Recieve Any Treatments: Yes What Type of Treatment Did You: Other Psychosocial: No Integumentary: No Blood Disorders: Yes (LOW PLATELETS) Physical Exam Vital Signs Vital Signs - First Documented 03/21/21 19:42 Pulse 79 Resp 18 B/P (MAP) 139/79 (99) Pulse Ox 99 O2 Delivery Room Air Capillary Refill : Less Than 3 Seconds Height, Weight, BMI Height: 5'8.00" Weight: 193lbs. 0.0oz. [id number]; 29.70 BMI Method: General Appearance: WD/WN, no apparent distress HEENT: PERRL/EOMI, normal ENT inspection, pharynx normal Neck: non-tender, full range of motion, supple, normal inspection Cardiovascular: regular rate, rhythm, no murmur Respiratory: chest non-tender, lungs clear, normal breath sounds, no respiratory distress, no accessory muscle use Gastrointestinal: normal bowel sounds, non tender; No distended, No guarding Back: normal inspection Shoulder: swelling (Tender over the right proximal humerus with some bruising and swelling that goes dependent all the way down his right upper extremity, no tenderness in the distal humerus, elbow, forearm, wrist, hand, normal distal pulses and sensation) Elbow/Forearm: normal inspection, non-tender, normal ROM Wrist: Yes non-tender, Yes normal ROM, Yes ecchymosis Hand: non-tender (no scaphoid tenderness), normal ROM, ecchymosis Neurologic/Tendon: normal sensation, normal motor functions Neurologic/Psychiatric: no motor/sensory deficits, alert, normal mood/affect Skin: normal color, warm/dry Lymphatic: no adenopathy Progress/Results/Core Measures Results/Orders My Orders Orders - MANISH STEELE MD Wrist 3 View Right (03/21/21 19:54) Vital Signs/I&O 03/21/21 19:42 Pulse 79 Resp 18 B/P (MAP) 139/79 (99) Pulse Ox 99 O2 Delivery Room Air Blood Pressure Mean: 99 Progress Progress Note : Progress Note 75-year-old male with above history coming in due to swelling in his right upper extremity after having a fracture 2 weeks ago. ABCs were intact and vitals were stable on presentation. Clinically it looks like dependent swelling and bruising, but it is impossible to rule out a DVT. He does not have any tenderness other than over his fracture which is more reassuring. He has no signs clinically of a PE. Given the bruising around his wrist that is slightly more than I would expect, x-ray of his wrist was ordered and interpreted by me showing no fracture or dislocation. I am fairly certain this is not a DVT, but to be extra sure we will order an ultrasound and have him go to [place] tomorrow. Given my clinical suspicion is lower, we will not start Lovenox at this time. He was then discharged home in stable condition with strict return precautions Diagnostic Imaging Diagonstic Imaging: Xray Plain Films/CT/US/NM/MRI: other (right wrist) Comments X-ray of the right wrist ordered and interpreted by me showing no fracture or dislocation Departure Impression Primary Impression: Fracture of neck of right humerus Qualified Codes: S42.211D - Unspecified displaced fracture of surgical neck of right humerus, subsequent encounter for fracture with routine healing Additional Impression: Arm swelling Disposition: 01 HOME, SELF-CARE Condition: Stable Departure-Patient Inst. Decision time for Depature: 20:12 Referrals: SELF,MADELEINE FIGUEREDO (PCP/Family) Primary Care Physician Patient Instructions: Shoulder Fracture (DC) Add. Discharge Instructions: You were seen in the emergency department for arm swelling. This is likely just related to your broken shoulder and the swelling going down with gravity. It does not seem to be a blood clot to me, but to be 100% positive I want you to call the number I gave you to schedule the ultrasound of your arm in [place] tomorrow. I already sent the order to them. If you develop any chest pain, shortness of breath, or any concerns then please come back to the ER. MANISH STEELE MD Mar 21, 2021 19:59
[2021-03-21 20:14] VITALS: BP 139/79
--- NOTE | 2021-03-21 20:17 | Diagnostic Imaging Report ---
HISTORY: Fall, bruising of the right wrist. TECHNIQUE: Three views of the right wrist. COMPARISON: None. FINDINGS: Bones appear osteopenic. There are mild degenerative changes in the wrist. There is marked surrounding soft tissue swelling. No cortical erosion is seen. There is mild cortical irregularity at the articular surface of the radius. A minimally depressed impaction fracture is difficult to exclude. Alignment otherwise appears normal. IMPRESSION: 1. Mild cortical irregularity at the articular surface of the distal right radius, could represent a mildly depressed fracture. Please correlate with the site of pain. 2. Marked soft tissue swelling about the right wrist. Dictated by: Dictated on workstation # [id number]
--- OUTSIDE RECORDS SUMMARY | 2021-03-22 11:57 | XMS REPORT | Clinical Summary ---
Author Author [facility] Organization [facility] Address Unknown Phone Unavailable Care Team Providers Care Peer Health Promoter Name Role Phone Self, Troy FIGUEREDO PP Allergies Comments Active Allergy Reactions Severity Noted Date Metformin Hcl Unknown 12/23/2020 Medications End Date Status Medication Sig Dispensed Refills Start Date Active vit See 0 C,F-Ou-cxbbp-lutein-zeaxa administratio n (PreserVision AREDS-2) n 250-90-40-1 mg [...] Padmini Irizarry, Son, MILES Beck, Mi Smith, [facility] Jose L Nuñez, MILES Arreaga, Jimena Holguin, Olga Rucker, MILES Flor, José Miguel, [facility], Shana Acosta RN Hepatic encephalopathy (HCC) (Primary Dx ) 02/20/2021 Hospital - Encounter 02/22/2021 Discharge Summary - Janes Padgett MD - 02/22/2021 1:49 PM CDT [facility] Inpatient Hospitalist Service at [facility] DISCHARGE SUMMARY Date of Admission: 02/20/2021 Date of Discharge: 02/22/2021 Status: Inpatient Patient: Nasir Squires Date of : 1945 PCP: Troy Ramos MD Hospital: [facility] Code: Full Code Primary Diagnosis: Hepatic encephalopathy [...] AREDS-2 250-90-40-1 mg capsule Generic drug: vit C,T-Yi-sfrnj-rivas tein-zeaxan Protonix [address] for [...] Your Medications These medications were sent to [facility] Mail Delivery - [facility] [address] [facility] [address] lactulose solution PENDING RESULTS: Pertinent Procedures (Date, [...] the PCP, Troy Ramos MD. Fax number: [phone] The discharge plan was discussed with the [...] Vaccines 06/08/2018 06/07/2018, (1 - Tdap) 05/16/1995 COVID-19 Vaccine (4 - 02/16/2021 08/17/2020, Booster) 08/04/2020, 07/07/2020 Hepatitis B Vaccines Completed 11/04/1992, 06/05/1992, 05/05/1992 Influenza Vaccine Completed 02/05/2021, 12/26/2019, 02/03/2016, Additional [...] CDT) RBC Morphology Scanned no significant RBC [facility] morph noted LAB Smudge Cells Present (A) None Seen [facility] WBC Comment DIFF PERFORMED WITH ALBUMIN [facility] Specimen Blood - Venous blood specimen (specimen) Performing Organization Address City/State/ZIP Code P di Number [facility] [address] [place] [phone] * CBC with Auto Differential (02/22/2021 7:19 AM CDT) Only the most recent of 3 results within the time period is included. WBC 2.49 (L) 4.30 - 10.80 K/uL [facility] RBC 2.66 (L) 4.70 - 6.10 M/uL [facility] Hemoglobin 10.6 (L) 14.0 - 18.0 g/dL [facility] Hematocrit 30.9 (L) 42.0 - 52.0 % [facility] MCV 116 (H) 81 - 99 fL [facility] MCH 39.8 (H) 26.0 - 34.0 pg [facility] MCHC 34.3 31.0 - 37.0 g/dL [facility] MPV 12.2 9.4 - 12.4 fL [facility] Platelets 25 (LL)Comment: This result 150 - 400 K/uL [facility] has been called to AIN RUCKER by Sheryl Green on 02 22 2021 at 0736, and has been read back. RDW 16.0 (H) 11.5 - 14.5 % [facility] RDW-SD 67.9 (H) 35.1 - 43.9 fL [facility] Nucleated RBC, 0.00 0.00 K/uL [facility] Absolute LAB Nucleated RBC 0.0 0.0 /100 WBC [facility] Specimen Blood - Venous blood specimen (specimen) Performing Organization Address City/[facility]/ZIP Code P di Number [facility] [address] [place] [phone] * Manual Differential (02/22/2021 7:19 AM CDT) Neutrophils, 41 36 - 66 % [facility] Manual LAB Lymphocytes, 37 24 - 44 % [facility] Manual LAB Monocytes, 12 (H) 1 - 10 % [facility] Manual LAB Eosinophils, 6 0 - 10 % [facility] Manual LAB Basophils, 3 (H) 0 - 1 % [facility] Manual LAB Bands, Manual 1 (L) 5 - 11 % [facility] Cells Counted 100 COUNTED [facility] Absolute 1.05 (L) 1.55 - 7.13 K/uL [facility] Neutrophil LAB Count Lymphocytes, 0.92 (L) 1.00 - 4.80 K/uL [facility] Abs, Manual LAB Monocytes, Abs. 0.30 (L) 0.40 - 1.08 K/uL [facility] Manual LAB Eosinophils, 0.15 0.00 - 0.65 K/uL [facility] Abs. Manual LAB Basophils, Abs 0.07 0.00 - 0.11 K/uL [facility] Manual LAB WBC Comment DIFF PERFORMED WITH ALBUMIN [facility] SMEAR LAB Specimen Blood - Venous blood specimen (specimen) Performing Organization Address City/[facility]/ZIP [facility] P di Number [facility] [address] [place] [phone] * Ammonia (02/22/2021 7:19 AM CDT) Only the most recent of 3 results within the time period is included. Ammonia 83 (H) 11 - 32 umol/L [facility] Specimen Blood - Venous blood specimen (specimen) Performing Organization Address City/[facility]/ZIP [facility] P di Number [facility] [address] [place] [phone] * Comprehensive Metabolic Panel (02/22/2021 7:19 AM CDT) Only the most recent of 3 results within the time period is included. Sodium 142 136 - 145 mmol/L [facility] Potassium 4.0 3.5 - 5.1 mmol/L [facility] Chloride 114 (H) 98 - 107 mmol/L [facility] CO2 23 21 - 32 mmol/L [facility] Anion Gap 5 5 - 15 mmol/L [facility] BUN 11 8 - 26 mg/dL [facility] Creatinine 0.67 0.55 - 1.30 mg/dL [facility] Glucose 102 70 - 115 mg/dL [facility] Calcium 7.9 (L) 8.5 - 10.0 mg/dL [facility] Total Protein 5.4 (L) 6.0 - 8.3 g/dL [facility] Albumin 1.9 (L) 3.4 - 5.0 g/dL [facility] Bilirubin, 1.6 (H) 0.2 - 1.0 mg/dL [facility] Total LAB Alkaline 74 45 - 117 U/L [facility] Phosphatase LAB ALT 20 16 - 61 U/L [facility] AST 26 15 - 37 U/L [facility] Estimated GFR 115 >=60 mL/min/1.73m2 [facility] Comment: LAB GFR <60: CHRONIC KIDNEY DISEASE,if found over a 3 month period. GFR <15: KIDNEY FAILURE Globulin 3.5 g/dL [facility] A/G Ratio 0.5 (L) 1.0 - 1.8 [facility] Specimen Blood - Venous blood specimen (specimen) Performing Organization Address City/State/ZIP Code P di Number [facility] [address] [address] * Urinalysis with microscopic Urine, Clean Catch (02/20/2021 9:07 PM CDT) Color, UA Light Yellow Light Yellow, [facility] Yellow, Colorless LAB Clarity, UA Clear Clear [facility] Glucose, UA Negative Negative [facility] Bilirubin, UA Negative Negative [facility] Ketones, UA Negative Negative [facility] Specific 1.006 1.005 - 1.030 [facility] Chicken, Urine LAB Blood, UA Negative Negative [facility] pH, UA 7.0 5.0 - 9.0 [facility] Protein, UA Negative Negative [facility] Urobilinogen, 4 (A) Normal mg/dL [facility] UA LAB Nitrite, UA Negative Negative [facility] Leukocyte Negative Negative [facility] Esterase, UA LAB WBC, UA 1 0 - 4 /HPF [facility] RBC, UA <1 0 - 1 /HPF [facility] Bacteria, UA None Seen None Seen /HPF [facility] Mucus, UA Rare (A) Negative /LPF [facility] Specimen Urine - Urine specimen obtained by clean catch procedure (specimen) Performing Organization Address City/[facility] P di Number [facility] [address] [place] [phone] * POCT Troponin I (02/20/2021 8:23 PM CDT) Pathologist [facility] POC Troponin I <0.02 <0.08 ng/mL [facility] Comment: LAB A solitary troponin value may be misleading. Two or more values may be needed to determine clinical significance. Specimen Blood - Blood specimen (specimen) Performing Organization Address City/[facility]/ZIP Code P di Number [facility] [address] [place] [phone] * TSH w/Reflex Free T4 (02/20/2021 8:19 PM CDT) TSH 0.243 (L) 0.350 - 4.900 uIU/mL [facility] LAB Specimen Blood - Venous blood specimen (specimen) Performing Organization Address [facility] P di Number [facility] [address] [place] [address] * Light Green Top (02/20/2021 8:19 PM CDT) Extra Tube Yes [facility] Specimen Blood - Venous blood specimen (specimen) Performing Organization Address [facility] P di Number [facility] [address] [place] [phone] * Troponin I (02/20/2021 8:19 PM CDT) High 9.2 <78.5 ng/L [facility] Sensitivity Comment: LAB Troponin High-Sensitivity Troponin I assay effective May 04, 2020. Please be aware of the change in reporting units & reference ranges. Biotin concentrations >300 ng/mL may lead to falsely depressed patient results. Specimen Blood - Venous blood specimen (specimen) Performing Organization Address City/State/ZIP Code P di Number [facility] [address] [place] [phone] * T4, Free (02/20/2021 8:19 PM CDT) Free T4 1.23 0.70 - 1.48 ng/dL [facility] Specimen Blood - Venous blood specimen (specimen) Performing Organization Address City/State/ZIP Code P di Number [facility] [address] [address] * CT HEAD WO CONTRAST (02/20/2021 8:12 PM CDT) Modality Anatomical Region Laterality Computed Tomography Head and Neck Specimen Narrative ARDENT INTERFACE - 02/20/2021 8:45 PM CDT +++ REPORT GENERATED IN [employer] +++ EXAM: CT Head without IV contrast [...] MD - 02/20/2021 +++ REPORT GENERATED IN [employer] +++ EXAM: CT Head without IV contrast [...] Organization Address City/State/ZIP Code P di Number UTDENT INTERFACE [address] [place], [place] [address] * SARS CoV-2, Influenza A/B and RSV (02/20/2021 8:03 PM CDT) Influenza A by Negative Negative [facility] RT-PCR LAB Influenza B by Negative Negative [facility] RT-PCR LAB RSV by RT-PCR Negative Negative [facility] SARS CoV-2 Negative Negative [facility] Comment: LAB The Xpert Xpress SARS-CoV-2/Flu/RSV test [...] characteristics and have been verified by [facility]. This test is only authorized for the duration of the declaration under section 564 (b)(1) of the Act, 21 U.S.C. 360bbb-3 (b)(1). 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
--- OUTSIDE RECORDS SUMMARY | 2021-03-22 11:57 | XMS REPORT | Clinical Summary ---
Author Author [facility] Organization [facility] Address Unknown Phone Unavailable Care Team Providers Care Websphere Process Server Developer Name Role Phone Self, Troy FIGUEREDO PCP Source Comments Some departments are not documenting in the electronic medical record. If you d o not see the information that you expected, contact Release of Information in [facility] Service Information Management department at [phone] for further assistan ce in locating additional records.[facility] Allergies No known active allergies Medications End Date Status Medication Sig Dispensed [...] therapy) vitamin D deficiency (high dose therapy) Active [...] MD Scheduling 02/25/2021 Telephone Hepatology Bekah Arthur APRN-STRATEGIC MARKETING MANAGER Other cirrhosis of liver (HCC) (Primary Dx); BROWN (nonalcoholic steatohepatitis); Dietary counseling 02/18/2021 Office Visit Hepatology Telehealth Roque Klein MD 02/18/2021 Orders Only Hepatology Bekah Arthur APRN-STRATEGIC MARKETING MANAGER 02/17/2021 Documentation Hepatology 02/17/2021 Travel Erick Alberto Other cirrhosis of liver (HCC); BROWN (nonalcoholic steatohepatitis) 02/08/2021 Orders Only Hepatology Ciarra Powell, MILES Other cirrhosis of liver (HCC); BROWN (nonalcoholic steatohepatitis); Dietary counseling 02/05/2021 Orders Only Transplant Surgery Pati, Kyle Other cirrhosis of liver (HCC); BROWN (nonalcoholic steatohepatitis) 02/04/2021 Orders Only Transplant Surgery Edison, Kyle Other cirrhosis of liver (HCC); BROWN (nonalcoholic [...] Date Recorded Male 08/26/2019 11:50 AM CDT Last Filed Vital Signs Reading Time Taken [...] 2.4 LABDE INTERFACE Protein Specimen Blood Narrative LABDE INTERFACE - 02/03/2021 12:00 AM CDT Outside Lab Verified by Kyle Pati on 02/03/2021. Performing Organization Address City/State/ZIP Code P di Number LABDE INTERFACE * 25-OH VITAMIN D (D2 + D3) (01/29/2021 2:27 PM CDT) Vitamin 20.9 (L) 30.0 - 100.0 LAB[facility] INTERFACE D(25-OH)Total Specimen Blood Narrative LABDE INTERFACE - 02/03/2021 12:00 AM CDT Outside Lab Verified by Kyle Edison on 02/03/2021. Performing Organization Address City/State/ZIP Code P di Number LABDE INTERFACE * PROTIME INR (PT) (01/29/2021 2:27 PM CDT) Protime 18.8 (H) 12.2 - 14.7 SEC LABDE INTERFAC E INR 1.5 (H) 0.8 - 1.4 LAB[facility] INTERFACE Specimen Blood Narrative LABDE INTERFACE - 02/04/2021 12:00 AM CDT Outside Lab Verified by Kyle Krugeer on 02/04/2021. Performing Organization Address City/State/ZIP Code [...] LABDE INTERFACE Basophil Count Specimen Blood Narrative LABDE INTERFACE - 02/03/2021 12:00 AM CDT Outside Lab Verified by Kyle Krueger on [...] 40 MG/DL LABDE INTERFACE Specimen Blood Narrative LABDE INTERFACE - 02/05/2021 12:00 AM CDT Outside Lab Verified by Kyle Krueger on [...] GM/DL LABDE INTERFAC E Specimen Blood Narrative LABDE INTERFACE - 02/04/2021 12:00 AM CDT Outside Lab Verified by Kyle Krueger on 02/04/2021. Performing Organization Address City/State/ZIP Code P di Number LABDE INTERFACE * MRI ABD WO/W CONTRAST (01/29/2021) Modality Anatomical Region Laterality Other Abdomen Narrative Performing Organization Address City/State/ZIP Code P di Number [facility] from Last 3 Months Insurance Type Payer Benefit Subscriber ID Effective Phone Address Plan / Dates Group Medicare MEDICARE MEDICARE [id number] 2008-P [phone] [place] [address] PPO [employer] [id number] 2013- [address] [place] [address] [address] [place] [phone] Advance Directives Patient Client Care Manager Explanation Type Date Recorded Advance Directive/DPOA Care Teams Start Date End Date Websphere Process Server Developer Relationship Specialty 08/15/19 Self, MD Troy PCP - General Family [address] [place] [address] [place] [address]
--- OUTSIDE RECORDS SUMMARY | 2021-03-22 11:57 | XMS REPORT | Encounter Summary ---
Author Author [facility] Organization [facility] Address Unknown Phone Unavailable Care Team Providers Care Direct Sales Consultant Name Role Phone Self, Troy FIGUREEDO PCP Reason for Visit * Reason Comments Altered Mental Status Nausea Vomiting * Auth/Cert Diagnoses / Procedures Referred By Contact Referred To Conta ct Specialty Diagnoses Hepatic encephalopathy (HCC) Procedures x Referral ID Status Reason Start Date Expiration Visits Vi sits Date Requested Authorized [id number] 1 1 Encounter Details Care Team Description Date Type Department Michel Bradshaw MD [address] [place] [id number] Jae Karimi MD [address] [place] [address] Janes Padgett MD [address] [place] [address] Chinyere Barbosa RN Namin, Farid, MD [address] [address] Nazia Wood RN Gaps, Alissa, RN Curry, Lexi Pryor, Gerard, RN Baxter, Sharon D Price, Laura, [facility] Jose L Nuñez RN Woods, Jimena Holguin, Olga Rucker, Ian Rosario, José Miguel Rm, [facility] Shana Yousif, RN Hepatic encephalopathy (HCC) (Primary Dx ) 02/20/2021 [facility] Kristen jackman 02/22/2021 [place] 6th Floor Medical Surgical Unit [address] [place] [address] Social History Date Tobacco Use [...] Padgett MD - 02/22/2021 1:49 PM CDT [facility] Emergency Department Inpatient Hospitalist Service at [facility] DISCHARGE SUMMARY Date of Admission: 02/20/2021 Date of Discharge: 02/22/2021 Status: Inpatient Patient: Nasir Squires Date of : 1945 PCP: Troy Ramos MD Hospital: [facility] Code: Full Code Primary Diagnosis: Hepatic encephalopathy [...] AREDS-2 250-90-40-1 mg capsule Generic drug: vit C,O-Bv-ggqkx-lutein-zeaxan Protonix [address] for susp [...] Your Medications These medications were sent to [facility] Mail Delivery - [place], [place] - [address] [facility] [address] [facility], [facility] [address] lactulose solution PENDING RESULTS: Pertinent Procedures (Date, [...] the PCP, Troy Ramos MD. Fax number: [phone] The discharge plan was discussed with the [...] through Care Everywhere.* Hepatic Encephalopathy Discharge Instructions (Belizean) * Lactulose, ADULT (Belizean) documented in this encounter Medications at Time [...] mg tablet mouth daily. vit See 0 C,G-Ff-xlaxa-lutein-zeaxa administratio n (PreserVision AREDS-2) n 250-90-40-1 mg capsule instructions. documented as of this encounter Progress Notes * Maricel Mcmullen APRN - 02/22/2021 9:30 AM CDT The [address] [address] Gastroenterology Progress Note Patient: Nasir Squires : 1945 Admitted: 02/20/2021 Subjective: Feeling good this morning. Denies further abdominal pain/nausea. He is answering questions appropriately. A&Ox3. Spouse at bedside. Treatment discussed regarding HE. He follows with Dr. Klein at [facility] since 2016. Has him on Mirlax BID [...] Date: 02/20/2021 Narrative: +++ REPORT GENERATED IN [email or web address] +++ EXAM: CT Head without IV contrast [...] & are consistent with labs done at [facility] on 01/29. Hepatic encephalopathy - clinically improving [...] Karimi MD - 02/20/2021 9:21 PM CDT [facility] Emergency Department Inpatient Hospitalist Service at [facility] HISTORY & PHYSICAL Patient: Nasir Squires [...] mg by mouth daily. at 0630 vit C,Y-Fw-dsrct-lutein-zeaxan (PreserVision AREDS-2) 250-90-40-1 mg capsule See administration [...] Friends and Family: Not on file Attends Church Services: Not on file Active Member of [...] Negative Negative Ketones, UA Negative Negative Specific [place], Urine 1.006 1.005 - 1.030 Blood, UA [...] note was completely or partially dictated using Ecomsual speak, Please note that there may be [...] Friends and Family: Not on file Attends Church Services: Not on file Active Member of [...] 100 mL/hr, Last Rate: 100 mL/hr (02/20/21 2634) REVIEW OF SYSTEMS: Review of Systems HENT: [...] Negative Negative Ketones, UA Negative Negative Specific [place], Urine 1.006 1.005 - 1.030 Blood, UA [...] Contains critical dataCBC with Auto Differential Order: [id number] Status: Final result Visible to patient: No [...] Ratio 1.0 - 1.8 0.5Low Resulting Agency [facility] Specimen Collected: 02/20/21 20:19 RADIOLOGY DATA: +++ REPORT GENERATED IN [email or web address] +++ EXAM: CT Head without IV contrast [...] discontinued without complication. Patient accom panied by JIGSAW OPERATOR and discharged via wheelchair. Patient given after-visit [...] from the original note were not included. [address] [place] [phone] [email or web address] Name: Nasir Squires : 1945 CSN: [id number] PCP: Troy Ramos MD Date: 02/20/2021 CHIEF [...] Friends and Family: Not on file Attends Church Services: Not on file Active Member of [...] Result Date: 02/20/2021 +++ REPORT GENERATED IN [email or web address] +++ EXAM: CT Head without IV contrast INDICATION : Altered mental sensorium TECHNIQUE: Multi-detector row CT images were obtained of the head without the use of IV contrast. All CT scans performed at this [facility] utilize dose optimization techniques as appropriate to [...] Bilirubin, UA Negative Ketones, UA Negative Specific [place], Urine 1.006 Blood, UA Negative pH, UA [...] Procedure Abnormality Status --------- ------ Light Green Top[[id number]] Final result Please view results for these [...] software. There may be unintentional errors in petal cutter. Attempts have been made to review the [...] free of falls 02/22/2021 1527 by Ian Rukcer RN Outcome: Adequate for Discharge 02/22/2021 1240 [...] and family agree with discharge plan? No client program manager offered patient choice? 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 reports [...] LAB Smudge Cells Present (A) None Seen [facility] WBC Comment DIFF PERFORMED WITH ALBUMIN [facility] HOSPI ANA SMEAR LAB Specimen Blood - Venous blood specimen (specimen) Performing Organization Address City/[facility]/ZIP [place] P di Number [facility] [address] [place] [address] [phone] * Manual Differential (02/22/2021 7:19 AM CDT) Neutrophils, 41 36 - 66 % [facility] Manual LAB Lymphocytes, 37 24 - 44 % [facility] Manual LAB Monocytes, 12 (H) 1 - 10 % [facility] Manual LAB Eosinophils, 6 0 - 10 % [facility] Manual LAB Basophils, 3 (H) 0 - 1 % [facility] Manual LAB Bands, Manual 1 (L) 5 - 11 % [facility] Cells Counted 100 COUNTED [facility] Absolute 1.05 (L) 1.55 - 7.13 K/uL [facility] Neutrophil LAB Count Lymphocytes, 0.92 (L) 1.00 - 4.80 K/uL [facility] Abs, Manual LAB Monocytes, Abs. 0.30 (L) 0.40 - 1.08 K/uL [facility] Manual LAB Eosinophils, 0.15 0.00 - 0.65 K/uL [facility] Abs. Manual LAB Basophils, Abs 0.07 0.00 - 0.11 K/uL [facility] Manual LAB WBC Comment DIFF PERFORMED WITH ALBUMIN [facility] HOSPI ANA SMEAR LAB Specimen Blood - Venous blood specimen (specimen) Performing Organization Address City/[facility]/ZIP [place] P di Number [facility] [address] [place] [phone] * Ammonia (02/22/2021 7:19 AM CDT) Ammonia 83 (H) 11 - 32 umol/L [facility] Specimen Blood - Venous blood specimen (specimen) Performing Organization Address City/[facility] P di Number [facility] [address] [place] [phone] * CBC with Auto Differential (02/22/2021 7:19 AM CDT) WBC 2.49 (L) 4.30 - 10.80 K/uL [facility] RBC 2.66 (L) 4.70 - 6.10 M/uL [facility] Hemoglobin 10.6 (L) 14.0 - 18.0 g/dL [facility] Hematocrit 30.9 (L) 42.0 - 52.0 % [facility] MCV 116 (H) 81 - 99 fL [facility] MCH 39.8 (H) 26.0 - 34.0 pg [facility] MCHC 34.3 31.0 - 37.0 g/dL [facility] MPV 12.2 9.4 - 12.4 fL [facility] Platelets 25 (LL)Comment: This result 150 - 400 K/uL [facility] has been called to IAN RUCKER by Sheryl Green on 02 22 2021 at 0736, and has been read back. RDW 16.0 (H) 11.5 - 14.5 % [facility] RDW-SD 67.9 (H) 35.1 - 43.9 fL [facility] Nucleated RBC, 0.00 0.00 K/uL [facility] Absolute LAB Nucleated RBC 0.0 0.0 /100 WBC [facility] Specimen Blood - Venous blood specimen (specimen) Performing Organization Address [facility] P di Number [facility] [address] [place] [phone] * Comprehensive Metabolic Panel (02/22/2021 7:19 AM CDT) Sodium 142 136 - 145 mmol/L [facility] Potassium 4.0 3.5 - 5.1 mmol/L [facility] Chloride 114 (H) 98 - 107 mmol/L [facility] CO2 23 21 - 32 mmol/L [facility] Anion Gap 5 5 - 15 mmol/L [facility] BUN 11 8 - 26 mg/dL [facility] Creatinine 0.67 0.55 - 1.30 mg/dL [facility] Glucose 102 70 - 115 mg/dL [facility] Calcium 7.9 (L) 8.5 - 10.0 mg/dL [facility] Total Protein 5.4 (L) 6.0 - 8.3 g/dL [facility] Albumin 1.9 (L) 3.4 - 5.0 g/dL [facility] Bilirubin, 1.6 (H) 0.2 - 1.0 mg/dL [facility] Total LAB Alkaline 74 45 - 117 U/L [facility] Phosphatase LAB ALT 20 16 - 61 U/L [facility] AST 26 15 - 37 U/L [facility] Estimated GFR 115 >=60 mL/min/1.73m2 [facility] HOSPITA L Comment: LAB GFR <60: CHRONIC KIDNEY DISEASE,if found over a 3 month period. GFR <15: KIDNEY FAILURE Globulin 3.5 g/dL [facility] A/G Ratio 0.5 (L) 1.0 - 1.8 [facility] Specimen Blood - Venous blood specimen (specimen) Performing Organization Address City/[facility] Code P di Number [facility] [address] [place] [address] * Ammonia (02/21/2021 8:14 AM CDT) Ammonia 106 (H) 11 - 32 umol/L [facility] Specimen Blood - Venous blood specimen (specimen) Performing Organization Address City/[facility] P di Number [facility] [address] [place] [phone] * CBC with Auto Differential (02/21/2021 8:14 AM CDT) WBC 2.66 (L) 4.30 - 10.80 K/uL [facility] RBC 2.79 (L) 4.70 - 6.10 M/uL [facility] Hemoglobin 10.9 (L) 14.0 - 18.0 g/dL [facility] Hematocrit 31.7 (L) 42.0 - 52.0 % [facility] MCV 114 (H) 81 - 99 fL [facility] MCH 39.1 (H) 26.0 - 34.0 pg [facility] MCHC 34.4 31.0 - 37.0 g/dL [facility] MPV 11.6 9.4 - 12.4 fL [facility] Platelets 30 (LL)Comment: This result 150 - 400 K/uL [facility] has been called to SON IRIZARRY RN 6TH by Génesis Morrison on 02 21 2021 at 0841, and has been read back. RDW 15.9 (H) 11.5 - 14.5 % [facility] RDW-SD 66.6 (H) 35.1 - 43.9 fL [facility] Nucleated RBC, 0.00 K/uL [facility] Absolute LAB Nucleated RBC 0.0 0.0 /100 WBC [facility] Neutrophils 51.8 13.0 - 69.0 % [facility] Lymphocytes 27.1 24.0 - 44.0 % [facility] Monocytes 14.7 (H) 1.0 - 10.0 % [facility] Eosinophils 4.5 0.0 - 6.0 % [facility] Basophils 1.1 0.0 - 2.0 % [facility] Immature 0.8 (H) 0.0 - 0.5 % [facility] Granulocytes LAB Neutrophils, 1.38 (L) 1.55 - 7.13 K/uL [facility] Absolute LAB Lymphocytes, 0.72 (L) 1.00 - 4.80 K/uL [facility] Absolute LAB Monocytes, 0.39 (L) 0.40 - 1.08 K/uL [facility] Absolute LAB Eosinophils, 0.12 0.00 - 0.65 K/uL [facility] Absolute LAB Basophils, 0.03 0.00 - 0.11 K/uL [facility] Absolute LAB Immature 0.02 0.00 - 0.10 K/uL [facility] Granulocytes, LAB Absolute Specimen Blood - Venous blood specimen (specimen) Performing Organization Address City/State/ZIP Code P di Number [facility] [address] [place] [phone] * Comprehensive Metabolic Panel (02/21/2021 8:14 AM CDT) Sodium 144 136 - 145 mmol/L [facility] Potassium 4.0 3.5 - 5.1 mmol/L [facility] Chloride 113 (H) 98 - 107 mmol/L [facility] CO2 25 21 - 32 mmol/L [facility] Anion Gap 6 5 - 15 mmol/L [facility] BUN 11 8 - 26 mg/dL [facility] Creatinine 0.70 0.55 - 1.30 mg/dL [facility] Glucose 112 70 - 115 mg/dL [facility] Calcium 7.9 (L) 8.5 - 10.0 mg/dL [facility] Total Protein 5.7 (L) 6.0 - 8.3 g/dL [facility] Albumin 2.1 (L) 3.4 - 5.0 g/dL [facility] Bilirubin, 1.6 (H) 0.2 - 1.0 mg/dL [facility] Total LAB Alkaline 78 45 - 117 U/L [facility] Phosphatase LAB ALT 20 16 - 61 U/L [facility] AST 27 15 - 37 U/L [facility] Estimated GFR 109 >=60 mL/min/1.73m2 [facility] Comment: LAB GFR <60: CHRONIC KIDNEY DISEASE,if found over a 3 month period. GFR <15: KIDNEY FAILURE Globulin 3.6 g/dL [facility] A/G Ratio 0.6 (L) 1.0 - 1.8 [facility] Specimen Blood - Venous blood specimen (specimen) Performing Organization Address City/State/ZIP Code P di Number [facility] [address] [address] [phone] * Urinalysis with microscopic Urine, Clean Catch (02/20/2021 9:07 PM CDT) Color, UA Light Yellow Light Yellow, [facility] Yellow, Colorless LAB Clarity, UA Clear Clear [facility] Glucose, UA Negative Negative [facility] Bilirubin, UA Negative Negative [facility] Ketones, UA Negative Negative [facility] Specific 1.006 1.005 - 1.030 [facility] [place], Urine LAB Blood, UA Negative Negative [facility] pH, UA 7.0 5.0 - 9.0 [facility] Protein, UA Negative Negative [facility] Urobilinogen, 4 (A) Normal mg/dL [facility] UA LAB Nitrite, UA Negative Negative [facility] Leukocyte Negative Negative [facility] Esterase, UA LAB WBC, UA 1 0 - 4 /HPF [facility] RBC, UA <1 0 - 1 /HPF [facility] Bacteria, UA None Seen None Seen /HPF [facility] Mucus, UA Rare (A) Negative /LPF [facility] Specimen Urine - Urine specimen obtained by clean catch procedure (specimen) Performing Organization Address [facility]/ZIP Code P di Number [facility] [address] [place] [address] [phone] * POCT Troponin I (02/20/2021 8:23 PM CDT) POC Troponin I <0.02 <0.08 ng/mL [facility] Comment: LAB A solitary troponin value may be misleading. Two or more values may be needed to determine clinical significance. Specimen Blood - Blood specimen (specimen) Performing Organization Address [facility] P di Number [facility] [address] [place] [address] * T4, Free (02/20/2021 8:19 PM CDT) Free T4 1.23 0.70 - 1.48 ng/dL [facility] Specimen Blood - Venous blood specimen (specimen) Performing Organization Address [facility] P di Number [facility] [address] [place] [address] * Light Green Top (02/20/2021 8:19 PM CDT) Extra Tube Yes [facility] Specimen Blood - Venous blood specimen (specimen) Performing Organization Address [facility] P di Number [facility] [address] [place] [address] [phone] * TSH w/Reflex Free T4 (02/20/2021 8:19 PM CDT) TSH 0.243 (L) 0.350 - 4.900 uIU/mL [facility] Specimen Blood - Venous blood specimen (specimen) Performing Organization Address [facility] P di Number [facility] [address] [place] [address] * Ammonia (02/20/2021 8:19 PM CDT) Ammonia 116 (H) 11 - 32 umol/L [facility] Specimen Blood - Venous blood specimen (specimen) Performing Organization Address City/[facility]/ZIP Code P di Number [facility] [address] [address] * Troponin I (02/20/2021 8:19 PM CDT) High 9.2 <78.5 ng/L [facility] Sensitivity Comment: LAB Troponin High-Sensitivity Troponin I assay effective May 04, 2020. Please be aware of the change in reporting units & reference ranges. Biotin concentrations >300 ng/mL may lead to falsely depressed patient results. Specimen Blood - Venous blood specimen (specimen) Performing Organization Address City/[facility] P di Number [facility] [address] [address] * Comprehensive Metabolic Panel (02/20/2021 8:19 PM CDT) Sodium 142 136 - 145 mmol/L [facility] Potassium 4.0 3.5 - 5.1 mmol/L [facility] Chloride 110 (H) 98 - 107 mmol/L [facility] CO2 25 21 - 32 mmol/L [facility] Anion Gap 7 5 - 15 mmol/L [facility] BUN 15 8 - 26 mg/dL [facility] Creatinine 0.78 0.55 - 1.30 mg/dL [facility] Glucose 122 (H) 70 - 115 mg/dL [facility] Calcium 8.1 (L) 8.5 - 10.0 mg/dL [facility] Total Protein 6.6 6.0 - 8.3 g/dL [facility] Albumin 2.2 (L) 3.4 - 5.0 g/dL [facility] Bilirubin, 1.1 (H) 0.2 - 1.0 mg/dL [facility] Total LAB Alkaline 91 45 - 117 U/L [facility] Phosphatase LAB ALT 22 16 - 61 U/L [facility] AST 32 15 - 37 U/L [facility] Estimated GFR 97 >=60 mL/min/1.73m2 [facility] HOSPITA L Comment: LAB GFR <60: CHRONIC KIDNEY DISEASE,if found over a 3 month period. GFR <15: KIDNEY FAILURE Globulin 4.4 g/dL [facility] A/G Ratio 0.5 (L) 1.0 - 1.8 [facility] Specimen Blood - Venous blood specimen (specimen) Performing Organization Address City/State/ZIP Code P di Number [facility] [address] [address] * CBC with Auto Differential (02/20/2021 8:19 PM CDT) WBC 3.32 (L) 4.30 - 10.80 K/uL [facility] RBC 2.97 (L) 4.70 - 6.10 M/uL [facility] Hemoglobin 11.9 (L) 14.0 - 18.0 g/dL [facility] Hematocrit 34.0 (L) 42.0 - 52.0 % [facility] MCV 112 (H) 81 - 99 fL [facility] MCH 40.1 (H) 26.0 - 34.0 pg [facility] MCHC 35.0 31.0 - 37.0 g/dL [facility] MPV 12.0 9.4 - 12.4 fL [facility] Platelets 37 (LL)Comment: This result 150 - 400 K/uL [facility] has been called to NAKUL BARBOSA RN by Garrett Hudson on 02 20 2021 at 2044, and has been read back. RDW 15.7 (H) 11.5 - 14.5 % [facility] RDW-SD 66.2 (H) 35.1 - 43.9 fL [facility] Nucleated RBC, 0.00 0.00 K/uL [facility] Absolute LAB Nucleated RBC 0.0 0.0 /100 WBC [facility] Neutrophils 55.1 36.0 - 66.0 % [facility] Lymphocytes 23.5 (L) 24.0 - 44.0 % [facility] Monocytes 16.6 (H) 1.0 - 10.0 % [facility] Eosinophils 3.6 0.0 - 6.0 % [facility] Basophils 0.9 0.0 - 2.0 % [facility] Immature 0.3 0.0 - 0.5 % [facility] Granulocytes LAB Neutrophils, 1.83 1.55 - 7.13 K/uL [facility] Absolute LAB Lymphocytes, 0.78 (L) 1.00 - 4.80 K/uL [facility] Absolute LAB Monocytes, 0.55 0.40 - 1.08 K/uL [facility] Absolute LAB Eosinophils, 0.12 0.00 - 0.65 K/uL [facility] Absolute LAB Basophils, 0.03 0.00 - 0.11 K/uL [facility] Absolute LAB Immature 0.01 0.00 - 0.10 K/uL [facility] Granulocytes, LAB Absolute Specimen Blood - Venous blood specimen (specimen) Performing Organization Address City/State/ZIP Code P di Number [facility] [address] [place] [address] [phone] * CT HEAD WO CONTRAST (02/20/2021 8:12 PM CDT) Modality Anatomical Region Laterality Computed Tomography Head and Neck Specimen Narrative ARDENT INTERFACE - 02/20/2021 8:45 PM CDT +++ REPORT GENERATED IN [email or web address] +++ EXAM: CT Head without IV contrast [...] MD - 02/20/2021 +++ REPORT GENERATED IN [email or web address] +++ EXAM: CT Head without IV contrast [...] Organization Address City/State/ZIP Code P di Number [facility] [address] [place], [place] [address] * SARS CoV-2, Influenza A/B and RSV (02/20/2021 8:03 PM CDT) Influenza A by Negative Negative [facility] RT-PCR LAB Influenza B by Negative Negative [facility] RT-PCR LAB RSV by RT-PCR Negative Negative [facility] SARS CoV-2 Negative Negative [facility] Comment: LAB The Xpert Xpress [...] characteristics and have been verified by [facility]. This test is only authorized for the duration of the declaration under section 564 (b)(1) of the Act, 21 U.S.C. 360bbb-3 (b)(1). Specimen Swab - Nasopharyngeal swab (specimen) Performing Organization Address City/State/ZIP Code P di Number [facility] [address] [address] documented in this encounter Visit Diagnoses Diagnosis [...] and active vomiting- use IV route If [employer] [place] and unable to use IV access- use [place] route For all others- use PO route [...] and active vomiting- use IV route If [employer] [place] and unable to use IV access- use [place] route For all others- use PO route documented in this encounter Additional Health Concerns Onset Date Resolved Time Infection Last Indicated 02/20/2021 02/20/2021 8:51 PM CDT COVID-19 (suspected) 02/20/2021 documented as of this encounter Care Teams Start Date End Date Direct Sales Consultant Relationship Specialty 02/20/21 Troy Ramos MD PCP - [address] [id number] documented as of this encounter
== END 2021-03-21 20:17 | disposition home or self-care (01) ==
LOC: EDUNIT# 19:39 → ER FS 19:43
DX: S42.211D Unspecified displaced fracture of surgical neck of right humerus, subsequent encounter for fracture with routine healing (principal); E78.00 Pure hypercholesterolemia, unspecified; E11.9 Type 2 diabetes mellitus without complications; Z79.899 Other long term (current) drug therapy; W19.XXXD Unspecified fall, subsequent encounter
CPT/HCPCS: 73110

== ENCOUNTER → 2021-03-22 | Outpatient (CLI) | payer MEDICARE, OTHER ==
--- NOTE | 2021-03-22 11:20 | Diagnostic Imaging Report ---
US VENOUS UPPER EXT RT Technique: Grayscale, color Doppler and spectral Doppler imaging of the right upper extremity venous structures was performed. Comparison: None available. Findings: The right internal jugular, axillary, brachial, radial and ulnar veins are patent without evidence of DVT. All of the evaluated deep venous structures demonstrate normal compressibility and waveform augmentation where applicable. Evaluation of the superficial basilic and cephalic veins demonstrate normal patency without thrombosis. Impression: No right upper extremity deep venous thrombosis (DVT). Dictated by: Dictated on workstation # [id number]
== END ==
LOC: RAD 10:00
PROVIDERS: ATTEND Emergency Medicine
DX: M79.89 Other specified soft tissue disorders (principal)

== ENCOUNTER → 2021-03-30 | Outpatient (CLI) | payer MEDICARE, OTHER ==
--- NOTE | 2021-03-30 11:50 | Diagnostic Imaging Report ---
INDICATION: Follow-up of fracture of right humerus. COMPARISON: 03/07/2021. FINDINGS: The surgical neck fracture of the humerus with minimal impaction is again noted. The humeral head shows minimal inferior subluxation with respect to the glenoid. No evidence of dislocation. There is a large Hill-Sachs deformity along the humeral head. No significant callus formation has developed. IMPRESSION: Minimally impacted humeral neck fracture on the right with mild subluxation of the humeral head with respect to the glenoid. Dictated by: Dictated on workstation # [id number]
== END ==
LOC: RAD FS 10:52
PROVIDERS: ATTEND Nurse Practitioner
DX: S42.221D 2-part displaced fracture of surgical neck of right humerus, subsequent encounter for fracture with routine healing (principal); X58.XXXD Exposure to other specified factors, subsequent encounter
CPT/HCPCS: 73030

== ENCOUNTER → 2021-04-15 | Outpatient (CLI) | payer MEDICARE, OTHER ==
--- NOTE | 2021-04-15 10:04 | Diagnostic Imaging Report ---
INDICATION: Right humeral fracture. TECHNIQUE: AP, oblique and transscapular views of right shoulder are obtained. FINDINGS: Since 03/30/2021, there is continued visualization of the fracture at the junction of humeral shaft and neck. There does appear to be mild impaction which may be slightly increased when compared to previous study. There is mild comminution of the distal fracture fragment with inferior subluxation of the humeral head with respect to the glenoid process. IMPRESSION: Impacted comminuted proximal humeral shaft fracture with inferior subluxation which may be due to hemarthrosis. Dictated by: Dictated on workstation # [id number]
== END ==
LOC: RAD FS 08:36
PROVIDERS: ATTEND Nurse Practitioner
DX: S42.221D 2-part displaced fracture of surgical neck of right humerus, subsequent encounter for fracture with routine healing (principal); X58.XXXD Exposure to other specified factors, subsequent encounter
CPT/HCPCS: 73030

== ENCOUNTER 2021-04-18 09:01 | Emergency (ER) | payer MEDICARE, OTHER ==
[~2021-04-18] VITALS: Ht 172.7 cm; Wt 90.7 kg
--- OUTSIDE RECORDS SUMMARY | 2021-04-18 09:05 | XMS REPORT | Encounter Summary ---
Author Author [facility] Organization [facility] Address Unknown Phone Unavailable Care Team Providers Care Synchronous Motor Assembler Name Role Phone Self, Troy FIGUEREDO PCP Reason for Visit * Reason Comments Altered Mental Status Nausea Vomiting * Auth/Cert Diagnoses / Procedures Referred By Contact Referred To Conta ct Specialty Diagnoses Hepatic encephalopathy (HCC) Procedures x Referral ID Status Reason Start Date Expiration Visits Vi sits Date Requested Authorized [id number] 1 1 Encounter Details Care Team Description Date Type Department Michel Bradshaw MD [address] [place] [address] Jae Karimi MD [address] [place] [address] Janes Padgett MD [address] [place] [address] Chinyere Barbosa RN Namin, Farid, MD [address] [address] Nazia Wood RN Gaps, Alissa, RN Curry, Lexi Pryor, Gerard, RN Baxter, Sharon D Price, Laura, [facility] Jose L Nuñez RN Woods, Jimena Holguin, Olga Rucker, Ian Rosario, José Miguel Rm, [facility] Shana Yousif, RN Hepatic encephalopathy (HCC) (Primary Dx ) 02/20/2021 [facility] Kristen jackman 02/22/2021 [facility] 6th Floor [facility] [address] [place] [address] Social History Date Tobacco Use [...] [facility] [place] [facility] Service at [facility] DISCHARGE SUMMARY Date of Admission: 02/20/2021 Date of Discharge: 02/22/2021 Status: Inpatient Patient: Nasir Squires Date of : 1945 PCP: Troy Ramos MD Hospital: [facility] Code: Full Code Primary Diagnosis: Hepatic encephalopathy [...] AREDS-2 250-90-40-1 mg capsule Generic drug: vit C,B-Ak-mopjx-lutein-zeaxan Protonix [address] for susp [...] Your Medications These medications were sent to [facility] Mail Delivery - [place], [place] - [address] [facility] [address] [facility], [facility] [address] lactulose solution PENDING RESULTS: Pertinent Procedures (Date, [...] the PCP, Troy Ramos MD. Fax number: [phone] The discharge plan was discussed with the [...] through Care Everywhere.* Hepatic Encephalopathy Discharge Instructions (Mosotho) * Lactulose, ADULT (Mosotho) documented in this encounter Medications at Time of Discharge Start Date End Date Medication Sig Dispensed Refills atorvastatin (Lipitor) 10 1 (one) time 0 mg tablet each day at the same time. enzalutamide (XTANDI) 40 Take 160 mg 0 mg chemo capsule by mouth daily. furosemide (Lasix) 40 mg if needed. 0 tablet levothyroxine (Synthroid) 1 (one) time 0 125 mcg tablet each day at the same time. levothyroxine (Synthroid) 1 (one) time 0 125 mcg tablet each day at the same time. liraglutide (Victoza Inject 2.1 mg 0 3-Steve) 0.6 mg/0.1 mL (18 under the mg/3 mL) injection skin 1 (one) time each day. pantoprazole (Protonix) 1 (one) time [address] for each day at susp in packet the same time. 05/29/2020 rifAXIMin (XIFAXAN) 550 Take 550 mg 0 mg tablet by mouth every 12 hours. spironolactone Take 25 mg by 0 (ALDACTONE) 25 mg tablet mouth daily. vit See 0 C,F-In-sjyfw-lutein-zeaxa administratio n (PreserVision AREDS-2) n 250-90-40-1 mg capsule instructions. 02/22/2021 03/24/2021 lactulose (CHRONULAC) Take 30 mL 946 mL 0 solution (20 g total) by mouth 1 (one) time each day. documented as of this encounter Progress Notes * Maricel Mcmullen APRN - 02/22/2021 9:30 AM CDT The [address] [address] Gastroenterology Progress Note Patient: Nasir Squires : 1945 Admitted: 02/20/2021 Subjective: Feeling good this morning. Denies further abdominal pain/nausea. He is answering questions appropriately. A&Ox3. Spouse at bedside. Treatment discussed regarding HE. He follows with Dr. Klein at [facility] since 2016. Has him on Mirlax BID [...] Date: 02/20/2021 Narrative: +++ REPORT GENERATED IN opendorse +++ EXAM: CT Head without IV contrast [...] & are consistent with labs done at [facility] on 01/29. Hepatic encephalopathy - clinically improving [...] [facility] [place] [facility] at [facility] HISTORY & PHYSICAL Patient: Nasir Squires [...] mg by mouth daily. at 0630 vit C,K-Cf-wmbmy-lutein-zeaxan (PreserVision AREDS-2) 250-90-40-1 mg capsule See administration [...] Friends and Family: Not on file Attends Hindu Services: Not on file Active Member of [...] Negative Negative Ketones, UA Negative Negative Specific [place], Urine 1.006 1.005 - 1.030 Blood, UA [...] note was completely or partially dictated using Glocal speak, Please note that there may be [...] Friends and Family: Not on file Attends Hindu Services: Not on file Active Member of [...] 100 mL/hr, Last Rate: 100 mL/hr (02/20/21 0115) REVIEW OF SYSTEMS: Review of Systems HENT: [...] Negative Negative Ketones, UA Negative Negative Specific [place], Urine 1.006 1.005 - 1.030 Blood, UA [...] Contains critical dataCBC with Auto Differential Order: [id number] Status: Final result Visible to patient: No [...] - 1.8 0.5Low Resulting Agency [facility] Specimen Collected: 02/20/21 20:19 RADIOLOGY DATA: +++ REPORT GENERATED IN opendorse +++ EXAM: CT Head without IV contrast [...] discontinued without complication. Patient accom panied by CUSTOM CAR BUILDER and discharged via wheelchair. Patient given after-visit [...] from the original note were not included. [address] [place] [phone] [email or web address] Name: Nasir Squires : 1945 CSN: [id number] PCP: Troy Ramos MD Date: 02/20/2021 CHIEF COMPLAINT Chief Complaint Patient presents with Altered Mental Status Nausea Vomiting HPI aNsir Squires is a 75 y.o. male with [...] Friends and Family: Not on file Attends Hindu Services: Not on file Active Member of [...] Result Date: 02/20/2021 +++ REPORT GENERATED IN opendorse +++ EXAM: CT Head without IV contrast INDICATION : Altered mental sensorium TECHNIQUE: Multi-detector row CT images were obtained of the head without the use of IV contrast. [facility] utilize dose optimization techniques as appropriate [...] Bilirubin, UA Negative Ketones, UA Negative Specific [place], Urine 1.006 Blood, UA Negative pH, UA [...] Procedure Abnormality Status --------- ------ Light Green Top[[id number]] Final result Please view results for these [...] software. There may be unintentional errors in ground host/hostess. Attempts have been made to review the [...] and family agree with discharge plan? No field operations farm manager offered patient choice? No (Denies need.) [...] and spills Keep all lockable equipment/furniture locked [place] patient to environment Adjust bed with adjustable [...] Management Assessment Pt resides with his supportive lead systems architect spouse in [place], [place], he has a supportive son. reports [...] Morphology Scanned no significant RBC [facility] morph noted LAB Smudge Cells Present (A) None Seen [facility] WBC Comment DIFF PERFORMED WITH ALBUMIN [facility]NA SMEAR LAB Specimen Blood - Venous blood specimen (specimen) Performing Organization Address City/[facility]/ZIP [facility] P di Number [facility] [address] [place] [address] * Manual Differential (02/22/2021 7:19 AM CDT) [...] Comment DIFF PERFORMED WITH ALBUMIN [facility] SMEAR LAB Specimen Blood - Venous blood specimen (specimen) Performing Organization Address City/[facility]/ZIP [facility] P di Number [facility] [address] [place] [address] * Ammonia (02/22/2021 7:19 AM CDT) Ammonia 83 (H) 11 - 32 umol/L [facility] Specimen Blood - Venous blood specimen (specimen) Performing Organization Address City/[facility] P di Number [facility] [address] [place] [address] * CBC with Auto Differential (02/22/2021 7:19 [...] (LL)Comment: This result 150 - 400 K/uL [facility] has been called to IAN RUCKER [...] blood specimen (specimen) Performing Organization Address [facility] P di Number [facility] [address] [place] [address] * Comprehensive Metabolic Panel (02/22/2021 7:19 AM CDT) Sodium 142 136 - 145 mmol/L [facility] [...] SERVICES LAB Estimated GFR 115 >=60 mL/min/1.73m2 [facility] L Comment: LAB GFR <60: CHRONIC KIDNEY DISEASE,if found over a 3 month period. GFR <15: KIDNEY FAILURE Globulin 3.5 g/dL [facility] A/G Ratio 0.5 (L) 1.0 - 1.8 [facility] Specimen Blood - Venous blood specimen (specimen) Performing Organization Address City/[facility] Code P di Number [facility] [address] [place] [address] * Ammonia (02/21/2021 8:14 AM CDT) Ammonia 106 (H) 11 - 32 umol/L [facility] Specimen Blood - Venous blood specimen (specimen) Performing Organization Address City/[facility] P di Number [facility] [address] [place] [address] [phone] * CBC with Auto Differential (02/21/2021 8:14 AM CDT) WBC 2.66 (L) 4.30 - 10.80 K/uL [facility] RBC 2.79 (L) 4.70 - 6.10 M/uL [facility] Hemoglobin 10.9 (L) 14.0 - 18.0 g/dL [facility] Hematocrit 31.7 (L) 42.0 - 52.0 % [facility] MCV 114 (H) 81 - 99 fL [facility] MCH 39.1 (H) 26.0 - 34.0 pg [facility] MCHC 34.4 31.0 - 37.0 g/dL [facility] MPV 11.6 9.4 - 12.4 fL [facility] Platelets 30 (LL)Comment: This result 150 - 400 K/uL [facility] has been called to SON IRIZARRY RN 6TH by Génesis Morrison on 02 21 2021 at 0841, and has been read back. RDW 15.9 (H) 11.5 - 14.5 % [facility] RDW-SD 66.6 (H) 35.1 - 43.9 fL [facility] Nucleated RBC, 0.00 K/uL [facility] Absolute LAB Nucleated RBC 0.0 0.0 /100 WBC [facility] Neutrophils 51.8 13.0 - 69.0 % [facility] Lymphocytes 27.1 24.0 - 44.0 % [facility] Monocytes 14.7 (H) 1.0 - 10.0 % [facility] Eosinophils 4.5 0.0 - 6.0 % [facility] Basophils 1.1 0.0 - 2.0 % [facility] Immature 0.8 (H) 0.0 - 0.5 % [facility] Granulocytes LAB Neutrophils, 1.38 (L) 1.55 - 7.13 K/uL [facility] Absolute LAB Lymphocytes, 0.72 (L) 1.00 - 4.80 K/uL [facility] Absolute LAB Monocytes, 0.39 (L) 0.40 - 1.08 K/uL [facility] Absolute LAB Eosinophils, 0.12 0.00 - 0.65 K/uL [facility] Absolute LAB Basophils, 0.03 0.00 - 0.11 K/uL [facility] Absolute LAB Immature 0.02 0.00 - 0.10 K/uL [facility] Granulocytes, LAB Absolute Specimen Blood - Venous blood specimen (specimen) Performing Organization Address City/State/ZIP Code P di Number [facility] [address] [place] [address] [phone] * Comprehensive Metabolic Panel (02/21/2021 8:14 AM CDT) Sodium 144 136 - 145 mmol/L [facility] Potassium 4.0 3.5 - 5.1 mmol/L [facility] Chloride 113 (H) 98 - 107 mmol/L [facility] CO2 25 21 - 32 mmol/L [facility] Anion Gap 6 5 - 15 mmol/L [facility] BUN 11 8 - 26 mg/dL [facility] Creatinine 0.70 0.55 - 1.30 mg/dL [facility] Glucose 112 70 - 115 mg/dL [facility] Calcium 7.9 (L) 8.5 - 10.0 mg/dL [facility] Total Protein 5.7 (L) 6.0 - 8.3 g/dL [facility] Albumin 2.1 (L) 3.4 - 5.0 g/dL [facility] Bilirubin, 1.6 (H) 0.2 - 1.0 mg/dL [facility] Total LAB Alkaline 78 45 - 117 U/L [facility] Phosphatase LAB ALT 20 16 - 61 U/L [facility] AST 27 15 - 37 U/L [facility] Estimated GFR 109 >=60 mL/min/1.73m2 [facility] Comment: LAB GFR <60: CHRONIC KIDNEY DISEASE,if found over a 3 month period. GFR <15: KIDNEY FAILURE Globulin 3.6 g/dL [facility] A/G Ratio 0.6 (L) 1.0 - 1.8 [facility] Specimen Blood - Venous blood specimen (specimen) Performing Organization Address City/State/ZIP Code P di Number [facility] [address] [address] * Urinalysis with microscopic Urine, Clean Catch (02/20/2021 9:07 PM CDT) Color, UA Light Yellow Light Yellow, [facility] Yellow, Colorless LAB Clarity, UA Clear Clear [facility] Glucose, UA Negative Negative [facility] Bilirubin, UA Negative Negative [facility] Ketones, UA Negative Negative [facility] Specific 1.006 1.005 - 1.030 [facility] [place], Urine LAB Blood, UA Negative Negative [facility] [...] catch procedure (specimen) Performing Organization Address [facility]/ZIP Code P di Number [facility] [address] [place] [address] * POCT Troponin I (02/20/2021 8:23 PM CDT) POC Troponin I <0.02 <0.08 ng/mL [facility] Comment: LAB A solitary troponin value may be misleading. Two or more values may be needed to determine clinical significance. Specimen Blood - Blood specimen (specimen) Performing Organization Address [facility] P di Number [facility] [address] [place] [address] * T4, Free (02/20/2021 8:19 PM CDT) Free T4 1.23 0.70 - 1.48 ng/dL [facility] Specimen Blood - Venous blood specimen (specimen) Performing Organization Address [facility] P di Number [facility] [address] [place] [address] [phone] * Light Green Top (02/20/2021 8:19 PM CDT) Extra Tube Yes [facility] Specimen Blood - Venous blood specimen (specimen) Performing Organization Address [facility] P di Number [facility] [address] [place] [address] * TSH w/Reflex Free T4 (02/20/2021 8:19 PM CDT) TSH 0.243 (L) 0.350 - 4.900 uIU/mL [facility] LAB Specimen Blood - Venous blood specimen (specimen) Performing Organization Address [facility] P di Number [facility] [address] [place] [address] * Ammonia (02/20/2021 8:19 PM CDT) Ammonia 116 (H) 11 - 32 umol/L [facility] Specimen Blood - Venous blood specimen (specimen) Performing Organization Address City/[facility]/ZIP Code P di Number [facility] [address] [address] * Troponin I (02/20/2021 8:19 PM CDT) High 9.2 <78.5 ng/L [facility] Sensitivity Comment: LAB Troponin High-Sensitivity Troponin I assay effective May 04, 2020. Please be aware of the change in reporting units & reference ranges. Biotin concentrations >300 ng/mL may lead to falsely depressed patient results. Specimen Blood - Venous blood specimen (specimen) Performing Organization Address City/[facility] P di Number [facility] [address] [address] * Comprehensive Metabolic Panel (02/20/2021 8:19 PM CDT) Sodium 142 136 - 145 mmol/L [facility] Potassium 4.0 3.5 - 5.1 mmol/L [facility] Chloride 110 (H) 98 - 107 mmol/L [facility] CO2 25 21 - 32 mmol/L [facility] Anion Gap 7 5 - 15 mmol/L [facility] BUN 15 8 - 26 mg/dL [facility] Creatinine 0.78 0.55 - 1.30 mg/dL [facility] Glucose 122 (H) 70 - 115 mg/dL [facility] Calcium 8.1 (L) 8.5 - 10.0 mg/dL [facility] Total Protein 6.6 6.0 - 8.3 g/dL [facility] Albumin 2.2 (L) 3.4 - 5.0 g/dL [facility] Bilirubin, 1.1 (H) 0.2 - 1.0 mg/dL [facility] Total LAB Alkaline 91 45 - 117 U/L [facility] Phosphatase LAB ALT 22 16 - 61 U/L [facility] AST 32 15 - 37 U/L [facility] Estimated GFR 97 >=60 mL/min/1.73m2 [facility] Comment: LAB GFR <60: CHRONIC KIDNEY DISEASE,if found over a 3 month period. GFR <15: KIDNEY FAILURE Globulin 4.4 g/dL [facility] A/G Ratio 0.5 (L) 1.0 - 1.8 [facility] Specimen Blood - Venous blood specimen (specimen) Performing Organization Address City/State/ZIP Code P di Number [facility] [address] [address] [phone] * CBC with Auto Differential (02/20/2021 8:19 PM CDT) WBC 3.32 (L) 4.30 - 10.80 K/uL [facility] RBC 2.97 (L) 4.70 - 6.10 M/uL [facility] Hemoglobin 11.9 (L) 14.0 - 18.0 g/dL [facility] Hematocrit 34.0 (L) 42.0 - 52.0 % [facility] MCV 112 (H) 81 - 99 fL [facility] MCH 40.1 (H) 26.0 - 34.0 pg [facility] MCHC 35.0 31.0 - 37.0 g/dL [facility] MPV 12.0 9.4 - 12.4 fL [facility] Platelets 37 (LL)Comment: This result 150 - 400 K/uL [facility] has been called to NAKUL BARBOSA RN by Garrett Hudson on 02 20 2021 at 2044, and has been read back. RDW 15.7 (H) 11.5 - 14.5 % [facility] RDW-SD 66.2 (H) 35.1 - 43.9 fL [facility] Nucleated RBC, 0.00 0.00 K/uL [facility] Absolute LAB Nucleated RBC 0.0 0.0 /100 WBC [facility] Neutrophils 55.1 36.0 - 66.0 % [facility] Lymphocytes 23.5 (L) 24.0 - 44.0 % [facility] Monocytes 16.6 (H) 1.0 - 10.0 % [facility] Eosinophils 3.6 0.0 - 6.0 % [facility] Basophils 0.9 0.0 - 2.0 % [facility] Immature 0.3 0.0 - 0.5 % [facility] Granulocytes LAB Neutrophils, 1.83 1.55 - 7.13 K/uL [facility] Absolute LAB Lymphocytes, 0.78 (L) 1.00 - 4.80 K/uL [facility] Absolute LAB Monocytes, 0.55 0.40 - 1.08 K/uL [facility] Absolute LAB Eosinophils, 0.12 0.00 - 0.65 K/uL [facility] Absolute LAB Basophils, 0.03 0.00 - 0.11 K/uL [facility] Absolute LAB Immature 0.01 0.00 - 0.10 K/uL [facility] Granulocytes, LAB Absolute Specimen Blood - Venous blood specimen (specimen) Performing Organization Address City/State/ZIP Code P di Number [facility] [address] [place] [phone] * CT HEAD WO CONTRAST (02/20/2021 8:12 PM CDT) Modality Anatomical Region Laterality Computed Tomography Head and Neck Specimen Narrative ARDENT INTERFACE - 02/20/2021 8:45 PM CDT +++ REPORT GENERATED IN opendorse +++ EXAM: CT Head without IV contrast [...] MD - 02/20/2021 +++ REPORT GENERATED IN opendorse +++ EXAM: CT Head without IV contrast [...] Organization Address City/State/ZIP Code P di Number NVDENT INTERFACE [address] [place], [place] [address] * SARS CoV-2, Influenza [...] characteristics and have been verified by [facility]. This test is only authorized for the duration of the declaration under section 564 (b)(1) of the Act, 21 U.S.C. 360bbb-3 (b)(1). Specimen Swab - Nasopharyngeal swab (specimen) Performing Organization Address City/State/ZIP Code P di Number [facility] [address] [address] documented in this encounter Visit Diagnoses Diagnosis [...] and active vomiting- use IV route If BANK RECONCILIATOR O and unable to use IV access- use IL route For all others- use PO route [...] and active vomiting- use IV route If BANK RECONCILIATOR O and unable to use IV access- use IL route For all others- use PO route documented in this encounter Additional Health Concerns Onset Date Resolved Time Infection Last Indicated 02/20/2021 02/20/2021 8:51 PM CDT COVID-19 (suspected) 02/20/2021 documented as of this encounter Care Teams Start Date End Date Synchronous Motor Assembler Relationship Specialty 02/20/21 Troy Ramos MD PCP - [address] [address] documented as of this encounter
--- OUTSIDE RECORDS SUMMARY | 2021-04-18 09:06 | XMS REPORT | Encounter Summary ---
Author Author [facility] Organization [facility] Address Unknown Phone Unavailable Care Team Providers Care Corporate Communications Specialist Name Role Phone Troy Ramos MD PCP Reason for Visit * Reason Onset Date Comments Prior Authorization 03/23/2021 Xifaxan Encounter Details Care Team Description Date Type Department Roque Klein MD [address] [facility] [id number] [place] [address] Prior Authorization (Xifaxan) 03/23/2021 Telephone Transplant: Main Ca mpus, [facility] [address] [facility] [address], [address] [place] [address] Social History Date Tobacco Use [...] Date End Date Prescription Sig Dispensed Refills 03/23/2021 rifAXIMin (XIFAXAN) 550 Take one 60 tablet 11 mg tablet tablet by mouth every 12 hours. documented in this encounter Miscellaneous Notes * Telephone Encounter - Ofelia Hemphill, RN - 03/23/2021 8:53 AM COMPLIANCE ADVISOR PA submitted on CoverMyMeds for Xifaxan. Gastelum: [id number] Approved through 04/30/2022. Ofelia Hemphill RN, BSN LIANCE ADVISOR documented in this encounter Plan of Treatment Not on filedocumented as of this encounter Visit Diagnoses Not on filedocumented in this encounter Discontinued Medications Start Date End Date Medication Sig Discontinue Reason 05/29/2020 03/23/2021 rifAXIMin (XIFAXAN) 550 Take one Reorder mg tablet tablet by mouth every 12 hours. documented as of this encounter Additional Health Concerns Noted Time Assessment 02/17/2021 1:24 PM CDT A fall risk assessment has been complet ed for the patient 02/17/2021 1:24 PM CDT PHQ-2 Depression Total Score: 0 documented as of this encounter Care Teams Start Date End Date Corporate Communications Specialist Relationship Specialty 08/15/19 Troy Ramos MD [place] [address] documented as of this encounter
--- OUTSIDE RECORDS SUMMARY | 2021-04-18 09:06 | XMS REPORT | Encounter Summary ---
Author Author [facility] Organization [facility] Address Unknown Phone Unavailable Care Team Providers Care Sink Cutter Name Role Phone SelfTroy MD PCP Encounter Details Care Team Description Date Type Department Marie Linder 03/23/2021 Documentation [facility] [address] [place] [address] Social History Date Tobacco Use Types Packs/Day [...] impairment: No documented as of this encounter Progress Notes * Marie Linder - 03/23/2021 3:08 PM DIRECTOR OF PRODUCT DESIGN The Prior Authorization for Xifaxan was approved for Nasir Squires until 04/30 Patient is currently enrolled in a PAP, unable to process thru insurance at this time [facility] Patient Advocate [phone] CTOR OF PRODUCT DESIGN documented in this encounter Plan of Treatment Not on filedocumented as of this encounter Visit Diagnoses Not on filedocumented in this encounter Additional Health Concerns Noted Time Assessment 02/17/2021 1:24 PM CDT A fall risk assessment has been complet ed for the patient 02/17/2021 1:24 PM CDT PHQ-2 Depression Total Score: 0 documented as of this encounter Care Teams Start Date End Date Sink Cutter Relationship Specialty 08/15/19 Troy Ramos MD PCP - General [address] [address] documented as of this encounter
--- OUTSIDE RECORDS SUMMARY | 2021-04-18 09:06 | XMS REPORT | Encounter Summary ---
Author Author [facility] Organization [facility] Address Unknown Phone Unavailable Care Team Providers Care Assistant Quality Manager Name Role Phone Troy Ramos MD PCP Encounter Details Care Team Description Date Type Department Marie Linder 03/23/2021 Documentation [facility] [address] [place] [address] Social History Date Tobacco Use Types Packs/Day [...] Progress Notes * Marie Linder - 03/23/2021 11:39 AM APPLICATION PENETRATION TESTER The Prior Authorization for Xifaxan has been submitted for Nasir Squires via [employer] over [employer]. Will continue to follow. [facility] Patient Advocate [phone] ICATION PENETRATION TESTER documented in this encounter Plan of Treatment Not on filedocumented as of this encounter Visit Diagnoses Not on filedocumented in this encounter Additional Health Concerns Noted Time Assessment 02/17/2021 1:24 PM CDT A fall risk assessment has been complet ed for the patient 02/17/2021 1:24 PM CDT PHQ-2 Depression Total Score: 0 documented as of this encounter Care Teams Start Date End Date Assistant Quality Manager Relationship Specialty 08/15/19 Troy Ramos MD PCP - General [address] [place] [address] documented as of this encounter
--- OUTSIDE RECORDS SUMMARY | 2021-04-18 09:06 | XMS REPORT | Clinical Summary ---
Author Author [facility] Organization [facility] Address Unknown Phone Unavailable Care Team Providers Care Motor Equipment Sergeant Name Role Phone Self, Troy FIGUEREDO PCP Source Comments Some departments are not documenting in the electronic medical record. If you d o not see the information that you expected, contact Release of Information in [facility] Information Management department at [phone] for further assistan ce in locating additional records.[facility] Allergies No known active allergies Medications [...] 0 tablet mouth daily as needed. Active enzalutamide (XTANDI) 40 Take 160 mg 0 mg capsuleIndications: by mouth BROWN (nonalcoholic daily. Take steatohepatitis) at the same time every day. Active pantoprazole DR Take one 90 tablet 3 (PROTONIX) 40 mg tablet tablet by 1 mouth daily. Active liraglutide (VICTOZA Victoza 3-John 0 2-JOHN) 0.6 [...] vitamin D deficiency (high dose therapy) Active rifAXIMin (XIFAXAN) 550 Take one 60 tablet 11 mg tablet tablet by 1 mouth every 12 hours. 03/23/2021 Discontinued (Reorder) rifAXIMin (XIFAXAN) 550 Take one 60 tablet 11 mg tablet tablet by 1 mouth every 12 hours. Active Problems Problem Noted Date At risk for decreased bone density 08/17/2020 Secondary esophageal varices without bleeding 2020 BROWN (nonalcoholic steatohepatitis) 03/05/2020 Dietary counseling 03/05/2020 Impaired glucose tolerance 03/05/2020 Hepatic encephalopathy 03/05/2020 Prostate cancer 05/05/2017 Other cirrhosis of liver 10/28/2016 Portal hypertension 10/28/2016 Encounters Care Team Description Date Type Specialty Null-Radha Lazo LPN 04/01/2021 Documentation Transplant Surgery Marie Linder 03/23/2021 Documentation Pharmacy Marie Linder 03/23/2021 Documentation Pharmacy Roque Klein MD Prior Authorization (Xifaxan) 03/23/2021 Telephone Transplant Surgery Roque Klein MD Scheduling 02/25/2021 Telephone Hepatology Bekah Arthur, CABLE SUPERVISOR-WIRE CUTTER Other cirrhosis of liver (HCC) (Primary Dx); BROWN (nonalcoholic steatohepatitis); Dietary counseling 02/18/2021 Office Visit Hepatology Telehealth Roque Klein MD 02/18/2021 Orders Only Hepatology Bekah Arthur APRN-WIRE CUTTER 02/17/2021 Documentation Hepatology 02/17/2021 Travel Erick Alberto [...] Klein MD Critical Result 01/29/2021 Telephone Hepatology from Last 3 Months Immunizations Name [...] 11/20/1951 VACCINE (1 of 2 - PPSV23) DTAP/TDAP VACCINES (1 - 11/20/1961 Tdap) HEPATITIS C SCREENING 11/20/1961 PHYSICAL (COMPREHENSIVE) 11/20/1961 EXAM SHINGLES RECOMBINANT 11/20/1993 VACCINE (1 of 2) INFLUENZA VACCINE 11/29/2020 COVID-19 VACCINE (3 - [...] Code P di Number LABDE INTERFACE * (ABNORMAL) 25-OH VITAMIN D (D2 + D3) (01/29/2021 2:27 PM CDT) Vitamin 20.9 (L) 30.0 - 100.0 LABDE INTERFACE D(25-OH)Total Specimen Blood Narrative LABDE INTERFACE - 02/03/2021 12:00 AM CDT Outside Lab Verified by Kyle Krueger on 02/03/2021. Performing Organization Address City/State/ZIP Code P di Number LABDE INTERFACE * (ABNORMAL) PROTIME INR (PT) (01/29/2021 2:27 PM CDT) Protime 18.8 (H) 12.2 - 14.7 SEC LABDE INTERFAC E INR 1.5 (H) 0.8 - 1.4 LABDE INTERFACE Specimen Blood Narrative LABDE INTERFACE - 02/04/2021 12:00 AM CDT Outside Lab Verified by Kyle Krueger on 02/04/2021. Performing Organization Address City/State/ZIP Code P di Number LABDE INTERFACE * (ABNORMAL) CBC AND DIFF (01/29/2021 2:27 PM CDT) [...] Code P di Number LABDE INTERFACE * (ABNORMAL) LIPID PROFILE (01/29/2021 2:27 PM CDT) Triglycerides [...] Code P di Number LABDE INTERFACE * (ABNORMAL) COMPREHENSIVE METABOLIC PANEL (01/29/2021 2:27 PM CDT) [...] Organization Address City/State/ZIP Code P di Number DESIREE RAD from Last 3 Months Insurance Type Payer Benefit Subscriber ID Effective Phone Address Plan / Dates Group Medicare MEDICARE MEDICARE [id number] 2008-P [phone] [address] [place] [address] PPO MEDICO INS[employer] [place] MED[employer] [id number] 2013- [address] INSURANCE Present [address] [place] [phone] Advance Directives Patient Design Studio Consultant Explanation Type Date Recorded Advance Directive/DPOA Care Teams Start Date End Date Motor Equipment Sergeant Relationship Specialty 08/15/19 Self, MD Troy PCP - General Family [address] [place] [address] [place] [address]
--- OUTSIDE RECORDS SUMMARY | 2021-04-18 09:06 | XMS REPORT | Encounter Summary ---
Author Author [facility] Organization [facility] Address Unknown Phone Unavailable Care Team Providers Care Transit Survey Worker Name Role Phone Self, Troy FIGUEREDO PCP Encounter Details Care Team Description Date Type Department Radha Colunga LPN 04/01/2021 Documentation Transplant: Main Ca mpus, [facility] [address], [address] [place] [address] Social History Date Tobacco Use [...] as of this encounter Progress Notes * Radha Colunga LPN - 04/01/2021 7:51 AM RAIL CAR PAINTER/SANDBLASTER [place] approval through [employer] scanned into chart on 03/22/2021. Radha Colunga LPN CAR PAINTER/SANDBLASTER documented in this encounter Plan of Treatment Not on filedocumented as of this encounter Visit Diagnoses Not on filedocumented in this encounter Additional Health Concerns Noted Time Assessment 02/17/2021 1:24 PM CDT A fall risk assessment has been complet ed for the patient 02/17/2021 1:24 PM CDT PHQ-2 Depression Total Score: 0 documented as of this encounter Care Teams Start Date End Date Transit Survey Worker Relationship Specialty 08/15/19 Troy Ramos MD PCP - General [address] [address] documented as of this encounter
--- NOTE | 2021-04-18 09:40 | ED Upper Extremity ---
General Chief Complaint: Upper Extremity Stated Complaint: RT SHOULDER PAIN Nursing Triage Note: PT AMBULATE TO ROOM FS01 WITH C/O RIGHT ARM/SHOULDER PAIN AND SWELLING. STATES THERE WAS NO SWELLING ON MONDAY. PT HAS KNOW FX TO NECK AND RIGHT HUMERUS AND IS IN PT. PT STATES ORTHO PROVIDER RECENTLY HAD PT START USING ADDITIONAL WEIGHT DURING PT. Source: patient, spouse History of Present Illness Date Seen by Provider: Apr 18, 2021 Time Seen by Provider: 09:03 Initial Comments 75-year-old male presenting with increased swelling and bruising to the right upper extremity. He had just been released to do increased range of motion, more exercising, using weights with right upper extremity on . His reports that she had not noted any bruising on but he had been dressing himself until today. She noted today he had significant amount of bruising to his right upper extremity along with the swelling. She had looked on the Internet and was concerned that he had a blood clot in his arm. He has previously had an ultrasound a few weeks ago because of swelling to his right arm that was negative for blood clots but now he has the bruising since he started doing the increased exercising. Along with the increased blood in the tissue he does have heat and warmth to the area of bruising. He denies any numbness or tingling in his fingers. He still has normal range of motion of his fingers and hand. Method of Injury: unknown Allergies and Home Medications Allergies Coded Allergies: metformin (Verified Allergy, Unknown, 08/17/19) lactic acidosis 08/17/19 Patient Home Medication List Home Medication List Reviewed: Yes Atorvastatin Calcium (Atorvastatin Calcium) 10 Mg Tablet, 10 MG PO DAILY, (Reported) Entered as Reported by: PRASHANTH TURNER on 08/17/19 0959 Enzalutamide (Xtandi) 40 Mg Capsule, 160 MG PO DAILY, (Reported) Entered as Reported by: BLADIMIR FERNANDEZ on 10/12/20 1330 Ergocalciferol (Vitamin D2) (Vitamin D2) 1,250 Mcg Capsule, 1,250 MCG PO TWICE WEEKLY, (Reported) Entered as Reported by: BLADIMIR FERNANDEZ on 10/12/20 1330 Furosemide (Furosemide) 40 Mg Tablet, 40 MG PO DAILY PRN for FLUID RETENTION, (Reported) Entered as Reported by: PRASHANTH TURNER on 08/17/19 0959 Levothyroxine Sodium (Levothyroxine Sodium) 125 Mcg Tablet, 125 MCG PO DAILY, (Reported) Entered as Reported by: MONALISA TABOR on 08/23/18 1144 Liraglutide (Victoza 2-Steve) 0.6 Mg/0.1 Ml Pen.injctr, 0.6 MG SQ DAILY, (Reporte d) Entered as Reported by: BLADIMIR FERNANDEZ on 10/12/20 1325 Ondansetron (Ondansetron Odt) 4 Mg Tab.rapdis, 4 MG PO Q6H PRN for NAUSEA/VOMITING Prescribed by: KRISTINA TIRADOYART on 03/07/21 0713 Oxycodone HCl (Oxycodone HCl) 5 Mg Tablet, 5 MG PO Q8H PRN for PAIN-SEVERE (8- 10) Prescribed by: KRISTINA WEIRRT on 03/07/21 0714 Pantoprazole Sodium (Pantoprazole Sodium) 40 Mg Tablet.dr, 40 MG PO DAILY Prescribed by: MALDONADO SAUL on 08/20/19 1120 Polyethylene Glycol 3350 (Polyethylene Glycol 3350) 17 Gm Powd.pack, 17 GM PO Q4HR Prescribed by: MALDONADO SAUL on 08/20/19 1120 Rifaximin (Xifaxan) 550 Mg Tablet, 550 TAB PO BID, (Reported) Entered as Reported by: HESHAM FARRELL on 08/17/19 1448 Spironolactone (Spironolactone) 25 Mg Tablet, 25 MG PO DAILY, (Reported) Entered as Reported by: PRASHANTH TURNER on 08/17/19 0959 Vit C/E/Zn/Coppr/Lutein/Zeaxan (Preservision Areds 2 Softgel) 1 Each Capsule, 2 EACH PO DAILY, (Reported) Entered as Reported by: HESHAM FARRELL on 08/17/19 1448 Review of Systems Constitutional: No chills, No fever EENTM: no symptoms reported Respiratory: no symptoms reported Cardiovascular: no symptoms reported Gastrointestinal: no symptoms reported Genitourinary: no symptoms reported Musculoskeletal: see HPI, other (aching in RUE since starting increased physical therapy with weights since 04/15) Skin: change in color (ecchymosis to RUE medial and posterior aspect of upper arm down to the elbow. ) Psychiatric/Neurological: Denies Numbness, Denies Paresthesia Past Lxtpltf-Gatsrx-Hrhsxe Hx Patient Social History Tobacco Use?: No Smoking Status: Never a Smoker Smokeless Tobacco Frequency: Never a User Use of E-Cig and/or Vaping dev: No Use of E-Cig and/or Vaping Mingo: Never a User Substance use?: No Alcohol Use?: No Pt feels they are or have been: No Immunizations Up To Date First/Initial COVID19 Vaccinat: 06/2020 Second COVID19 Vaccination Trung: 07/2020 COVID19 Vaccine Water Meter Mechanic: MODERNA Seasonal Allergies Seasonal Allergies: No Past Medical History Surgery/Hospitalization HX: Stage 4 Cirrhosis, Prostate Cancer, Hx Hepatic Encephalopathy, Right humerus fracture 07 Mar 2021 Surgeries: Yes Bowel Surgery, Orthopedic, Tonsillectomy Respiratory: No Cardiac: No High Cholesterol Neurological: No Headaches /Migraines Genitourinary: Yes Prostate Problems Gastrointestinal: No Gastrointestinal Bleed, Cirrhosis Musculoskeletal: No Endocrine: Yes Diabetes, Non-Insulin dep HEENT: Yes (cataracts removed, ) Hearing Impairment: Denies, Bilateral Hearing Aide Cancer: Yes Prostate Did You Recieve Any Treatments: Yes What Type of Treatment Did You: Other Psychosocial: No Integumentary: No Blood Disorders: Yes (LOW PLATELETS) Physical Exam Vital Signs Vital Signs - First Documented 04/18/21 04/18/21 09:07 09:59 Temp 35.5 Pulse 79 Resp 17 B/P (MAP) 112/67 (82) Pulse Ox 99 O2 Delivery Room Air Capillary Refill : Less Than 3 Seconds Height, Weight, BMI Height: 5'8.00" Weight: 193lbs. 0.0oz. 87.625498tv; 30.00 BMI Method: General Appearance: no apparent distress Cardiovascular: normal peripheral pulses, regular rate, rhythm Shoulder: limited ROM (right shoulder but pt reports it is the same as what he has had at therapy and improved since initial injury) Elbow/Forearm: Right, ecchymosis (upper extremity from shoulder to elbow along medial and posterior aspect) Hand: normal ROM, Right, swelling Neurologic/Tendon: normal sensation, normal motor functions Neurologic/Psychiatric: no motor/sensory deficits, alert, oriented x 3 Skin: warm/dry, ecchymosis (RUE medial and posterior aspect of arm from sh oulder to elbow) Progress/Results/Core Measures Results/Orders Vital Signs/I&O 04/18/21 04/18/21 09:07 09:59 Temp 35.5 35.5 Pulse 79 81 Resp 17 17 B/P (MAP) 112/67 (82) 121/64 Pulse Ox 99 O2 Delivery Room Air Room Air Blood Pressure Mean: 82 Progress Progress Note : Progress Note He still has good pulses radial bilaterally. There is swelling present and he has bruising to the medial and posterior aspect of his right upper extremity from the shoulder down to the elbow. He still has the same limited ROM he has been having with physical therapy. Advised that a D-dimer would not be helpful since he has bruising of the skin that may be positive or negative but it would not rule out a blood clot. Ordered an outpatient ultrasound to evaluate the bruising and swelling to his RUE. Departure Impression Primary Impression: Traumatic ecchymosis of multiple sites of right upper arm Qualified Codes: S40.021A - Contusion of right upper arm, initial encounter Additional Impression: Edema of right upper extremity Disposition: HOME, SELF-CARE Condition: Stable Departure-Patient Inst. Decision time for Depature: 09:42 Referrals: JOHNNY GOODSON MAXWELL MD (PCP/Family) Primary Care Physician Patient Instructions: Swelling Add. Discharge Instructions: Use ice 20-30 minutes every 2-3 hours to help with bruising and swelling of right upper extremity for today. Try to elevate right upper extremity above heart to help with swelling and bruising. Avoid exercising with weights until you have ultrasound done to see what the bruising is coming from. To schedule the Stat ultrasound of Right upper extremity, call [phone] between 7 and 730 am Monday morning to schedule the ultrasound. This would be done in [place] at [address]. You could also check with [facility] as they should have an csr technician that comes in at 8 or 830 am on Monday that could do the ultrasound here in [place]. You would have to call the [facility] number [phone] and let them know you had an order to get a stat ultrasound done and see if they could get you in with Michelle, the csr technician, to have that done first thing Monday morning. All discharge instructions reviewed with patient and/or family. Voiced understanding. KRISTINA LANE MD Apr 18, 2021 09:40
[2021-04-18 09:59] VITALS: BP 121/64
== END 2021-04-18 09:59 | disposition home or self-care (01) ==
LOC: EDUNIT# 09:01 → ER FS 09:02
DX: S40.021A Contusion of right upper arm, initial encounter (principal); R60.9 Edema, unspecified; E78.00 Pure hypercholesterolemia, unspecified; E11.9 Type 2 diabetes mellitus without complications; Z79.899 Other long term (current) drug therapy; X50.0XXA Overexertion from strenuous movement or load, initial encounter; Y93.B9 Activity, other involving muscle strengthening exercises
CPT/HCPCS: 99281

== ENCOUNTER → 2021-04-19 | Outpatient (CLI) | payer MEDICARE, OTHER ==
--- NOTE | 2021-04-19 12:37 | Diagnostic Imaging Report ---
INDICATION: Followup fracture of the right humeral head. COMPARISON: 04/15/2021 FINDINGS: Multiple radiographic views of the right shoulder were obtained and again show nonacute comminuted fracture of the right humeral head. There is moderate, yet stable displacement of fracture fragments. Note is also made of inferior subluxation of the humeral head in respect to the glenoid. Soft tissue calcifications are also present and are favored to be on the basis of early bridging callus formation. No unexpected radiopaque foreign bodies are seen. Included portions of the right hemithorax are clear. IMPRESSION:. Stable appearing nonacute fracture of the proximal right humerus as described above. Dictated by: Dictated on workstation # [id number]
== END ==
LOC: RAD FS 11:41
PROVIDERS: ATTEND Nurse Practitioner
DX: S42.221D 2-part displaced fracture of surgical neck of right humerus, subsequent encounter for fracture with routine healing (principal); X58.XXXD Exposure to other specified factors, subsequent encounter
CPT/HCPCS: 73030